=== PATIENT | female | born 1945 | race Caucasian/White ===

== ENCOUNTER 2024-05-24 01:43 | Inpatient (IN) | payer MEDICARE, OTHER, SELFPAY ==
[2024-05-23 19:57] VITALS: BP 202/120
[2024-05-23 20:36] LABS: % Basophils 0.3 % (0-2); % Eosinophils 0.3 % (0-6); % Immature Granulocytes 0.4 % (0-0.5); % Lymphocytes 15.3 % (20.5-51.1); % Monocytes 7.8 % (1.7-9.3); % Neutrophils 75.9 % (42.2-75.2); Absolute Immature Granulocytes 0.1 10^3/uL (0-0.05); Absolute Lymphocytes 1.8 10^3/uL (1.2-3.4); Absolute Monocytes 0.9 10^3/uL (0.1-0.6); Absolute Neutrophils 8.8 10^3/uL (1.4-6.5); Hematocrit 43.5 % (37.0-47.0); Hemoglobin 15.1 g/dL (12.0-16.0); Mean Corp Hgb Conc. 34.7 g/dL (33.0-37.0); Mean Corpuscular Hgb 28.4 pg (27.0-31.0); Mean Corpuscular Volume 81.8 fL (81.0-99.0); Mean Platelet Volume 11.2 fL (7.4-10.4); Nucleated Red Blood Cells % 0 %; Platelet Count 287 10^3/uL (130-400); Red Blood Cell Count 5.32 10^6/uL (4.20-5.40); Red Cell Dist. Width 13.5 % (11.5-14.5); White Blood Cell Count 11.5 10^3/uL (4.8-10.8)
[2024-05-23 20:56] LABS: ALT (SGPT) 18 U/L (0-35); AST (SGOT) 26 U/L (14-36); Alkaline Phosphatase 73 U/L (38-126); Blood Urea Nitrogen 9 mg/dl (7-17); Calcium 10.2 mg/dl (8.4-10.2); Carbon Dioxide 24 mmol/L (22-30); Chloride 102 mmol/L (98-107); Glucose 128 mg/dl (70-99); Potassium 4.1 mmol/L (3.5-5.1); Sodium 138 mmol/L (135-145); Total Protein 8.1 g/dl (6.3-8.2); eGFR > 60.00
[2024-05-23 21:09] VITALS: BP 180/86
[2024-05-23 22:00] VITALS: BP 174/74
--- NOTE | 2024-05-23 22:32 | ED.GENMED ---
History of Present Illness
General
Chief Complaint: Extremity Pain (non-traumatic)
Source: patient and previous hospital records (ED visit January 2022 with similar sore throat complaint, rapid strep was positive. Also noted to have left lower extremity extensive DVT. Started on Xarelto as well as amoxicillin)
Exam Limitations: none
Time Seen by Provider: 05/23/24 22:01
Nursing documentation reviewed up to this point in time: agreed with except (Patient denies pain)
History of Present Illness
History of Present Illness:
This is a 79-year-old woman, [id number] who resides at home, independently.
She presents with 24-hour history of right hand numbness and weakness that she first noticed yesterday evening around 10 PM when initially lying in bed. Right hand weakness has persisted throughout the day today, she admits that her hand is clumsy,
difficulty opening the refrigerator, difficulty with grasping items, right hand weakness has slightly improved throughout the day but has persisted. She notes very minimal paresthesia, but no pain.
No history of similar episodes in the past.
Since 3 AM she developed a mild sore throat and believes she may have strep throat. She has had strep throat in the past, most recently during ED visit January 2022, she presented at that time with sore throat and also had mention some swelling and
discomfort of her left lower extremity. Rapid strep was positive and ultrasound showed extensive DVT of the left lower extremity. Prior to that ED visit January 2022 she had had no prior episodes of DVT. She was placed on amoxicillin for strep
throat and was placed on Xarelto starter pack.
Since then she has been transition to Eliquis and currently on Eliquis 2.5 mg twice daily. This is her only daily medication.
She does admit to frequent strep throat as a child and sporadically throughout her adult life. No history of immunocompromise.
She denies history of hypertension but does admit that she suffers from 'whitecoat syndrome'
No history of hyperlipidemia, no history of diabetes. Lifelong non-smoker.
She also notes some mild nausea throughout the day today and had 1 episode of vomiting this afternoon. She denies hematemesis. She also admits to frequent nausea when she is feeling ill. She denies abdominal pain, no diarrhea or constipation.
Although admits to mild sore throat most noted with mild pain with swallowing, she denies neck pain, no headache, no dizziness nor lightheadedness, no chest pain or palpitations, no coughing or shortness of breath. She denies leg weakness nor
numbness nor back pain, no difficulty with ambulation.
She does admit to moderately decreased appetite today related to nausea. Has been drinking fluids only.
Past History
Past History
ED Past Medical History: Cancer (Stage I right breast cancer 2009, lumpectomy and local radiation. No history of recurrence) and Other (DVT left lower extremity January 2022.)
ED Past Surgical History: Gynecological (Right breast lumpectomy 2009. Stage I breast cancer. Local XRT.)
Social History
Tobacco: Non-smoker
Alcohol: None
Personal:
Employment: Retired
Family History
Family History: Other (Noncontributory)
Phy Exam
Physical Exam
Physical Exam:
GENERAL: Alert , in no apparent distress. 79-year-old woman appears somewhat younger than stated age, bright and alert, pleasant, appears in no acute distress.
EYE: pupils equal and reactive. anicteric. Extraocular muscles intact. Patient unable to independently blink her right eye but otherwise there is no lid lag, no facial droop. Bilateral blink appears equal.
NECK: Supple, nontender, no meningismus, no significant adenopathy. No JVD, no bruit. Nontender. Full range of motion without difficulty nor pain.
ENT: posterior pharynx is very minimally injected, there is no edema nor exudate nor ulcerations, oral mucosa is minimally dry. TM clear b/l, nares patent. Tongue is midline. Gag reflex is present and symmetric.
CARDIAC: Regular rate and rhythm. no murmur.
LUNGS: Clear breath sounds bilaterally, no acute respiratory distress, no wheezes/rales/rhonchi
ABDOMEN: Soft, nondistended, without focal tenderness, no r/g, no cvat. normoactive BS.
NEUROLOGICAL: Alert and oriented x3, cranial nerves II through XII grossly intact. Hand grasp weaker on the right with weakness and manual dexterity of the right hand. Negative drift, equal [id number]. Motor strength 5/5 bilateral lower
extremities. Good [id number]. DTR symmetric bilaterally.
SKIN: Warm and dry, normal color, skin intact. No rash.
MUSCULOSKELETAL: No C/C/E. peripheral pulses are full and equal b/l. No palpable tenderness.
PSYCH: Normal and appropriate interaction.
Scores
NIH Stroke Score
Level of Consciousness: 0 - Alert
LOC Questions: 0-Answers both correctly
LOC Commands: 0-Performs both correctly
Best Horizontal Gaze: 0-Normal
Visual Chadwick: 0=Normal, no visual loss
Facial Palsy: 0=Normal, symmetrical
Motor - Right Arm: 0=No drift 10 seconds
Motor - Left Arm: 0=No drift 10 seconds
Motor - Right Le-No drift 5 seconds
Motor - Left Le-No drift 5 seconds
Limb Ataxia: 1-Present in one limb
Sensation: 0-Normal
Best Language: 0-No aphasia
Dysarthria: 0-Normal
Extinction and Inattention: 0-No abnormality
Total Score:: 1
Thrombolytic Contraindication
Inclusion and Exclusion criteria reviewed: Yes
Reasons for NON-Tx with Thrombolytics ABSOLUTE Exclusions: Greater than 4.5 hrs from onset of sxs and Patient taking oral anticoagulant and last dose within 48 hours
IAT Contraindications: NIHSS < 6
Course
Orders/Labs/Results
Orders:
Orders
05/23/24 20:03
Electrocardiogram (*1) Urgent
Reason for Study: Hypertension, Benign
EKG- Treatment ONCE
05/23/24 20:15
CMP [Comprehensive Metabolic Panel] Urgent
Complete Blood Count/With Diff Urgent
05/23/24 22:26
CT Head W/o Iv Contrast Urgent
Comment:
Reason For Exam: right hand weakness/numbness x 24 hours
05/23/24 22:27
0.9% Sodium Chloride 1000 ml [Nss] 1,000 ml IV 200 mls/hr
Ondansetron Injectable [Zofran] 4 mg IV NOW STA
05/23/24 22:40
Troponin I Urgent
Rapid Strep Group A Urgent
MYKE Source: Throat/Pharynx
Specimen Description:
Date Specimen was Collected: 05/23/24
Time Specimen was Collected: 22:27
Abnormal Lab Results
05/23/24
20:15
WBC 11.5 H 10^3/uL
(4.8-10.8)
MPV 11.2 H fL
(7.4-10.4)
Abs Immat Gran (auto) 0.1 H 10^3/uL
(0-0.05)
Absolute Neuts (auto) 8.8 H 10^3/uL
(1.4-6.5)
Absolute Monos (auto) 0.9 H 10^3/uL
(0.1-0.6)
Neutrophils % 75.9 H %
(42.2-75.2)
Lymphocytes % 15.3 L %
(20.5-51.1)
Glucose 128 H mg/dl
(70-99)
05/23/24 20:15
05/23/24 20:15
Vital Signs
Initial and Last Documented VS:
Initial Vital Signs
Temp Pulse Resp BP Pulse Ox
98.1 F 124 24 202/120 96
05/23/24 19:57 05/23/24 19:57 05/23/24 19:57 05/23/24 19:57 05/23/24 19:57
Last Documented Vital Signs
Temp Pulse Resp BP Pulse Ox
98.1 F 103 16 174/74 97
05/23/24 19:57 05/23/24 21:09 05/23/24 21:09 05/23/24 22:00 05/23/24 22:00
MDM/Problems Addressed
Differential Diagnosis Includes:
Concern for acute focal CVA affecting the right hand. Other consideration is focal neuropathy however no history of right upper extremity injury/compression.
Less likely cervical radiculopathy, she has no neck pain, no headache.
She does complain of a mild sore throat, concern for strep pharyngitis versus viral pharyngitis. She remains afebrile.
Less likely ACS.
Patient is maintained on Eliquis however low-dose of 2.5 twice daily. She has no history of renal insufficiency, she is under 80 years of age thus technically does not meet criteria for lower dose Eliquis and should ideally be on full dose 5 mg
twice daily.
Thus far labs show mildly elevated white blood cell count of 11.5. Unremarkable chemistries.
Will check CT of the head, rapid strep.
Noted to be moderately hypertensive, improving with current systolic blood pressure 190, normal diastolic.
Clinically appears looks mildly dehydrated. Will initiate IV fluids and give Zofran for nausea.
Due to significant concern for acute CVA, concern for potential embolic phenomenon, patient is at risk for progression of symptoms and likely will require acute hospitalization.
*Radiology
Radiology exam reviewed: radiology read reviewed (CT of the head shows no evidence of acute intracranial abnormality)
*Pulse Oximetry
Patient hypoxic: no
*EKG
Interpreted by ED Provider?: Yes
Comparison EKG: no changes (Unchanged from previous January 2022 save for unifocal PVCs are new.)
Rate: tachycardiac
Rhythm: sinus and PVC's
Philpot: normal axis
Interval: normal interval
QRS Pattern: normal QRS
Ischemia: no ischemia
*Principal Examiner Interpretation
Rate: normal
Interpretation: normal
Rhythm: sinus
*Critical Care Note
Total Time (30-74mins, 75-104mins- exclusive of procedures): Not Applicable
ED Attending Note
-
Portions of this chart may have been created with voice recognition software.� Occasional wrong word or��sound alike� substitutions may have occurred due to the inherent limitations of voice recognition software.
Discharge Plan
Departure
Patient Disposition: Admit
Date of Disposition: 05/24/24
Time of Disposition: 00:09
Admit to: Telemetry
Admit to doctor: Dong
Presentation/result/management discussed w/ accepting MD/DO: Hospitalist
Condition: Fair
Discharge Problem:
acute right hand weakness r/o CVA, Acute pharyngitis, Mild nausea and vomiting
Prescriptions:
No Action
Eliquis 2.5 mg Tablet
2.5 mg PO BID
Unknown Eye Drops drops
1 drp BOTH EYES DAILYPRN PRN (Reason: contacts)
Referrals:
Nikkie Sanchez MD [Family Provider] -
Interventions
Interventions:
*Risk Screen - Suicide Last Done: 05/23/24 19:57
*General Assessment Last Done: 05/23/24 20:55
*Neglect/Abuse Screening Last Done: 05/23/24 19:57
*ED COVID-19 Vaccine History Last Done: 05/23/24 20:55
ED-Skin Assessment Last Done: 05/23/24 21:11
ED-Peripheral Vascular Assessment Last Done: 05/23/24 21:11
ED- Pulmonary Assessment Last Done: 05/23/24 21:11
ED- Neurological Assessment Last Done: 05/23/24 21:11
ED-Musculoskeletal Assessment Last Done: 05/23/24 21:11
ED- Cardiac Assessment Last Done: 05/23/24 21:11
Discharge Date and Time
Print Language: TELUGU
[2024-05-23] MEDS: ZOFRAN 4 MG IV (22:37)
[2024-05-23] MEDS: NSS 1000 IV (22:37)
[2024-05-23 23:11] LABS: Troponin I 0.013 ng/ml
[2024-05-24] VITALS (8 sets, daily range): BP systolic 102–191; BP diastolic 49–107; PULSE 64–128; BMI 19.1
--- NOTE | 2024-05-24 01:20 | HPS.HSE ---
Addendum entered and electronically signed by Jayesh Umana DO 05/24/24 02:10:
A/P:
Gastroenteritis
- N/V x1 today with persistent nausea since. Several soft BMs.
- Check stools studies if any diarrhea.
- Antiemetics / IVFs.
- Follow for new / worsening symptoms.
Original Note:
Family Physician
-
Family Physician: Nikkie Sanchez
Chief Complaint
-
R Hand Weakness / Numbness
History of Present Illness
Patient is a 79y F with PMH significant for chronic LLE DVT who presents to ED complaining of R hand pins and needles and weakness / clumsiness. Patient states that her symptoms started around 10 PM yesterday evening. She had been feeling very
well prior to this. She noted pins and needles sensation in the R hand as well as hand 'not doing what I wanted'. She did not seek medical attention at that time but went to sleep. She woke around 3 AM with nausea and had a single episode of
emesis. She had the same R hand symptoms on waking. She states that her symptoms seemed to improve somewhat throughout the day - but she continues to have significant weakness and ataxia. Patient had 3-4 episodes of soft stools throughout the
day. Non bloody. No fevers / chills. She continued to feel nauseated but had no further emesis.
With persistent R hand symptoms and nausea, patient presented to the ED this evening for evaluation.
Patient denies any headache, vision changes, RLE symptoms.
She reports a dry, scratchy throat. No pain with swallowing.
Patient denies any prior history of similar symptoms.
Medical History
Past Medical History
Past Medical History: Reports Other
Additional Past Medical History:
Chronic LLE DVT
Depression
Past Surgical History: Reports Other
Additional Past Surgical History:
Right Lumpectomy
Social History
Tobacco: Non-smoker
Alcohol: None
Drug: None
Personal:
Family History
Family History: Not pertinent
Allergies / Home Medications
Allergies reflects when Allergies were last updated in [facility].
Home Medications with original date entered in [facility]
Allergy/Medication List:
Allergies
Allergy/AdvReac Type Severity Reaction Status Date / Time
adhesive Allergy Rash Verified 05/23/24 20:00
erythromycin base Allergy Nausea Verified 05/23/24 20:00
Home Medications
Unknown Eye Drops 1 drp BOTH EYES DAILYPRN PRN contacts 05/23/24
apixaban 2.5 mg tablet (Eliquis) 2.5 mg PO BID 05/23/24
Review of Systems
-
History Source: Patient
A 12 point ROS was completed and negative except as noted: Yes
Constitutional: Denies Fever or Chills
EENT: Reports Sore Throat
Respiratory: Denies Cough or Trouble Breathing
Cardiac: Denies Chest Pain or Palpitations
Abdomen/GI: Reports Nausea, Vomiting and Diarrhea; Denies Abdominal Pain, Constipated, Bloody Stools or Black Stools
: Denies Dysuria, Frequency or Flank Pain
Musculoskeletal: Denies Joint Pain or Edema
Neurological: Reports Weakness and Numbness; Denies Dizzy or Headache
Psych: Denies Depression or Anxiety
Physical Exam
Vital Signs
Vital Signs
Temp Pulse Resp BP Pulse Ox
98.1 F 103 16 174/74 97
05/23/24 19:57 05/23/24 21:09 05/23/24 21:09 05/23/24 22:00 05/23/24 22:00
Physical Exam
General: Other (79y F in no acute distress. )
HEENT: Moist mucous membranes, PERRLA and Other (Chronic chalazions b/l upper lids.)
Respiratory: Clear; No Wheezes, Rales or Rhonchi
Cardiac: S1/S2, Regular Rhythm and Tachycardia; No Murmur
GI: Soft, Non Tender, Non Distended and Normal Bowel Sounds
Musculoskeletal: No Clubbing, No Cyanosis and No Edema
Neuro: AO x 3 and Other (R hand with weakness and ataxia. Poor [id number]. Weakness at the wrist and digits. No RLE weakness or proximal RUE weakness. No L sided weakness.)
Laboratory Results
-
05/23/24 20:15
05/23/24 20:15
Laboratory Results
Total Bilirubin 1.0 mg/dl (0.2-1.3) 05/23/24 20:15
AST 26 U/L (14-36) 05/23/24 20:15
ALT 18 U/L (0-35) 05/23/24 20:15
Alkaline Phosphatase 73 U/L (38-126) 05/23/24 20:15
Troponin I 0.013 ng/ml 05/23/24 22:40
Impression/Plan
-
A/P: Patient is a 79y F with PMH significant for chronic LLE DVT who presents to ED complaining of R hand numbness / tingling and weakness as well as N/V.
RUE Weakness / Ataxia
- Admit for further evaluation and treatment.
- Symptoms suspicious for CVA. CT head was unremarkable despite > 24 hours since symptom onset.
- Check MRI in the AM.
- Monitor for changes in Neuro status overnight.
- No A-Fib presently or by history - embolic phenomena seems unlikely.
- Will begin ASA and continue Eliquis for now (see below).
- Neuro evaluation in the AM.
- Echo, lipids, A1C, etc.
- Permissive hypertension for now and will likely require initiation of BP medications for goal of normotension prior to discharge.
Essential Hypertension
- BP 202/120 on arrival here. Patient states prior history of 'white coat hypertension' but never on any BP meds.
- Monitor BP here and will likely benefit from antihypertensive medications prior to discharge.
Chronic LLE DVT
- Initially diagnosed in 2021.
- Remains on low dose Eliquis.
- Serologic evaluation revealed Factor V Leiden trait only.
- Does not seem that CTA has been completed.
- Given extensive and now chronic LLE DVT, would recommend CTA or outpatient Vascular evaluation for possible May-Thurner Syndrome that could benefit from stenting.
DVT Prophylaxis: On Eliquis
Code Status: DNR
[2024-05-24] MEDS: LOW STRENGTH ASPIRIN 81 MG PO ×2 (03:03→09:35)
--- NOTE | 2024-05-24 04:35 | PTCARENOTE ---
05/24/2024 - PT admitted to room 414-2 from ED @02:40. PT trasferred from stretcher to bed independently. PT oreinted to room, call swift, plan of care discussed. PT AAOX3. PT able to participate in admission questions fully. Tele monitor #[id number] placed
and reading in 90's. Assessment as documented.
[2024-05-24 07:35] LABS: Hematocrit 42.4 % (37.0-47.0); Hemoglobin 14.5 g/dL (12.0-16.0); Mean Corp Hgb Conc. 34.2 g/dL (33.0-37.0); Mean Corpuscular Hgb 28.2 pg (27.0-31.0); Mean Corpuscular Volume 82.5 fL (81.0-99.0); Mean Platelet Volume 11.1 fL (7.4-10.4); Platelet Count 267 10^3/uL (130-400); Red Blood Cell Count 5.14 10^6/uL (4.20-5.40); Red Cell Dist. Width 13.5 % (11.5-14.5); White Blood Cell Count 10.6 10^3/uL (4.8-10.8)
--- NOTE | 2024-05-24 07:53 | CON.NEURO ---
Neuro Assessment/Plan
Assessment
IMPRESSIONS/RECOMMENDATIONS:
Abrupt change in right hand dexterity subsequently followed by sense of nausea and emesis
Plan
Patient was not a candidate for either thrombectomy or tenecteplase use due to timeframe out of window and symptoms less than NIH stroke scale of 6
Check MRI of brain as planned to evaluate for acute ischemic stroke which is likely
Check for vascular abnormality by means of CTA head and neck
Consideration for alternative evaluations based on above
Provide patient with usual apixaban dosing, consideration for increasing dosing to 5 mg twice daily may be given
No indication at this time for the use of antiplatelet agent
Initiate the use of atorvastatin 40 mg daily due to elevated cholesterol and LDL
Rehabilitation evaluations
Provide medical educational materials
Will continue to follow pending results. Thank you.
Consultation
Order
Date of Consultation: 05/24/24
Requesting Provider: Hospitalist
Reason for Consult: Right hand dexterity
Subjective/Objective
Subjective Data
Date of Service: May 24, 2024
Right-Handed
Patient presented to this hospital's emergency department with acute onset of right hand dysfunction. Began 24 hours prior to presentation 22:00 on 05/22/2024.
Patient now having improvement in hand function and strength (dropping objects) since onset. Upon awakening, the following morning, patient had stomach upset.
No pain although experienced stiffness in the hand. No involvement of the opposite side or other limbs.
No other known modifying factors. Episodes which were similar.
Objective Data
Vital Signs
Temp Pulse Resp BP Pulse Ox
36.9 C 100 18 163/96 94
05/24/24 02:50 05/24/24 04:27 05/24/24 02:50 05/24/24 04:27 05/24/24 04:27
Lab Results
05/24/24 07:09
Sodium 138 mmol/L (135-145) 05/23/24 20:15
Potassium 4.1 mmol/L (3.5-5.1) 05/23/24 20:15
BUN 9 mg/dl (7-17) 05/23/24 20:15
Glucose 128 mg/dl (70-99) H 05/23/24 20:15
Calcium 10.2 mg/dl (8.4-10.2) 05/23/24 20:15
Patient Allergies
adhesive Allergy (Verified 05/23/24 20:00)
Rash
erythromycin base Allergy (Verified 05/23/24 20:00)
Nausea
Review of Systems
-
History Source: Patient
All other systems: Reviewed and negative
EENT: Negative Blurry Vision, Decreased Vision or Swallowing Difficulty
Respiratory: Negative Trouble Breathing
Cardiac: Negative Chest Pain
Abdomen/GI: Nausea; Negative Incontinence of Stool
Genitourinary: Negative Incontinence
Musculoskeletal: Negative Back Pain or Neck Pain
Neuro: Negative Dizzy or Headache
Physical Exam
-
General: No Apparent Distress and Appears Stated Age
Eyes: OU Absent Papilledema, Round OU, Bel-Nor Conjunctivae and No Ptosis
HEENT: Anicteric and Moist Mucous Membranes
Neck: Full Range of Motion
Respiratory: No Dyspnea
Cardiac: No JVD
GI: Non-distended
Skin: Unremarkable
Extremities: No Clubbing, No Cyanosis and No Edema
Psych: Intact Judgement/Insight
Extended Neurological Exam
Mood & Affect: Mood Unremarkable and Affect Unremarkable
Attention Span & Concentration: Awake, Alert, Interactive and No Difficulty with 2 Step Request
Memory: Unremarkable
Tremor: Hand Tremor Absent and Head Tremor Absent
Speech: Quality Unremarkable and Quantity Unremarkable
Cranial Nerve II: Left Eye: Pupillary Reactivity Unremarkable, Pupillary Size Unremarkable and Visual Chadwick Intact
Cranial Nerve II: Right Eye: Pupillary Reactivity Unremarkable, Pupillary Size Unremarkable and Visual Chadwick Intact
Cranial Nerves III, IV, : Extraocular Movement: Extraocular Movement Full in all Directions
Cranial Nerve VII: Facial Symmetry: Normal Facial Symmetry
Cranial Nerve VIII: Hearing: Unremarkable Hearing to Normal Conversational Volume
Cranial Nerves IX, X: Palate Movement: Palate Elevation Symmetric
Cranial Nerve XI: Shoulder Shrug: Unremarkable
Cranial Nerve XII: Tongue Protusion: Midline
Muscle Strength, Overall: Full Throughout
Muscle Bulk & Tone: Bulk Unremarkable and Tone Unremarkable
Pronator Drift: Drift in Right Upper Extremity and No Drift in Lower Extremities; Negative Drift in Left Upper Extremity
Deep Tendon Reflexes: Unremarkable Throughout
Touch Sensation: Unremarkable and Double Simultaneous Stimulation Absent
Coordination: [id number] Testing Unremarkable and LEELA Satellites around Right
Babinski Sign: Absent Bilaterally
Gait & Station: Romberg Test Negative
Data Reviewed
-
CT Head: Report Reviewed
Labs: Report Reviewed
Lipid Profile: Pending
Old Records: Summarized
Medications
-
Active Medications
Generic Name Dose Route Start Last Admin
Trade Name Freq PRN Reason Stop Dose Admin
Acetaminophen 650 mg 05/24/24 03:46
Acetaminophen 325 Mg Tablet PO 06/21/24 03:45
Q4HPRN PRN
Mild Pain / Temp > 101
Apixaban 2.5 mg 05/24/24 08:00
Apixaban (Eliquis) 2.5 Mg Tablet PO 06/21/24 07:59
BID JEAN
Aspirin 81 mg 05/24/24 08:00
Aspirin 81 Mg Chewable Tablet PO 06/21/24 07:59
DAILY JEAN
Hydralazine HCl 5 mg 05/24/24 03:46
Hydralazine 20 Mg/Ml Vial IV 06/21/24 03:45
Q6HPRN PRN
SBP > 210 / DBP > 180
Ondansetron HCl 4 mg 05/24/24 03:46
Ondansetron 4 Mg/2 Ml Vial IV 06/21/24 03:45
Q6HPRN PRN
nausea and vomiting
Pantoprazole Sodium 40 mg 05/24/24 08:00
Pantoprazole Sodium 40 Mg/10 Ml Vial IV 06/21/24 07:59
DAILY JEAN
Sodium Chloride 0 flush 05/24/24 02:00
Sodium Chloride 0.9% (Flush) Syringe IV 06/21/24 01:59
PER PROTOCOL JEAN
Sodium Chloride 10 ml 05/24/24 08:00
Sodium Chloride 0.9% (Preservative Free) 10 Ml Vial IV 06/21/24 07:59
DAILY JEAN
Home Medications
�Medication �Instructions �Recorded
Unknown Eye Drops 1 drp BOTH EYES DAILYPRN PRN 05/23/24
contacts
apixaban 2.5 mg tablet (Eliquis) 2.5 mg PO BID 05/23/24
Past History
Past History
ED Past Medical History: Cancer (Stage I right breast cancer 2009, lumpectomy and local radiation) and Other (DVT left lower extremity January 2022, streptococcal throat infection)
ED Past Surgical History: Gynecological (Right breast lumpectomy 2009. Stage I breast cancer. Local XRT.)
Social History
Tobacco: Non-smoker
Alcohol: None
Personal:
Employment: Retired
Family History
Family History: Other (Reviewed and noncontributory)
[2024-05-24 08:05] LABS: Blood Urea Nitrogen 9 mg/dl (7-17); Calcium 9.9 mg/dl (8.4-10.2); Carbon Dioxide 26 mmol/L (22-30); Chloride 103 mmol/L (98-107); Estimated Creatinine Clearance 53 ml/min; Glucose 105 mg/dl (70-99); HDL Cholesterol 80 mg/dl; LDL Cholesterol, Calculated 167 mg/dl; Potassium 4.7 mmol/L (3.5-5.1); Sodium 138 mmol/L (135-145); Total Cholesterol 261 mg/dl (50-199); Triglyceride 70 mg/dl (10-149); Very Low Density Lipoprotein 14 mg/dl (0-30); eGFR > 60.00
--- NOTE | 2024-05-24 09:14 | W.PN.HOSP.TC ---
Today's Communication/Plan
-
see outlined plan
Assessment / Plan
Assessment / Plan
Assessment:
RUE Weakness/Ataxia
- admitted under TIA/CVA pathway
- continue tele
- continue NIH/Neuro checks
- initial CT head negative
- await MRI
- await CT-A
- Echo ordered
- already on Eliquis for DVTs (no hx of Afib). ASA added to regimen
- A1c 5.4%
- LDL is 167 - for now add Lipitor 40mg qpm
- Neurology following
Essential Hypertension
- BP 202/120 on arrival here. Patient states prior history of 'white coat hypertension' but never on any BP meds.
- BP now 155 this AM; start Metoprolol XL 25mg daily; assess response
Loose stools related to anxiety (anxiety surrounding hospitalization/symptoms)
- no ike diarrhea, no pain, nausea/vomiting
- continue regular diet and follow tolerance
- cancel stool studies at this time
Chronic LLE DVT
- Initially diagnosed in 2021.
- Remains on low dose Eliquis.
- Serologic evaluation revealed Factor V Leiden trait only.
- Does not seem that CTA has been completed.
- Given extensive and now chronic LLE DVT, would recommend CTA or outpatient Vascular evaluation for possible May-Thurner Syndrome that could benefit from stenting.
DVT Prophylaxis: On Eliquis
Code Status: DNR
Anticipated Discharge: 24 - 48 hours
Subjective/Interval History
-
Date of Service: May 24, 2024
admitted with R hand pins/needles, plus weakness. Symptoms intermittently persist
She denies ike diarrhea, more likely loose stools from being nervous in hospital.
Objective Data
-
Labs:
Laboratory Results
05/24/24
07:09
WBC 10.6
Hgb 14.5
Hct 42.4
Plt Count 267
Sodium 138
Potassium 4.7
Chloride 103
Carbon Dioxide 26
BUN 9
Creatinine 0.8
Glucose 105 H
Calcium 9.9
Vital Signs:
Vital Signs
Temp Pulse Resp BP Pulse Ox
98.2 F 84 16 155/90 96
05/24/24 07:18 05/24/24 07:18 05/24/24 07:18 05/24/24 07:18 05/24/24 07:18
I&O
05/23/24 05/24/24 05/25/24
06:59 06:59 06:59
Intake Total 120 / 120
Balance 120 / 120
Physical Exam
-
General: No Apparent Distress
HEENT: Normocephalic and Atraumatic
Respiratory: Negative Wheezes
Cardiac: Regular Rhythm and S1/S2
Genito-urinary: No Costovertebral Tender
Neuro: AO x 3 and Other (R hand with weakness and ataxia. Poor [id number]. Weakness at the wrist and digits. No RLE weakness or proximal RUE weakness. No L sided weakness.)
Psych: Calm
Data Reviewed
-
Total Time Spent with Patient (in minutes): 42
Diagnostic Radiology: Report Reviewed by me and Discussed with Patient
Labs: Labs Reviewed by me and Discussed with Patient
[2024-05-24 09:26] LABS: Glycohemoglobin (HgbA1c) 5.4 % (4.0-5.6)
[2024-05-24] MEDS: ELIQUIS 2.5 MG PO (09:35)
--- NOTE | 2024-05-24 12:32 | PTOTSP ---
Speech Therapy
Presentation: Patient was fully oriented and willing to participate. Patient recalled her address, home phone number, and zip code. Patient identified 10/10 items and their function during confrontational naming task without any overt difficulty.
Patient's speech and language appeared to be WNL durning informal conversations with the AD[employer] COMM[employer]ICATION[employer]ACULT[employer] MEMBER. Patient denied any communicative deficits.
Swallowing Function: Patient was observed with several straw sips of thin liquids and bites of regular consistency solids in which patient appeared to tolerate as she did not exhibit any overt clinical s/sx of aspiration or difficulty with
mastication/ manipulation. Patient denied any dysphagia complaints.
Per RN, patient tolerated medications whole with thin liquids.
Recommendations:
1) Regular consistency solids and thin liquids
2) Standard aspiration precautions
3) Medications whole with thin liquids
Plan: AD[employer] COMM[employer]ICATION[employer] FACULT[employer] MEMBER will continue to follow x1 to ensure tolerance; pending hospitalization.
--- NOTE | 2024-05-24 14:24 | W.PN.UPDATE ---
Update Note
Progress Note Update
acute CVA confirmed on MRI
d/w Neuro and recommended increase Eliquis to 5mg BID; order adjusted. No indication for anti-platelets.
[2024-05-24] MEDS: LIPITOR 40 MG PO (18:27)
[2024-05-24] MEDS: ELIQUIS 5 MG PO (19:37)
[2024-05-25 03:12] VITALS: BP 113/76
[2024-05-25 06:54] LABS: Hematocrit 42.8 % (37.0-47.0); Hemoglobin 14.5 g/dL (12.0-16.0); Mean Corp Hgb Conc. 33.9 g/dL (33.0-37.0); Mean Corpuscular Hgb 28.2 pg (27.0-31.0); Mean Corpuscular Volume 83.1 fL (81.0-99.0); Mean Platelet Volume 10.9 fL (7.4-10.4); Platelet Count 269 10^3/uL (130-400); Red Blood Cell Count 5.15 10^6/uL (4.20-5.40); Red Cell Dist. Width 13.5 % (11.5-14.5); White Blood Cell Count 7.9 10^3/uL (4.8-10.8)
[2024-05-25 07:00] VITALS: BP 104/65; BP 148/87; BP 173/100; PULSE 100; PULSE 114; PULSE 128
[2024-05-25 07:22] LABS: Blood Urea Nitrogen 14 mg/dl (7-17); Calcium 9.7 mg/dl (8.4-10.2); Carbon Dioxide 27 mmol/L (22-30); Chloride 101 mmol/L (98-107); Estimated Creatinine Clearance 42 ml/min; Glucose 99 mg/dl (70-99); Potassium 4.2 mmol/L (3.5-5.1); Sodium 136 mmol/L (135-145); eGFR 58.02
[2024-05-25] MEDS: ELIQUIS 5 MG PO (09:55)
[2024-05-25 10:55] VITALS: BP 157/98; PULSE 97; O2SAT 96
[2024-05-25 10:56] VITALS: BP 155/84; BP 157/98; PULSE 97; O2SAT 96
--- NOTE | 2024-05-25 11:14 | PTOTSP ---
PATIENT (+) FOR CVA AFFECTING RIGHT HAND ONLY. PATIENT INDEPENDENT WITH AMBULATION ON LEVEL SURFACES WELL ELEVATIONS REQUIRING NO FURTHER ACUTE CARE SKILLED P.T. WILL DISCHARGE FROM P.T. SERVICES
[2024-05-25 11:21] VITALS: BP 124/80
--- NOTE | 2024-05-25 13:48 | CM ---
Patient seen beside with granddaughter, initial assessment completed. Patient resides independently in a split level home, no steps to enter. Patient denies the use of any DME, VN, or SNF. Patient confirms PCP Dr. Powers, pharmacy [facility],
confirms prescription coverage. Patient denies food, housing/utility, or transportation insecurities at home. OT recommending outpatient therapy for patient, patient agreeable, TT sent to Hospitalist requesting script upon discharge. CM placed
Nidia coupon in back of patients chart. CM will continue to follow for all discharge planning needs.
Plan; home with script for outpatient therapy, patient needs script before d/c.
[2024-05-25 15:00] VITALS: BP 161/85
--- NOTE | 2024-05-25 16:59 | W.PN.HOSP.TC ---
Today's Communication/Plan
-
dc now
Assessment / Plan
Assessment / Plan
Assessment:
RUE Weakness/Ataxia
- admitted under TIA/CVA pathway
- continue tele
- continue NIH/Neuro checks
- initial CT head negative
- await MRI
- await CT-A
- Echo ordered
- already on Eliquis for DVTs (no hx of Afib). ASA added to regimen
- A1c 5.4%
- LDL is 167 - for now add Lipitor 40mg qpm
- Neurology following
Essential Hypertension
- BP 202/120 on arrival here. Patient states prior history of 'white coat hypertension' but never on any BP meds.
- BP now 155 this AM; will start Metoprolol XL 25mg daily; assess response, use BP cuff, checking BP 2x per day
CT-A demonstrates a 5.4 mm left upper lobe pulmonary nodule
and a 7.4 mm rt thyroid nodule
Loose stools related to anxiety (anxiety surrounding hospitalization/symptoms)
- no ike diarrhea, no pain, nausea/vomiting
- continue regular diet and follow tolerance
- cancel stool studies at this time
Chronic LLE DVT
- Initially diagnosed in 2021.
- Remains on low dose Eliquis.
- Serologic evaluation revealed Factor V Leiden trait only.
- Given extensive and now chronic LLE DVT, would recommend CTA or outpatient Vascular evaluation for possible May-Thurner Syndrome that could benefit from stenting.
DVT Prophylaxis: On Eliquis, will increase dose
Code Status: DNR
More than 30 minutes spent in discharge including
Final examination of the patient
Summarizing hospital stay
Instructions for continuing care to all relevant caregivers
Preparation of discharge records, prescriptions, and referral forms
Total time spent (in minutes): 45
Anticipated Discharge: Today
Subjective/Interval History
-
Date of Service: May 25, 2024
Feels well, anxious to go home
Objective Data
-
Labs:
Laboratory Results
05/25/24
05:48
WBC 7.9
Hgb 14.5
Hct 42.8
Plt Count 269
Sodium 136
Potassium 4.2
Chloride 101
Carbon Dioxide 27
BUN 14
Creatinine 1.0
Glucose 99
Calcium 9.7
Vital Signs:
Vital Signs
Temp Pulse Resp BP Pulse Ox
98.0 F 91 18 161/85 94
05/25/24 15:00 05/25/24 15:00 05/25/24 15:00 05/25/24 15:00 05/25/24 15:00
I&O
05/24/24 05/25/24 05/26/24
06:59 06:59 06:59
Intake Total 120 / 120 1020 / 1020
Balance 120 / 120 1020 / 1020
Review of Systems
-
History Source: Patient, Family and Coordinated Provider
Constitutional: Denies Fever
EENT: Reports No Symptoms Reported
Respiratory: Reports No Symptoms
Cardiac: Reports No Symptoms
Abdomen/GI: Reports No Symptoms
Musculoskeletal: Reports No Symptoms
Neuro: Reports Other (Rt hand paresthesia, otherwise denies symptoms)
Physical Exam
-
General: Well Developed, Well Nourished and No Apparent Distress
HEENT: Normocephalic, Atraumatic and Moist Mucous Membranes
Respiratory: Clear to Auscultation; Negative Wheezes, Rales or Rhonchi
Cardiac: Regular Rhythm and S1/S2
GI: Soft, Nontender and Nondistended
Musculoskeletal: No Clubbing, No Cyanosis and No Edema
Neuro: Awake, Alert and Oriented
--- NOTE | 2024-05-25 17:28 | W.DS.TRANS ---
DC Summary - [employer]
-
Discharge Instructions:
Discharge Diagnosis/Procedures CVA
Diet Low Sodium
Activity No restrictions
Driving Restrictions Not until seen by your Dr
Bathing Restrictions None
Blood Work cbc, bmp
Instructions:
Stand-Alone Forms:
Changes to Home Medications: Yes
Discharge Medications:
DC Medications w/original date entered in [employer]
Unknown Eye Drops 1 drp BOTH EYES DAILYPRN PRN contacts 05/23/24
apixaban 5 mg tablet (Eliquis) 5 mg PO BID #60 tabs 05/25/24
atorvastatin 40 mg tablet 40 mg PO QPM #30 tabs 05/25/24
metoprolol succinate 25 mg tablet,extended release 24 hr (Toprol XL) 25 mg PO DAILY #30 tabs 05/25/24
Home Medication Changes
Increase Eliquis to 5 mg bid
start Lipitor 40 mg daily
Start Toprol XL 25 mg daily
Pending Results: No
== END 2024-05-25 18:30 | disposition home or self-care (01) | DRG 65 ==
LOC: 4 WEST ACU 01:43
PROVIDERS: Emergency Medicine; Internal Medicine; ADMITTING PHYSICIAN Hospitalist; ATTENDING PHYSICIAN Internal Medicine; CONSULT PHYSICIAN Psychiatry & Neurology Neurology; EMERGENCY PHYSICIAN Emergency Medicine; FAMILY PHYSICIAN Internal Medicine
DX: I63.9 Cerebral infarction, unspecified (principal); G81.91 Hemiplegia, unspecified affecting right dominant side; I82.502 Chronic embolism and thrombosis of unspecified deep veins of left lower extremity; I10 Essential (primary) hypertension; D72.829 Elevated white blood cell count, unspecified; F32.A Depression, unspecified; R27.0 Ataxia, unspecified; R91.1 Solitary pulmonary nodule; E04.1 Nontoxic single thyroid nodule; F41.9 Anxiety disorder, unspecified; F43.0 Acute stress reaction; Z66 Do not resuscitate; Z85.3 Personal history of malignant neoplasm of breast; Z92.3 Personal history of irradiation; Z88.1 Allergy status to other antibiotic agents; Z91.048 Other nonmedicinal substance allergy status
CPT/HCPCS: 70450; 70496; 70498; 70551; 80048; 80053; 80061; 83036; 84484; 85025; 85027; 87070; 87880; 92610; 93005; 93306; 96374; 97161; 97165; 99285; Q9967

== ENCOUNTER → 2024-08-21 11:31 | Outpatient (REF) | payer MEDICARE, OTHER, SELFPAY ==
[2024-08-21 13:54] LABS: ALT (SGPT) 21 U/L (0-35); AST (SGOT) 24 U/L (14-36); Albumin 4.7 g/dl (3.5-5.0); Alkaline Phosphatase 74 U/L (38-126); Blood Urea Nitrogen 13 mg/dl (7-17); Calcium 9.6 mg/dl (8.4-10.2); Carbon Dioxide 25 mmol/L (22-30); Chloride 99 mmol/L (98-107); Glucose 113 mg/dl (70-99); HDL Cholesterol 79 mg/dl; LDL Cholesterol, Calculated 63 mg/dl; Potassium 4.4 mmol/L (3.5-5.1); Sodium 138 mmol/L (135-145); Total Bilirubin 0.9 mg/dl (0.2-1.3); Total Cholesterol 164 mg/dl (50-199); Total Protein 7.3 g/dl (6.3-8.2); Triglyceride 110 mg/dl (10-149); Very Low Density Lipoprotein 22 mg/dl (0-30); eGFR > 60.00
== END ==
LOC: WDC 11:31
PROVIDERS: ATTENDING PHYSICIAN Internal Medicine
DX: Z12.31 Encounter for screening mammogram for malignant neoplasm of breast (principal); E78.5 Hyperlipidemia, unspecified
CPT/HCPCS: 36415; 77063; 77067; 80053; 80061

== ENCOUNTER 2025-01-18 20:37 | Inpatient (IN) | payer MEDICARE, OTHER, SELFPAY ==
[2025-01-18] VITALS (23 sets, daily range): BP systolic 67–150; BP diastolic 37–97; BMI 19.6; BMI 21.5
[2025-01-18 13:22] LABS: % Basophils 0.1 % (0-2); % Immature Granulocytes 0.5 % (0-0.5); % Monocytes 6.9 % (1.7-9.3); % Neutrophils 86.5 % (42.2-75.2); Absolute Immature Granulocytes 0.1 10^3/uL (0-0.05); Absolute Lymphocytes 1.3 10^3/uL (1.2-3.4); Absolute Monocytes 1.5 10^3/uL (0.1-0.6); Absolute Neutrophils 19.1 10^3/uL (1.4-6.5); Hematocrit 42.7 % (37.0-47.0); Hemoglobin 13.9 g/dL (12.0-16.0); Mean Corp Hgb Conc. 32.6 g/dL (33.0-37.0); Mean Corpuscular Hgb 28.4 pg (27.0-31.0); Mean Corpuscular Volume 87.3 fL (81.0-99.0); Mean Platelet Volume 10.9 fL (7.4-10.4); Nucleated Red Blood Cells % 0 %; Platelet Count 287 10^3/uL (130-400); Red Blood Cell Count 4.89 10^6/uL (4.20-5.40); Red Cell Dist. Width 13.1 % (11.5-14.5); White Blood Cell Count 22.2 10^3/uL (4.8-10.8)
--- NOTE | 2025-01-18 13:29 | EDRN ---
the pt was brought to ED Bed #9 by drug and alcohol counsellor via w/c, the pt appeared lethargic however the pt is AAO, able to answer questions appropriately and able to move all extremities, the pt was able to stand and pivot x2 assist to get in stretcher
[2025-01-18] MEDS: NSS 1000 IV (13:31)
[2025-01-18 13:37] LABS: AST (SGOT) 28 U/L (14-36); Albumin 4.4 g/dl (3.5-5.0); Alkaline Phosphatase 75 U/L (38-126); Blood Urea Nitrogen 15 mg/dl (7-17); Calcium 9.7 mg/dl (8.4-10.2); Carbon Dioxide 14 mmol/L (22-30); Chloride 100 mmol/L (98-107); Estimated Creatinine Clearance 38 ml/min; Glucose 298 mg/dl (70-99); Potassium 4.3 mmol/L (3.5-5.1); Sodium 134 mmol/L (135-145); Total Bilirubin 1.1 mg/dl (0.2-1.3); Total Protein 6.8 g/dl (6.3-8.2); eGFR 51.75
--- NOTE | 2025-01-18 13:39 | EDRN ---
awaiting for a provider to see the pt
[2025-01-18 13:46] LABS: Troponin I < 0.012 ng/ml
--- NOTE | 2025-01-18 13:47 | EDRN ---
Dr. Shannon currently at the pts bedside
[2025-01-18 13:48] LABS: ALT (SGPT) 32 U/L (0-35); Lipase 135 U/L (23-300)
--- NOTE | 2025-01-18 13:57 | ED.GENMED ---
History of Present Illness
General
Chief Complaint: Change Level of Consciousness
Source: patient and witness
Exam Limitations: none
Time Seen by Provider: 01/18/25 13:40
Nursing documentation reviewed up to this point in time: agreed with
History of Present Illness
History of Present Illness:
79-year-old female DVT on Eliquis, metoprolol, presents with a few days of nausea vomiting lower abdominal pain, nearly passed out today, no headache no slurred speech no chest pain no history of diabetes though she states her blood sugar was up on
a prior visit has not been on steroids, no family history of diabetes no drugs or alcohol non-smoker she takes Eliquis due to DVT told she needs to be on it lifelong
Past History
Past History
ED Past Medical History: Cancer (Stage I right breast cancer 2009, lumpectomy and local radiation) and Other (DVT left lower extremity January 2022, streptococcal throat infection)
ED Past Surgical History: Gynecological (Right breast lumpectomy 2009. Stage I breast cancer. Local XRT.)
Social History
Tobacco: Non-smoker
Alcohol: None
Drug: None
Personal:
Living: with family
Employment: Retired
Family History
Family History: Negative Diabetes
Review of Systems
Review of Systems
All Other Systems: Not applicable
Constitutional: Reports fatigue; Denies fever
EENT: Reports no symptoms
Respiratory: Denies trouble breathing
Cardiac: Denies chest pain
ABD/GI: Reports abdominal pain, nausea and vomiting; Denies diarrhea, bloody stools or black stools
: Reports no symptoms; Denies urgency or discharge
Endocrine: Reports polyuria; Denies polydipsia
Hematologic/Lymphatic: Reports no symptoms
Phy Exam
Physical Exam
Physical Exam:
Physical Exam
General: no apparent distress, not acutely ill
Neck: dry lips
Heart: s1/s2 regular rate and rhythm, no murmur. equal radial pulses.
Lungs: no acute respiratory distress. clear bilaterally
Abdomen: Tender in the right lower abdomen
Neuro: alert and oriented. no focal neurological deficits
Skin: no rash
Psychiatric: well kept. interactive and cooperative
Extremities: no edema.
Course
Orders/Labs/Results
Orders:
Orders
01/18/25
Electrocardiogram (*1) Stat
Comment: DONE EMR
Electrocardiogram (*1) Stat
Reason for Study: Chest Pain
Comment: DONE
01/18/25 13:16
B-Hydroxybutyrate Urgent
C-Reactive Protein Urgent
Comment: ADD ON
Complete Blood Count/With Diff Urgent
Comprehensive Metabolic Panel Urgent
Glycohemoglobin (HgbA1c) Urgent
Lipase Urgent
Comment: ADD ON
Troponin I Urgent
01/18/25 13:22
Add On- LAB Urgent
Tests Added?: Lipase, CRP
01/18/25 13:31
0.9% Sodium Chloride 1000 ml [Nss] 1,000 ml IV BOLUS
01/18/25 13:50
CT Abd/pelvis W Iv Cont Urgent
Comment:
Reason For Exam: rlq pain vomiting
01/18/25 13:51
Add On- LAB Urgent
Tests Added?: Beta hydroxybutyrate, hemoglobin A1c
Ondansetron Injectable [Zofran] 4 mg IV NOW STA
01/18/25 15:00
EKG with chest pain [ECG as needed] As Directed
ECG as needed for:: Chest Pain
Rhythm Change
01/18/25 15:13
0.9% Sodium Chloride 500 ml [Nss] 500 ml IV BOLUS
Ondansetron Injectable [Zofran] 4 mg IV NOW STA
01/18/25 18:14
Bedside Glucose- Treatment ONCE
01/18/25 18:25
Basic Metabolic Panel Urgent
01/18/25 18:30
Reg Insulin 100 Units/100 ml [Novolin R Insulin Infusion] 100 units in 100 ml IV ORDERED RATE
Abnormal Lab Results
01/18/25 01/18/25 01/18/25
13:16 18:17 18:25
WBC 22.2 H 10^3/uL
(4.8-10.8)
MCHC 32.6 L g/dL
(33.0-37.0)
MPV 10.9 H fL
(7.4-10.4)
Abs Immat Gran (auto) 0.1 H 10^3/uL
(0-0.05)
Absolute Neuts (auto) 19.1 H 10^3/uL
(1.4-6.5)
Absolute Monos (auto) 1.5 H 10^3/uL
(0.1-0.6)
Neutrophils % 86.5 H %
(42.2-75.2)
Lymphocytes % 6.0 L %
(20.5-51.1)
Sodium 134 L mmol/L 130 L mmol/L
(135-145) (135-145)
Carbon Dioxide 14 L* mmol/L 18 L mmol/L
(22-30) (22-30)
Creatinine 1.1 H mg/dL
(0.6-1.0)
Glucose 298 H mg/dl 161 H mg/dl
(70-99) (70-99)
Calcium 8.2 L D mg/dl
(8.4-10.2)
B-Hydroxybutyrate 0.36 H mmol/L
(0.02-0.27)
POC Glucose 150 H mg/dl
(70-99)
01/18/25 13:16
01/18/25 18:25
Vital Signs
Initial and Last Documented VS:
Initial Vital Signs
Pulse Resp BP Pulse Ox
111 27 132/55 96
01/18/25 13:11 01/18/25 13:11 01/18/25 13:11 01/18/25 13:11
Last Documented Vital Signs
Temp Pulse Resp BP Pulse Ox
98.5 F 95 17 123/59 97
01/18/25 13:23 01/18/25 17:03 01/18/25 17:03 01/18/25 17:03 01/18/25 17:03
MDM/Problems Addressed
Differential Diagnosis Includes:
Vasovagal appendicitis bowel obstruction biliary colic, pancreatitis DKA hyperglycemia
MDM/Problems Addressed:
Vomiting near syncope hyperglycemia
*Radiology
Radiology exam reviewed: radiology read reviewed
*Pulse Oximetry
Patient hypoxic: no
*EKG
Interpreted by ED Provider?: Yes
Interpretation: abnormal
Comparison EKG: no comparison EKG present
Heart Rate: 118
Rate: tachycardiac
Rhythm: sinus
Ischemia: non-specific ST changes
*Explosives Operator Interpretation
Rate: tachycardiac
Interpretation: abnormal
Heart Rate: 118
Rhythm: sinus
*Critical Care Note
Total Time (30-74mins, 75-104mins- exclusive of procedures): 34
Data Reviewed
Review of Other/Old Records Reveals: Labs
Source: patient
Update Note
Update Note:
Update labs noted
Will check A1c beta hydroxybutyrate check CT of the abdomen
Update patient with a vasovagal episode apparently getting on the CAT scan table CT was held off and back to the ER
6:[address] scan reviewed with radiology apparent ascites with pelvic mass patient denies any abdominal trauma, patient updated with my leading diagnosis, will need to be admitted for diabetes control consideration for specialty consultation
ED Attending Note
-
Portions of this chart may have been created with voice recognition software.� Occasional wrong word or��sound alike� substitutions may have occurred due to the inherent limitations of voice recognition software.
Discharge Plan
Departure
Patient Disposition: Admit
Date of Disposition: 01/18/25
Time of Disposition: 18:48
Admit to: ICU
Presentation/result/management discussed w/ accepting MD/DO: Hospitalist
Condition: Fair
Discharge Problem:
Acute hyperglycemia
Prescriptions:
No Action
Eliquis 5 mg Tablet
5 mg PO BID Qty: 60 3RF
metoprolol succinate [Toprol XL] 25 mg tablet extended release 24 hr
25 mg PO DAILY Qty: 30 5RF
atorvastatin 40 mg tablet
40 mg PO HS
Referrals:
Nikkie Sanchez MD [Family Provider] -
Interventions
Interventions:
*Risk Screen - Suicide Last Done: 01/18/25 13:23
*General Assessment Last Done: 01/18/25 13:23
*Neglect/Abuse Screening Last Done: 01/18/25 13:23
ED- Fall Risk Assessment Last Done: 01/18/25 13:23
*ED COVID-19 Vaccine History Last Done: 01/18/25 13:23
ED- Pulmonary Assessment Last Done: 01/18/25 13:23
ED-Psychological Assessment Last Done: 01/18/25 13:23
ED- Neurological Assessment Last Done: 01/18/25 13:23
ED- Cardiac Assessment Last Done: 01/18/25 13:23
Discharge Date and Time
Print Language: BELARUSIAN
[2025-01-18] MEDS: ZOFRAN 4 MG IV ×2 (14:14→15:39)
[2025-01-18 14:56] LABS: Glycohemoglobin (HgbA1c) 5.6 % (4.0-5.6)
[2025-01-18] MEDS: NSS 500 IV ×2 (15:39→19:19)
--- NOTE | 2025-01-18 18:02 | EDRN ---
the pt was taken to CT scan by this RN, this RN stayed with the pt in CT scan, no issues during CT scan, the pt was taken back to ED Bed #9 by this RN, MARTIN CRABTREE, will continue to monitor the pt closely
[2025-01-18 18:16] LABS: B-Hydroxybutyrate 0.36 mmol/L (0.02-0.27)
[2025-01-18 18:18] LABS: Glucose - Point of Care 150 mg/dl (70-99)
--- NOTE | 2025-01-18 18:22 | EDRN ---
Dr. Shannon currently at the pts bedside
[2025-01-18] MEDS: NOVOLIN R INSULIN INFUSION 100 IV (18:39)
[2025-01-18 18:42] LABS: Blood Urea Nitrogen 15 mg/dl (7-17); Calcium 8.2 mg/dl (8.4-10.2); Carbon Dioxide 18 mmol/L (22-30); Chloride 100 mmol/L (98-107); Estimated Creatinine Clearance 53 ml/min; Glucose 161 mg/dl (70-99); Potassium 4.5 mmol/L (3.5-5.1); Sodium 130 mmol/L (135-145); eGFR > 60.00
[2025-01-18] MEDS: D5/0.45%NACL 500 IV ×2 (19:10→22:31)
--- NOTE | 2025-01-18 19:37 | HPS.HSE ---
Family Physician
-
Family Physician: Nikkei Sanchez
Chief Complaint
-
Abdominal pain, nausea vomiting
History of Present Illness
This is a 79-year-old female with past medical history significant for breast cancer status post lumpectomy and radiation, history of DVT on anticoagulation presenting to the emergency department with nausea vomiting and lower quadrant abdominal
pain.
Patient reported a right sudden onset of abdominal discomfort starting last night. This was associated with bilious emesis. Denies any bloody emesis. She reported the abdominal pain is a squeezing sensation localized to the bilateral lower
quadrants without any radiation to the groin or back. She denied diarrhea. She denies constipation. She stated that she last had a bowel movement 1 day ago and it was regular and nonbloody. She denies any fevers or chills. She denies any new
medications.
Patient denies having chest pain or shortness of breath. She did have an episode where she passed out today in the setting of nausea vomiting.
On arrival in the emergency department she was afebrile, blood pressure was 100/60 with a pulse of 95 and satting 100% on room air. Troponin was 0.012, ECG showed normal sinus rhythm at a rate of 99. She had a white count of 22,000 with a
hemoglobin of 13.9 and a platelet of 287. Blood glucose was 170. Sodium 130 potassium 4.5 chloride 100 and bicarb 18 she had a normal BUN and creatinine of 15 and 0.8. LFTs were normal. Lipase was normal.
Beta-hydroxybutyrate was elevated at 0.36.
CT abdomen pelvis: Extremely large heterogeneous complex 'mass' appearing to extend from the soft tissues of the superior right true pelvis into the abdomen measuring up to approximately 15.8 cm with some small to moderate volume mildly complex
ascites. Most likely differential diagnostic possibility would be ovarian origin such as OVARIAN CYSTADENOMA or OVARIAN CYSTADENOCARCINOMA. Exophytic uterine mass would be less likely. Other etiology such as a mass of other origin or large hematoma
would also be less likely.
Medical History
Past Medical History
Past Medical History: Reports Cancer (Right breast cancer status post lumpectomy 2009, status post radiation.) and Other (DVT)
Past Surgical History: Reports Other (Right breast lumpectomy 2009.)
Social History
Tobacco: Non-smoker
Alcohol: None
Drug: None
Employment: Not Employed
Family History
Family History: Not pertinent
Allergies / Home Medications
Allergies reflects when Allergies were last updated in [employer].
Home Medications with original date entered in [employer]
Allergy/Medication List:
Allergies
Allergy/AdvReac Type Severity Reaction Status Date / Time
adhesive Allergy Rash Verified 05/23/24 20:00
erythromycin base Allergy Nausea Verified 05/23/24 20:00
Home Medications
apixaban 5 mg tablet (Eliquis) 5 mg PO BID #60 tabs 05/25/24
metoprolol succinate 25 mg tablet,extended release 24 hr (Toprol XL) 25 mg PO DAILY #30 tabs 05/25/24
atorvastatin 40 mg tablet 40 mg PO HS 01/18/25
Review of Systems
-
History Source: Patient
Constitutional: Reports No Symptoms
EENT: Reports No Symptoms
Respiratory: Reports No Symptoms
Cardiac: Reports No Symptoms
Abdomen/GI: Reports Abdominal Pain, Nausea and Vomiting
: Reports No Symptoms
Musculoskeletal: Reports No Symptoms
Skin: Reports No Symptoms
Neurological: Reports No Symptoms
Endocrine: Reports No Symptoms
Hematologic/Lymphatic: Reports No Symptoms
Psych: Reports No Symptoms
Physical Exam
Vital Signs
Vital Signs
Temp Pulse Resp BP Pulse Ox
98.5 F 95 17 83/52 100
01/18/25 13:23 01/18/25 19:00 01/18/25 19:00 01/18/25 19:00 01/18/25 19:00
Physical Exam
General: Well Developed and Pain
HEENT: NormoCephalic, Anicteric and Moist mucous membranes
Respiratory: Clear
Cardiac: S1/S2 and Regular Rhythm
Breast: Deferred by me
GI: Soft, Non Distended, Normal Bowel Sounds and Tender
Rectal: Deferred by Provider
Genito-urinary: Deferred by me
Musculoskeletal: No Cyanosis and No Edema
Skin: Warm
Neuro: AO x 3 and Nonfocal/grossly intact
Hematologic/Lymphatic: No Lymphadenopathy
Psych: Calm
Laboratory Results
-
01/18/25 13:16
01/18/25 18:25
Laboratory Results
Total Bilirubin 1.1 mg/dl (0.2-1.3) 01/18/25 13:16
AST 28 U/L (14-36) 01/18/25 13:16
ALT 32 U/L (0-35) 01/18/25 13:16
Alkaline Phosphatase 75 U/L (38-126) 01/18/25 13:16
Troponin I < 0.012 ng/ml 01/18/25 13:16
Lipase 135 U/L (23-300) 01/18/25 13:16
Data Reviewed
-
CT Scan: Report Reviewed by me
Medical Tests (Nuc Med, Echo, EKG etc): Image Personally Visualized and interpreted
Lab Data: Labs Reviewed by me
Old Records: Reviewed
Impression/Plan
-
IMPRESSION:
79 y.o with h/o breast cancer and DVT presenting to ED with acute episode of abdominal pain with associated N/V and found to have a large pelvic mass. Mild 'DKA' on labs with glucose 160 and bHB 0.65. Bicarb 14.
PLAN:
1. DKA - Mild DKA. No known h/o diabetes.
- admit to IMU
- continue insulin DKA protocol for now
- a1c in am
- NPO except sips and meds for now
2. Abdominal mass - Most likely differential diagnostic possibility would be ovarian origin such as ovarian cystadenoma or cystadenocarcinoma. Exophytic uterine mass would be less likely.
- pain control and antiemetics
- check CA 19-9
- mri pelvis w/w/o contrast, CT chest. per Dr. Krause
- pelvis us per Dr. Krause
- Oncology consult.
3. DVT
- continue eliquis
Code status - DNR
[2025-01-18 19:39] LABS: Glucose - Point of Care 139 mg/dl (70-99)
[2025-01-18 20:39] LABS: Glucose - Point of Care 195 mg/dl (70-99)
[2025-01-18 21:09] LABS: Glucose - Point of Care 187 mg/dl (70-99)
--- NOTE | 2025-01-18 21:33 | CON.MD ---
Consultation - Medical
-
79 yo female presented to ER with c/o nausea/vomiting that started at midnight this am. Reports abdominal bloating and discomfort. [place] a bit dizzy with nausea episode and felt 'something was not right' so she came to ER. Accompanied by her
neighbor who is a nurse.
CT evaluation revealed a large heterogeneous complex mass felt to be likely ovarian in origin and less likely exophytic uterine mass. There is moderate ascites, mildly complex. Uterus is deviated slightly to left of midline by the mass. Associate Professor Of Geology and customs entry clerk
oncology consults requested by Dr. Shannon.
ROS: +abdominal bloating, +nausea/vomiting, no diarrhea, no postmenopausal bleeding or vaginal discharge. Has not been able to hold anything down today.
PMH: breast cancer dx 2013 invasive ductal treated with lumpectomy and radiation therapy. Uncertain if she had genetic testing. Elevated cholesterol, Factor V Leiden (heterogeneous) mutation carrier, hx DVT, hx of right wrist numbness (? stroke)
which resolved on its own. States was not considered a TIA.
PSH: right breast lumpectomy
OBHx: 4 children
Associate Professor Of Geology hx: has not seen Associate Professor Of Geology doctor in over 8 yrs. Denies hx of abnormal pap, ovarian cysts, fibroids. Denies postmenopausal bleeding.
ALL: adhesive-rash
Meds: Eliquis 5mg BID, metoprolol 25mg daily, atorvastatin 40mg HS
Sochx: ; denies tobacco, denies alcohol or rec drug use. Children: 3 live out of [facility], one lives in [place].
Famhx: daughter had breast cancer-states BRCA negative. ; famhx of diabetes
PE: Vss BP 139/58
Appearance: pleasant female, NAD.
Cor: regular
Pulm: normal respiratory rate
abd: soft, slightly distended, nontender
Pelvic exam deferred
ext: no calf pain
Pelvic mass 15.8 x 14.2 x 14.8 cm with nodular components. Moderate complex ascites.
A/P:
1. Large pelvic mass suspicious for ovarian mass less likely exophytic uterine mass. Possible cystadenoma vs cystadenocarcinoma.
-Further imaging is recommended : pelvic TVUS, pelvic MRI with and without contrast, tumor marker labs.
-Discussed all of this with patient.
-Will need surgical intervention for dx. Associate Professor Of Geology oncology will need to be involved. Dr Krause out of town this weekend. He asked that [facility] be consulted to see her this weekend. Pt is known to Dr. Sanders who saw her for DVT.
She plans to see pt in am (info from [facility] text)
2. Hx right breast cancer stage 1 s/p [facility] breast lumpectomy, radiation therapy 2013
3. Hx heterozygous Factor V mutation carrier-on eliquis
Time 40 min
[2025-01-18 21:49] LABS: Blood Urea Nitrogen 15 mg/dl (7-17); Carbon Dioxide 14 mmol/L (22-30); Chloride 105 mmol/L (98-107); Estimated Creatinine Clearance 47 ml/min; Glucose 209 mg/dl (70-99); Sodium 131 mmol/L (135-145); eGFR > 60.00
[2025-01-18 23:42] LABS: CEA 165 ng/ml
[2025-01-18 23:49] LABS: Glucose - Point of Care 138 mg/dl (70-99)
[2025-01-19] VITALS (15 sets, daily range): BP systolic 82–151; BP diastolic 29–125
[2025-01-19 00:57] LABS: Blood Urea Nitrogen 16 mg/dl (7-17); Calcium 8.3 mg/dl (8.4-10.2); Carbon Dioxide 15 mmol/L (22-30); Chloride 106 mmol/L (98-107); Estimated Creatinine Clearance 51 ml/min; Glucose 160 mg/dl (70-99); Potassium 4.3 mmol/L (3.5-5.1); Sodium 135 mmol/L (135-145); eGFR > 60.00
[2025-01-19] MEDS: D5/0.45%NSS with KCL 20 MEQ 1000 IV ×3 (01:19→12:03)
--- NOTE | 2025-01-19 01:27 | PTCARENOTE ---
received patient by stretcher from ED. Patient on insulin gtt with Q2 accuchecks and Q4 bmp. Patient is not ccomplaining of any pain and is resting comfortably in bed . call swift in reach.
[2025-01-19 01:37] LABS: Glucose - Point of Care 171 mg/dl (70-99)
[2025-01-19] MEDS: ZOFRAN 4 MG IV ×3 (03:14→19:41)
[2025-01-19 03:42] LABS: Glucose - Point of Care 163 mg/dl (70-99)
--- NOTE | 2025-01-19 04:35 | PTCARENOTE ---
Patient vomited 200 ml of brown emesis. Gave prn IV zofran. Continuing to monitor.
[2025-01-19 05:40] LABS: Blood Urea Nitrogen 18 mg/dl (7-17); Calcium 8.1 mg/dl (8.4-10.2); Carbon Dioxide 17 mmol/L (22-30); Chloride 105 mmol/L (98-107); Estimated Creatinine Clearance 46 ml/min; Glucose 154 mg/dl (70-99); Potassium 4.5 mmol/L (3.5-5.1); Sodium 133 mmol/L (135-145); eGFR 58.02
[2025-01-19 05:54] LABS: Glucose - Point of Care 182 mg/dl (70-99)
[2025-01-19 06:15] LABS: Hematocrit 28.8 % (37.0-47.0); Hemoglobin 9.6 g/dL (12.0-16.0); Mean Corp Hgb Conc. 33.3 g/dL (33.0-37.0); Mean Platelet Volume 11.7 fL (7.4-10.4); Platelet Count 165 10^3/uL (130-400); Red Blood Cell Count 3.43 10^6/uL (4.20-5.40); Red Cell Dist. Width 13.4 % (11.5-14.5); White Blood Cell Count 19.9 10^3/uL (4.8-10.8)
[2025-01-19 07:32] LABS: Glucose - Point of Care 148 mg/dl (70-99)
[2025-01-19 09:18] LABS: Glucose - Point of Care 133 mg/dl (70-99)
[2025-01-19 11:02] LABS: Blood Urea Nitrogen 19 mg/dl (7-17); Calcium 7.7 mg/dl (8.4-10.2); Carbon Dioxide 17 mmol/L (22-30); Chloride 107 mmol/L (98-107); Estimated Creatinine Clearance 38 ml/min; Glucose 196 mg/dl (70-99); Potassium 5.4 mmol/L (3.5-5.1); Sodium 130 mmol/L (135-145); eGFR 46.62
[2025-01-19 11:20] LABS: Glucose - Point of Care 142 mg/dl (70-99)
--- NOTE | 2025-01-19 12:46 | PTCARENOTE ---
pt requesting to have any imaging completed at later date due to nausea. zofran given as ordered for nausea. MD notified.
[2025-01-19 13:20] LABS: Glucose - Point of Care 149 mg/dl (70-99)
[2025-01-19 15:10] LABS: Glucose - Point of Care 131 mg/dl (70-99)
[2025-01-19 15:37] LABS: Blood Urea Nitrogen 20 mg/dl (7-17); Calcium 7.9 mg/dl (8.4-10.2); Carbon Dioxide 14 mmol/L (22-30); Chloride 108 mmol/L (98-107); Estimated Creatinine Clearance 38 ml/min; Glucose 127 mg/dl (70-99); Potassium 5.4 mmol/L (3.5-5.1); Sodium 130 mmol/L (135-145); eGFR 46.62
--- NOTE | 2025-01-19 16:24 | W.PN.HOSP.TC ---
Today's Communication/Plan
-
Assessment / Plan
Assessment / Plan
Gen-AAOx3, NAD
HEENT-NC, AT, anicteric, dry oral mm
Neck-supple
CV-reg, no M, +S1/S2
Lungs-clear B/L
Abd-soft, palpable mass suprapubic region
Musculoskeletal-no edema, no deformity
Skin-warm and dry
Neuro-grossly non-focal
Psych-calm, cooperative
Ms. Golden is a 79-year-old female with a medical history of breast cancer (diagnosed 2013, status postlumpectomy and radiation), factor V Leiden mutation carrier, and history of DVT (on Eliquis) who presented with nausea and vomiting with
associated abdominal bloating. CT imaging revealed a large heterogeneous complex mass appeared to be originating from the right ovary. Labs revealed a gapped acidosis. She was mildly hyperglycemic and had an elevated beta hydroxybutyrate. She
was started on an insulin drip with DKA protocol and admitted for further evaluation and management.
Metabolic acidosis:
-No history of diabetes
-Doubt her presentation is actually diabetic ketoacidosis although it is metabolic in origin and she did have a elevated beta hydroxybutyrate on initial labs
-Her anion gap has been normal times at least 2, insulin drip discontinued, continue Accu-Cheks every 6 hours with sliding scale insulin as needed
-Will continue aggressive IV fluid resuscitation, bicarb drip
-Check electrolytes and replete as needed
-Check BMP again at 8:00 PM, can repeat again in the morning if improving
-Check blood and urine cultures
-Suspect this is due to apparent ovarian malignancy, appreciate POSITION CLASSIFICATION SPECIALIST and oncology input
-Will start empiric antibiotics after cultures obtained considering acidosis and leukocytosis, although leukocytosis is possibly reactive in the setting of malignancy
Ovarian mass:
-Appears malignant
-Appreciate POSITION CLASSIFICATION SPECIALIST and oncology input
-Will pursue further imaging for characterization of ovarian mass for guidance of POSITION CLASSIFICATION SPECIALIST and oncology
-Supportive care with pain control and antiemetics as needed
History of DVT:
-Continue home Eliquis
CODE STATUS: DNR
Anticipated Discharge: > 48 hours
Subjective/Interval History
-
Date of Service: January 19, 2025
Patient was seen and examined at bedside this morning. Still feeling nauseous. On insulin drip.
Objective Data
-
Labs:
Laboratory Results
01/19/25 01/19/25 01/19/25
04:24 10:08 15:04
WBC 19.9 H
Hgb 9.6 L D
Hct 28.8 L
Plt Count 165 D
Sodium 133 L 130 L 130 L
Potassium 4.5 5.4 H 5.4 H
Chloride 105 107 108 H
Carbon Dioxide 17 L 17 L 14 L*
BUN 18 H 19 H 20 H
Creatinine 1.0 1.2 H 1.2 H
Glucose 154 H 196 H 127 H
Calcium 8.1 L 7.7 L 7.9 L
01/19/25 01/19/25 01/19/25
16:00 18:00 20:00
WBC
Hgb
Hct
Plt Count
Sodium Cancelled Pending Cancelled
Potassium Cancelled Pending Cancelled
Chloride Cancelled Pending Cancelled
Carbon Dioxide Cancelled Pending Cancelled
BUN Cancelled Pending Cancelled
Creatinine Cancelled Pending Cancelled
Glucose Cancelled Pending Cancelled
Calcium Cancelled Pending Cancelled
Vital Signs:
Vital Signs
Temp Pulse Resp BP Pulse Ox
97.3 F 108 17 82/59 98
01/19/25 11:05 01/19/25 06:15 01/19/25 06:15 01/19/25 06:02 01/19/25 06:15
I&O
02/28/25 03/01/25 03/02/25
06:59 06:59 06:59
Output Total 200 / 200
Balance -200 / -200
Review of Systems
-
History Source: Patient
All other systems: Reviewed and negative
Abdomen/GI: Reports Abdominal Pain and Nausea
Physical Exam
-
General: No Apparent Distress
[2025-01-19 16:42] LABS: Magnesium 1.8 mg/dl (1.6-2.3); Phosphorus 1.9 mg/dl (2.5-4.5)
[2025-01-19] MEDS: SODIUM BICARBONATE 1075 MEQ IV (17:31)
[2025-01-19] MEDS: D5/0.45%NSS with KCL 20 MEQ IV ×3 (17:31→23:57)
[2025-01-19 18:19] LABS: Glucose - Point of Care 110 mg/dl (70-99)
[2025-01-19] MEDS: SODIUM PHOSPHATE 255 MEQ IV (18:35)
[2025-01-19 20:18] LABS: Blood Urea Nitrogen 24 mg/dl (7-17); Calcium 7.7 mg/dl (8.4-10.2); Carbon Dioxide 16 mmol/L (22-30); Chloride 107 mmol/L (98-107); Estimated Creatinine Clearance 35 ml/min; Glucose 113 mg/dl (70-99); Potassium 5.9 mmol/L (3.5-5.1); Sodium 128 mmol/L (135-145); eGFR 42.35
--- NOTE | 2025-01-19 20:43 | CON.ONC ---
Impression
Impression
Large pelvic mass
Hx DCIS s/p lumpectomy
DKA
Microcytic anemia
Leukocytosis
Plan
Plan
Size of mass and CEA elevation are concerning for malignancy. Cystadenoma also a possibility.
Continue anti-emetics, may benefit from low-dose steroid to control nausea.
Hypotension likely contributing to queasiness
Personally reviewed CT A/P,
Discussed that if chest CT shows masses, would biopsy to establish both the primary and the metastatic status.
If no met dz then would anticipate surgical resection.
Dr. Krause should be available to see pt early this coming week.
Thank you for consult, will follow along with you.
Patient History
History of Present Illness
79-year-old woman known to me from the outpatient setting for history of DVT with factor V Leiden gene mutation heterozygosity, continuing on long-term prophylaxis-dose anticoagulation. She has a history of ductal carcinoma in situ status
postlumpectomy and radiation in 2009. Patient came to the emergency room 01/18 with abdominal pain, nausea and vomiting complicated by syncopal episode. Found to be mildly hypotensive in the ED, in DKA. Workup for abdominal pain included CT
abdomen pelvis showing a large heterogeneous complex mass involving pelvis and abdomen. Patient denies symptoms prior to acute presentation. Tumor markers were sent including CEA which is elevated at 165. Other tumor markers are pending. Pt
feeling too queasy today to undergo additional imaging studies.
Past-Medical/Surgical History
Past Medical History
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
DVT left lower extremity January 2022
Factor V Leiden heterozygote
Streptococcal throat infection
Past Surgical History
Right breast lumpectomy 2009
Social History
Tobacco: Non-smoker
Alcohol: None
Drug: None
Personal:
Living: with family
Employment: Retired
Family History
Daughter diagnosed with breast cancer at 45, very recent germline mutation testing negative
Patient Medication
�Medication �Instructions �Recorded �Confirmed �Last Taken �Type
apixaban 5 mg tablet (Eliquis) 5 mg PO BID #60 tabs 05/25/24 01/18/25 01/17/25 Rx
metoprolol succinate 25 mg 25 mg PO DAILY #30 tabs 05/25/24 01/18/25 01/17/25 Rx
tablet,extended release 24 hr
(Toprol XL)
atorvastatin 40 mg tablet 40 mg PO HS 01/18/25 01/18/25 01/17/25 History
Active Medications
Generic Name Dose Route Start Last Admin
Trade Name Freq PRN Reason Stop Dose Admin
Acetaminophen 650 mg 01/18/25 23:31
Acetaminophen 325 Mg Tablet PO 02/15/25 23:30
Q6HPRN PRN
mild pain/ fever>100.5F
Apixaban 5 mg 01/18/25 23:31 01/19/25 20:07
Apixaban (Eliquis) 5 Mg Tablet PO 02/15/25 23:30 Not Given
BID JEAN
Atorvastatin Calcium 40 mg 01/18/25 23:31 01/19/25 00:08
Atorvastatin (Lipitor) 40 Mg Tablet PO 02/15/25 23:30 Not Given
HS JEAN
Hydromorphone HCl 0.5 mg 01/18/25 23:31
Hydromorphone 0.5 Mg/0.5 Ml Syringe IV 02/01/25 23:30
Q4HPRN PRN
severe pain
Potassium Chloride/Dextrose/Sod Cl 20 meq in 1,000 mls @ 200 mls/hr 01/18/25 23:31 01/19/25 20:13
D5/0.45%Nss With Kcl 20 Meq IV Not Given
.Q5H JEAN
Sodium Bicarbonate 75 meq/ 1,075 mls @ 100 mls/hr 01/19/25 15:45 01/19/25 17:31
Sodium Chloride IV 01/20/25 15:40 1,075 mls
.[id number] JEAN Administration
Sodium Phosphate 20 meq/ 255 mls @ 63.75 mls/hr 01/19/25 17:08 01/19/25 18:35
Dextrose IV 01/19/25 21:07 255 mls
ONCE ONE Administration
Insulin Aspart 0 units 01/19/25 16:30 01/19/25 18:30
Insulin Aspart Low Resistance 300 Units/3 Ml Pen.Injctr SC 02/16/25 16:29 Not Given
AC JEAN
Protocol
Metoprolol Succinate 25 mg 01/19/25 08:00 01/19/25 07:58
Metoprolol 25 Mg Extended Release Tablet PO 02/16/25 07:59 Not Given
DAILY JEAN
Ondansetron HCl 4 mg 01/18/25 23:31 01/19/25 19:41
Ondansetron 4 Mg/2 Ml Vial IV 02/15/25 23:30 4 mg
Q6HPRN PRN Administration
NAUSEA/VOMITING
Oxycodone HCl 5 mg 01/18/25 23:31
Oxycodone 5 Mg Regular Release Tablet PO 02/01/25 23:30
Q4HPRN PRN
moderate pain
Sodium Chloride 0 flush 01/18/25 22:00
Sodium Chloride 0.9% (Flush) Syringe IV 02/15/25 21:59
PER PROTOCOL JEAN
Review of Systems
-
History Source: Patient and Records
All Other Systems: Reviewed and Negative
Physical Exam
-
General: Appears Chronically Ill
HEENT: Moist Mucous Membranes; Negative Jaundice
Cardiology: Normal Sinus Rhythm, S1 and S2
Pulmonary: Clear; Negative Wheezes
GI: Soft and Distended
Musculoskeletal: No Clubbing, No Cyanosis and No Edema
Neurology: Non Focal
Hematologic / Lymphatic: No Lymphadenopathy
Psych: Calm, Depressed and Other
Labs
Lab Results
WBC 19.9 10^3/uL (4.8-10.8) H 01/19/25 04:24
RBC 3.43 10^6/uL (4.20-5.40) L 01/19/25 04:24
Hgb 9.6 g/dL (12.0-16.0) L D 01/19/25 04:24
Hct 28.8 % (37.0-47.0) L 01/19/25 04:24
MCV 84.0 fL (81.0-99.0) 01/19/25 04:24
MCH 28.0 pg (27.0-31.0) 01/19/25 04:24
MCHC 33.3 g/dL (33.0-37.0) 01/19/25 04:24
RDW 13.4 % (11.5-14.5) 01/19/25 04:24
Plt Count 165 10^3/uL (130-400) D 01/19/25 04:24
MPV 11.7 fL (7.4-10.4) H 01/19/25 04:24
Abs Immat Gran (auto) 0.1 10^3/uL (0-0.05) H 01/18/25 13:16
Absolute Neuts (auto) 19.1 10^3/uL (1.4-6.5) H 01/18/25 13:16
Absolute Lymphs (auto) 1.3 10^3/uL (1.2-3.4) 01/18/25 13:16
Absolute Monos (auto) 1.5 10^3/uL (0.1-0.6) H 01/18/25 13:16
Absolute Eos (auto) 0.0 10^3/uL (0-0.7) 01/18/25 13:16
Absolute Basos (auto) 0.0 10^3/uL (0-0.2) 01/18/25 13:16
Immature Gran % 0.5 % (0-0.5) 01/18/25 13:16
Neutrophils % 86.5 % (42.2-75.2) H 01/18/25 13:16
Lymphocytes % 6.0 % (20.5-51.1) L 01/18/25 13:16
Monocytes % 6.9 % (1.7-9.3) 01/18/25 13:16
Eosinophils % 0.0 % (0-6) 01/18/25 13:16
Basophils % 0.1 % (0-2) 01/18/25 13:16
Creatinine Cancelled 01/19/25 20:00
Vital Signs
Vital Signs
Temp Pulse Resp BP Pulse Ox
98.2 F 129 32 120/98 94
01/19/25 19:47 01/19/25 18:00 01/19/25 18:00 01/19/25 18:00 01/19/25 16:00
[2025-01-19 21:06] LABS: Troponin I 0.097 ng/ml
--- NOTE | 2025-01-19 22:00 | W.PN.UPDATE ---
Update Note
Progress Note Update
BMP noted.
K 5.9 BS 113, Patient refusing PO Lokelma, will give Insulin+ Dextrose.
HR 140's BP 114/24, 22 96% RA, takes metoprolol 25mg XL at home. Patient refused this AM
metoprolol 2.5 mg IV X 1
advised RN to draw morning labs early.
lab results noted.
K 5.3 Mag 1.5 will replete
Ca 7.3 corrected Ca 8.3
BUN Creat elevated, may consider director shopper marketing.
hgb 5.9 dilutional? will repeat
patient stable with complaint of nausea, no active bleeding noted.
HR 125, BP stable at 117/42, SaO2 96% on RA
type&screen, heme test
hold Apixaban till lab results
Went up to patient's room to get a blood consent, Patient is Ox3, denies dizziness or lightheadedness, but reports she feels weak. patient refused blood transfusion and does not want family to be involved, nurses witnessed the conversation.
nurses reports she had a vasovagal episode. will check blood sugar, repeat labs, EKG.
Trop trending high, repeat troponin, will consider Shells Inspector.
[2025-01-19] MEDS: NOVOLIN R 0.1 UNITS IV (22:02)
[2025-01-19] MEDS: DEXTROSE 50% SYRINGE 12.5 GRAMS IV (22:03)
[2025-01-19 22:13] LABS: Glucose - Point of Care 108 mg/dl (70-99)
[2025-01-19 23:31] LABS: Glucose - Point of Care 121 mg/dl (70-99)
[2025-01-19] MEDS: LOPRESSOR 2.5 MG IV (23:50)
[2025-01-20] VITALS (62 sets, daily range): BP systolic 53–139; BP diastolic 26–99; BMI 22.9
--- NOTE | 2025-01-20 02:35 | PTCARENOTE ---
Pt continues with c/o persistent nausea, denies vomiting at this time. PRN zofran given per MAR. Pt refuses all oral medications including eloquis, JESENIA Brooks notified. BARREL BRANDER ordered to hold IVF with KCL d/t elevated K of 5.9. IV insulin and
dextrose given one time per JAN to treat K per BARREL BRANDER orders. HR elevated to 140s, BARREL BRANDER notified, one time IV metoprolol given per MAR per BARREL BRANDER orders. Call swift within reach. Care ongoing.
[2025-01-20 03:50] LABS: ALT (SGPT) 15 U/L (0-35); AST (SGOT) 38 U/L (14-36); Albumin 2.3 g/dl (3.5-5.0); Alkaline Phosphatase 58 U/L (38-126); Blood Urea Nitrogen 27 mg/dl (7-17); Calcium 7.3 mg/dl (8.4-10.2); Carbon Dioxide 16 mmol/L (22-30); Chloride 105 mmol/L (98-107); Direct Bilirubin 0.1 mg/dl (0.0-0.4); Estimated Creatinine Clearance 35 ml/min; Glucose 105 mg/dl (70-99); Magnesium 1.5 mg/dl (1.6-2.3); Phosphorus 2.8 mg/dl (2.5-4.5); Potassium 5.3 mmol/L (3.5-5.1); Sodium 130 mmol/L (135-145); Total Protein 4.4 g/dl (6.3-8.2); eGFR 42.09
[2025-01-20] MEDS: SODIUM BICARBONATE 1075 MEQ IV ×2 (04:40→17:01)
[2025-01-20] MEDS: D5/0.45%NSS with KCL 20 MEQ IV (04:40)
[2025-01-20] MEDS: ZOFRAN 4 MG IV (05:07)
[2025-01-20 05:23] LABS: % Basophils 0.1 % (0-2); % Lymphocytes 7.5 % (20.5-51.1); % Neutrophils 80.4 % (42.2-75.2); Absolute Immature Granulocytes 0.2 10^3/uL (0-0.05); Absolute Lymphocytes 1.5 10^3/uL (1.2-3.4); Absolute Monocytes 2.2 10^3/uL (0.1-0.6); Absolute Neutrophils 16.1 10^3/uL (1.4-6.5); Hematocrit 16.4 % (37.0-47.0); Hemoglobin 5.9 g/dL (12.0-16.0); Mean Corpuscular Hgb 29.4 pg (27.0-31.0); Mean Corpuscular Volume 81.6 fL (81.0-99.0); Mean Platelet Volume 10.9 fL (7.4-10.4); Platelet Count 181 10^3/uL (130-400); Red Blood Cell Count 2.01 10^6/uL (4.20-5.40); Red Cell Dist. Width 13.7 % (11.5-14.5)
[2025-01-20 05:24] LABS: Nucleated Red Blood Cells % 0 %
[2025-01-20] MEDS: MAGNESIUM SULFATE 102 GRAMS IV (05:38)
[2025-01-20 05:40] LABS: Glucose - Point of Care 98 mg/dl (70-99)
--- NOTE | 2025-01-20 05:55 | PTCARENOTE ---
Hgb resulted 5.6, specimen redrawn for question of integrity. Redrawn specimen Hgb 5.9. JESENIA Brooks notified via TT. VSS. No signs of active bleed. No new orders at this time.
[2025-01-20 06:43] LABS: Glucose - Point of Care 115 mg/dl (70-99)
--- NOTE | 2025-01-20 07:19 | PTCARENOTE ---
Pt unable to void on bedpan, maintained 433mls in bladder on bladder scan. Pt expressed desire to attempt BSC to void. This RN checked VS, educated pt to alert this RN of any dizziness/lightheadedness during transition. Pt did not alert this RN of
any symptoms during stand/pivot to BSC. Once sitting on BSC, HR became increased to 140s and pt became pale and unresponsive. Staff assist button activated by this RN. This RN and additional RNs lifted pt back into bed, checked VS, and performed
incontinence care. Pt slowly aroused, but remained drowsy. Pt able to answer orientation questions appropriately. Pt spoke with CENTRAL SUPPLY ASSISTANT at bedside about POC. Bed alarm in place for pt safety. Report given to oncoming RN Gerardo.
--- NOTE | 2025-01-20 08:31 | PTCARENOTE ---
Patient received from dental practice manager. Patient resting comfortably in bed. AAO, VSS aside from being tachycardic. Patient did have a vagal episode just prior to change of shift while getting to commode. Hgb 5.9, 1 unit PRBC ordered and blood type
workup. IVF with Bi-carb through IV, 100meq of BiCarb ordered. Patient to go for CT and US, MRI currently on hold. No other tests ordered beyond that. Call swift in reach.
--- NOTE | 2025-01-20 08:45 | CON.CAR ---
Consultation
Consultation Request
Date/Time Consultation Requested: January 20, 2025
Date/Time Consultation Performed: January 20, 2025
Requesting Provider: Hospitalist
Performing Provider: Bakari
Reason for Consultation: Positive troponin
Medical History
-
Chief Complaint: Positive troponin
History of Present Illness:
80-year-old female with prior history of breast cancer, DVT, hypertension and normal ejection fraction at prior echocardiogram in 2023 who presents with nausea, vomiting, abdominal pain and a 15.8 cm exophytic mass of the ovary with some ascites as
well as nausea and vomiting. We are consulted for a slightly elevated troponin without chest pain in the setting of a hemoglobin of 5.6, sinus tachycardia at 120, renal insufficiency and a relatively unrevealing ECG without evidence for ischemic
changes. She has communicated DNR and is currently refusing beta-connor and transfusion.
Past Medical History
Past Medical History: Cancer and Hypercholesterolemia
Social History
Tobacco: Non-Smoker
Alcohol: None
Drug: None
Personal: Other
Living: With Family
Employment: Other
Family History
Family History: Reviewed & Not Pertinent
Allergies / Home Medications
Allergy/AdvReac Type Severity Reaction Status Date / Time
adhesive Allergy Rash Verified 05/23/24 20:00
erythromycin base Allergy Nausea Verified 05/23/24 20:00
�Medication �Instructions �Recorded �Confirmed �Type
apixaban 5 mg tablet (Eliquis) 5 mg PO BID #60 tabs 05/25/24 01/18/25 Rx
metoprolol succinate 25 mg 25 mg PO DAILY #30 tabs 05/25/24 01/18/25 Rx
tablet,extended release 24 hr
(Toprol XL)
atorvastatin 40 mg tablet 40 mg PO HS 01/18/25 01/18/25 History
Review of Systems
-
All other systems: Negative unless noted
Cardiac: No Symptoms
Abdomen/GI: Abdominal Pain, Nausea and Vomiting
Physical Exam
Vital Signs
Temp Pulse Resp BP Pulse Ox
98.2 F 148 35 104/39 90
01/20/25 07:13 01/20/25 06:31 01/20/25 06:31 01/20/25 06:31 01/19/25 23:24
Lab Results
01/20/25 03:16
Troponin I Cancelled 01/20/25 22:00
Physical Exam
General: No Apparent Distress and Comfortable
HEENT: Anicteric
Respiratory: Clear
Cardiac: Regular Rhythm and Murmur (No murmur)
Breast: Deferred by me
GI: Soft and Distended
Rectal: Deferred by Provider
Musculoskeletal: No Clubbing and No Cyanosis
Skin: Warm and Dry
Neuro: Awake, Alert and Oriented
Hematologic/Lymphatic: No Lymphadenopathy
Psych: Calm
Impression / Plan
-
Impression:
Presumed ovarian cancer
Ascites
Sinus tachycardia
Significant drop in hemoglobin
DNR
Refusing transfusion and beta-connor
Consulted for a mildly elevated troponin without chest pain
Recommendations:
Given her stated goals of care with DO NOT RESUSCITATE as well as deferring on blood transfusion and beta-connor would treat observantly and transition our goals of care to her goals of care. Currently she is pain-free but can consider morphine
and/or nitroglycerin for any chest related symptoms to make her comfortable. Certainly oxygen would be reasonable. If she were accepting of a transfusion would consider keeping hemoglobin greater than 7 and her sinus tachycardia is likely related
to her multiple medical issues.
-Do not see the need to check further troponins or pursue any further advanced cardiac workup
We will sign off
Data Reviewed
-
EKG: Tracing Personally Visualized and interpreted
Radiology: Image Personally Visualized and interpreted
Labs: Labs Reviewed by me
Old Records: Reviewed
[2025-01-20] MEDS: SODIUM BICARBONATE 100 MEQ IV (09:09)
[2025-01-20] MEDS: COMPAZINE 10 MG IV (09:09)
[2025-01-20] MEDS: STERILE WATER FOR INJECTION 10 ML IV ×2 (09:10→21:56)
[2025-01-20] MEDS: MAXIPIME 1000 MG IV ×2 (09:10→21:56)
--- NOTE | 2025-01-20 11:37 | PHA.VAN.IN ---
Assessment
- Assessment
Renal Function: Appears elevated from baseline
Maximum Temperature: 98.5
Minimum Temperature: 97.5
Concomitant Antimicrobials: Cefepime
Plan
- Plan
Initial / Loading Dose: Vanc 1500mg--22.6mg/kg--administration pending
Maintenance Regimen: PRN by level for now. If SCr improves or stays same, Vanc 750mg q24H
Monitoring: Random 3/3 AM
Pharmacokinetics Vancomycin I
- -
Patient Age: 80
Patient Sex: Female
Vancomycin Day #: 1
Indication: Gi / Intra-Abdominal
Requesting Provider: Venkata
Pertinent Antimicrobial Allergies:
Sulfa = nausea
Height / Weight:
Height 5 ft 7 in
Actual Weight 66.361 kg
IBW in k.6
Adjusted BW in k.5
- Vital Signs / Lab Results
Temp Pulse Resp BP Pulse Ox
98.2 F 148 35 104/39 95
01/20/25 07:13 01/20/25 06:31 01/20/25 06:31 01/20/25 06:31 01/20/25 10:54
Lab Results - Hematology
01/18/25 01/19/25 01/20/25
13:16 04:24 03:16
WBC 22.2 H 19.9 H Cancelled
01/20/25 01/20/25
04:34 05:05
WBC Cancelled 20.0 H
Lab Results - Chemistry
01/18/25 01/18/25 01/18/25
13:16 18:25 21:22
BUN 15 15 15
Creatinine 1.1 H 0.8 0.9
Estimated Creat Clear 38 53 47
Albumin 4.4
01/19/25 01/19/25 01/19/25
00:24 04:24 10:08
BUN 16 18 H 19 H
Creatinine 0.9 1.0 1.2 H
Estimated Creat Clear 51 46 38
Albumin
01/19/25 01/19/25 01/19/25
15:04 16:00 18:00
BUN 20 H Cancelled Cancelled
Creatinine 1.2 H Cancelled Cancelled
Estimated Creat Clear 38 Cancelled Cancelled
Albumin
01/19/25 01/19/25 01/20/25
19:52 20:00 03:16
BUN 24 H Cancelled 27 H
Creatinine 1.3 H Cancelled 1.3 H
Estimated Creat Clear 35 Cancelled 35
Albumin 2.3 L D
Lab Results - Urine
01/18/25
18:20
Urine Nitrite (Reflex) Cancelled
Leukocyte Esterase Rfl Cancelled
[2025-01-20] MEDS: VANCOCIN 530 MG IV (12:01)
[2025-01-20] MEDS: LOPRESSOR 2.5 MG IV (12:02)
[2025-01-20 12:16] LABS: Glucose - Point of Care 105 mg/dl (70-99)
--- NOTE | 2025-01-20 15:07 | W.PN.ONC2 ---
Today's Communication / Plan
-
STAT chest tube and transfusion.
Impression
Impression
Acute R hemothorax until proven otherwise
Acute on chronic anemia c/w blood loss
New pleural effusion, hemothorax suspected
Large pelvic mass
Hx DCIS s/p lumpectomy
DKA
Microcytic anemia
Leukocytosis
Plan
Plan
STAT IR consult for chest tube placement. Pt amenable. D/w Dr. Rodriguez, he will d/w CT Surgery as well.
Her last dose of DOAC was maybe AM. None given here and pt was not feeling well prior to admission. Should not need KCentra.
STAT coags with fibrinogen.
Mechanical fall prior to admission, question rib fracture.
DNR noted.
Family tell me that pt has been severely depressed since she was in the last couple years and she is DNR. However, she agrees to treatment of acute reversible issues.
Pulm consult, central line, ICU transfer now.
Now accepting transfusion. STAT CBC now, may need a few units.
Subjective/Objective
Chief Complaint
Pelvic mass
Subjective
Pt with 3.7g drop in Hgb overnight. Tachycardic and hypotensive yesterday without clear etiology. CT abd no bleed but CT chest today shows very large effusion new from 01/18. Pt mildly confused, appears tremulous and ill. RR 36.
Vital Signs:
Vital Signs
Temp Pulse Resp BP Pulse Ox
98.2 F 132 32 104/44 95
01/20/25 14:31 01/20/25 14:46 01/20/25 14:46 01/20/25 14:46 01/20/25 14:46
Lab Results:
Laboratory Data
WBC 20.0 10^3/uL (4.8-10.8) H 01/20/25 05:05
Hgb 5.9 g/dL (12.0-16.0) L* D 01/20/25 05:05
Plt Count 181 10^3/uL (130-400) 01/20/25 05:05
eGFR 42.09 01/20/25 03:16
Physical Exam
Pale, diaphoretic
Responsive but lethargic
Orders
Orders
Orders From Last 24 Hours
01/20/25 15:04
Protime/PTT Urgent
01/20/25 15:05
Fibrinogen Urgent
--- NOTE | 2025-01-20 15:42 | CON.INTV ---
Consultation
Consultation Request
Date/Time Consultation Requested: 01/20/2025 - 150
Date/Time Consultation Performed: 01/20/2025 - 152
Requesting Provider: Dr. Rodriguez
Performing Provider: Dr. Bullock
Reason for Consultation: SOB/Hypoxia/R-sided pleural effusion
Medical History
-
Chief Complaint: Abdominal pain/vomiting/unresponsiveness
History of Present Illness:
80-year-old female non-smoker with a past medical history of right-sided breast cancer s/p lumpectomy (2009) + XRT, history of DVT on Eliquis and hyperlipidemia who presented with vomiting and abdominal pain and was found to be unresponsive upon
arrival here to the ER. Given patient's acute clinical status, history obtained from documentation. Patient reported right sudden onset of abdominal discomfort starting 1 night prior to arrival. Emesis was bilious and nonbloody. Her pain was a
squeezing sensation in the lower quadrants without radiation. She denied diarrhea or constipation. Last BM was 1 day ago and was regular/nonbloody. No fevers or chills. Initially she did not have shortness of breath or chest pain. She did have
an episode of passing out earlier prior to arrival in the setting of nausea/vomiting. Initially in the ER she was afebrile to 98.5 �F, pulse rate 111, breathing at 27 breaths/min, BP 132/55 and saturating 96% on room air. Initial labs showed
leukocytosis of 22.2, Hb 13.9, sodium 134, serum bicarbonate level 14, creatinine 1.1, glucose 298, troponin negative at <0.012, CRP 7.8, lipase 135, and beta-hydroxybutyrate 0.36. CT abdomen/pelvis obtained on 01/10/2025 showing a large
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 She was initially given 1.5 L NS 0.9%, Zofran and then started on insulin drip, and admitted to the IMU for
further management. Oncology consulted and CT chest obtained on 01/20/2025 showing a large right-sided pleural effusion with a small left-sided pleural effusion. Her right middle lobe + right lower lobe were completely collapsed. Of note, her
initial CT abdomen/pelvis on 01/18/2025 did not show any evidence of pleural effusions. Patient then became short of breath requiring supplemental oxygen and hypotensive. Patient now transferred to the ICU for further care and bottom turning lathe turner services
consulted for additional management/recommendations.
Patient went down to IR and 18-gauge needle was advanced into the right pleural space with return of hemorrhagic fluid. A chest tube was inserted and then patient was transferred here to the ICU. When I saw the patient there was about 650 cc of
blood in the Pleur-evac. She was lethargic but responsive by nodding her head yes or no and giving short answers. Heart rate 126, BP 70/55, and saturating 91%. She is currently on 5 L/min nasal cannula. Chest tube currently at -20 cmH2O and
there is no airleak. She is on a bicarb drip at 100 cc/hour. She had received 1 unit PRBC earlier this afternoon and another unit is going to be given now.
PMHx: Right-sided breast cancer s/p lumpectomy + XRT, history of DVT on Eliquis, hyperlipidemia
PSHx: Right breast lumpectomy (2009)
Past Medical History
Past Medical History: Other (Above as per HPI)
Past Surgical History: Other (Above as per HPI)
Social History
Tobacco: Non-smoker
Alcohol: None
Drug: None
Employment: Not Employed
Family History
Family History: Reviewed & Not Pertinent
Allergies / Home Medications
Allergies
Allergy/AdvReac Type Severity Reaction Status Date / Time
adhesive Allergy Rash Verified 05/23/24 20:00
erythromycin base Allergy Nausea Verified 05/23/24 20:00
Home Medications
�Medication �Instructions �Recorded �Confirmed �Last Taken �Type
apixaban 5 mg tablet (Eliquis) 5 mg PO BID #60 tabs 05/25/24 01/18/25 01/17/25 Rx
metoprolol succinate 25 mg 25 mg PO DAILY #30 tabs 05/25/24 01/18/25 01/17/25 Rx
tablet,extended release 24 hr
(Toprol XL)
atorvastatin 40 mg tablet 40 mg PO HS 01/18/25 01/18/25 01/17/25 History
Review of Systems
-
Unable to Obtain full review of systems at this time due to: Acuity
Vitals / Labs / Diagnostic Testing
Vital Signs
Temp Pulse Resp BP Pulse Ox
97 F 126 40 112/48 87
01/20/25 17:07 01/20/25 17:00 01/20/25 17:00 01/20/25 17:00 01/20/25 17:15
Lab Data
01/20/25 15:43
01/20/25 03:16
Laboratory Results
01/20/25 01/20/25
15:43 16:11
PT Cancelled 21.1 H
INR Cancelled 1.80
APTT Cancelled 24.2
Diagnostic Testing:
Physical Exam
-
HEENT: Normocephalic and Anicteric
Cardiovascular: S1/S2 and Other (Tachycardic)
Respiratory: Wheeze (negative), Rales (Right hemithorax), Rhonchi (negative), Accessory Resp Muscle Use (Mild) and Other (Right-sided chest tube with bloody fluid seen in Pleur-evac with no airleak)
GI: Soft, Distended, Non Tender and Normal Bowel Sounds
Neurology: Tremors (negative), Other (Lethargic but answering questions by nodding head yes or no) and Other
Skin: Warm and Dry
General: Respiratory Distress (positive), Chills (rigors) and Sweats (negative)
Assessment
-
Assessment: 80-year-old female non-smoker with a past medical history of right-sided breast cancer s/p lumpectomy (2009) + XRT, history of DVT on Eliquis and hyperlipidemia who presented with vomiting and abdominal pain and was found to be
unresponsive upon arrival here to the ER. Given patient's acute clinical status, history obtained from documentation. Patient reported right sudden onset of abdominal discomfort starting 1 night prior to arrival. Emesis was bilious and nonbloody.
Her pain was a squeezing sensation in the lower quadrants without radiation. She denied diarrhea or constipation. Last BM was 1 day ago and was regular/nonbloody. No fevers or chills. Initially she did not have shortness of breath or chest
pain. She did have an episode of passing out earlier prior to arrival in the setting of nausea/vomiting. Initially in the ER she was afebrile to 98.5 �F, pulse rate 111, breathing at 27 breaths/min, BP 132/55 and saturating 96% on room air.
Initial labs showed leukocytosis of 22.2, Hb 13.9, sodium 134, serum bicarbonate level 14, creatinine 1.1, glucose 298, troponin negative at <0.012, CRP 7.8, lipase 135, and beta-hydroxybutyrate 0.36. CT abdomen/pelvis obtained on 01/10/2025 showing
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 She was initially given 1.5 L NS 0.9%, Zofran and then started on insulin drip, and admitted to the
IMU for further management. Oncology consulted and CT chest obtained on 01/20/2025 showing a large right-sided pleural effusion with a small left-sided pleural effusion. Her right middle lobe + right lower lobe were completely collapsed. Of note,
her initial CT abdomen/pelvis on 01/18/2025 did not show any evidence of pleural effusions. Patient then became short of breath requiring supplemental oxygen and hypotensive. Patient now transferred to the ICU for further care and bottom turning lathe turner
services consulted for additional management/recommendations.
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
Impression:
#Large unilateral right-sided pleural effusion with suspected hemothorax s/p 8 Albanian chest tube insertion by IR on 01/20/2025
#Acute respiratory failure with hypoxia � multifactorial from acute symptomatic anemia as well as large right-sided pleural effusion with suspected hemothorax; also possibly aspiration
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
#Abdominal pain with nausea/vomiting present on admission
#Symptomatic anemia from acute blood loss in setting of suspected right hemothorax
#Leukocytosis
#Hyponatremia
#Metabolic acidosis with preserved anion gap
#JULY
#Elevated troponin likely due to demand ischemia with type II VT
#Hypoalbuminemia
#History of DVT on Eliquis (reportedly last dose of Eliquis was last week on morning, 01/17/2025)
Plan:
- Patient went down to IR today for thoracentesis and chest tube was inserted. Fluid was hemorrhagic. Fluid hematocrit is pending. If fluid hematocrit is >50% of serial hematocrit, then this is consistent with a hemothorax
- If hemothorax is diagnosed then would consider cardiothoracic surgery consult
- She would likely need the chest tube upsized as smaller bore chest tubes tend to be clogged as drainage continues
- Continue to trend H/H and transfuse if needed to keep Hb>7g/dL; keep plt>50k, and keep INR<1.85
- This hemothorax could very well be malignant as CT abdomen/pelvis from 01/20/2025 showed a large pelvic mass measuring 15.7 x 13.3 x 14.1 cm in the pelvis which is concerning for malignancy
- Given that the initial CT abdomen/pelvis from 01/18/2025 did not show any evidence of pleural effusions, and given the acute nature of this suspected hemothorax, a bleeding vessel is also high on differential.
- Will see if we can add on cytopathology on fluid that was drained
- She is pending an MRI of the pelvis to further evaluate this pelvic mass, unfortunately she is too critical right now to get an MRI at this time
- Follow-up CA 125 + CA 19�9; oncology on board and recommendations appreciated
- Pain control
- Antiemetics as needed
- Make NPO for now given she is altered
- If she awakens then okay to give some ice chips
- Given patient's leukocytosis with possible component of aspiration, continue with broad-spectrum antibiotics. Currently on cefepime + IV vancomycin
- Follow-up blood culture (collected 01/20/2025) + pleural fluid culture from IR
- Maintain SpO2 >90-94% with supplemental oxygen and wean down as tolerated
- Continue aspiration precautions keeping HOB >30-45�
- prn nebulized bronchodilators - not currently bronchospastic
- Maintain MAP>65; may need to add vasopressors
- Giving bolus of IVF of NS 0.9%
- If patient is becoming hypotensive with increasing vasopressor requirements with high output of bloody pleural fluid, then would stop drainage and clamp chest tube to allow fluid to tamponade a possible bleed. The fact that there was no effusion
seen just 2 days ago does raise concern for a vascular etiology of this bleed. Would consider CTA chest once patient is stable to further evaluate for this
- Replete electrolytes with K>4, Mg>2
- Maintain euglycemia with goal BG 140-180
- DVT ppx: SCDs
IV access: Midline catheter + PIV
Code status: DNR/DNI
Guarded prognosis. Patient is critically ill; continue ICU level care
Critical care statement: A total of 42 minutes of critical care time was provided for this patient today. This includes management of unstable vital signs, evaluation of the patient at bedside, reviewing the patient's pertinent medical records
including radiographs, microbiology, laboratory evaluations, and discussion with primary team, consultants, pharmacy, nutrition, physical therapy, case management, charge nurse, critical care nursing, and respiratory therapy.
Data:
CT A/P with IV contrast 01/18/2025:
Extremely large heterogeneous complex 'mass' appearing to extend from the soft tissues of the superior right true pelvis into the abdomen measuring up to approximately 15.8 cm with some small to moderate volume mildly complex ascites. Most likely
differential diagnostic possibility would be ovarian origin such as OVARIAN CYSTADENOMA or OVARIAN CYSTADENOCARCINOMA. Exophytic uterine mass would be less likely. Other etiology such as a mass of other origin or large hematoma would also be less
likely.
Suspected hiatal hernia.
Small nonspecific retroperitoneal and pelvic lymph nodes.
CT chest without IV contrast 01/20/2025:
MARKEDLY LIMITED STUDY due to several factors, especially lack of intravenous contrast and prominent respiration/motion artifact.
Large right and tiny left pleural effusions.
Thickened linear density in the left upper lobe most likely representing scarring and some areas of likely subsegmental atelectasis in the aerated portions of both lungs. Entire right lower lobe, portions of right middle lobe and portions of left
lower lobe limited by presumed atelectasis.
Roro cannot be evaluated without intravenous contrast. No gross mediastinal lymphadenopathy no findings to suggest bilateral axillary lymphadenopathy.
Please note, the basis of this limited study, malignancy, including metastatic disease in the chest cannot be excluded.
[2025-01-20] MEDS: NSS 1000 IV (15:54)
[2025-01-20 15:59] LABS: % Basophils 0.1 % (0-2); % Eosinophils 0.2 % (0-6); % Immature Granulocytes 1.1 % (0-0.5); % Lymphocytes 5.5 % (20.5-51.1); % Monocytes 13.4 % (1.7-9.3); % Neutrophils 79.7 % (42.2-75.2); Absolute Immature Granulocytes 0.2 10^3/uL (0-0.05); Absolute Lymphocytes 1.1 10^3/uL (1.2-3.4); Absolute Monocytes 2.6 10^3/uL (0.1-0.6); Absolute Neutrophils 15.5 10^3/uL (1.4-6.5); Hematocrit 15.6 % (37.0-47.0); Hemoglobin 5.3 g/dL (12.0-16.0); Mean Corpuscular Hgb 29.1 pg (27.0-31.0); Mean Corpuscular Volume 85.7 fL (81.0-99.0); Mean Platelet Volume 11.1 fL (7.4-10.4); Nucleated Red Blood Cells % 0 %; Platelet Count 167 10^3/uL (130-400); Red Blood Cell Count 1.82 10^6/uL (4.20-5.40); Red Cell Dist. Width 14.5 % (11.5-14.5); White Blood Cell Count 19.4 10^3/uL (4.8-10.8)
--- NOTE | 2025-01-20 16:00 | PTCARENOTE ---
Patient with low BP's. Hospitalist made aware and ordered 1x NSS bolus 1000mL and to start Neosynephrine for MAP >65.
[2025-01-20 16:31] LABS: APTT 24.2 Sec (23.4-35.0); Fibrinogen 369 MG/DL (199-459); PT 21.1 Sec (11.4-14.6)
--- NOTE | 2025-01-20 16:35 | W.PN.HOSP.TC ---
Today's Communication/Plan
-
Assessment / Plan
Assessment / Plan
Gen-AAOx3, NAD
HEENT-NC, AT, anicteric, dry oral mm
Neck-supple
CV-reg, no M, +S1/S2
Lungs-decreased breath sounds right lung field, increased work of breathing on reevaluation afternoon
Abd-soft, palpable mass suprapubic region
Musculoskeletal-no edema, no deformity
Skin-warm and dry, pale
Neuro-grossly non-focal
Psych-calm, cooperative
Ms. Golden is a 79-year-old female with a medical history of breast cancer (diagnosed 2013, status postlumpectomy and radiation), factor V Leiden mutation carrier, and history of DVT (on Eliquis) who presented with nausea and vomiting with
associated abdominal bloating. CT imaging revealed a large heterogeneous complex mass appeared to be originating from the right ovary. Labs revealed a gapped acidosis. She was mildly hyperglycemic and had an elevated beta hydroxybutyrate. She
was started on an insulin drip with DKA protocol and admitted for further evaluation and management.
Metabolic acidosis:
-No history of diabetes
-Doubt her presentation is actually diabetic ketoacidosis although it is metabolic in origin and she did have a elevated beta hydroxybutyrate on initial labs
-Her anion gap has been normal times at least 2, insulin drip discontinued, continue Accu-Cheks every 6 hours with sliding scale insulin as needed
-Will continue aggressive IV fluid resuscitation, bicarb drip
-Check electrolytes and replete as needed
-Check BMP again at 8:00 PM, can repeat again in the morning if improving
-Check blood and urine cultures
-Suspect this is due to apparent ovarian malignancy, appreciate ANTHROPOLOGY PROFESSOR and oncology input
-Will start empiric antibiotics after cultures obtained considering acidosis and leukocytosis, although leukocytosis is possibly reactive in the setting of malignancy
Anemia requiring transfusion:
-Hemoglobin dropped to 5.9 this morning, transfusing 1 unit PRBCs
-No overt evidence of bleeding although obtain CT imaging showing large right pleural effusion unclear if this is hemothorax, discussed with IR who felt pleural fluid was not blood but there was possibly small amount of hemorrhage in the abdomen
likely from ovarian mass
-Transfusing a second unit PRBCs this afternoon
Hypovolemic shock:
-Suspect bleeding in abdomen due to ovarian malignancy, possibly hemothorax
-Continue IV fluids and vasopressors
-Consult to social media marketing analyst, upgrade to ICU
Respiratory distress:
-Increased work of breathing this afternoon, not hypoxic
-Suspect multifactorial in the setting of acute anemia and large right pleural effusion
-IR consulted for right thoracentesis
-Monitor respiratory status, supplemental oxygen as needed including NIPPV, DNR
Ovarian mass:
-Appears malignant
-Appreciate ANTHROPOLOGY PROFESSOR and oncology input
-Will pursue further imaging for characterization of ovarian mass for guidance of ANTHROPOLOGY PROFESSOR and oncology
-Supportive care with pain control and antiemetics as needed
History of DVT:
-Continue home Eliquis
CODE STATUS: DNR
Anticipated Discharge: > 48 hours
Subjective/Interval History
-
Date of Service: January 20, 2025
Patient was seen and examined at bedside this morning. Was tearful and sad when discussing the of her . Is also scared about the likelihood of her ovarian malignancy. Hemoglobin dropped this morning and so are transfusing a unit
PRBCs. Later this afternoon she began clinically deteriorating. Blood pressure dropped. CT scan showed large right pleural effusion and possible hemorrhage in her abdomen. Started vasopressors and upgraded to ICU. IR planning right
thoracentesis and possible chest tube. We have also started on broad-spectrum antibiotics.
Objective Data
-
Labs:
Laboratory Results
01/20/25 01/20/25 01/20/25
04:34 05:05 06:00
WBC Cancelled 20.0 H Cancelled
Hgb Cancelled 5.9 L* D Cancelled
Hct Cancelled 16.4 L* Cancelled
Plt Count Cancelled 181 Cancelled
PT
INR
APTT
01/20/25 01/20/25
15:43 16:11
WBC 19.4 H
Hgb 5.3 L*
Hct 15.6 L*
Plt Count 167
PT Cancelled 21.1 H
INR Cancelled 1.80
APTT Cancelled 24.2
Vital Signs:
Vital Signs
Temp Pulse Resp BP Pulse Ox
98.2 F 129 38 69/37 95
01/20/25 14:31 01/20/25 16:16 01/20/25 16:16 01/20/25 16:16 01/20/25 14:46
I&O
01/19/25 01/20/25 01/21/25
06:59 06:59 06:59
Intake Total 2240 / 2240 0 / 0
Output Total 200 / 200 100 / 100
Balance -200 / -200 2140 / 2140 0 / 0
Review of Systems
-
History Source: Patient
All other systems: Reviewed and negative
Abdomen/GI: Reports Abdominal Pain, Nausea and Bloated
Physical Exam
-
General: No Apparent Distress
--- NOTE | 2025-01-20 16:36 | CM ---
recycling manager met with patient and daughter at bedside, patient reports that she was here before with her spouse who has since . Patient lives alone in a split level home 4 steps to kitchen and 6 steps to bed and bathroom. no steps into
home, patient is independent with adl's and ambulation, no dme.
PCP: Dr. Simon
Pharmacy: [facility] in [place]
Plan; To follow with patient progress and assist wiht discharge planning.
[2025-01-20 17:14] LABS: Glucose - Point of Care 72 mg/dl (70-99)
--- NOTE | 2025-01-20 17:18 | PTCARENOTE ---
Recieved patient from IR. Moved to icu immediately for IR procedures at bedside. Update hotel attendant team plan of cares. First PRBC completed in IMU. NaHCo3 drip started iv via midline. Will follow up medications and labs as per orders and update new
ICU plan of cares.
[2025-01-20] MEDS: OFIRMEV 100 IV (18:05)
[2025-01-20] MEDS: NSS 500 IV (18:07)
[2025-01-20 18:10] LABS: Body Fluid Protein 3.7 g/dl
[2025-01-20 18:11] LABS: Body Fluid Triglycerides < 30 mg/dl
--- NOTE | 2025-01-20 18:12 | PTCARENOTE ---
Rn Pediatric team at bedside. Update assessment and vital signs. Review sat difficulty, temperature difficulty. Patient awake interactive answers yes no to simple questions. Follows commands. C/C of sob and stratton. Presently on 4lpm n/c. Noted shakes
and chills. VS trends ongoing. Post chest tube placement. Bloodyy dark drainage. 800ml following hourly totals. IVF bolus up at this time. Preping for second unit prbc. medicated for pain. Repositioned at this time. Rn Pediatric at bedside. Update
family via phone at this time.
[2025-01-20 18:22] LABS: Body Fluid WBC 13200 /CUMM
[2025-01-20 18:25] LABS: Body Fluid Mononuclear 30.3 %; Body Fluid Polymorphonuclear 69.7 %; Body Fluid Second Tech EYM
[2025-01-20 18:44] LABS: Body Fluid LDH 5740 U/L
--- NOTE | 2025-01-20 20:00 | PTCARENOTE ---
Received pt via handoff. Pt AAOx3 but drowsy, able to BULLARD w/ generalized weakness, afebrile. Sinus tach w/ palpable UE and weak LE pulses. Pt placed on [place] 50L @60%. Hypoactive bowel sounds in all 4Q. Pt has not voided yet but says she can use
a bedpan. Skin is pale and mottled. Chest tube placed on the right side which has drained 1100 mL's since being placed or bloody fluid. Family and call swift at bedside.
--- NOTE | 2025-01-20 21:39 | CONSULT.CT ---
Consultation
-
Date/Time Consultation Requested: 01/20/25 @ 1946
Date/Time Consultation Performed: 2009
Requesting Provider: Joseph Hastings DO
Performing Provider: Glenn Barlow PA-C/Mateo Alanis MD
Reason for Consultation: Large right hemothorax
Patient History
Physicians
Family Physician: Nikkie Sanchez MD
History of Present Illness
80 y/o pleasant woman, whose birthday is today. Pt tells me her 3 years ago, she lives alone and was well until 01/17/25. She says she has been having frequent bilious vomiting (denies hematemesis) since and had
associated near syncopal episode on Tuesday01/18/25, prompting a call to her neighbor who happens to be a nurse for assistance. She was brought to -ED on Thursday 01/18 by her neighbor and was admitted under the hospitalist service for further
evaluation. Chest CT imaging obtained on Tuesday01/20/25 showed a large right and tiny left pleural effusion. Pt underwent right thoracostomy with an 8F pigtail by IR on 01/20 with a total evacuation thus far of 1100 mL of initially sanguineous and now
serosanguineous drainage. CT Surgery was consulted in search of surgical intervention. Pt is currently receiving blood transfusion for h/h of 5.3/15.6 and noted have INR of 1.80. She tells me she has a hx of RLE DVT for which she has been on Eliquis
for 3 years now. She appears comfortable and not using accessory muscle to assist with breathing, on 50L/60% Fio2 highflow oxygenation, O2 sats 98%, HR 113 sinus tachycardia, BP 93/46 (no vasopressors).
Past Medical History
Past Medical History: Other
Assessment:
-Large right pleural effusion S/p right 8F pigtail chest tube by IR, 01/20/25
-Nausea/vomiting/abdominal bloating
-Near syncopal episode
-Sinus tachycardia
-Anemia
-Incidental finding of large abdominopelvic mass, per Abd/pelvis CT 01/20/25
-Right Breast Ca S/p Lumpectomy and XRT, 2013
-RLE DVT/factor V Leiden mutation S/p Eliquis
-RUE paresthesia/weakness, 05/23/24
-Hyperlipidemia
-HTN
-Hyponatremia
-Hyperkalemia
-Hypocalcemia
-JULY
-DNR Code status
Past Surgical History
Past Surgical History: Other
-S/p right pigtail chest tube by IR, 01/20/25
-Right Breast Ca S/p Lumpectomy and XRT, 2013
Family History
Mother: at Age
Father: at Age
Social History
Alcohol: None
Drug: None
Tobacco: Non-Smoker
Personal: and Other (has four children)
Living: Alone
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
Allergies
Allergy/AdvReac Type Severity Reaction Status Date / Time
adhesive Allergy Rash Verified 05/23/24 20:00
erythromycin base Allergy Nausea Verified 05/23/24 20:00
Home Medications
�Medication �Instructions �Recorded �Confirmed �Type
apixaban 5 mg tablet (Eliquis) 5 mg PO BID #60 tabs 05/25/24 01/18/25 Rx
metoprolol succinate 25 mg 25 mg PO DAILY #30 tabs 05/25/24 01/18/25 Rx
tablet,extended release 24 hr
(Toprol XL)
atorvastatin 40 mg tablet 40 mg PO HS 01/18/25 01/18/25 History
Review of Systems
-
History Source: Patient
General: Reports No Symptoms
HEENT: Reports No Symptoms
Respiratory: Reports SOB
Cardiac: Reports No Symptoms
Abdomen/GI: Reports Nausea and Vomiting
: Reports No Symptoms
Musculoskeletal: Reports No Symptoms
Skin: Reports No Symptoms
Neurological: Reports No Symptoms
Vascular: Reports No Symptoms
Physical Exam
Vital Signs
Temp 98.5 F 01/20/25 20:48
Temp route: Oral 01/20/25 20:48
Pulse 115 01/20/25 20:45
Rhythm: Sinus tachycardia 01/20/25 20:38
With- Normal sinus rhythm 01/20/25 08:56
Resp Rate 21 01/20/25 20:45
Blood pressure 72/52 01/20/25 20:45
Blood pressure extremity used: Right upper arm 01/20/25 19:55
Position: Lying 01/20/25 19:55
MAP (cuff-Rich Monitor) 58 01/20/25 20:45
MAP 78 01/18/25 17:03
SaO2 97 01/20/25 20:47
Nasal Cannula flow liters per minute 4 01/20/25 17:15
Oxygen Mode of Delivery High Flow Nasal Cannula 01/20/25 20:47
Flow liters per minute # 50 01/20/25 20:38
% Oxygen delivered 60 01/20/25 20:38
Acceptable pain level during hospitalization? 5 01/18/25 13:23
Can the patient verbally communicate their pain? Yes 01/20/25 20:38
Pain scale ratin 01/20/25 19:05
Actual Weight 66.361 kg 01/20/25 04:26
Body Mass Index (BMI) 22.9 01/20/25 04:26
Labs
01/20/25 03:16
PT 21.1 Sec (11.4-14.6) H 01/20/25 16:11
APTT 24.2 Sec (23.4-35.0) 01/20/25 16:11
Hemoglobin A1c 5.6 % (4.0-5.6) 01/18/25 13:16
Troponin I Cancelled 01/20/25 22:00
Urinalysis
Urine Color Cancelled 01/18/25 18:20
Urine Clarity Cancelled 01/18/25 18:20
Urine pH Cancelled 01/18/25 18:20
Ur Specific Crawford Cancelled 01/18/25 18:20
Urine Ketones Cancelled 01/18/25 18:20
Ur Occult Blood Reflex Cancelled 01/18/25 18:20
Urine Bilirubin Cancelled 01/18/25 18:20
Leukocyte Esterase Rfl Cancelled 01/18/25 18:20
Urine Glucose Cancelled 01/18/25 18:20
Urine Albumin (Reflex) Cancelled 01/18/25 18:20
Exam
General: Comfortable
HEENT: Normocephalic
Neck: Trachea Midline
Respiratory: Other (Decreased BS at bases > on Right)
Cardiac: S1/S2 and Other (sinus tachycardia)
GI: Soft, Non Tender, Non Distended and Normal Bowel Sounds
Rectal: Deferred by Provider
Skin: Other (pale )
Neuro: Awake, Alert, Oriented and AO x 3
Lymph: No Lymphadenopathy
Psych: Calm
Assessment / Plan
-
Assessment:
-Large right pleural effusion S/p right pigtail chest tube by IR, 01/20/02
-Nausea/vomiting
-Near syncopal episode
-Sinus tachycardia
-Anemia
-Incidental finding of large abdominopelvic mass, per Abd/pelvis CT 01/20
-Right Breast Ca S/p Lumpectomy and XRT, 2013
-RLE DVT/factor V Leiden mutation S/p Eliquis
-Hyperlipidemia
-HTN
-Hyponatremia
-Hyperkalemia
-Hypocalcemia
-DNR code status
Plan:
-Case was discussed with Dr. Alanis who reviewed all imaging
-Per Dr. Alanis, no CT Surgery intervention option. Cont. chest tube management, if continues to bleed can reverse Eliquis with Kcentra, or IR consult to consider embolization
[2025-01-21] VITALS (55 sets, daily range): BP systolic 82–155; BP diastolic 21–81; PULSE 117; O2SAT 97; BMI 24.2
[2025-01-21 00:04] LABS: Hemoglobin 7.1 g/dL (12.0-16.0); Mean Corp Hgb Conc. 34.5 g/dL (33.0-37.0); Mean Corpuscular Hgb 29.5 pg (27.0-31.0); Mean Corpuscular Volume 85.5 fL (81.0-99.0); Mean Platelet Volume 10.7 fL (7.4-10.4); Platelet Count 145 10^3/uL (130-400); Red Blood Cell Count 2.41 10^6/uL (4.20-5.40); White Blood Cell Count 16.1 10^3/uL (4.8-10.8)
[2025-01-21 00:05] LABS: Hematocrit 21.1 % (37.0-47.0)
--- NOTE | 2025-01-21 01:50 | PTCARENOTE ---
All systems reassessed. HGB lab drawn, pt asleep, call swift at bedside.
[2025-01-21 04:09] LABS: Venous Blood Gas B.E. 1.9 mmol/L (-4 to +4); Venous Blood Gas HCO3 26.6 mmol/L (22-27); Venous Blood Gas O2 Sat % 98.8 %; Venous Blood Gas pCO2 41 mmHg (35-48); Venous Blood Gas pH 7.42 (7.32-7.43); Venous Blood Gas pO2 83 mmHg (30-50)
[2025-01-21 04:23] LABS: APTT 30.8 Sec (23.4-35.0); INR 2.01; PT 22.9 Sec (11.4-14.6)
[2025-01-21 04:27] LABS: % Basophils 0.1 % (0-2); % Immature Granulocytes 0.8 % (0-0.5); % Lymphocytes 6.2 % (20.5-51.1); % Monocytes 8.6 % (1.7-9.3); % Neutrophils 84.3 % (42.2-75.2); Absolute Immature Granulocytes 0.1 10^3/uL (0-0.05); Absolute Lymphocytes 0.9 10^3/uL (1.2-3.4); Absolute Monocytes 1.2 10^3/uL (0.1-0.6); Absolute Neutrophils 11.9 10^3/uL (1.4-6.5); Hematocrit 19.5 % (37.0-47.0); Hemoglobin 6.8 g/dL (12.0-16.0); Mean Corp Hgb Conc. 34.9 g/dL (33.0-37.0); Mean Corpuscular Hgb 29.7 pg (27.0-31.0); Mean Corpuscular Volume 85.2 fL (81.0-99.0); Mean Platelet Volume 11.1 fL (7.4-10.4); Nucleated Red Blood Cells % 0.1 %; Platelet Count 137 10^3/uL (130-400); Red Blood Cell Count 2.29 10^6/uL (4.20-5.40); Red Cell Dist. Width 14.9 % (11.5-14.5); White Blood Cell Count 14.2 10^3/uL (4.8-10.8)
[2025-01-21 04:38] LABS: Blood Urea Nitrogen 33 mg/dl (7-17); Calcium 7.3 mg/dl (8.4-10.2); Carbon Dioxide 26 mmol/L (22-30); Chloride 104 mmol/L (98-107); Estimated Creatinine Clearance 35 ml/min; Glucose 97 mg/dl (70-99); Magnesium 1.9 mg/dl (1.6-2.3); Phosphorus 2.8 mg/dl (2.5-4.5); Potassium 4.6 mmol/L (3.5-5.1); Sodium 133 mmol/L (135-145); eGFR 42.09
[2025-01-21 04:39] LABS: CA 19-9 60375 U/mL (<=35)
[2025-01-21 04:41] LABS: Vancomycin Random 10.5 ug/ml
--- NOTE | 2025-01-21 04:54 | PTCARENOTE ---
All systems reassessed, labs drawn, hygiene performed. Call swift at bedside.
[2025-01-21 05:29] LABS: Glucose - Point of Care 80 mg/dl (70-99)
[2025-01-21] MEDS: NSS 1000 IV (05:50)
--- NOTE | 2025-01-21 08:30 | PTCARENOTE ---
Addendum entered by Yadira Ledbetter RN 01/21/25 11:17:
@0730- pt sinus tach to nsr on monitor
Original Note:
pt received from previous rn- aox4, on 50L 50% HFNC, sats 100%, no complaints of sob at this time. pt denies pain. right posterior chest tube to -20cm wall suction, bloody drainage noted. site c/d/i, no crepitus or air leak noted. packed cells
infused. ns @80cc/hr infusing per order. pt turns and repositions self, educated about importance- verbalized understanding. all safety precautions in place, call swift within reach.
--- NOTE | 2025-01-21 08:50 | W.PN.HOSP.TC ---
Addendum entered and electronically signed by Girish Hooker MD 01/21/25 09:50:
Acute transaminitis
- suspected shock liver with hypotension from yesterday
- ALT 858 AST 1273, was 15 and 38 yesterday respectively
- repeat recheck ordered for afternoon, expect to lag behind with next LFT to be elevated
- no abd pain/n/v
- will involve GI based on clinical progression
Daughter Elizabeth flying in from [place] and will be here at 3 pm - called personally and confirmed
Discussed with Dr Krause and Oncology and guarded prognosis. with ongoing hypoxia not a candidate for any emergent procedure
Original Note:
Today's Communication/Plan
-
repeat 1 u prbc
f/u ct tube output
stop abx
started [place] diet
cytopath added to pleural fluid testing
wean off o2 as possible
OOB in chair if o2 allows
Assessment / Plan
Assessment / Plan
Ms. Golden is a 79-year-old female with a medical history of breast cancer (diagnosed 2013, status postlumpectomy and radiation), factor V Leiden mutation carrier, and history of DVT (on Eliquis) who presented with nausea and vomiting with
associated abdominal bloating. CT imaging revealed a large heterogeneous complex mass appeared to be originating from the right ovary. Labs revealed a gapped acidosis. She was mildly hyperglycemic and had an elevated beta hydroxybutyrate. She
was started on an insulin drip with DKA protocol and admitted for further evaluation and management.
1. Acute hypoxic respiratory failure
Right-sided hemothorax
-Patient requiring high flow oxygen, 30L/min
-Patient is s/p chest tube placement on 01/20
-Overnight CT tube out of 900 mL blood containing pleural fluid, fluid WBC 13.2 K with PMN 69.7%. Fluid LDH 5.7K. cytopathology ordered
-Chest x-ray in the morning showing relatively clear x-ray. Small left-sided effusion.
-Pulmonology following and help appreciated
-CT surgeon evaluated and no surgical indication
2. Acute blood loss anemia
-From ongoing blood containing CT tube output
-No GI blood loss reported
-CT abdomen pelvis time to rule out any retroperitoneal bleed
-Patient got third unit of PRBC today for hemoglobin 6.8. Repeat H&H ordered for afternoon
3. Right pelvic mass - presumed malignancy
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
-CA 19-9 level of 60.3K. CEA 165 (WNL), CA 27-29 and CA125 level pending.
-MRI abdomen/pelvis with and without contrast has been pending
-APPLICATION SECURITY CONSULTANT and oncology input noted
-Will discuss case with oncology surgeon Dr. Tinoco to evaluate patient as well for possible need of resection
4. Troponin elevation
-Denies any chest pain.
-Suspected type II UT from hypovolemia and tachycardia
-With ongoing bleeding issue cannot be started on any antiplatelets/heparin product
-Cardiology following
5. Hyponatremia
-Euvolemic in nature presumed ADH excess with blood loss
-Na improved to 133 today, monitor.
6. KELIN
Metabolic acidosis
-KELIN likely related to hypovolemia/hypotension and need of contrast for CT scan
-Patient had mild anion gap metabolic acidosis likely with KELIN and malignancy related
-Renal function stabilized around 1.3 today,
-Avoid nephrotoxic medication and monitor
6. Hyperkalemia
-driven from acidosis and mild kelin
-resolved
7. Hypovolemic shock - resolved
-Required IVF/support of vasopressor
8. History of DVT:
-Continue home Eliquis
9. Leukocytosis without fever
-No clear infection source at this point
-discontinue abx and monitor
CODE STATUS: DNR
Care plan discussed with RN/line helper
Critical care time : 43 mins
Anticipated Discharge: > 48 hours
Subjective/Interval History
-
Date of Service: January 21, 2025
Patient resting comfortably in bed
Denies of having any significant right-sided CT tube site plain
Some lower abdominal discomfort, no nausea vomiting
Tachycardic
Afebrile overnight
Remains on oxygen through highflow
Objective Data
-
Labs:
Laboratory Results
01/20/25 01/21/25 01/21/25
23:50 03:59 15:00
WBC 16.1 H 14.2 H
Hgb 7.1 L D 6.8 L* Pending
Hct 21.1 L 19.5 L* Pending
Plt Count 145 137
PT 22.9 H
INR 2.01
APTT 30.8
Sodium 133 L
Potassium 4.6
Chloride 104
Carbon Dioxide 26
BUN 33 H
Creatinine 1.3 H
Glucose 97
Calcium 7.3 L
Total Bilirubin Pending
AST Pending
ALT Pending
Alkaline Phosphatase Pending
Vital Signs:
Vital Signs
Temp Pulse Resp BP Pulse Ox
99 F 103 26 137/66 100
01/21/25 08:26 01/21/25 08:15 01/21/25 08:15 01/21/25 08:15 01/21/25 08:24
I&O
01/20/25 01/21/25 01/22/25
06:59 06:59 06:59
Intake Total 2240 / 2240 2280 / 2280 250 / 250
Output Total 100 / 100 900 / 900
Balance 2140 / 2140 1380 / 1380 250 / 250
Review of Systems
-
Respiratory: Reports No Symptoms
Cardiac: Reports No Symptoms
Abdomen/GI: Reports No Symptoms
Physical Exam
-
General: No Apparent Distress and Comfortable
HEENT: Oxygen (High flow 30L/min)
Respiratory: Clear to Auscultation
Cardiac: Regular Rhythm and S1/S2; Negative Murmur or Rub
GI: Soft, Nondistended and Distended; Negative Tender
Musculoskeletal: No Edema
Neuro: Awake, Alert, Oriented, No Motor Deficits and Nonfocal/Grossly Intact
Psych: Calm
[2025-01-21 09:02] LABS: Albumin 2.1 g/dl (3.5-5.0); Alkaline Phosphatase 69 U/L (38-126); Direct Bilirubin 0.3 mg/dl (0.0-0.4); Total Bilirubin 1.7 mg/dl (0.2-1.3); Total Protein 3.9 g/dl (6.3-8.2)
[2025-01-21 09:20] LABS: ALT (SGPT) 858 U/L (0-35); AST (SGOT) 1273 U/L (14-36)
[2025-01-21] MEDS: STERILE WATER FOR INJECTION IV (09:25)
--- NOTE | 2025-01-21 09:35 | W.PN.CARDCBS ---
Today's Communication / Plan
-
Troponin elevation likely type II in setting of respiratory failure, hemothorax, anemia and mass
Cont to trend until peak for prognostic information, pt had been declining certain therapies
Add low dose beta connor, Toprol XL 25 mg daily as bp will allow. She was on this as outpt
She has not required pressors.
Check EKG
Check echo to eval EF
Cont med tx
With bleeding, hemothorax, pt can not currently receive antiplatelet/Heparin products
Monitor H/H closely with transfusion
Cont supportive care and tx of her met cancer as per primary service and oncology and field cashier.
CT care as per CT surgery.
She had been on Eliquis as outpt for hx of DVT
Pt being evaluated by oncologic surgery, Dr Tinoco.
Discussed with oncology and nursing and primary service.
Impression / Plan
-
.
Impression:
Presumed ovarian cancer, right pelvic mass
Acute hypoxic respiratory failure with right hemothorax s/p CT placement
Ascites
Sinus tachycardia
Anemia with significant drop in hemoglobin
Hyponatremia
JULY with hyperkalemia
Hx DVT
Leukocytosis without fever
DNR
Plan:
Troponin elevation likely type II in setting of respiratory failure, hemothorax, anemia and mass
Cont to trend until peak for prognostic information, pt had been declining certain therapies
Add low dose beta connor, Toprol XL 25 mg daily as bp will allow. She has not required pressors. .
Check echo to eval EF
Cont med tx
With bleeding, hemothorax, pt can not currently receive antiplatelet/Heparin products
Monitor H/H closely with transfusion
Cont supportive care and tx of her met cancer as per primary service and oncology and field cashier.
CT care as per CT surgery.
She had been on Eliquis as outpt for hx of DVT
Pt being evaluated by oncologic surgery, Dr Tinoco.
Discussed with oncology and nursing and primary service.
CCT: 31 min
Progress Note - Semiconductor Manufacturing Technician
Subjective
Date of Service: January 21, 2025
Pt seen and examined. No chest pain. She admits to anxiety
Objective
Labs:
01/21/25 03:59
Labs
Hgb 6.8 g/dL (12.0-16.0) L* 01/21/25 03:59
Hct 19.5 % (37.0-47.0) L* 01/21/25 03:59
Plt Count 137 10^3/uL (130-400) 01/21/25 03:59
PT 22.9 Sec (11.4-14.6) H 01/21/25 03:59
INR 2.01 01/21/25 03:59
APTT 30.8 Sec (23.4-35.0) 01/21/25 03:59
Sodium 133 mmol/L (135-145) L 01/21/25 03:59
Potassium 4.6 mmol/L (3.5-5.1) 01/21/25 03:59
BUN 33 mg/dl (7-17) H 01/21/25 03:59
Creatinine 1.3 mg/dL (0.6-1.0) H 01/21/25 03:59
Glucose 97 mg/dl (70-99) 01/21/25 03:59
Troponins
01/18/25 01/18/25 01/19/25
13:16 21:23 20:26
Troponin I < 0.012 0.050 H* 0.097 H*
01/20/25 01/20/25 01/20/25
03:16 10:00 16:00
Troponin I 0.160 H* D Cancelled Cancelled
01/20/25 01/21/25
22:00 03:59
Troponin I Cancelled 3.790 H*
Vital Signs and I&O:
Vital Signs
Temp Pulse Resp BP Pulse Ox
99 F 103 26 137/66 100
01/21/25 08:26 01/21/25 08:15 01/21/25 08:15 01/21/25 08:15 01/21/25 08:24
Vital Signs
Temp Pulse Resp BP Pulse Ox
99 F 103 26 137/66 100
01/21/25 08:26 01/21/25 08:15 01/21/25 08:15 01/21/25 08:15 01/21/25 08:24
Intake & Output
01/19/25 01/20/25 01/21/25 01/22/25
06:59 06:59 06:59 06:59
Intake Total 2240 / 2240 2280 / 2280 250 / 250
Output Total 200 / 200 100 / 100 900 / 900
Balance -200 / -200 2140 / 2140 1380 / 1380 250 / 250
Physical Exam
Physical Exam
General: No acute distress, AAOX3
Neck: Negative JVD
Heart: Regular, Negative S3 positive S1/S2, Negative S4, No murmur
Lungs: CTA b/l, negative wheezes/rales/rhonchi
Abd: Positive BS, NT/ND, neg rebound/rigidity/guarding
Ext: Negative cyanosis/clubbing/edema
Neuro: nonfocal
[2025-01-21 09:38] LABS: LDH 3020 U/L (120-246)
--- NOTE | 2025-01-21 09:55 | W.PN.ONC2 ---
Today's Communication / Plan
-
Correct coagulopathy
Await [facility] On[facility] eval
Currently indicating desire for aggressive care although still DNR.
Impression
Impression
Hepatic transaminitis, suspect shock liver
Acute R pleural effusion, hemorrhagic
Acute on chronic anemia c/w blood loss
Large pelvic mass, no definite evidence of metastatic disease
Hx DCIS s/p lumpectomy
DKA
Microcytic anemia
Leukocytosis
Plan
Plan
Respiratory status improving, hopefully will be able to get pt off high-flow O2 today.
Lower extremity Dopplers, exclude clot given hx Factor V Leiden with venous thromboembolism.
PT/INR elevated, PTT normal.
Her last dose of DOAC was maybe AM. None given here and pt was not taking it prior to admission because she was not feeling well. Should not need KCentra.
Vit K now.
FFP 4 units now.
Monitor Hbg, coags Q8h initially
LFT's consistent with shock liver so clotting factor production may be reduced and may continue to need FFP support
Case d/w Dr. Krause who will see pt later this afternoon.
Pt currently stating amenable to surgery once clinically stable.
Subjective/Objective
Chief Complaint
Med Onc follow up of pelvic mass, consumptive coagulopathy, hemorrhagic pleural effusion
Subjective
'I'm scared.' 'I am not ready to give up.' 'I will feel better when my daughter gets here.'
Vital Signs:
Vital Signs
Temp Pulse Resp BP Pulse Ox
99 F 103 26 137/66 100
01/21/25 08:26 01/21/25 08:15 01/21/25 08:15 01/21/25 08:15 01/21/25 08:24
Lab Results:
Laboratory Data
WBC 14.2 10^3/uL (4.8-10.8) H 01/21/25 03:59
Hgb 6.8 g/dL (12.0-16.0) L* 01/21/25 03:59
Plt Count 137 10^3/uL (130-400) 01/21/25 03:59
PT 22.9 Sec (11.4-14.6) H 01/21/25 03:59
INR 2.01 01/21/25 03:59
APTT 30.8 Sec (23.4-35.0) 01/21/25 03:59
eGFR 42.09 01/21/25 03:59
Physical Exam
Awake, alert, oriented. Appears mildly ill.
99%/high-flow O2.
Orders
Orders
Orders From Last 24 Hours
01/20/25 15:43
CBC/With Diff [Complete Blood Count/With Diff] Stat
01/21/25 09:53
Phytonadione [Aquamephyton] 10 mg SC NOW STA
01/21/25 09:54
* Blood Bank Products Urgent
[2025-01-21 10:48] LABS: INR 1.91; PT 22.1 Sec (11.4-14.6)
[2025-01-21 10:49] LABS: APTT 27.5 Sec (23.4-35.0)
[2025-01-21] MEDS: AQUAMEPHYTON 51 MG IV (11:06)
[2025-01-21] MEDS: TOPROL XL 25 MG PO (11:11)
--- NOTE | 2025-01-21 11:16 | PTCARENOTE ---
plan of care discussed with mds- ekg completed, labs sent as per order. ffp infusing as per order, pt tolerating. iv fluids capped per Dr. Hooker. pt aware of plan of care- verbalized understanding. Dr. Rosenthal at bedside to see chest tube. assessment
unchanged.
[2025-01-21 11:24] LABS: Glucose - Point of Care 102 mg/dl (70-99)
--- NOTE | 2025-01-21 12:23 | W.PN.INTV ---
Today's Communication / Plan
Recommendations
- Three-way stopcock placed in the chest tube circuit, flush with 10 mL of saline every shift
-Monitor serial H&H
-Chest x-ray in the morning
-Continue to withhold anticoagulation
Assessment
-
Assessment: 80-year-old female non-smoker with a past medical history of right-sided breast cancer s/p lumpectomy (2009) + XRT, history of DVT on Eliquis and hyperlipidemia who presented with vomiting and abdominal pain and was found to be
unresponsive upon arrival here to the ER. Given patient's acute clinical status, history obtained from documentation. Patient reported right sudden onset of abdominal discomfort starting 1 night prior to arrival. Emesis was bilious and nonbloody.
Her pain was a squeezing sensation in the lower quadrants without radiation. She denied diarrhea or constipation. Last BM was 1 day ago and was regular/nonbloody. No fevers or chills. Initially she did not have shortness of breath or chest
pain. She did have an episode of passing out earlier prior to arrival in the setting of nausea/vomiting. Initially in the ER she was afebrile to 98.5 �F, pulse rate 111, breathing at 27 breaths/min, BP 132/55 and saturating 96% on room air.
Initial labs showed leukocytosis of 22.2, Hb 13.9, sodium 134, serum bicarbonate level 14, creatinine 1.1, glucose 298, troponin negative at <0.012, CRP 7.8, lipase 135, and beta-hydroxybutyrate 0.36. CT abdomen/pelvis obtained on 01/10/2025 showing
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 She was initially given 1.5 L NS 0.9%, Zofran and then started on insulin drip, and admitted to the
[facility] for further management. Oncology consulted and CT chest obtained on 01/20/2025 showing a large right-sided pleural effusion with a small left-sided pleural effusion. Her right middle lobe + right lower lobe were completely collapsed. Of note,
her initial CT abdomen/pelvis on 01/18/2025 did not show any evidence of pleural effusions. Patient then became short of breath requiring supplemental oxygen and hypotensive. Patient now transferred to the ICU for further care and beach attendant
services consulted for additional management/recommendations.
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
Assessment and plan.
#1. Spontaneous right sided hemothorax.
-S/p 8 Spanish chest tube insertion, no significant output noted overnight after initial drainage
-Three-way stopcock placed and chest tube flushed without any additional drainage noted
-Pleural fluid collected and sent for cytology
-Thoracic surgery service on case, no operative intervention planned
-Concern for possible malignant etiology of her spontaneous pneumothorax
-Hold off anticoagulation. Patient received vitamin K and fresh frozen plasma x 4
-INR was 1.91 this morning, follow-up pending at 6 PM
-Monitor labs closely
-If additional bleeding noted, will order a stat CTA for possible IR intervention
-Patient off antibiotics currently, blood cultures negative so far
#2. Acute hypoxic respiratory failure. Secondary to hemothorax
-Patient comfortably sitting in no acute distress, saturating well
#3. Acute blood loss anemia. Related to hemothorax
-Status post blood transfusion
-Serial H&H. Last hemoglobin 6.8 this morning, follow-up labs pending.
#4. History of DVT.
-At risk of life-threatening bleeding, not a candidate for anticoagulation in the short-term
#5. Minimum troponin elevation. Suspect demand ischemia in view of acute critical illness.
-Not a candidate for antiplatelet/anticoagulant therapy
-Cardiology service on case.
#6. Right pelvic mass, suspicious for ovarian malignancy.
-Oncology service on case, await further recommendations
-LOCKSTITCH WAISTBAND SETTER consult
- DVT ppx: SCDs
IV access: Midline catheter + PIV
Code status: DNR/DNI
Guarded prognosis. Patient is critically ill; continue ICU level care
Critical care statement: A total of 42 minutes of critical care time was provided for this patient today. This includes management of unstable vital signs, evaluation of the patient at bedside, reviewing the patient's pertinent medical records
including radiographs, microbiology, laboratory evaluations, and discussion with primary team, consultants, pharmacy, nutrition, physical therapy, case management, charge nurse, critical care nursing, and respiratory therapy.
Data:
CT A/P with IV contrast 01/18/2025:
Extremely large heterogeneous complex 'mass' appearing to extend from the soft tissues of the superior right true pelvis into the abdomen measuring up to approximately 15.8 cm with some small to moderate volume mildly complex ascites. Most likely
differential diagnostic possibility would be ovarian origin such as OVARIAN CYSTADENOMA or OVARIAN CYSTADENOCARCINOMA. Exophytic uterine mass would be less likely. Other etiology such as a mass of other origin or large hematoma would also be less
likely.
Suspected hiatal hernia.
Small nonspecific retroperitoneal and pelvic lymph nodes.
CT chest without IV contrast 01/20/2025:
MARKEDLY LIMITED STUDY due to several factors, especially lack of intravenous contrast and prominent respiration/motion artifact.
Large right and tiny left pleural effusions.
Thickened linear density in the left upper lobe most likely representing scarring and some areas of likely subsegmental atelectasis in the aerated portions of both lungs. Entire right lower lobe, portions of right middle lobe and portions of left
lower lobe limited by presumed atelectasis.
Roro cannot be evaluated without intravenous contrast. No gross mediastinal lymphadenopathy no findings to suggest bilateral axillary lymphadenopathy.
Please note, the basis of this limited study, malignancy, including metastatic disease in the chest cannot be excluded.
Subjective Dataa
Subjective Data
Date of Service:
Date of Service: January 21, 2025
Subjective:
Patient not in any acute distress.
Objective Data
Data Reviewed
Vital Signs / I&O / Oxygen:
Vital Signs
Temp Pulse Resp BP Pulse Ox
98.2 F 111 25 134/61 98
01/21/25 11:28 01/21/25 11:24 01/21/25 11:24 01/21/25 11:24 01/21/25 11:28
Intake and Output
01/20/25 01/21/25 01/22/25
06:59 06:59 06:59
Intake Total 2240 / 2240 2280 / 2280 1385 / 1385
Output Total 100 / 100 900 / 900 150 / 150
Balance 2140 / 2140 1380 / 1380 1235 / 1235
SaO2 98
Nasal Cannula flow liters per 3
minute
Labs/Micro/Reports
Lab Data
01/21/25 03:59
Laboratory Results
01/20/25 01/20/25 01/21/25
15:43 16:11 03:59
PT Cancelled 21.1 H 22.9 H
INR Cancelled 1.80 2.01
APTT Cancelled 24.2 30.8
01/21/25
10:23
PT 22.1 H
INR 1.91
APTT 27.5
Microbiology
01/20/25 17:41 Pleural Fluid Gram Stain - Preliminary
01/20/25 05:06 Blood/Venous Blood Culture - Preliminary
No Growth in 24 hours- Final report to follow
--- NOTE | 2025-01-21 13:00 | PTCARENOTE ---
Dr. Freed at bedside- chest tube flushed by . chest tube remains with bloody drainage.
--- NOTE | 2025-01-21 13:42 | WOUNDNOTE ---
TATE RN NOTE: Confirmed with Dr. Hooker can cancel consult.
[2025-01-21 14:49] LABS: Hematocrit 22.3 % (37.0-47.0); Hemoglobin 7.6 g/dL (12.0-16.0); Mean Corp Hgb Conc. 34.1 g/dL (33.0-37.0); Mean Corpuscular Hgb 29.1 pg (27.0-31.0); Mean Corpuscular Volume 85.4 fL (81.0-99.0); Mean Platelet Volume 10.4 fL (7.4-10.4); Platelet Count 136 10^3/uL (130-400); Red Blood Cell Count 2.61 10^6/uL (4.20-5.40); Red Cell Dist. Width 14.9 % (11.5-14.5); White Blood Cell Count 13.4 10^3/uL (4.8-10.8)
[2025-01-21 15:33] LABS: ALT (SGPT) 653 U/L (0-35); Albumin 2.8 g/dl (3.5-5.0); Alkaline Phosphatase 81 U/L (38-126); Direct Bilirubin 0.6 mg/dl (0.0-0.4); Total Bilirubin 2.3 mg/dl (0.2-1.3)
[2025-01-21 15:48] LABS: AST (SGOT) 916 U/L (14-36)
--- NOTE | 2025-01-21 16:08 | PTCARENOTE ---
pt oob to chair with pt, daughter at bedside and updated. assessment unchanged. remains on 4LNC
--- NOTE | 2025-01-21 17:43 | W.CON.GYNONC ---
Chief Complaint
-
Pelvic mass, ascites
History of Present Illness
79 yo female presented to ER with c/o nausea/vomiting that started lat . Reports abdominal bloating and discomfort. [place] a bit dizzy with nausea episode and felt 'something was not right', had a syncopal episode at home, called her
neighbor who is an RN so she came to ER. Patient has lost her almost 3 years ago, she has had a significant grief reaction and feels very lonely and has had crying spells every day.
Her PCP is Dr Nikkie Sanchez, saw her last almost [address] evaluation revealed a large heterogeneous complex mass 15 cm, some mild- mod ascites, There is moderate ascites, mildly complex. Uterus is deviated slightly to left of midline by the mass. In the next 24 hours the patient had continued nausea,
felt very fatigued and tired and developed some dyspnea. By Tuesday a.m. her hemoglobin had dropped to 5.5, repeat CT shows more ascitic fluid, right chest with large volume pleural effusion, left chest with small pleural effusion. The patient was
transferred to ICU, right chest tube was placed, fluid was bloody. Patient was seen by cardiology as well as CT surgery as well as pulmonary medicine and intensive care physicians and hematology and hospitalist. She did receive blood transfusion
and appeared to have stabilized over the last 24 hours. There seems to be elevation of troponin. There is elevated liver enzymes consistent with shock liver
ROS: +abdominal bloating, +nausea/vomiting, no diarrhea, no postmenopausal bleeding or vaginal discharge. Has not been able to hold anything down today.
PMH:
R breast cancer dx 2013 invasive ductal treated with lumpectomy and radiation therapy. Uncertain if she had genetic testing.
Elevated cholesterol,
Factor V Leiden (heterogeneous) mutation carrier,
hx DVT,
CVA:hx of right wrist numbness (? stroke) which resolved on its own. States was not considered a TIA. posterolateral left frontal lobe old infarct
lung nodule 5 mm JORGE LUIS
Hyperlipidemia
HTN
Thyroid nodule 7.4 mm right side
PSH: right breast lumpectomy
OBHx: 4 children, x 4
Lay Out Maker hx: has not seen Lay Out Maker doctor in over 8 yrs. Denies hx of abnormal pap, ovarian cysts, fibroids. Denies postmenopausal bleeding.
ALL: adhesive-rash
Meds:
Eliquis 5mg BID,
metoprolol 25mg daily,
atorvastatin 40mg HS
Sochx: ; denies tobacco, denies alcohol or rec drug use. Children: 3 live out of state, one lives in [place].
Famhx: daughter had breast cancer-states BRCA negative. ; famhx of diabetes
Medical History
Allergies
Allergies reflect when allergies were last updated in [facility].
adhesive Allergy (Verified 05/23/24 20:00)
Rash
erythromycin base Allergy (Verified 05/23/24 20:00)
Nausea
Physical Exam
Vital Signs / I&O
Vitals
Temp Pulse Resp BP Pulse Ox
98.1 F 120 27 155/74 96
01/21/25 16:08 01/21/25 16:00 01/21/25 16:00 01/21/25 16:00 01/21/25 16:00
I&O
01/19/25 01/20/25 01/21/25 01/22/25
06:59 06:59 06:59 06:59
Intake Total 2240 / 2240 2280 / 2280 1385 / 1385
Output Total 200 / 200 100 / 100 900 / 900 300 / 300
Balance -200 / -200 2140 / 2140 1380 / 1380 1085 / 1085
Physical Exam
General: Well Developed and No Apparent Distress
HEENT: Normocephalic
Respiratory: Clear and Non Labored Respirations
Cardiac: Tachycardia
GI: Soft and Distended
Genito-urinary: No Costovertebral Tend
Musculoskeletal: No Clubbing, No Cyanosis and Edema (LLE >RLE)
Skin: Warm
Neuro: Awake, Alert, Oriented, AO x 3 and No Motor Deficits
Hematologic/Lymphatic: No Lymphadenopathy
Psych: Calm and Intact Judgement
Results
-
01/21/25 14:18
01/21/25 03:59
Carcinoembryonic Ag
165��
CA 19-9 Antigen
(<=35�U/mL) 76417�H��
CA 27-29
Pending
CA 125 Antigen
Pending
Exams: US Periph Venous LOWER Ext Beto
EXAMINATION: Bilateral lower extremity duplex venous ultrasound
CPT: 68101
INDICATION: History of DVT/PE.
Comparison: Left lower extremity ultrasound 03/11/2023
FINDINGS: Duplex venous ultrasound of both lower extremities is performed.
Right: There is no evidence for deep venous thrombosis. There is normal compressibility, color flow, and spectral Doppler flow of the deep venous system from the common femoral vein through the posterior tibial vein. The proximal greater saphenous
is also patent.
Left: There is chronic nonocclusive thrombus at the left saphenofemoral venous junction and greater saphenous vein. There is nonocclusive thrombus within the common femoral and popliteal veins as well as occlusive thrombus within the left femoral
vein. The left peroneal and posterior tibial veins are patent without evidence of thrombosis.
IMPRESSION:
No evidence of right-sided deep venous thrombosis.
There is chronic occlusive thrombus within the left femoral vein. There is chronic nonocclusive thrombus within the left common femoral vein as well as the left popliteal vein. Findings are not significantly changed in appearance from prior.
Electronically signed by Joseph Cohen MD, 01/21/2025 4:08 PM
Dictated By: Joseph Cohen MD
Dictated Date & Time: 01/21/25 1600

Diagnostic Imaging Report
SignedOrder #:[id number]
Exams: CT Abd/pelvis W Iv Cont
CPT: 15440
PROCEDURES: CT Abd/pelvis W Iv Cont
CLINICAL INDICATION: Right lower quadrant pain
TECHNIQUE: A CT examination of the abdomen and pelvis was performed following the administration of intravenous contrast. Oral contrast was not administered, per request. Coronal and sagittal reformatted images were obtained. Automatic exposure
control radiation dose reduction technology was utilized.
COMPARISON: None.
FINDINGS:
CHEST:There is a likely small hiatal hernia. There is some bibasilar subsegmental atelectasis and/or scarring.
ABDOMEN:Small to moderate volume free fluid/ascites is seen most prominent in the right upper quadrant and left upper quadrant, mildly complex. Gallstones are seen within the gallbladder. There are no findings to suggest biliary tract dilatation.
There is no focal intrinsic abnormality of the liver, spleen, pancreas, adrenal glands or kidneys with symmetric renal excretion. The abdominal aorta is normal in caliber with calcific atherosclerotic changes. 1 there are a few subcentimeter
retroperitoneal lymph nodes, nonspecific.. Elevation of the intestinal tract is markedly limited without oral or intravenous contrast, without intestinal obstruction or free air. No gross focal right lower quadrant inflammatory changes are seen
although limited by free fluid/ascites. There is no free air.
There is a large heterogeneous 'masslike' density of both soft tissue and cystic areas occupying a majority of the mid to lower abdomen and upper true pelvis measuring approximately 15.8 x 14.2 x 14.8 cm with some adjacent mildly complex free fluid
caudally. Smaller nodular components of the masslike density are seen posteriorly, image 71 series 201 measuring 2.4 cm. This masslike area appears to extend from the superior soft tissues of the right true pelvis
PELVIS:The uterus is relative slightly deviated to the left of midline by the above-described masslike area, uterus overall limited in evaluation with this imaging modality. There are a few scattered small pelvic/groin lymph nodes.
SKELETON:There is no focal suspicious osseous lesion.
IMPRESSION:
Extremely large heterogeneous complex 'mass' appearing to extend from the soft tissues of the superior right true pelvis into the abdomen measuring up to approximately 15.8 cm with some small to moderate volume mildly complex ascites. Most likely
differential diagnostic possibility would be ovarian origin such as OVARIAN CYSTADENOMA or OVARIAN CYSTADENOCARCINOMA. Exophytic uterine mass would be less likely. Other etiology such as a mass of other origin or large hematoma would also be less
likely.
Suspected hiatal hernia.
Small nonspecific retroperitoneal and pelvic lymph nodes.
Electronically signed by Dov Gerard MD, 01/18/2025 6:12 PM
[facility] Dose Report: Up-to-date CT equipment and radiation dose reduction techniques were employed. CTDIvol: 7.9 mGy. DLP: 907 mGy-cm.
Dictated By: Rajani LEE,Dov Cisneros.
Dictated Date & Time: 01/18/25 1800
Impression / Plan
-
Patient was seen earlier today by herself and later this afternoon with her daughter from [place] present. Other daughter who is local was present on the phone during the consultation and visit today. I reviewed events leading up to admission as
well as summarized the events over the weekend, the following problems are noted
1. Acute hypoxic respiratory failure
Right-sided hemothorax, managed with chest tube, now on NC O2
-Overnight CT tube out of 900 mL blood containing pleural fluid, fluid WBC 13.2 K with PMN 69.7%. Fluid LDH 5.7K. cytopathology ordered
2. Acute blood loss anemia
My suspicion is that the patient had intra-abdominal bleeding with some flowing across the right diaphragm.
-Patient got third unit of PRBC today for hemoglobin 6.8. hgb 7.6 now
3. Right pelvic mass -patient has not been under care of gynecology and we have to assume this is a new neoplasm. The tumor can be primary ovarian neoplasm of either epithelial or sex cord stromal, less likely germ cell tumor. Alternatively this
could be a metastasis from another site i.e. GI tract.
So far markers including CEA and CA 19-9 are significantly elevated which may suggest etiology to be primary mucinous adenocarcinoma or GI tumor with metastasis to ovary.
Ultimately treatment is surgery. Under current circumstance because of elevated liver enzymes and elevated troponin and the stress that she underwent over the weekend I would recommend delaying surgery for at least 2 to 3 weeks.
I explained to her that some additional workup may be needed including paracentesis as well as CT-guided biopsy of the tumor before we proceed with surgery. Because of the fact that she was already on Eliquis surgery on arrival would not have been
possible and we needed at least 72 hours of anticoagulation before proceeding with any surgical intervention. It appears that she and her family want surgical intervention eventually and accepting of additional treatment.
Of note patient has never had a colonoscopy. She denies having any Cologuard testing of stool.
If surgical treatment is planned we would probably need to perform EGD and colonoscopy prior to surgery.
4. Troponin elevation
-Suspected type II LA or demand ischemia from hypovolemia and tachycardia
-Cardiology following
5. Hyponatremia
-Na improved to 133 today, monitor.
6. JULY
Metabolic acidosis
-JULY likely related to hypovolemia/hypotension and need of contrast for CT scan x2,
-Avoid nephrotoxic medication and monitor,
conside acetylcyteine for kidney protection if additional contrast is needed for imaging
6. Hyperkalemia
-resolved
7. Hypovolemic shock - resolved
8. History of DVT:
Ultrasound of lower extremities shows chronic thrombus, hold off on any anticoagulation at this time
9. Leukocytosis without fever
10. CODE STATUS. Patient had mention to me that she has a living well, she did not want aggressive measures including intubation. She does wish to continue treatment including possible upcoming surgery. We will discussed this with her to ensure
any actions that we take is consistent with her goals of care.
[2025-01-21 18:11] LABS: Glucose - Point of Care 96 mg/dl (70-99)
[2025-01-21 18:24] LABS: APTT 26.6 Sec (23.4-35.0); INR 1.56; PT 18.9 Sec (11.4-14.6)
[2025-01-21 19:32] LABS: CA 27-29 908.7 U/mL (<=39.0)
--- NOTE | 2025-01-21 20:11 | PTCARENOTE ---
Rec'd pt resting in bed, family at bedside, denies pain, ST, bp stable, weak distal pulses, O2 4 liters nc, lsat 96, lungs decr in bases, R lat chest tube to -20 suction, draining bloody liquid, no crepitus, hypo bowel sounds, no bm, abd soft, no
n/v, HNV yet this shift
[2025-01-21 20:30] LABS: CA 125 18600 U/mL (0-35)
[2025-01-21 20:44] LABS: Urine Albumin 2+ (Neg - Trace); Urine Bilirubin Negative (Negative); Urine Character Clear (Clear); Urine Color Yellow; Urine Glucose Negative (Negative); Urine Ketone 1+ (Negative); Urine Leukocyte 3+ (Negative); Urine Nitrite Negative (Negative); Urine Occult Blood 4+ (Negative); Urine Specific Gravity 1.015 (<1.030); Urine Urobilinogen Negative (Neg - 1+)
[2025-01-21 20:53] LABS: Urine Bacteria Moderate (Negative); Urine White Cell 80-90 /HPF (0-5)
[2025-01-21 21:12] LABS: Glucose - Point of Care 79 mg/dl (70-99)
[2025-01-22] VITALS (27 sets, daily range): BP systolic 126–155; BP diastolic 48–85; PULSE 101; O2SAT 100; BMI 24.2
--- NOTE | 2025-01-22 00:12 | PTCARENOTE ---
sys reviewed, lungs decr in bases, fine bibas crackles, inc of loose brown stool, heme test +, CHG bath done, linens changed
[2025-01-22 03:50] LABS: % Basophils 0.1 % (0-2); % Immature Granulocytes 0.8 % (0-0.5); % Monocytes 10.8 % (1.7-9.3); % Neutrophils 83.3 % (42.2-75.2); Absolute Immature Granulocytes 0.1 10^3/uL (0-0.05); Absolute Lymphocytes 0.7 10^3/uL (1.2-3.4); Absolute Monocytes 1.4 10^3/uL (0.1-0.6); Hematocrit 24.6 % (37.0-47.0); Hemoglobin 8.3 g/dL (12.0-16.0); Mean Corp Hgb Conc. 33.7 g/dL (33.0-37.0); Nucleated Red Blood Cells % 0.3 %; Platelet Count 163 10^3/uL (130-400); Red Blood Cell Count 2.86 10^6/uL (4.20-5.40); Red Cell Dist. Width 14.9 % (11.5-14.5); White Blood Cell Count 13.2 10^3/uL (4.8-10.8)
[2025-01-22 04:04] LABS: Blood Urea Nitrogen 28 mg/dl (7-17); Calcium 7.9 mg/dl (8.4-10.2); Carbon Dioxide 26 mmol/L (22-30); Chloride 105 mmol/L (98-107); Estimated Creatinine Clearance 50 ml/min; Glucose 93 mg/dl (70-99); Magnesium 2.2 mg/dl (1.6-2.3); Phosphorus 2.7 mg/dl (2.5-4.5); Potassium 4.2 mmol/L (3.5-5.1); Sodium 136 mmol/L (135-145); eGFR > 60.00
--- NOTE | 2025-01-22 04:07 | PTCARENOTE ---
sys reviewed, changes noted, o2 decr to 2 liters nc
[2025-01-22 04:36] LABS: INR 1.57
--- NOTE | 2025-01-22 07:08 | W.PN.CARDCBS ---
Today's Communication / Plan
-
Troponin elevation likely type II in setting of respiratory failure, hemothorax, anemia and mass
Cont med tx of nonMI troponin with peak 3.7.
Echo reviewed and EF is preserved.
Cont low dose beta connor, Toprol XL 25 mg daily as bp will allow. She has not required pressors.
Add ACEI Lisinopril 2.5 mg daily.
With bleeding, hemothorax, pt can not currently receive antiplatelet/Heparin products
Monitor H/H closely with transfusion
LFTs improving, cont to hold statin
Cont supportive care and tx of her met cancer as per primary service and oncology and diploma maker. Oncologic surgery considering surgery in next couple weeks.
CT care as per CT surgery.
She had been on Eliquis as outpt for hx of DVT
Discussed with nursing and daughter at bedside.
Impression / Plan
-
.
Impression:
Presumed ovarian cancer, right pelvic mass
Acute hypoxic respiratory failure with right hemothorax s/p CT placement
Elevated troponin with peak 3.7, likely nonMI troponin
Ascites
Elevated LFTs, improving
Sinus tachycardia
Anemia with significant drop in hemoglobin
Hyponatremia
JULY with hyperkalemia
Hx DVT
Leukocytosis without fever
DNR
Echo January 21 2025: Normal left ventricular size and systolic function. No regional wall motion abnormalities are seen. LV ejection fraction is 60-65% by visual assessment.
Mild concentric left ventricular hypertrophy. Mild mitral regurgitation. Mild tricuspid regurgitation. Pleural effusion present.
Compared to the previous echo from May 2024, there is now mild MR and pleural effusion persent.
Plan:
Troponin elevation likely type II in setting of respiratory failure, hemothorax, anemia and mass
Cont med tx of nonMI troponin with peak 3.7.
Echo reviewed and EF is preserved.
Cont low dose beta connor, Toprol XL 25 mg daily as bp will allow. She has not required pressors.
Add ACEI Lisinopril 2.5 mg daily.
With bleeding, hemothorax, pt can not currently receive antiplatelet/Heparin products
Monitor H/H closely with transfusion
LFTs improving, cont to hold statin
Cont supportive care and tx of her met cancer as per primary service and oncology and diploma maker. Oncologic surgery considering surgery in next couple weeks.
CT care as per CT surgery.
She had been on Eliquis as outpt for hx of DVT
Discussed with nursing and daughter at bedside.
CCT: 30 min
Progress Note - Movement Education Specialist
Subjective
Date of Service: January 22, 2025
Pt seen and examined. No cp
Objective
Labs:
01/22/25 03:22
01/22/25 03:22
Labs
Hgb 8.3 g/dL (12.0-16.0) L 01/22/25 03:22
Hct 24.6 % (37.0-47.0) L 01/22/25 03:22
Plt Count 163 10^3/uL (130-400) 01/22/25 03:22
PT 19.0 Sec (11.4-14.6) H 01/22/25 04:04
INR 1.57 01/22/25 04:04
APTT 26.6 Sec (23.4-35.0) 01/21/25 18:03
Sodium 136 mmol/L (135-145) 01/22/25 03:22
Potassium 4.2 mmol/L (3.5-5.1) 01/22/25 03:22
BUN 28 mg/dl (7-17) H 01/22/25 03:22
Creatinine 0.9 mg/dL (0.6-1.0) 01/22/25 03:22
Glucose 93 mg/dl (70-99) 01/22/25 03:22
Troponins
01/19/25 01/20/25 01/20/25
20:26 03:16 10:00
Troponin I 0.097 H* 0.160 H* D Cancelled
01/20/25 01/20/25 01/21/25
16:00 22:00 03:59
Troponin I Cancelled Cancelled 3.790 H*
01/21/25 01/21/25 01/21/25
10:23 18:03 23:45
Troponin I 3.580 H* 2.670 H* D Cancelled
Vital Signs and I&O:
Vital Signs
Temp Pulse Resp BP Pulse Ox
98.9 F 87 24 144/68 99
01/22/25 04:08 01/22/25 06:00 01/22/25 06:00 01/22/25 06:00 01/22/25 06:00
Vital Signs
Temp Pulse Resp BP Pulse Ox
98.9 F 87 24 144/68 99
01/22/25 04:08 01/22/25 06:00 01/22/25 06:00 01/22/25 06:00 01/22/25 06:00
Intake & Output
01/20/25 01/21/25 01/22/25 01/23/25
06:59 06:59 06:59 06:59
Intake Total 2240 / 2240 2280 / 2280 1585 / 1585
Output Total 100 / 100 900 / 900 1045 / 1045
Balance 2140 / 2140 1380 / 1380 540 / 540
Physical Exam
Physical Exam
General: No acute distress, AAOX3
Neck: Negative JVD
Heart: Regular, Negative S3 positive S1/S2, Negative S4, No murmur
Lungs: CTA b/l, negative wheezes/rales/rhonchi
Abd: Positive BS, NT/ND, neg rebound/rigidity/guarding
Ext: Negative cyanosis/clubbing/edema
Neuro: nonfocal
--- NOTE | 2025-01-22 07:57 | W.PN.INTV ---
Today's Communication / Plan
Recommendations
-Three-way stopcock placed in the chest tube circuit, flush with 10 mL of saline every shift
-Monitor serial H&H. CT angio without evidence of active extravasation in the pleural space.
-Chest x-ray in the morning
-Continue to withhold anticoagulation
-Depending on overnight chest tube output, might clamp and subsequently removed chest tube on 01/23
Assessment
-
Assessment: 80-year-old female non-smoker with a past medical history of right-sided breast cancer s/p lumpectomy (2009) + XRT, history of DVT on Eliquis and hyperlipidemia who presented with vomiting and abdominal pain and was found to be
unresponsive upon arrival here to the ER. Given patient's acute clinical status, history obtained from documentation. Patient reported right sudden onset of abdominal discomfort starting 1 night prior to arrival. Emesis was bilious and nonbloody.
Her pain was a squeezing sensation in the lower quadrants without radiation. She denied diarrhea or constipation. Last BM was 1 day ago and was regular/nonbloody. No fevers or chills. Initially she did not have shortness of breath or chest
pain. She did have an episode of passing out earlier prior to arrival in the setting of nausea/vomiting. Initially in the ER she was afebrile to 98.5 �F, pulse rate 111, breathing at 27 breaths/min, BP 132/55 and saturating 96% on room air.
Initial labs showed leukocytosis of 22.2, Hb 13.9, sodium 134, serum bicarbonate level 14, creatinine 1.1, glucose 298, troponin negative at <0.012, CRP 7.8, lipase 135, and beta-hydroxybutyrate 0.36. CT abdomen/pelvis obtained on 01/10/2025 showing
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 She was initially given 1.5 L NS 0.9%, Zofran and then started on insulin drip, and admitted to the
[facility] for further management. Oncology consulted and CT chest obtained on 01/20/2025 showing a large right-sided pleural effusion with a small left-sided pleural effusion. Her right middle lobe + right lower lobe were completely collapsed. Of note,
her initial CT abdomen/pelvis on 01/18/2025 did not show any evidence of pleural effusions. Patient then became short of breath requiring supplemental oxygen and hypotensive. Patient now transferred to the ICU for further care and vegetable washer
services consulted for additional management/recommendations.
Patient noted to have large spontaneous right-sided hemothorax which caused respiratory distress as well as acute appearance of pleural effusion. She had a chest tube placed with drainage of blood. She has not had further bleeding since. She
initially required blood transfusion but over the last 24 hours hemoglobin has been stable. In view of elevated INR, patient received vitamin K as well as 4 units of FFP's.
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
Assessment and plan.
#1. Spontaneous right sided hemothorax.
-S/p 8 Kiswahili chest tube insertion, hemoglobin has stayed stable however chest tube output went up slightly to 375 mL overnight serosanguineous
-Follow-up chest x-ray has been unremarkable
-Proceed with CTA chest for further evaluation
-Three-way stopcock placed and chest tube flushed without any additional drainage noted. Ordered 10 mL flush with normal saline every shift
-Pleural fluid collected and sent for cytology
-Thoracic surgery service on case, no operative intervention planned
-Concern for possible malignant etiology of her spontaneous pneumothorax, ?metastatic disease
-Hold off anticoagulation. Patient received vitamin K and fresh frozen plasma x 4
-INR normal now
-Monitor labs closely
-Patient off antibiotics currently, blood cultures negative so far
CTA Chest 01/22: 1. No enhancing mass or pathologic lymphadenopathy within the chest. Pleural effusions may still be malignant given the large pelvic mass, please correlate with cytology.
2. Right chest tube is in satisfactory position. No residual right pleural effusion. Tiny amount of air within the right pleural space, likely related to the chest tube.
3. Small left pleural effusion, simple fluid attenuation. Suspected subsegmental atelectasis within the left lower lobe.
4. Intraperitoneal free fluid, partially imaged. Fluid measures 17 Hounsfield units, and may represent hemorrhagic fluid or other complex fluid.
#2. Acute hypoxic respiratory failure. Secondary to hemothorax
-Patient comfortably sitting in no acute distress, saturating well
#3. Acute blood loss anemia. Related to hemothorax
-Status post blood transfusion
-Serial H&H. Last hemoglobin 6.8 this morning, follow-up labs pending.
#4. History of DVT.
-At risk of life-threatening bleeding, not a candidate for anticoagulation in the short-term
#5. Minimum troponin elevation. Suspect demand ischemia in view of acute critical illness.
-Not a candidate for antiplatelet/anticoagulant therapy
-Cardiology service on case.
#6. Right pelvic mass, suspicious for ovarian malignancy.
-Oncology service on case, await further recommendations
-MYSQL DBA consult
- DVT ppx: SCDs
IV access: Midline catheter + PIV
Code status: DNR/DNI
Guarded prognosis. Patient is critically ill; continue ICU level care
Critical care statement: A total of 35 minutes of critical care time was provided for this patient today. This includes management of unstable vital signs, evaluation of the patient at bedside, reviewing the patient's pertinent medical records
including radiographs, microbiology, laboratory evaluations, and discussion with primary team, consultants, pharmacy, nutrition, physical therapy, case management, charge nurse, critical care nursing, and respiratory therapy.
Data:
CT A/P with IV contrast 01/18/2025:
Extremely large heterogeneous complex 'mass' appearing to extend from the soft tissues of the superior right true pelvis into the abdomen measuring up to approximately 15.8 cm with some small to moderate volume mildly complex ascites. Most likely
differential diagnostic possibility would be ovarian origin such as OVARIAN CYSTADENOMA or OVARIAN CYSTADENOCARCINOMA. Exophytic uterine mass would be less likely. Other etiology such as a mass of other origin or large hematoma would also be less
likely.
Suspected hiatal hernia.
Small nonspecific retroperitoneal and pelvic lymph nodes.
CT chest without IV contrast 01/20/2025:
MARKEDLY LIMITED STUDY due to several factors, especially lack of intravenous contrast and prominent respiration/motion artifact.
Large right and tiny left pleural effusions.
Thickened linear density in the left upper lobe most likely representing scarring and some areas of likely subsegmental atelectasis in the aerated portions of both lungs. Entire right lower lobe, portions of right middle lobe and portions of left
lower lobe limited by presumed atelectasis.
Roro cannot be evaluated without intravenous contrast. No gross mediastinal lymphadenopathy no findings to suggest bilateral axillary lymphadenopathy.
Please note, the basis of this limited study, malignancy, including metastatic disease in the chest cannot be excluded.
Subjective Dataa
Subjective Data
Date of Service:
Date of Service: January 22, 2025
Subjective:
Patient comfortably sitting in bed in no acute distress. Had about 375 ml serosanguineous drainage from chest tube.
Review of Systems
Genitourinary: Other (Reviewed and negative except as stated below.)
Objective Data
Data Reviewed
Vital Signs / I&O / Oxygen:
Vital Signs
Temp Pulse Resp BP Pulse Ox
98.9 F 87 24 144/68 99
01/22/25 04:08 01/22/25 06:00 01/22/25 06:00 01/22/25 06:00 01/22/25 06:00
Intake and Output
01/21/25 01/22/25 01/23/25
06:59 06:59 06:59
Intake Total 2280 / 2280 1585 / 1585
Output Total 900 / 900 1045 / 1045
Balance 1380 / 1380 540 / 540
SaO2 99
Nasal Cannula flow liters per 2
minute
Physical Exam
General: Respiratory Distress (none) and Comfortable
Cardiovascular: Regular Rhythm
Respiratory: Clear, Non-Labored Respirations and Chest Tube (375 mL sanguinous drainage from chest tube overnight)
GI: Soft and Non Distended
Neurology: Awake and Alert
Skin: Warm
Labs/Micro/Reports
Lab Data
01/22/25 03:22
01/22/25 03:22
Laboratory Results
01/21/25 01/21/25 01/22/25
10:23 18:03 03:22
PT 22.1 H 18.9 H Cancelled
INR 1.91 1.56 Cancelled
APTT 27.5 26.6
01/22/25
04:04
PT 19.0 H
INR 1.57
APTT
Microbiology
01/20/25 05:06 Blood/Venous Blood Culture - Preliminary
No Growth in 48 hours- Final report to follow
01/20/25 17:41 Pleural Fluid Gram Stain - Preliminary
--- NOTE | 2025-01-22 08:00 | PTCARENOTE ---
pt received from previous rn- aox4, nsr to sinus tach on monitor, on 2LNC, pt with abdominal pain- improved after large bm. right posterior chest tube c/d/i, draining blood. no leakage or crepitus noted. daughter at bedside, both educated about plan
of care for shift- verbalized understanding. all safety precautions in place, call swift within reach.
[2025-01-22 08:31] LABS: Glucose - Point of Care 130 mg/dl (70-99)
--- NOTE | 2025-01-22 10:03 | W.PN.ONC2 ---
Today's Communication / Plan
-
.
Impression
Impression
Hepatic transaminitis, suspect shock liver
right sided hemothorax
Acute on chronic anemia c/w blood loss - 3PRBC
coagulapathy secondary to DOAC +/-shock liver so clotting factor production may be reduced-s/p 4FFP, vitamin K
Large pelvic mass, no definite evidence of metastatic disease
Hx DCIS s/p lumpectomy
DKA
Leukocytosis -improving
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
type II TN in setting of respiratory failure, hemothorax, anemia and mass -cardiology following
Plan
Plan
appreciate Dr. Krause input for eventual surgery. EGD/colonoscopy recommended as well, f/u GI consult
anticoagulation on hold d/t ABLA -Hgb stable >8g/dL today
monitor for bleeding, serial coags, serial H/H
cautious use of vitamin K and FFP with high risk VTE/FVL, OAC on hold for bleeding
R chest tube management per thoracic surgery
Subjective/Objective
Subjective
no new complaints
Vital Signs:
Vital Signs
Temp Pulse Resp BP Pulse Ox
99.4 F 94 26 126/51 97
01/22/25 08:00 01/22/25 08:00 01/22/25 08:00 01/22/25 08:00 01/22/25 08:00
Lab Results:
Laboratory Data
WBC 13.2 10^3/uL (4.8-10.8) H 01/22/25 03:22
Hgb 8.3 g/dL (12.0-16.0) L 01/22/25 03:22
Plt Count 163 10^3/uL (130-400) 01/22/25 03:22
PT 19.0 Sec (11.4-14.6) H 01/22/25 04:04
INR 1.57 01/22/25 04:04
APTT 26.6 Sec (23.4-35.0) 01/21/25 18:03
eGFR > 60.00 01/22/25 03:22
[2025-01-22] MEDS: TOPROL XL 25 MG PO (11:20)
[2025-01-22] MEDS: ZESTRIL 2.5 MG PO (11:20)
[2025-01-22 11:37] LABS: Glucose - Point of Care 114 mg/dl (70-99)
--- NOTE | 2025-01-22 11:47 | PTCARENOTE ---
pt oob to chair, scds on and chest tube flushed with sterile saline per Dr. Rosenthal order. pt pending ct- aware of only clear liquids at this time
--- NOTE | 2025-01-22 11:52 | CM ---
CM following re: discharge planning.
Reviewed pt's chart, met with pt. Pt's daughter and brother in law at bedside. Pt is down to 2L NC of O2, continue supportive care.
PT and OT evaluations noted - SNF level of care recommended. both pt and her family are aware, expressed their agreement. A list of SNFs provided to the pt and her family. Pt's brother in law stated he lives at [facility] and he encouraged the pt
to go to [facility]. Pt expressed her agreement with going to [facility]. A referral to [facility] made.
D/C plan: [facility] for a short term rehab.
CM will follow to assist pt with discharge to [facility]
--- NOTE | 2025-01-22 11:54 | CON.CRS ---
Medical History
-
History of Present Illness:
80-year-old female non-smoker with a PMH of right-sided breast cancer s/p lumpectomy (2009) + XRT, Factor 5 leiden and history of DVT (chronic L femoral) on Eliquis and hyperlipidemia who presented with vomiting and abdominal pain and was found to
be unresponsive upon arrival to the ER. Patient reported right sudden onset of abdominal discomfort starting 1 night prior to arrival associated with N/V. Initially in the ER she was tachycardic and tachypneic. Her WBC 22.[address]
abdomen/pelvis obtained on 01/18/2025 showed a large heterogeneous complex mass in the pelvis extending into the abdomen concerning for ovarian cystadenoma versus ovarian cystadenocarcinoma. She was given fluid and started on insulin drip. Oncology
consulted and repeat imaging was done on 01/20. Pelvic U/S showed the pelvic mass, unable to visualize the ovaries. CT chest showed a large right-sided pleural effusion which was new from her CT on 01/18. The CTA AP showed no active extravasation,
stable moderate ascites. She underwent IR guided chest tube and returned about 600 mL of blood. She received a total of pRBC x7 (x2 on 01/20, x5 on 01/21). She was also hypotensive, with systolics reaching as low as 50-60. This responded with the
transfusions and did not require vasopressors. However, she subsequently developed a troponinemia and elevated liver enzymes, concerning for ischemic injury to the heart and liver. This morning, her LFTs and troponin are trending down. She denies
any chest pain or shortness of breath. She denies any abdominal pain or N/V. Her appetite is also slowly improving. She is passing flatus and having BMs. She has never had a colonoscopy.
Past Medical History
Past Medical History: Other (As above)
Past Surgical History: Other (Left breast lumpectomy)
Social History
Tobacco: Non-Smoker
Alcohol: None
Drug: None
Personal:
Family History
Family History: Other (No family history of CRC)
Allergies / Home Medications
Allergy/AdvReac Type Severity Reaction Status Date / Time
adhesive Allergy Rash Verified 05/23/24 20:00
erythromycin base Allergy Nausea Verified 05/23/24 20:00
�Medication �Instructions �Recorded �Confirmed �Type
apixaban 5 mg tablet (Eliquis) 5 mg PO BID #60 tabs 05/25/24 01/18/25 Rx
metoprolol succinate 25 mg 25 mg PO DAILY #30 tabs 05/25/24 01/18/25 Rx
tablet,extended release 24 hr
(Toprol XL)
atorvastatin 40 mg tablet 40 mg PO HS High Cholesterol 01/18/25 01/18/25 History
Review of Systems
-
A 10 point review of systems was completed, and was negative except as per HPI.
Physical Exam
Vital Signs
Temp 99.4 F 01/22/25 08:00
Pulse 104 01/22/25 10:00
Resp Rate 19 01/22/25 10:00
Blood pressure 137/85 01/22/25 10:00
SaO2 98 01/22/25 10:00
01/21/25 01/22/25 01/23/25
06:59 06:59 06:59
Actual Weight 70.052 kg 70.125 kg
Body Mass Index (BMI) 24.2
Lab Results / Allergies
01/22/25 03:22
WBC 13.2 10^3/uL (4.8-10.8) H 01/22/25 03:22
Hgb 8.3 g/dL (12.0-16.0) L 01/22/25 03:22
Hct 24.6 % (37.0-47.0) L 01/22/25 03:22
Plt Count 163 10^3/uL (130-400) 01/22/25 03:22
Abs Immat Gran (auto) 0.1 10^3/uL (0-0.05) H 01/22/25 03:22
Neutrophils % 83.3 % (42.2-75.2) H 01/22/25 03:22
Allergy/AdvReac Type Severity Reaction Status Date / Time
adhesive Allergy Rash Verified 05/23/24 20:00
erythromycin base Allergy Nausea Verified 05/23/24 20:00
Physical Exam
General: Well Developed, Well Nourished and No Apparent Distress
HEENT: Normocephalic and Atraumatic
Respiratory: Non Labored Respirations and Other (CT-645 dark serosanguineous output)
GI: Soft, Tender (Minimally tender, no rebound or guarding) and Distended (Minimally to mildly distended, not tympanitic)
Skin: Warm and Dry
Neuro: AO x 3
Assessment / Plan
-
80-year-old female with PMH of breast cancer s/p RT and lumpectomy, factor V Leiden (history of left femoral DVT, on Eliquis) who presented with acute abdominal pain and syncopal episode; found to have large pelvic mass associated with moderate
amount of ascites; rapidly develops anemia and right sided effusion, s/p IR guided chest tube with sanguinous output; s/p hypotension requiring total of pRBC x 7; complicated by shock liver and troponinemia; currently stabilized with improvement in
symptoms; never had a colonoscopy
�Pelvic mass, with likely hemorrhagic ascites
�Etiology includes Customer Care Representative origin versus colorectal origin; on personal review of the CT scan, the mass is abutting the colon, but appears extramural, decreasing my suspicion for colonic origin
�Would consider MRI pelvis if patient is stable
�D/w Dr. Krause; CEA 165, CA 19-9 60,000, CA125 18,600; consider paracentesis for cytology
�Agree with Dr. Krause regarding delaying surgical intervention until recovery from hospitalization
�Would recommend outpatient colonoscopy after recovery to rule out colonic origin prior to surgical resection
�I can be available for intraoperative assistance with any bowel involvement depending on scheduling
�Appreciate oncology
-Staging:
-CT CAP - no concerning LAD or mets, however, CT chest done with IV contrast
-Recommended repeating CT chest with IV contrast to better evaluate for metastatic disease
�Hemorrhagic pleural effusion
�Continue IR chest tube; trend CBC and transfuse PRN; if continued bleeding, would consider CTA chest and thoracic consult
�Recommend repeating CT chest with IV contrast to ensure no pleural lesions that may have led to the thoracic hemorrhage
�Appreciate cardiology
� Appreciate hospitalist
�Will follow peripherally; will need follow-up with me in 1 to 2 weeks from discharge; please call for any questions or concerns
--- NOTE | 2025-01-22 13:09 | CON.GI ---
Addendum entered and electronically signed by Abraham Tavares MD 01/22/25 16:54:
I saw and examined the patient.
The RN CIRCULATING or PA's note was reviewed and I agree with the note.
Comment: 80yo female cound to have large R pelvic mass, ascites, large R pleural effusion s/p chest tube placement for hemothorax, CA 125 28825, CEA 165, CA 19-9 60,375, cA 27-29 908.7. GI asked to see for possible EGD to r/o gastric primary. Pt
had paracentesis today and is planned to have CT guided bx pelvic mass
REC:
Would await pathology from planned bx of pelvic mass. If GI site of origin suggested, we could do EGD then.
Original Note:
Consultation
-
Date/Time Consultation Requested: 01/22/25 1050
Date/Time Consultation Performed: 01/22/25 1310
Requesting Provider: Karlie Hooker MD
Performing Provider: JESENIA Mariee, Abraham Tavares MD
Reason for Consultation: anemia
Medical History
Chief Complaint / HPI
Chief Complaint: abdominal pain
History of Present Illness:
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
with nausea and vomiting of bilious emesis and near syncope on 01/18. In ER noted with tachycardia and tachypnea. On admission WBC was 22.2 and hbg was 13.9 with progressive drop to hbg 5.2. Imaging on admission with concern for large complex
mass right pelvis into abdomen 15.8 cm with small to moderate ascites ovarian cystadenoma vs ovarian cystadenocarcinoma vs large hematoma. Further follow up US pelvis with large pelvic mass, 3/2 CT chest with limited study with large right and tiny
left pleural effusion and repeat CT a/p with angio 3/2 with large mass, moderate ascites, large right pleural effusion with follow up placement of Chest with drainage of large volume bloody drainage. She has required multiple transfusion since
admission of blood and platelets Pt has been seen by multiple consultants including, PERFORMANCE IMPROVEMENT SPECIALIST, surgical oncology, colorectal surgery, CT surgery, and cardiology with elevated trop. Tumor markers with marked elevation with CEA 165, CA 19-9 39664, CA
125 66550, CA 27-29 908.7. Pt also noted with normal LFT's on admission with rise to 3/3 bili 1.7, AST 1273, ALT 858, and alk phos 69. Pt for paracentesis and asked to see for EGD and colonoscopy with colorectal vs GI prior to surgery. Denies hx
EGD or colonoscopy in past.
At this time she denies hx prior or current GI bleeding. She still has some LLQ abdominal pain but denies dysphagia, GERD, diarrhea, constipation or rectal bleeding.
Past Medical History
Past Medical History: Cancer (breast CA with right sided lumpectomy and XRT 2009), CVA, Hypercholesterolemia and Other (factor V Leiden and DVT chronic left femoral on Eliquis prior to admission)
Past Surgical History: Other (breast lumpectomy)
Social History
Tobacco: Non-Smoker
Alcohol: None
Drug: None
Living: Alone
Employment: Retired
Family History
Family History: Other (father with pancreatic CA )
Allergies / Home Medications
Allergy/AdvReac Type Severity Reaction Status Date / Time
adhesive Allergy Rash Verified 05/23/24 20:00
erythromycin base Allergy Nausea Verified 05/23/24 20:00
�Medication �Instructions �Recorded
apixaban 5 mg tablet (Eliquis) 5 mg PO BID #60 tabs 05/25/24
metoprolol succinate 25 mg 25 mg PO DAILY #30 tabs 05/25/24
tablet,extended release 24 hr
(Toprol XL)
atorvastatin 40 mg tablet 40 mg PO HS High Cholesterol 01/18/25
Review of Systems
-
History Source: Patient and Family
Constitutional: Reports Weight Gain (few lbs )
EENT: Reports No Symptoms
Respiratory: Reports No Symptoms
Cardiac: Reports No Symptoms
Abdomen/GI: Reports Nausea and Vomiting (on admission)
: Reports No Symptoms
Musculoskeletal: Reports No Symptoms
Skin: Reports No Symptoms
Neurological: Reports No Symptoms
Endocrine: Reports No Symptoms
Hematologic/Lymphatic: Reports Bleeding (bloody Chest tube drainage)
Vital Signs
Temp Pulse Resp BP Pulse Ox
98.5 F 92 21 146/62 99
01/22/25 12:00 01/22/25 12:00 01/22/25 12:00 01/22/25 12:00 01/22/25 12:00
Physical Exam
Exam
General: Well Developed, Well Nourished and No Apparent Distress
HEENT: Normocephalic, Anicteric and Moist Mucous Membranes
Respiratory: Clear and Other (decreased right base with bloody drainage in Chest tube )
Cardiac: Regular Rhythm
GI: Soft, Tender (right lower quadrant ) and Distended (mild )
Rectal: Other (per staff brown stool recorded in chart )
Musculoskeletal: No Clubbing and No Cyanosis
Skin: Warm and Dry
Neuro: Awake, Alert and AO x 3
Psych: Calm
Results
WBC 13.2 10^3/uL (4.8-10.8) H 01/22/25 03:22
Hgb 8.3 g/dL (12.0-16.0) L 01/22/25 03:22
Hct 24.6 % (37.0-47.0) L 01/22/25 03:22
MCV 86.0 fL (81.0-99.0) 01/22/25 03:22
Plt Count 163 10^3/uL (130-400) 01/22/25 03:22
Absolute Neuts (auto) 11.0 10^3/uL (1.4-6.5) H 01/22/25 03:22
PT 19.0 Sec (11.4-14.6) H 01/22/25 04:04
INR 1.57 01/22/25 04:04
APTT 26.6 Sec (23.4-35.0) 01/21/25 18:03
Sodium 136 mmol/L (135-145) 01/22/25 03:22
Potassium 4.2 mmol/L (3.5-5.1) 01/22/25 03:22
Chloride 105 mmol/L (98-107) 01/22/25 03:22
Carbon Dioxide 26 mmol/L (22-30) 01/22/25 03:22
BUN 28 mg/dl (7-17) H 01/22/25 03:22
Creatinine 0.9 mg/dL (0.6-1.0) 01/22/25 03:22
Calcium 7.9 mg/dl (8.4-10.2) L 01/22/25 03:22
Total Bilirubin 2.3 mg/dl (0.2-1.3) H 01/21/25 14:18
AST 916 U/L (14-36) H* 01/21/25 14:18
ALT 653 U/L (0-35) H* 01/21/25 14:18
Alkaline Phosphatase 81 U/L (38-126) 01/21/25 14:18
Lipase 135 U/L (23-300) 01/18/25 13:16
Diagnostic Image Results:
01/18/25- CT Abd/pelvis W Iv Cont
Extremely large heterogeneous complex 'mass' appearing to extend from the soft tissues of the superior right true pelvis into the abdomen measuring up to approximately 15.8 cm with some small to moderate volume mildly complex ascites. Most likely
differential diagnostic possibility would be ovarian origin such as OVARIAN CYSTADENOMA or OVARIAN CYSTADENOCARCINOMA. Exophytic uterine mass would be less likely. Other etiology such as a mass of other origin or large hematoma would also be less
likely.
Suspected hiatal hernia.
Small nonspecific retroperitoneal and pelvic lymph nodes.
01/20/25 US abdomen
IMPRESSION: Large pelvic mass as described above. This is concerning for malignancy until proven otherwise.
Nonvisualization of the ovaries.
MRI evaluation will probably be of benefit for further characterization of the mass as well as visualization of the ovaries.
Thickened endometrial stripe for a postmenopausal female. This would better be evaluated by transvaginal scanning. The patient refused. The differential diagnosis includes endometrial hyperplasia, carcinoma and polyp.
01/20/25 CT Chest W/o Iv Contrast
MARKEDLY LIMITED STUDY due to several factors, especially lack of intravenous contrast and prominent respiration/motion artifact.
Large right and tiny left pleural effusions.
Thickened linear density in the left upper lobe most likely representing scarring and some areas of likely subsegmental atelectasis in the aerated portions of both lungs. Entire right lower lobe, portions of right middle lobe and portions of left
lower lobe limited by presumed atelectasis.
Roro cannot be evaluated without intravenous contrast. No gross mediastinal lymphadenopathy no findings to suggest bilateral axillary lymphadenopathy.
Please note, the basis of this limited study, malignancy, including metastatic disease in the chest cannot be excluded.
Please see separate CT and CTA Abdomen and Pelvis reports of January 18, 2025 January 20, 2025 for evaluation of the upper abdomen
01/20/25 CT Abd/pelvis Angio W/wo Iv
IMPRESSION: Large abdominopelvic mass as described above. No associated active bleeding identified. Stable
Moderate abdominopelvic ascites. Stable
Large right pleural effusion. Small left pleural effusion. Both new.
Moderate right lower lobe consolidation. This may be due to pneumonia. Mild left lower lobe consolidation probably is atelectasis. Both new.
Gallstones. Stable
01/20/25
Ultrasound guided right chest tube placement as described.
01/20/25 CXR Post right chest tube placement. Decreased right pleural fluid as compared with CT of earlier the same date.
Prior GI Procedures:
EGD: none
Colonoscopy: none
Assessment / Plan
-
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
with nausea and vomiting of bilious emesis and near syncope on 01/18. In ER noted with tachycardia and tachypnea. On admission WBC was 22.2 and hbg was 13.9 with progressive drop to hbg 5.2. Imaging on admission with concern for large complex
mass right pelvis into abdomen 15.8 cm with small to moderate ascites ovarian cystadenoma vs ovarian cystadenocarcinoma vs large hematoma. Further follow up US pelvis with large pelvic mass, / CT chest with limited study with large right and tiny
left pleural effusion and repeat CT a/p with angio 01/20 with large mass, moderate ascites, large right pleural effusion with follow up placement of Chest with drainage of large volume bloody drainage. She has required multiple transfusion since
admission. Pt has been seen by multiple consultants including, PERFORMANCE IMPROVEMENT SPECIALIST, surgical oncology, colorectal surgery, CT surgery, and cardiology with elevated trop. Tumor markers with marked elevation with CEA 165, CA 19-9 56156, CA 125 04489, CA 27-29
908.7. Pt also noted with normal LFT's on admission with rise to 3/ bili 1.7, AST 1273, ALT 858, and alk phos 69. Pt for paracentesis and asked to see for EGD and colonoscopy with colorectal vs GI prior to surgery. Denies hx EGD or colonoscopy in
past.
-sudden onset RLQ pain with syncope
-large pelvic mass
-anemia with drop in hbg since admission
-increased LFT's
-large right pleural effusion s/p CT placement with drainage of large amount of blood tinged fluid
-marked elevated tumor marker
other med problem:
-breast CA with prior lumpectomy and XRT 2009
-CVA
-chronic DVT on Eliquis prior to admission
-factor V Leiden mutation
-lung and thyroid nodule per imaging 2023
PLAN:
Appreciate informatics consultant input with concern for malignant pelvic mass
pt with continued drop in hbg with concern for bleeding source unclear but noted with larger volume of blood from chest tube
no signs of active GI bleeding -- reports bilious emesis and brown stools
for repeat CT angio of chest
await para and analysis
trend hbg transfuse as needed
cont Eliquis hold
LFT elevation likely shock liver with normal LFT's on admission and SBP as low as 50 on 3/2 with rise after hypotensive period
will review with Dr. Tavares for EGD and timing-- colonoscopy per colorectal and may try to time prior to surgery
-
-
Thank you for consultation and allowing me to participate in the patient's care. Please call the tour consultant GI physician during the after hours with any questions or concerns.
--- NOTE | 2025-01-22 13:25 | W.PN.HOSP.TC ---
Today's Communication/Plan
-
see note
Assessment / Plan
Assessment / Plan
Ms. Golden is a 79-year-old female with a medical history of breast cancer (diagnosed 2013, status postlumpectomy and radiation), factor V Leiden mutation carrier, and history of DVT (on Eliquis) who presented with nausea and vomiting with
associated abdominal bloating. CT imaging revealed a large heterogeneous complex mass appeared to be originating from the right ovary. Labs revealed a gapped acidosis. She was mildly hyperglycemic and had an elevated beta hydroxybutyrate. She
was started on an insulin drip with DKA protocol and admitted for further evaluation and management.
1. Acute hypoxic respiratory failure - Improving
Right-sided hemothorax
-Patient requiring high flow oxygen, 30L/min
-Patient is s/p chest tube placement on 01/20
-Overnight CT tube out of 600ml. fluid WBC 13.2 K with PMN 69.7%. Fluid LDH 5.7K. cytopathology ordered
-Chest x-ray in the morning showing relatively clear x-ray. Small left-sided effusion.
-Pulmonology following and help appreciated
-CT surgeon evaluated and no surgical indication
-CTA chest ordered to better evaluate for any source of active hemothorax. Discussed with management scientist
2. Acute blood loss anemia
-From ongoing blood containing CT tube output
-No GI blood loss reported
-CT abdomen pelvis time to rule out any retroperitoneal bleed
-Continue following hemoglobin with transfusion for less than 7
3. Right pelvic mass - presumed malignancy
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
-CA 19-9 level of 60.3K. CEA 165 (WNL), CA 27-29 and CA125 level pending.
-MRI abdomen/pelvis with and without contrast has been pending
-THERMIT WELDING MACHINE OPERATOR and oncology input noted
-Input from Dr. Krause reviewed. Patient will eventually require biopsy of the mass and outpatient resection post improvement of other current comorbidities
-Colorectal surgeon consulted onc-retail pharmacy technician for possible need of colonoscopy, no clear indication per CRS.
-GI consulted for possible need of EGD. Of note patient stool positive for occult blood.
4. Troponin elevation
-Denies any chest pain.
-Suspected type II IL from hypovolemia and tachycardia. Trop max at ~ 3.5 , trending down.
-With ongoing bleeding issue cannot be started on any antiplatelets/heparin product
-TTE showed preserved EF
-Cardiology following and no further intervention warranted at this point.
5. Hyponatremia -resolved
-Euvolemic in nature presumed ADH excess with blood loss
6. JULY -resolved
Metabolic acidosis -resolved
-JULY likely related to hypovolemia/hypotension and need of contrast for CT scan
-Patient had mild anion gap metabolic acidosis likely with JULY and malignancy related
-Renal function stabilized around 1.3 today,
-Avoid nephrotoxic medication and monitor
6. Hyperkalemia -resolved
-driven from acidosis and mild july
7. Hypovolemic shock - resolved
-Required IVF/support of vasopressor
8.Chronic left femoral vein thrombus
-Peripheral vascular ultrasound report reviewed
9. Leukocytosis without fever
-No clear infection source at this point
-discontinue abx and monitor
11. Shock liver
-LFTs trending down still remains elevated
-Lipitor/Tylenol
12. Abnormal UA
-no dysuria/have elevated wbc
-Follow-up clinically/urine culture. Currently off of antibiotic
CODE STATUS: DNR
Care plan discussed with RN/management scientist/GI
Patient family updated at bedside
Total time spent : 55 mins
I personally saw and examined the patient.
I have reviewed all diagnostic interpretations and treatment plans as written.
Time includes patient management by me, time spent at the patients bedside, time to review lab and imaging results, discussing patient care, documentation in the medical record, and time spent with the family or caregiver and discussing care plan
with RN/Consultants.
Anticipated Discharge: > 48 hours
Subjective/Interval History
-
Date of Service: January 22, 2025
Resting comfortably in bed
Oxygen requirement down on 2 L nasal cannula
No chest discomfort/shortness of breath
Continues to have blood containing fluid from right-sided chest tube
Objective Data
-
Labs:
Laboratory Results
01/22/25 01/22/25 01/22/25
03:22 04:04 15:00
WBC 13.2 H Pending
Hgb 8.3 L Pending
Hct 24.6 L Pending
Plt Count 163 Pending
PT Cancelled 19.0 H
INR Cancelled 1.57
Sodium 136
Potassium 4.2
Chloride 105
Carbon Dioxide 26
BUN 28 H
Creatinine 0.9
Glucose 93
Calcium 7.9 L
Vital Signs:
Vital Signs
Temp Pulse Resp BP Pulse Ox
98.5 F 92 21 146/62 99
01/22/25 12:00 01/22/25 12:00 01/22/25 12:00 01/22/25 12:00 01/22/25 12:00
I&O
01/21/25 01/22/25 01/23/25
06:59 06:59 06:59
Intake Total 2280 / 2280 1585 / 1585
Output Total 900 / 900 1045 / 1045
Balance 1380 / 1380 540 / 540
Review of Systems
-
Respiratory: Reports No Symptoms
Cardiac: Reports No Symptoms
Abdomen/GI: Reports No Symptoms
Physical Exam
-
General: No Apparent Distress and Comfortable
HEENT: Oxygen (High flow 30L/min)
Respiratory: Clear to Auscultation and Chest Tubes (Right ethanol quality leader - hemorrhagic fluid)
Cardiac: Regular Rhythm and S1/S2; Negative Murmur or Rub
GI: Soft, Nondistended and Distended; Negative Tender
Musculoskeletal: No Edema
Neuro: Awake, Alert, Oriented, No Motor Deficits and Nonfocal/Grossly Intact
Psych: Calm
--- NOTE | 2025-01-22 13:27 | W.PN.GYNONC ---
Today's Communication
-
na
Impression / Plan
-
Patient was seen earlier today by herself and later this afternoon with her daughter from [place] present. Other daughter who is local was present on the phone during the consultation and visit today. I reviewed events leading up to admission as
well as summarized the events over the weekend, the following problems are noted
1. Acute hypoxic respiratory failure
Right-sided hemothorax, managed with chest tube,
Remains on nasal cannula oxygen, chest tube output was 645, repeat chest CT is being done this afternoon
2. Acute blood loss anemia
Hemoglobin is 8.3, repeat at 1500 pending
3. Right pelvic mass -patient has not been under care of gynecology and we have to assume this is a new neoplasm. The tumor can be primary ovarian neoplasm of either epithelial or sex cord stromal, less likely germ cell tumor. Alternatively this
could be a metastasis from another site i.e. GI tract.
So far markers including CEA and CA 19-9 are significantly elevated which may suggest etiology to be primary mucinous adenocarcinoma or GI tumor with metastasis to ovary.
Her CA125 is elevated to 18,000.
I have asked interventional radiology to proceed with paracentesis, diagnostic and therapeutic as well as CT-guided biopsy of the pelvic mass.
Surgery for based mass will be deferred approximately 2 to 3 weeks, I requested colorectal surgery colleagues to see the patient, perhaps we can coordinate a colonoscopy prior to day of surgery
I will also place an order for MRI of the pelvis to be done in the next couple of days
4. Troponin elevation
-Appreciate input by cardiology, normal echocardiogram noted. Troponin is trending down
5. JULY is resolving creatinine is 0.9 today
6. Hyperkalemia
-resolved
7. Hypovolemic shock - resolved
8. History of DVT:
Ultrasound of lower extremities shows chronic thrombus, hold off on any anticoagulation at this time
9. Leukocytosis without fever
10. CODE STATUS. Patient had mention to me that she has a living well, she did not want aggressive measures including intubation. She does wish to continue treatment including possible upcoming surgery. We will discussed this with her to ensure
any actions that we take is consistent with her goals of care.
Subjective / Interval History
-
Patient reports she slept well overnight, does not have any pain. She does not have any shortness of breath. She did have a bowel movement, tolerated tea and liquids okay
Objective Data
-
Lab Results:
01/22/25 03:22
Laboratory Tests
01/22/25
03:22
Hgb 8.3 L
Physical Exam
Vital Signs / I&O
Vitals
Temp Pulse Resp BP Pulse Ox
98.5 F 92 21 146/62 99
01/22/25 12:00 01/22/25 12:00 01/22/25 12:00 01/22/25 12:00 01/22/25 12:00
I&O
01/20/25 01/21/25 01/22/25 01/23/25
06:59 06:59 06:59 06:59
Intake Total 2240 / 2240 2280 / 2280 1585 / 1585
Output Total 100 / 100 900 / 900 1045 / 1045
Balance 2140 / 2140 1380 / 1380 540 / 540
Physical Exam
General: No Apparent Distress
HEENT: Normocephalic
Respiratory: Non Labored Respirations
Cardiac: S1/S2 and Regular Rhythm
GI: Soft and Distended
[2025-01-22 15:44] LABS: Hematocrit 25.8 % (37.0-47.0); Hemoglobin 8.8 g/dL (12.0-16.0); Mean Corp Hgb Conc. 34.1 g/dL (33.0-37.0); Mean Corpuscular Hgb 29.4 pg (27.0-31.0); Mean Corpuscular Volume 86.3 fL (81.0-99.0); Mean Platelet Volume 10.7 fL (7.4-10.4); Platelet Count 208 10^3/uL (130-400); Red Blood Cell Count 2.99 10^6/uL (4.20-5.40); White Blood Cell Count 16.5 10^3/uL (4.8-10.8)
[2025-01-22 16:26] LABS: Body Fluid Protein 3.9 g/dl; Body Fluid Triglycerides < 30 mg/dl
[2025-01-22 16:51] LABS: Body Fluid LDH 4258 U/L
[2025-01-22 17:09] LABS: Body Fluid Mononuclear 20.2 %; Body Fluid Polymorphonuclear 79.8 %; Body Fluid WBC 14400 /CUMM
[2025-01-22 17:13] LABS: Glucose - Point of Care 106 mg/dl (70-99)
[2025-01-22 17:23] LABS: Body Fluid Second Tech CMC
--- NOTE | 2025-01-22 20:00 | PTCARENOTE ---
Rec'd pt resting in bed, oriented, cooperative, tearful, emotional support given, SR, bp stable, weak distal pulses, skin warm/dry, O2 2 liters nc, lungs decr in bases, sat 99, R chest tube to -20 cm suction draining bloody liquid, irrigate w/ 10
ml sterile NSS per order, no crepitus, no airleak, + bowel sounds, no bm, abd round, tender to palpation, no n/v, poor appetite, voids on bedpan abran urine
[2025-01-22 21:46] LABS: Glucose - Point of Care 113 mg/dl (70-99)
[2025-01-23] VITALS (27 sets, daily range): BP systolic 87–165; BP diastolic 56–97; BMI 24.0
--- NOTE | 2025-01-23 | PTCARENOTE ---
sys reviewed, changes noted, CHG bath done, liens changed
--- NOTE | 2025-01-23 01:54 | PTCARENOTE ---
inc sm amt loose brown stool, javier care done
--- NOTE | 2025-01-23 03:14 | PTCARENOTE ---
Pt sleeping on & off, changes noted
[2025-01-23 03:28] LABS: Hematocrit 24.6 % (37.0-47.0); Hemoglobin 8.5 g/dL (12.0-16.0); Mean Corp Hgb Conc. 34.6 g/dL (33.0-37.0); Mean Corpuscular Hgb 29.7 pg (27.0-31.0); Mean Platelet Volume 10.5 fL (7.4-10.4); Platelet Count 228 10^3/uL (130-400); Red Blood Cell Count 2.86 10^6/uL (4.20-5.40); Red Cell Dist. Width 15.1 % (11.5-14.5); White Blood Cell Count 16.1 10^3/uL (4.8-10.8)
[2025-01-23 03:39] LABS: INR 1.36
[2025-01-23 03:49] LABS: Blood Urea Nitrogen 25 mg/dl (7-17); Calcium 7.8 mg/dl (8.4-10.2); Carbon Dioxide 26 mmol/L (22-30); Chloride 105 mmol/L (98-107); Estimated Creatinine Clearance 56 ml/min; Glucose 97 mg/dl (70-99); Sodium 136 mmol/L (135-145); eGFR > 60.00
--- NOTE | 2025-01-23 05:19 | PTCARENOTE ---
c/o R side abd pain- pt doesn't want to take oxy or dilaudid ; requested tylenol - texted INFOR[employer] DEVELOPER but she doen't want to order it due to LFT's, informed pt, pt doesn't want to take anything at this time
--- NOTE | 2025-01-23 07:47 | W.PN.ONC2 ---
Today's Communication / Plan
-
Await cytology from paracentesis and results of core biopsy. No obvious evidence of other sites of metastatic disease but multiple tumor markers are elevated suggesting that this is more likely related to a GI source than primary ovarian.
For now we will standby and await core biopsy to help define best treatment options for her.
Long discussion with her regarding the working diagnosis with explanation that the pathologic information will help much more than we know now.
Impression
Impression
Right pelvic mass suspect neoplasm
Hepatic transaminitis, suspect shock liver
right sided hemothorax
Acute on chronic anemia c/w blood loss - 3PRBC
coagulapathy secondary to DOAC +/-shock liver so clotting factor production may be reduced-s/p 4FFP, vitamin K
Hx DCIS s/p lumpectomy
DKA
Leukocytosis -improving
FVL/Hx DVT - US 3/3 chronic occlusive thrombus within the left femoral vein
type II OR in setting of respiratory failure, hemothorax, anemia and mass -cardiology following
Plan
Plan
appreciate Dr. Krause input for eventual surgery. EGD/colonoscopy recommended as well, appreciate GI consult -they are also waiting for results of abdominal pathologic analysis.
anticoagulation on hold d/t ABLA -Hgb stable >8g/dL today
cautious use of vitamin K and FFP with high risk VTE/FVL, OAC on hold for bleeding
R chest tube management per thoracic surgery
Subjective/Objective
Chief Complaint
ACS heme/onc progress note
Subjective
No new complaints. She still has abdominal pain intermittent that began late night with associated nausea and bilious vomiting. Underwent paracentesis yesterday. 10 cc of bloody fluid was obtained and sent for analysis. Patient is
scheduled for core biopsy of pelvic mass later today.
Vital Signs:
Vital Signs
Temp Pulse Resp BP Pulse Ox
98.3 F 81 18 138/58 98
01/22/25 23:26 01/23/25 06:00 01/23/25 06:00 01/23/25 06:00 01/23/25 06:00
Lab Results:
Laboratory Data
WBC 16.1 10^3/uL (4.8-10.8) H 01/23/25 03:09
Hgb 8.5 g/dL (12.0-16.0) L 01/23/25 03:09
Plt Count 228 10^3/uL (130-400) 01/23/25 03:09
PT 17.0 Sec (11.4-14.6) H 01/23/25 03:09
INR 1.36 01/23/25 03:09
APTT 26.6 Sec (23.4-35.0) 01/21/25 18:03
eGFR > 60.00 01/23/25 03:09
Laboratory Tests
01/18/25 01/19/25
21:22 04:24
Carcinoembryonic Ag 165
CA 19-9 Antigen 59500 H
CA 27-29 908.7 H
CA 125 Antigen 42678 H
Physical Exam
HEENT: No Jaundice
Cardiology: S1 and S2
Pulmonary: Clear
GI: Soft
Extremities: No C/C/E
[2025-01-23 07:53] LABS: Glucose - Point of Care 100 mg/dl (70-99)
--- NOTE | 2025-01-23 07:56 | W.PN.INTV ---
Today's Communication / Plan
Recommendations
- Continue to monitor chest tube output and CBC closely
-Once chest tube output is less than 200 over 24 hours, will clamp and monitor
-If increasing chest output noted, will recommend a repeat CT angiogram to identify site of active bleeding
Assessment
-
Assessment: 80-year-old female non-smoker with a past medical history of right-sided breast cancer s/p lumpectomy (2009) + XRT, history of DVT on Eliquis and hyperlipidemia who presented with vomiting and abdominal pain and was found to be
unresponsive upon arrival here to the ER. Given patient's acute clinical status, history obtained from documentation. Patient reported right sudden onset of abdominal discomfort starting 1 night prior to arrival. Emesis was bilious and nonbloody.
Her pain was a squeezing sensation in the lower quadrants without radiation. She denied diarrhea or constipation. Last BM was 1 day ago and was regular/nonbloody. No fevers or chills. Initially she did not have shortness of breath or chest
pain. She did have an episode of passing out earlier prior to arrival in the setting of nausea/vomiting. Initially in the ER she was afebrile to 98.5 �F, pulse rate 111, breathing at 27 breaths/min, BP 132/55 and saturating 96% on room air.
Initial labs showed leukocytosis of 22.2, Hb 13.9, sodium 134, serum bicarbonate level 14, creatinine 1.1, glucose 298, troponin negative at <0.012, CRP 7.8, lipase 135, and beta-hydroxybutyrate 0.36. CT abdomen/pelvis obtained on 01/10/2025 showing
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 She was initially given 1.5 L NS 0.9%, Zofran and then started on insulin drip, and admitted to the
[facility] for further management. Oncology consulted and CT chest obtained on 01/20/2025 showing a large right-sided pleural effusion with a small left-sided pleural effusion. Her right middle lobe + right lower lobe were completely collapsed. Of note,
her initial CT abdomen/pelvis on 01/18/2025 did not show any evidence of pleural effusions. Patient then became short of breath requiring supplemental oxygen and hypotensive. Patient now transferred to the ICU for further care and brine purifier
services consulted for additional management/recommendations.
Patient noted to have large spontaneous right-sided hemothorax which caused respiratory distress as well as acute appearance of pleural effusion. She had a chest tube placed with drainage of blood. She has not had further bleeding since. She
initially required blood transfusion but over the last 24 hours hemoglobin has been stable. In view of elevated INR, patient received vitamin K as well as 4 units of FFP's.
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
Assessment and plan.
#1. Spontaneous right sided hemothorax.
-S/p 8 Lao chest tube insertion, hemoglobin has stayed stable however chest tube output went up briefly again this morning but no significant output between 8 AM to 3 PM.
-CTA on 01/22 has been unremarkable
-Follow-up chest x-ray has been unremarkable
-Three-way stopcock placed and chest tube flushed without any additional drainage noted. Ordered 10 mL flush with normal saline every shift
-Pleural fluid collected and sent for cytology
-Thoracic surgery service on case, no operative intervention planned
-Concern for possible malignant etiology of her spontaneous pneumothorax, ?metastatic disease
-Hold off anticoagulation. Patient received vitamin K and fresh frozen plasma x 4
-INR normal now
-Monitor labs closely
-Patient off antibiotics currently, blood cultures negative so far
CTA Chest 01/22: 1. No enhancing mass or pathologic lymphadenopathy within the chest. Pleural effusions may still be malignant given the large pelvic mass, please correlate with cytology.
2. Right chest tube is in satisfactory position. No residual right pleural effusion. Tiny amount of air within the right pleural space, likely related to the chest tube.
3. Small left pleural effusion, simple fluid attenuation. Suspected subsegmental atelectasis within the left lower lobe.
4. Intraperitoneal free fluid, partially imaged. Fluid measures 17 Hounsfield units, and may represent hemorrhagic fluid or other complex fluid.
#2. Acute hypoxic respiratory failure. Secondary to hemothorax
-Patient comfortably sitting in no acute distress, saturating well
#3. Acute blood loss anemia. Related to hemothorax
-Status post blood transfusion
-Serial H&H.
#4. History of DVT.
-At risk of life-threatening bleeding, not a candidate for anticoagulation in the short-term
#5. Minimum troponin elevation. Suspect demand ischemia in view of acute critical illness.
-Not a candidate for antiplatelet/anticoagulant therapy
-Cardiology service on case.
#6. Right pelvic mass, suspicious for ovarian malignancy.
-Oncology service on case, await further recommendations
-DROP SHIPMENT CLERK consult
- DVT ppx: SCDs
IV access: Midline catheter + PIV
Code status: DNR/DNI
Guarded prognosis. Patient is critically ill; continue ICU level care
Critical care statement: A total of 30 minutes of critical care time was provided for this patient today. This includes management of unstable vital signs, evaluation of the patient at bedside, reviewing the patient's pertinent medical records
including radiographs, microbiology, laboratory evaluations, and discussion with primary team, consultants, pharmacy, nutrition, physical therapy, case management, charge nurse, critical care nursing, and respiratory therapy.
Data:
CT A/P with IV contrast 01/18/2025:
Extremely large heterogeneous complex 'mass' appearing to extend from the soft tissues of the superior right true pelvis into the abdomen measuring up to approximately 15.8 cm with some small to moderate volume mildly complex ascites. Most likely
differential diagnostic possibility would be ovarian origin such as OVARIAN CYSTADENOMA or OVARIAN CYSTADENOCARCINOMA. Exophytic uterine mass would be less likely. Other etiology such as a mass of other origin or large hematoma would also be less
likely.
Suspected hiatal hernia.
Small nonspecific retroperitoneal and pelvic lymph nodes.
CT chest without IV contrast 01/20/2025:
MARKEDLY LIMITED STUDY due to several factors, especially lack of intravenous contrast and prominent respiration/motion artifact.
Large right and tiny left pleural effusions.
Thickened linear density in the left upper lobe most likely representing scarring and some areas of likely subsegmental atelectasis in the aerated portions of both lungs. Entire right lower lobe, portions of right middle lobe and portions of left
lower lobe limited by presumed atelectasis.
Roro cannot be evaluated without intravenous contrast. No gross mediastinal lymphadenopathy no findings to suggest bilateral axillary lymphadenopathy.
Please note, the basis of this limited study, malignancy, including metastatic disease in the chest cannot be excluded.
Subjective Dataa
Subjective Data
Date of Service:
Date of Service: January 23, 2025
Subjective:
Patient comfortably lying in bed in no acute distress, no shortness of breath, somewhat increased output from chest tube.
Review of Systems
Genitourinary: Other (All 14 systems reviewed and negative except as stated above)
Objective Data
Data Reviewed
Vital Signs / I&O / Oxygen:
Vital Signs
Temp Pulse Resp BP Pulse Ox
98.7 F 81 18 138/58 98
01/23/25 07:47 01/23/25 06:00 01/23/25 06:00 01/23/25 06:00 01/23/25 06:00
Intake and Output
01/22/25 01/23/25 01/24/25
06:59 06:59 06:59
Intake Total 1585 / 1585 270 / 270
Output Total 1045 / 1045 1200 / 1200
Balance 540 / 540 -930 / -930
SaO2 98
Nasal Cannula flow liters per 2
minute
Physical Exam
General: Respiratory Distress (none) and Comfortable
Cardiovascular: Regular Rhythm
Respiratory: Clear, Non-Labored Respirations and Chest Tube (375 mL sanguinous drainage from chest tube overnight)
GI: Soft and Non Distended
Neurology: Awake and Alert
Skin: Warm
Labs/Micro/Reports
Lab Data
01/23/25 03:09
01/23/25 03:09
Laboratory Results
01/23/25
03:09
PT 17.0 H
INR 1.36
Microbiology
01/20/25 05:06 Blood/Venous Blood Culture - Preliminary
No Growth in 72 hours- Final report to follow
01/20/25 17:41 Pleural Fluid Body Fluid Culture - Preliminary
No Growth After 18-24 Hours
01/20/25 17:41 Pleural Fluid Gram Stain - Preliminary
[2025-01-23] MEDS: TOPROL XL 25 MG PO (08:05)
[2025-01-23] MEDS: ZESTRIL 2.5 MG PO (08:05)
--- NOTE | 2025-01-23 09:15 | PTCARENOTE ---
Rec'd pt at 0730 awake alert and oriented resting in bed. Affect is sl flat but can also be anxious and tearful at times. States she cannot believe that last week she was feeling fine and now all this has happened. Support given. BULLRAD. Speech is
clear. Denies dizziness or headache. Skin is pale pink wm and dry. Bandaid intact R upper abd. Respirs are sl shallow but non-labored on 2l O2 with sats of 99%. BS are sl decreased at the bases otherwise clear. R lat/post chest tube to -20 cm
suction. Draining sanginous drainage. No air leak, tidaling or crepitus noted. Dressing over is D+I. Irrigated per orders with 10 mls of Sterile Saline. Monitor SR. + pulses. No edema. KH SCD's in place. Denies chest pain. VS as documented. ABd is
round, sl distended with + BS. Pt denies nausea. Only pain she admits to is a 'gas' type discomfort is her abd. Incont of a small amt of liquid brown stool. Voided yellow urine at change of shift in bedpan- not measurable due to pad in place. L arm
Midline, LAC and L wrist protectives all intact-sites wnl. Repositioned. Plan of care reviewed with pt- pt aware she is to have a Bx of her abd mass today. AM meds given but then pt aware she is NPO. Call swift in reach.
--- NOTE | 2025-01-23 09:47 | W.PN.CARDCBS ---
Today's Communication / Plan
-
Continue beta-connor and MICHEAL inhibitor
Reassess LFTs and consider reinstitution of atorvastatin if appropriate
Continue workup of malignancy
Await pathology
Supportive care with chest tube
Impression / Plan
-
.
Impression:
Right pelvic mass ovarian cancer versus GI source
Acute hypoxic respiratory failure with right hemothorax s/p CT placement
Elevated troponin with peak 3.7, likely nonMI troponin
Ascites
Elevated LFTs, improving
Sinus tachycardia
Anemia with significant drop in hemoglobin
Hyponatremia
JULY with hyperkalemia
Hx DVT
Leukocytosis without fever
DNR
Echo January 21 2025: Normal left ventricular size and systolic function. No regional wall motion abnormalities are seen. LV ejection fraction is 60-65% by visual assessment.
Mild concentric left ventricular hypertrophy. Mild mitral regurgitation. Mild tricuspid regurgitation. Pleural effusion present.
Compared to the previous echo from May 2024, there is now mild MR and pleural effusion present.
Plan:
Cardiac status remains stable. Telemetry with sinus rhythm.
Troponin elevation likely type II in setting of respiratory failure, hemothorax, anemia and mass
Cont med tx of nonMI troponin with peak 3.7 as tolerates. Currently on low-dose beta-connor, MICHEAL inhibitor.
Atorvastatin on hold pending improvement of LFTs. Reassess LFTs tomorrow.
Echo reviewed and EF is preserved.
With bleeding, hemothorax, pt can not currently receive antiplatelet/Heparin products
Aspirin on hold. Continue to reassess starting 81 mg aspirin.
Monitor H/H. Also being followed by hematology/oncology
Appreciate oncology notes and evaluation underway, awaiting pathology.
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 Oncologic surgery considering surgery in next couple weeks.
CT care as per CT surgery.
She had been on Eliquis as outpt for hx of DVT, on hold
Progress Note - Public Works Director
Subjective
Date of Service: January 23, 2025
Denies chest pain. Some abdominal pain noted.
Objective
Labs:
01/23/25 03:09
01/23/25 03:09
Labs
Hgb 8.5 g/dL (12.0-16.0) L 01/23/25 03:09
Hct 24.6 % (37.0-47.0) L 01/23/25 03:09
Plt Count 228 10^3/uL (130-400) 01/23/25 03:09
PT 17.0 Sec (11.4-14.6) H 01/23/25 03:09
INR 1.36 01/23/25 03:09
APTT 26.6 Sec (23.4-35.0) 01/21/25 18:03
Sodium 136 mmol/L (135-145) 01/23/25 03:09
Potassium 4.0 mmol/L (3.5-5.1) 01/23/25 03:09
BUN 25 mg/dl (7-17) H 01/23/25 03:09
Creatinine 0.8 mg/dL (0.6-1.0) 01/23/25 03:09
Glucose 97 mg/dl (70-99) 01/23/25 03:09
Troponins
01/21/25 01/21/25 01/21/25
03:59 10:23 18:03
Troponin I 3.790 H* 3.580 H* 2.670 H* D
01/21/25
23:45
Troponin I Cancelled
Vital Signs and I&O:
Vital Signs
Temp Pulse Resp BP Pulse Ox
98.7 F 93 18 139/60 98
01/23/25 07:47 01/23/25 08:05 01/23/25 06:00 01/23/25 08:05 01/23/25 06:00
Vital Signs
Temp Pulse Resp BP Pulse Ox
98.7 F 93 18 139/60 98
01/23/25 07:47 01/23/25 08:05 01/23/25 06:00 01/23/25 08:05 01/23/25 06:00
Intake & Output
01/21/25 01/22/25 01/23/25 01/24/25
06:59 06:59 06:59 06:59
Intake Total 2280 / 2280 1585 / 1585 270 / 270
Output Total 900 / 900 1045 / 1045 1200 / 1200
Balance 1380 / 1380 540 / 540 -930 / -930
Physical Exam
Physical Exam
General: Ill-appearing woman
Heart: Distant heart sounds
Lungs: Coarse anterior breath sounds
--- NOTE | 2025-01-23 10:20 | PTCARENOTE ---
Pt on incont of liquid brown stool then on bedpan for mod amt of formed brown stool mixed with some liquid stool and urine. Seema care given. Pt then taken to IR for biopsy. Report given to IR staff. VS as documented. No other changes. Daughter in
room and updated.
--- NOTE | 2025-01-23 10:24 | W.PN.GI.CBS2 ---
Today's Communication / Plan
-
Await CT guided biopsy of pelvic mass
If suggestive of GI etiology then can set up EGD +/- colonoscopy
Assessment / Plan
-
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
with nausea and vomiting of bilious emesis and near syncope on 01/18. In ER noted with tachycardia and tachypnea. On admission WBC was 22.2 and hbg was 13.9 with progressive drop to hbg 5.2. Imaging on admission with concern for large complex
mass right pelvis into abdomen 15.8 cm with small to moderate ascites ovarian cystadenoma vs ovarian cystadenocarcinoma vs large hematoma. Further follow up US pelvis with large pelvic mass, 3/2 CT chest with limited study with large right and tiny
left pleural effusion and repeat CT a/p with angio 3/2 with large mass, moderate ascites, large right pleural effusion with follow up placement of Chest with drainage of large volume bloody drainage. She has required multiple transfusion since
admission. Pt has been seen by multiple consultants including, INTERVENTION ANALYST, surgical oncology, colorectal surgery, CT surgery, and cardiology with elevated trop. Tumor markers with marked elevation with CEA 165, CA 19-9 26980, CA 125 71621, CA 27-29
908.7. Pt also noted with normal LFT's on admission with rise to 3/3 bili 1.7, AST 1273, ALT 858, and alk phos 69. Pt for paracentesis and asked to see for EGD and colonoscopy with colorectal vs GI prior to surgery. Denies hx EGD or colonoscopy in
past.
-sudden onset RLQ pain with syncope
-large pelvic mass
-anemia with drop in hbg since admission
-increased LFT's
-large right pleural effusion s/p CT placement with drainage of large amount of blood tinged fluid
-marked elevated tumor marker
other med problem:
-breast CA with prior lumpectomy and XRT 2009
-CVA
-chronic DVT on Eliquis prior to admission
-factor V Leiden mutation
-lung and thyroid nodule per imaging 2023
Subjective
Subjective
Date of Service: January 23, 2025
No acute complaints. Had brown BM
Objective
Data Reviewed
Laboratory Data:
Laboratory Results
01/23/25 03:09
01/23/25 03:09
Laboratory Results
PT 17.0 Sec (11.4-14.6) H 01/23/25 03:09
INR 1.36 01/23/25 03:09
APTT 26.6 Sec (23.4-35.0) 01/21/25 18:03
Phosphorus 2.7 mg/dl (2.5-4.5) 01/22/25 03:22
Magnesium 2.2 mg/dl (1.6-2.3) 01/22/25 03:22
Total Bilirubin 2.3 mg/dl (0.2-1.3) H 01/21/25 14:18
AST 916 U/L (14-36) H* 01/21/25 14:18
ALT 653 U/L (0-35) H* 01/21/25 14:18
Alkaline Phosphatase 81 U/L (38-126) 01/21/25 14:18
Lipase 135 U/L (23-300) 01/18/25 13:16
Vital Signs and I&O:
Vital Signs
Temp Pulse Resp BP Pulse Ox
98.7 F 93 18 122/61 99
01/23/25 07:47 01/23/25 10:00 01/23/25 10:00 01/23/25 10:00 01/23/25 10:00
I&O
01/22/25 01/23/25 01/24/25
06:59 06:59 06:59
Intake Total 1585 / 1585 270 / 270
Output Total 1045 / 1045 1200 / 1200
Balance 540 / 540 -930 / -930
Physical Exam
Physical Exam
GI: Soft, Non Distended and Non Tender
--- NOTE | 2025-01-23 10:30 | PTCARENOTE ---
Pt has had out 700 mls of Bloody drainage via chest tube so far today. Dr. Rosenthla aware.
[2025-01-23 10:32] LABS: AST (SGOT) 521 U/L (14-36); Albumin 2.4 g/dl (3.5-5.0); Alkaline Phosphatase 107 U/L (38-126); Direct Bilirubin 0.4 mg/dl (0.0-0.4); Total Bilirubin 2.3 mg/dl (0.2-1.3); Total Protein 4.6 g/dl (6.3-8.2)
[2025-01-23 10:43] LABS: ALT (SGPT) 957 U/L (0-35)
--- NOTE | 2025-01-23 12:45 | PTCARENOTE ---
Returned from IR s/p pelvic mass biopsy- R lower abd biospy site with bandaid over that is D+I. Repositioned. No complaints currently. R chest tube draining bloody drainage. No crepitus or air leak. Call swift in reach
[2025-01-23 12:47] LABS: Glucose - Point of Care 79 mg/dl (70-99)
--- NOTE | 2025-01-23 14:20 | CM ---
CM following re: discharge planning.
Reviewed pt's chart, met with pt. Pt's daughter at bedside.
PT and OT continue recommending SNF level of care. Pt agrees and preferred [facility]. A referral to [facility] made yesterday, pt is accepted for admission to [facility] when medically stable and based on bed availability on the day of discharge.
D/C plan: [facility] for a short term rehab when medically stable.
CM will follow to assist pt with discharge to [facility]
--- NOTE | 2025-01-23 15:00 | PTCARENOTE ---
Ate some toast and tea for lunch. No c/o nausea. Overall states she is just tired but relieved that the biopsy is over. Dozed for about an hour after lunch. R chest tube with bloody drainage- sometimes darker and other times power saw mechanic red. Tube site
redressed with drain sponges and 4x4's as previous dressing was starting to peel. VS as documented. Incont of a mod amt of liquid brown stool. Voided on the bedpan 100 mls of abran urine. Encouraged pt to drink some fluids as she takes in little
fluid. Partial CHG bath given. Linen changed. Repositioned.
--- NOTE | 2025-01-23 15:57 | W.PN.HOSP.TC ---
Today's Communication/Plan
-
see note
Assessment / Plan
Assessment / Plan
Ms. Golden is a 79-year-old female with a medical history of breast cancer (diagnosed 2013, status postlumpectomy and radiation), factor V Leiden mutation carrier, and history of DVT (on Eliquis) who presented with nausea and vomiting with
associated abdominal bloating. CT imaging revealed a large heterogeneous complex mass appeared to be originating from the right ovary. Labs revealed a gapped acidosis. She was mildly hyperglycemic and had an elevated beta hydroxybutyrate. She
was started on an insulin drip with DKA protocol and admitted for further evaluation and management.
1. Acute hypoxic respiratory failure - Improving
Right-sided hemothorax
-Patient requiring high flow oxygen, 30L/min
-Patient is s/p chest tube placement on 01/20
-Overnight CT tube out of 600ml. fluid WBC 13.2 K with PMN 69.7%. Fluid LDH 5.7K. cytopathology ordered
-Chest x-ray in the morning showing relatively clear x-ray. Small left-sided effusion.
-Pulmonology following and help appreciated
-CT surgeon evaluated and no surgical indication
-CTA chest did not show any new finding explaining patient hemothorax.
-Continue to have high chest tube output, pulmonology managing.
2. Acute blood loss anemia
-From ongoing blood containing CT tube output
-No GI blood loss reported
-CT abdomen pelvis time to rule out any retroperitoneal bleed
-Continue following hemoglobin with transfusion for less than 7
3. Right pelvic mass - presumed malignancy
Hemorrhagic ascites
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
-CA 19-9 level of 60.3K. CEA 165 (WNL), CA 27-29 and CA125 level pending.
-MRI abdomen/pelvis with and without contrast has been pending
-[facility] [employer] WIGS and oncology input noted
-Input from Dr. Krause reviewed. Patient will eventually require biopsy of the mass and outpatient resection post improvement of other current comorbidities
-Colorectal surgeon consulted onc-tinner helper for possible need of colonoscopy, no clear indication per CRS.
-GI consulted for possible need of EGD. Of note patient stool positive for occult blood.
-Patient undergoing CT-guided biopsy today. Pathology report will guide further treatment plan.
-Paracentesis of 10 mL fluid showing hemorrhagic peritoneal fluid
-MRI pelvis ordered and report pending
4. Troponin elevation
-Denies any chest pain.
-Suspected type II [place] from hypovolemia and tachycardia. Trop max at ~ 3.5 , trending down.
-With ongoing bleeding issue cannot be started on any antiplatelets/heparin product
-TTE showed preserved EF
-Cardiology following and no further intervention warranted at this point.
5. Hyponatremia -resolved
-Euvolemic in nature presumed ADH excess with blood loss
6. JULY -resolved
Metabolic acidosis -resolved
-JULY likely related to hypovolemia/hypotension and need of contrast for CT scan
-Patient had mild anion gap metabolic acidosis likely with JULY and malignancy related
-Renal function stabilized around 1.3 today,
-Avoid nephrotoxic medication and monitor
6. Hyperkalemia -resolved
-driven from acidosis and mild july
7. Hypovolemic shock - resolved
-Required IVF/support of vasopressor
8.Chronic left femoral vein thrombus
History of factor V Leiden mutation
-Peripheral vascular ultrasound report reviewed
9. Leukocytosis without fever
-No clear infection source at this point
-discontinue abx and monitor
11. Shock liver
-LFT improving except ALT elevated again today.
-Lipitor/Tylenol
12. Abnormal UA
-no dysuria/have elevated wbc
-Follow-up clinically/urine culture. Currently off of antibiotic
CODE STATUS: DNR
Care plan discussed with RN/stack supervisor/GI
Patient family updated at bedside
Total time spent : 53 mins
I personally saw and examined the patient.
I have reviewed all diagnostic interpretations and treatment plans as written.
Time includes patient management by me, time spent at the patients bedside, time to review lab and imaging results, discussing patient care, documentation in the medical record, and time spent with the family or caregiver and discussing care plan
with RN/Consultants.
Anticipated Discharge: > 48 hours
Subjective/Interval History
-
Date of Service: January 23, 2025
Continues to have output from right-sided chest tube
Afebrile overnight
Blood pressure remained stable
Objective Data
-
Labs:
Laboratory Results
01/23/25 01/23/25
03:09 16:00
WBC Pending
Hgb Pending
Hct Pending
Plt Count Pending
Sodium 136
Potassium 4.0
Chloride 105
Carbon Dioxide 26
BUN 25 H
Creatinine 0.8
Glucose 97
Calcium 7.8 L
Total Bilirubin 2.3 H
AST 521 H*
ALT 957 H*
Alkaline Phosphatase 107
Vital Signs:
Vital Signs
Temp Pulse Resp BP Pulse Ox
98.5 F 100 22 159/82 99
01/23/25 12:50 01/23/25 15:16 01/23/25 15:16 01/23/25 15:16 01/23/25 15:16
I&O
01/22/25 01/23/25 01/24/25
06:59 06:59 06:59
Intake Total 1585 / 1585 270 / 270
Output Total 1045 / 1045 1200 / 1200
Balance 540 / 540 -930 / -930
Review of Systems
-
Respiratory: Reports No Symptoms
Cardiac: Reports No Symptoms
Abdomen/GI: Reports No Symptoms
Physical Exam
-
General: No Apparent Distress and Comfortable
HEENT: Oxygen (High flow 30L/min)
Respiratory: Clear to Auscultation and Chest Tubes (Right ride assembly supervisor - hemorrhagic fluid)
Cardiac: Regular Rhythm and S1/S2; Negative Murmur or Rub
GI: Soft, Nondistended and Distended; Negative Tender
Musculoskeletal: No Edema
Neuro: Awake, Alert, Oriented, No Motor Deficits and Nonfocal/Grossly Intact
Psych: Calm
[2025-01-23 16:09] LABS: Hematocrit 27.8 % (37.0-47.0); Hemoglobin 9.2 g/dL (12.0-16.0); Mean Corp Hgb Conc. 33.1 g/dL (33.0-37.0); Mean Corpuscular Hgb 29.1 pg (27.0-31.0); Mean Platelet Volume 10.1 fL (7.4-10.4); Platelet Count 272 10^3/uL (130-400); Red Blood Cell Count 3.16 10^6/uL (4.20-5.40); Red Cell Dist. Width 15.4 % (11.5-14.5)
--- NOTE | 2025-01-23 16:20 | PTCARENOTE ---
CBC sent as ordered. Capped ints removed from L AC and L wrist due to leaking. No other changes. Pt states she is comfortable currently
--- NOTE | 2025-01-23 17:30 | PTCARENOTE ---
Dr. Rosenthal updated earlier on Hgb of 9.2. Sats all day have been 99-100% on 2l will try on RA- currently sats are 99%.
--- NOTE | 2025-01-23 18:22 | PTCARENOTE ---
Report called to IMU- will transfer pt via bed. Ate some toast and tea for dinner. No complaints. Sats with O2 off are 93-96%. No other changes
--- NOTE | 2025-01-23 18:27 | PTCARENOTE ---
Clarified with Pt- OK to use R arm for BP's but no bloodwork/IV's
--- NOTE | 2025-01-23 19:00 | PTCARENOTE ---
Pt transferred via bed to [id number]- Updates given to IMU staff. No other changes
[2025-01-24] VITALS (14 sets, daily range): BP systolic 134–160; BP diastolic 59–75; PULSE 100; O2SAT 96; BMI 23.1
--- NOTE | 2025-01-24 01:40 | PTCARENOTE ---
Received pt from ICU at change of shift. Pt aaox3, able to make needs known. NSR/ST on monitor. SCDs on. Lungs diminished in the bases, SaO2 94% on RA. R side chest tube in place. Dressing CDI. Serosanguineous drainage in tubing. Irrigated with 10ml
sterile saline. Pt c/o 01/28 pain, declines any pain medication offered, stating she 'doesn't like to take medication'. Call swift and belongings within reach. Care ongoing.
[2025-01-24 05:36] LABS: Hematocrit 28.7 % (37.0-47.0); Hemoglobin 9.4 g/dL (12.0-16.0); Mean Corp Hgb Conc. 32.8 g/dL (33.0-37.0); Mean Corpuscular Hgb 28.7 pg (27.0-31.0); Mean Corpuscular Volume 87.5 fL (81.0-99.0); Mean Platelet Volume 9.5 fL (7.4-10.4); Platelet Count 310 10^3/uL (130-400); Red Blood Cell Count 3.28 10^6/uL (4.20-5.40); Red Cell Dist. Width 15.2 % (11.5-14.5)
[2025-01-24 06:48] LABS: Blood Urea Nitrogen 24 mg/dl (7-17); Carbon Dioxide 26 mmol/L (22-30); Chloride 104 mmol/L (98-107); Estimated Creatinine Clearance 56 ml/min; Glucose 100 mg/dl (70-99); Potassium 4.3 mmol/L (3.5-5.1); Sodium 136 mmol/L (135-145); eGFR > 60.00
--- NOTE | 2025-01-24 08:56 | W.PN.CARDCBS ---
Today's Communication / Plan
-
No changes, cardiac status satisfactory
Impression / Plan
-
.
Impression:
Right pelvic mass-suspected ovarian cancer versus GI source
Acute hypoxic respiratory failure with right hemothorax s/p CT placement
Elevated troponin with peak 3.7, likely nonMI troponin
Ascites
Elevated LFTs, improving
Sinus tachycardia
Acute blood loss anemia status post 7 units PRBC /hemothorax
Hyponatremia
JULY with hyperkalemia, resolved
Hx DVT
Leukocytosis without fever
Factor V Leiden
DNR
Echo January 21 2025: Normal left ventricular size and systolic function. No regional wall motion abnormalities are seen. LV ejection fraction is 60-65% by visual assessment.
Mild concentric left ventricular hypertrophy. Mild mitral regurgitation. Mild tricuspid regurgitation. Pleural effusion present.
Compared to the previous echo from May 2024, there is now mild MR and pleural effusion present.
Plan:
From a cardiac standpoint, she appears stable.
She had a nonischemic myocardial injury (peak troponin 3.7) related to anemia and hypovolemic shock. She seems stable in this regard and LV is normal. Continue low dose metoprolol and lisinopril
To hold anticoagulants and antiplatelet agents
LFTs are improving, atorvastatin is on hold. At this point, utility of atorvastatin is likely limited.
No significant rhythm disturbances.
Cardiac status remains stable. Telemetry with sinus rhythm.
Hemoglobin is stable, renal function is normal.
Follow-up EKG shows nonspecific ST-T changes with possible prior inferior and anterior myocardial infarction
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
Subjective
Date of Service: January 24, 2025:
Meds: Atorvastatin on hold, metoprolol ER 25 mg a day, lisinopril 2.5 mg daily, pain meds, as needed hydralazine
146/59, pulse 96, respiratory 22, afebrile, sats 94%, daughter and friend at bedside, chest tube in place, right lung is notable for some crackles, left lung clear, regular rate and rhythm, no obvious murmurs JVD okay, no edema
CT angiogram of chest January 22: Chest tube in place, no residual right effusion small left effusion, no evidence of pulmonary embolus
CT of abdomen and pelvis soft tissue mass in right pelvis up to 15.8 cm and some ascites
Right pleural effusion: Negative for malignancy
White count 19, hemoglobin 9.4, BUN and creatinine are 24 and 0.8, AST 521, ALT 957,, peak troponin 3.79, CA 19�9 60,375, CA 27�29 908.7
CA125 18,600 proBNP is normal
Echo: EF 60-65%, mild LVH, mild MR, mild TR, pulmonary artery systolic pressure probably 50-60mmHG
Objective
Labs:
01/24/25 05:28
01/24/25 05:28
Labs
Hgb 9.4 g/dL (12.0-16.0) L 01/24/25 05:28
Hct 28.7 % (37.0-47.0) L 01/24/25 05:28
Plt Count 310 10^3/uL (130-400) 01/24/25 05:28
PT 17.0 Sec (11.4-14.6) H 01/23/25 03:09
INR 1.36 01/23/25 03:09
APTT 26.6 Sec (23.4-35.0) 01/21/25 18:03
Sodium 136 mmol/L (135-145) 01/24/25 05:28
Potassium 4.3 mmol/L (3.5-5.1) 01/24/25 05:28
BUN 24 mg/dl (7-17) H 01/24/25 05:28
Creatinine 0.8 mg/dL (0.6-1.0) 01/24/25 05:28
Glucose 100 mg/dl (70-99) H 01/24/25 05:28
Troponins
0301/21/25 01/21/25
10:23 18:03 23:45
Troponin I 3.580 H* 2.670 H* D Cancelled
Vital Signs and I&O:
Vital Signs
Temp Pulse Resp BP Pulse Ox
37.5 C 96 22 146/59 94
01/24/25 07:53 01/24/25 06:00 01/24/25 06:00 01/24/25 06:00 01/24/25 06:00
Vital Signs
Temp Pulse Resp BP Pulse Ox
37.5 C 96 22 146/59 94
01/24/25 07:53 01/24/25 06:00 01/24/25 06:00 01/24/25 06:00 01/24/25 06:00
Intake & Output
01/22/25 01/23/25 01/24/25 01/25/25
07:59 07:59 07:59 07:59
Intake Total 1585 / 1585 270 / 280 660 / 660
Output Total 1045 / 1045 1200 / 1200 860 / 860
Balance 540 / 540 -930 / -920 -200 / -200
Physical Exam
Physical Exam
See above
--- NOTE | 2025-01-24 09:02 | W.PN.PUL3 ---
Today's Communication / Plan
-
Chest tube with ongoing output, would continue drainage with observation another 24 hours
Pleural fluid negative for malignancy, she is now s/p pelvic mass biopsy
Onc following
Supportive care
Assessment
-
80-year-old female non-smoker with a past medical history of right-sided breast cancer s/p lumpectomy (2009) + XRT, history of DVT on Eliquis and hyperlipidemia who presented with vomiting, syncopal episode and abdominal pain and was found to be
unresponsive upon arrival here to the ER. Patient reported right sudden onset of abdominal discomfort, with bilious and nonblood emesis. Last BM was 1 day ago and was regular/nonbloody. Initial labs showed leukocytosis of 22.2, Hb 13.9, sodium 134,
serum bicarbonate level 14, creatinine 1.1, glucose 298, troponin negative at <0.012, CRP 7.8, lipase 135, and beta-hydroxybutyrate 0.36. CT abdomen/pelvis obtained on 01/10/2025 showing a large heterogeneous complex mass in the pelvis extending
into the abdomen concerning for ovarian cystadenoma versus ovarian cystadenocarcinoma. Admitted to the IMU for further management. CT chest 01/20/2025 showed large right-sided pleural effusion/small left-sided pleural effusion/RML/RLL collapse.
Patient became short of breath requiring supplemental oxygen and hypotensive. Patient now transferred to the ICU for further care and antique automobiles repairer services consulted for additional management/recommendations.
Spontaneous right sided hemothorax s/p chest tube 01/20/25
Acute hypoxic respiratory failure. Secondary to hemothorax
Acute blood loss anemia. Related to hemothorax
Minimum troponin elevation. Suspect demand ischemia in view of acute critical illness.
Right pelvic mass, suspicious for ovarian malignancy.
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
Right-sided breast cancer s/p lumpectomy + XRT
history of DVT on Eliquis
hyperlipidemia
Plan.
Patient comfortably sitting in no acute distress, saturating well
Stable on RA
Hemorrhagic fluid initially required blood transfusion but over the last 24 hours hemoglobin has been stable
Received vitamin K as well as 4 units of FFP's
S/p 8 Lithuanian chest tube insertion, still having ongoing drainage, bloody but serosanguinous
Last 3 outputs: 1100mL, 800mL, 60mL (recorded, but I drained 200mL out of tubing at bedside)
CTA on 01/22 has been unremarkable
Follow-up chest x-ray has been unremarkable
Pleural fluid collected and sent for cytology
Thoracic surgery service on case, no operative intervention planned
Concern for possible malignant etiology of her spontaneous pneumothorax, ?metastatic disease
Pleural path negative for malignancy on 01/21/25
Hold off anticoagulation. Patient received vitamin K and fresh frozen plasma x 4
INR normal now
Monitor labs closely
Patient off antibiotics currently, blood cultures negative so far
Observation for now
Pelvic mass noted, s/p IR biopsy 01/23/25, awaiting path
Oncology service on case, await further recommendations
RESEARCH TEST ENGINE OPERATOR consult
Data:
CT A/P with IV contrast 01/18/2025: Extremely large heterogeneous complex 'mass' appearing to extend from the soft tissues of the superior right true pelvis into the abdomen measuring up to approximately 15.8 cm with some small to moderate volume
mildly complex ascites. Most likely differential diagnostic possibility would be ovarian origin such as OVARIAN CYSTADENOMA or OVARIAN CYSTADENOCARCINOMA. Exophytic uterine mass would be less likely. Other etiology such as a mass of other origin or
large hematoma would also be less likely. Suspected hiatal hernia. Small nonspecific retroperitoneal and pelvic lymph nodes.
CT chest without IV contrast 01/20/2025: MARKEDLY LIMITED STUDY due to several factors, especially lack of intravenous contrast and prominent respiration/motion artifact. Large right and tiny left pleural effusions. Thickened linear density in the
left upper lobe most likely representing scarring and some areas of likely subsegmental atelectasis in the aerated portions of both lungs. Entire right lower lobe, portions of right middle lobe and portions of left lower lobe limited by presumed
atelectasis. Roro cannot be evaluated without intravenous contrast. No gross mediastinal lymphadenopathy no findings to suggest bilateral axillary lymphadenopathy. Please note, the basis of this limited study, malignancy, including metastatic
disease in the chest cannot be excluded.
CTA Chest 01/22: 1. No enhancing mass or pathologic lymphadenopathy within the chest. Pleural effusions may still be malignant given the large pelvic mass, please correlate with cytology.
2. Right chest tube is in satisfactory position. No residual right pleural effusion. Tiny amount of air within the right pleural space, likely related to the chest tube.
3. Small left pleural effusion, simple fluid attenuation. Suspected subsegmental atelectasis within the left lower lobe.
4. Intraperitoneal free fluid, partially imaged. Fluid measures 17 Hounsfield units, and may represent hemorrhagic fluid or other complex fluid.
Total of 50 minutes of time was provided for this patient today. This includes management of vital signs, evaluation of the patient at bedside, reviewing the patient's pertinent medical records including radiographs, microbiology, laboratory
evaluations, and discussion with primary team, consultants, nursing and respiratory therapy.
Subjective Data
-
Date of Service:
Date of Service: January 24, 2025
Chief Complaint: Pulmonary Follow Up
Subjective:
Remains stable, no events, stable on RA
Chest tube remains with ongoing output
No new complaints, no chest pain/sob
Objective Data
Data Reviewed
Vital Signs / I&O / Oxygen:
Vital Signs
Temp Pulse Resp BP Pulse Ox
99.5 F 96 22 146/59 94
01/24/25 07:53 01/24/25 06:00 01/24/25 06:00 01/24/25 06:00 01/24/25 06:00
Intake and Output
01/23/25 01/24/25 01/25/25
06:59 06:59 06:59
Intake Total 270 / 270 420 / 420 240 / 240
Output Total 1200 / 1200 800 / 800 60 / 60
Balance -930 / -930 -380 / -380 180 / 180
SaO2 94
Nasal Cannula flow liters per 2
minute
Physical Exam
General: Comfortable and Other (NAD)
HEENT: Normocephalic, Anicteric and Moist Mucous Membranes
Cardiovascular: S1-S2 and Regular Rhythm
Respiratory: Clear, Non-Labored Respirations, Chest Tube and Other (decreased at bases)
GI: Soft, Non Distended and Non Tender
Neurology: Awake, Alert, Oriented and No Motor Deficits
Skin: Warm, Dry and Good Color
Labs/Micro/Reports
Lab Data
01/24/25 05:28
01/24/25 05:28
Microbiology
01/20/25 05:06 Blood/Venous Blood Culture - Preliminary
No Growth in 4 days- Final report to follow
01/20/25 17:41 Pleural Fluid Body Fluid Culture - Preliminary
No Growth After 48 Hours
01/20/25 17:41 Pleural Fluid Gram Stain - Preliminary
01/21/25 20:35 Urine Urine Culture - Final
No Significant Growth
[2025-01-24] MEDS: ZESTRIL 2.5 MG PO (09:37)
[2025-01-24] MEDS: TOPROL XL 25 MG PO (09:37)
[2025-01-24] MEDS: TYLENOL 1000 MG PO (09:37)
--- NOTE | 2025-01-24 11:09 | W.PN.ONC2 ---
Today's Communication / Plan
-
.
Impression
Impression
Right pelvic mass suspect neoplasm. Ca 125 66634, Ca 27.29 908, Ca 19.9 42632, CEA 165. s/p CT guided biospy 01/23
Hepatic transaminitis, suspect shock liver
right sided hemothorax with chest tube
Acute on chronic anemia c/w blood loss - 3PRBC, last 01/21
coagulopathy secondary to DOAC +/-shock liver so clotting factor production may be reduced-s/p 4FFP, vitamin K, last 01/21
Hx DCIS s/p lumpectomy
DKA
Leukocytosis
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
type II OR in setting of respiratory failure, hemothorax, anemia and mass -cardiology following
Plan
Plan
follow for pathology of bx and paracentesis cytology
If pathology suggestive of GI etiology then consider EGD +/- colonoscopy
anticoagulation on hold d/t ABLA -Hgb stable >8g/dL today
cautious use of vitamin K and FFP with high risk VTE/FVL, OAC on hold for bleeding
R chest tube management per thoracic surgery
consider at least dvt ppx once risk of bleeding improved since high risk VTE d/w hospitalist
nutrition consult
Subjective/Objective
Subjective
no new complaints
afebrile, no hypoxia or hypotension
Hgb 9.4g/dL
poor appetite
compliant with SCD boots
Vital Signs:
Vital Signs
Temp Pulse Resp BP Pulse Ox
99.5 F 105 23 148/62 95
01/24/25 07:53 01/24/25 09:00 01/24/25 09:00 01/24/25 08:00 01/24/25 09:30
Lab Results:
Laboratory Data
WBC 19.0 10^3/uL (4.8-10.8) H 01/24/25 05:28
Hgb 9.4 g/dL (12.0-16.0) L 01/24/25 05:28
Plt Count 310 10^3/uL (130-400) 01/24/25 05:28
PT 17.0 Sec (11.4-14.6) H 01/23/25 03:09
INR 1.36 01/23/25 03:09
APTT 26.6 Sec (23.4-35.0) 01/21/25 18:03
eGFR > 60.00 01/24/25 05:28
Physical Exam
HEENT: No Jaundice
Cardiology: Normal Sinus Rhythm
Pulmonary: Clear
GI: Soft
Extremities: Pulses Present; No Edema
Neuro: Non Focal
--- NOTE | 2025-01-24 11:20 | W.PN.GI.CBS2 ---
Today's Communication / Plan
-
Await path
If suggestive of GI primary, we can set up EGD and/or colonoscopy
Assessment / Plan
-
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
with nausea and vomiting of bilious emesis and near syncope on 01/18. In ER noted with tachycardia and tachypnea. On admission WBC was 22.2 and hbg was 13.9 with progressive drop to hbg 5.2. Imaging on admission with concern for large complex
mass right pelvis into abdomen 15.8 cm with small to moderate ascites ovarian cystadenoma vs ovarian cystadenocarcinoma vs large hematoma. Further follow up US pelvis with large pelvic mass, / CT chest with limited study with large right and tiny
left pleural effusion and repeat CT a/p with angio / with large mass, moderate ascites, large right pleural effusion with follow up placement of Chest with drainage of large volume bloody drainage. She has required multiple transfusion since
admission. Pt has been seen by multiple consultants including, BOREMATIC MACHINE OPERATOR, surgical oncology, colorectal surgery, CT surgery, and cardiology with elevated trop. Tumor markers with marked elevation with CEA 165, CA 19-9 95562, CA 125 44853, CA 27-29
908.7. Pt also noted with normal LFT's on admission with rise to 3/3 bili 1.7, AST 1273, ALT 858, and alk phos 69. Pt for paracentesis and asked to see for EGD and colonoscopy with colorectal vs GI prior to surgery. Denies hx EGD or colonoscopy in
past.
Impression:
-large pelvic mass s/p IR bx 01/23
-CA-125 18,600; CEA 165, CA 19-9 60,375; CA 27-29 908.7
-sudden onset RLQ pain with syncope
-anemia with drop in hbg since admission
-increased LFT's
-large right pleural effusion s/p CT placement with drainage of large amount of blood tinged fluid
-marked elevated tumor marker
other med problem:
-breast CA with prior lumpectomy and XRT 2009
-CVA
-chronic DVT on Eliquis prior to admission
-factor V Leiden mutation
-lung and thyroid nodule per imaging 2023
Subjective
Subjective
Date of Service: January 24, 2025
No complaints
Objective
Data Reviewed
Laboratory Data:
Laboratory Results
01/24/25 05:28
01/24/25 05:28
Laboratory Results
PT 17.0 Sec (11.4-14.6) H 01/23/25 03:09
INR 1.36 01/23/25 03:09
APTT 26.6 Sec (23.4-35.0) 01/21/25 18:03
Phosphorus 2.7 mg/dl (2.5-4.5) 01/22/25 03:22
Magnesium 2.2 mg/dl (1.6-2.3) 01/22/25 03:22
Total Bilirubin 2.3 mg/dl (0.2-1.3) H 01/23/25 03:09
AST 521 U/L (14-36) H* 01/23/25 03:09
ALT 957 U/L (0-35) H* 01/23/25 03:09
Alkaline Phosphatase 107 U/L (38-126) 01/23/25 03:09
Lipase 135 U/L (23-300) 01/18/25 13:16
Vital Signs and I&O:
Vital Signs
Temp Pulse Resp BP Pulse Ox
99.5 F 105 23 148/62 95
01/24/25 07:53 01/24/25 09:00 01/24/25 09:00 01/24/25 08:00 01/24/25 09:30
I&O
01/23/25 01/24/25 01/25/25
06:59 06:59 06:59
Intake Total 270 / 270 420 / 420 240 / 240
Output Total 1200 / 1200 800 / 800 60 / 60
Balance -930 / -930 -380 / -380 180 / 180
Physical Exam
Physical Exam
GI: Soft, Non Distended and Non Tender
[2025-01-24 11:23] LABS: NT-proBNP 887 pg/ml
--- NOTE | 2025-01-24 11:28 | CM ---
Patient with Hx factor V Leiden mutation with Dx Acute hypoxic respiratory failure, Right-sided hemothorax, anemia, Right pelvic mass - presumed malignancy. Room air. Chest tube. Per nursing; A/O. PT/OT; requires assist of 2, recommend skilled
rehab.
As per prior CM notes, referral made to [facility] and patient was accepted.
Met with patient and introduced CM. Patient reported that she was provided update by MD that she is imrpoving. Patient states she was OOB twice today. Patient had no requests at this time.
CM continuing to follow for d/c needs.
Plan check with [facility] for bed availability when closer to d/c.
Plan [facility] when medically ready.
[2025-01-24 12:34] LABS: ALT (SGPT) 662 U/L (0-35); AST (SGOT) 186 U/L (14-36); Albumin 2.3 g/dl (3.5-5.0); Alkaline Phosphatase 136 U/L (38-126); Direct Bilirubin 0.3 mg/dl (0.0-0.4); Total Bilirubin 1.6 mg/dl (0.2-1.3); Total Protein 4.7 g/dl (6.3-8.2)
--- NOTE | 2025-01-24 14:22 | W.PN.HOSP.TC ---
Today's Communication/Plan
-
Encourage oral intake
Monitor CT tube output
Management of CT tube per pulmo
Assessment / Plan
Assessment / Plan
Ms. Golden is a 79-year-old female with a medical history of breast cancer (diagnosed 2013, status postlumpectomy and radiation), factor V Leiden mutation carrier, and history of DVT (on Eliquis) who presented with nausea and vomiting with
associated abdominal bloating. CT imaging revealed a large heterogeneous complex mass appeared to be originating from the right ovary. Labs revealed a gapped acidosis. She was mildly hyperglycemic and had an elevated beta hydroxybutyrate. She
was started on an insulin drip with DKA protocol and admitted for further evaluation and management.
1. Acute hypoxic respiratory failure - Improving
Right-sided hemothorax
-Patient requiring high flow oxygen, 30L/min
-Patient is s/p chest tube placement on 01/20
-Overnight CT tube out of 600ml. fluid WBC 13.2 K with PMN 69.7%. Fluid LDH 5.7K. cytopathology ordered
-Chest x-ray in the morning showing relatively clear x-ray. Small left-sided effusion.
-CT surgeon evaluated and no surgical indication
-CTA chest did not show any new finding explaining patient hemothorax.
-Overnight chest tube output has decreased. Continue monitoring. Pulmo following and help appreciated.
2. Acute blood loss anemia
-From ongoing blood containing CT tube output
-No GI blood loss reported
-CT abdomen pelvis time to rule out any retroperitoneal bleed
-Continue following hemoglobin with transfusion for less than 7
3. Right pelvic mass - presumed malignancy
Hemorrhagic ascites
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
-CA 19-9 level of 60.3K. CEA 165 (WNL), CA 27-29 and CA125 level pending.
-MRI abdomen/pelvis with and without contrast has been pending
-RADIATION PROTECTION ENGINEER and oncology input noted
-Input from Dr. Krause reviewed. Patient will eventually require biopsy of the mass and outpatient resection post improvement of other current comorbidities
-Colorectal surgeon consulted onc-ferry captain for possible need of colonoscopy, no clear indication per CRS.
-GI consulted for possible need of EGD. Of note patient stool positive for occult blood.
-s/p US guided biopsy of mass on 01/23. Pathology report will guide further treatment plan.
-Paracentesis of 10 mL fluid showing hemorrhagic peritoneal fluid
-MRI pelvis ordered and report pending
4. Troponin elevation
-Denies any chest pain.
-Suspected type II NC from hypovolemia and tachycardia. Trop max at ~ 3.5 , trending down.
-With ongoing bleeding issue cannot be started on any antiplatelets/heparin product
-TTE showed preserved EF
-Cardiology following and no further intervention warranted at this point.
5. Hyponatremia -resolved
-Euvolemic in nature presumed ADH excess with blood loss
6. JULY -resolved
Metabolic acidosis -resolved
-JULY likely related to hypovolemia/hypotension and need of contrast for CT scan
-Patient had mild anion gap metabolic acidosis likely with JULY and malignancy related
-Renal function stabilized around 1.3 today,
-Avoid nephrotoxic medication and monitor
6. Hyperkalemia -resolved
-driven from acidosis and mild july
7. Hypovolemic shock - resolved
-Required IVF/support of vasopressor
8.Chronic left femoral vein thrombus
History of factor V Leiden mutation
-Peripheral vascular ultrasound report reviewed
9. Leukocytosis without fever
-No clear infection source at this point
-discontinue abx and monitor
11. Shock liver - improving
-LFT continue to trend down
-Lipitor/Tylenol on hold
12. Abnormal UA
-no dysuria/have elevated wbc
-Follow-up clinically/urine culture. Currently off of antibiotic
CODE STATUS: DNR
Anticipated Discharge: > 48 hours
Subjective/Interval History
-
Date of Service: January 24, 2025
Subjective feeling better
No shortness of breath/chest pain
No nausea or vomiting
Objective Data
-
Labs:
Laboratory Results
01/24/25
05:28
WBC 19.0 H
Hgb 9.4 L
Hct 28.7 L
Plt Count 310
Sodium 136
Potassium 4.3
Chloride 104
Carbon Dioxide 26
BUN 24 H
Creatinine 0.8
Glucose 100 H
Calcium 8.0 L
Total Bilirubin 1.6 H
AST 186 H
ALT 662 H*
Alkaline Phosphatase 136 H
Vital Signs:
Vital Signs
Temp Pulse Resp BP Pulse Ox
98.1 F 107 24 149/73 96
01/24/25 11:38 01/24/25 13:00 01/24/25 13:00 01/24/25 11:54 01/24/25 11:54
I&O
01/23/25 01/24/25 01/25/25
06:59 06:59 06:59
Intake Total 270 / 270 420 / 420 580 / 580
Output Total 1200 / 1200 800 / 800 60 / 60
Balance -930 / -930 -380 / -380 520 / 520
Review of Systems
-
Respiratory: Reports No Symptoms
Cardiac: Reports No Symptoms
Abdomen/GI: Reports No Symptoms
Physical Exam
-
General: No Apparent Distress and Comfortable
HEENT: Oxygen (High flow 30L/min)
Respiratory: Clear to Auscultation and Chest Tubes (Right export administrator - hemorrhagic fluid)
Cardiac: Regular Rhythm and S1/S2; Negative Murmur or Rub
GI: Soft, Nondistended and Distended; Negative Tender
Musculoskeletal: No Edema
Neuro: Awake, Alert, Oriented, No Motor Deficits and Nonfocal/Grossly Intact
Psych: Calm
[2025-01-25] VITALS (13 sets, daily range): BP systolic 141–170; BP diastolic 46–81
--- NOTE | 2025-01-25 03:34 | PTCARENOTE ---
Pt aaox3, able to make needs known. Declined pain medication. Chest tube irrigated with 10ml sterile saline. VSS. Call swift and belongings within reach. Care ongoing.
[2025-01-25] MEDS: TYLENOL 500 MG PO ×4 (05:23→21:18)
[2025-01-25 05:56] LABS: Hematocrit 29.3 % (37.0-47.0); Hemoglobin 9.8 g/dL (12.0-16.0); Mean Corp Hgb Conc. 33.4 g/dL (33.0-37.0); Mean Corpuscular Hgb 29.1 pg (27.0-31.0); Mean Corpuscular Volume 86.9 fL (81.0-99.0); Mean Platelet Volume 9.8 fL (7.4-10.4); Platelet Count 371 10^3/uL (130-400); Red Blood Cell Count 3.37 10^6/uL (4.20-5.40); Red Cell Dist. Width 15.2 % (11.5-14.5); White Blood Cell Count 23.2 10^3/uL (4.8-10.8)
[2025-01-25 06:23] LABS: Blood Urea Nitrogen 20 mg/dl (7-17); Calcium 8.2 mg/dl (8.4-10.2); Carbon Dioxide 25 mmol/L (22-30); Chloride 104 mmol/L (98-107); Estimated Creatinine Clearance 64 ml/min; Glucose 104 mg/dl (70-99); Potassium 3.7 mmol/L (3.5-5.1); Sodium 136 mmol/L (135-145); eGFR > 60.00
[2025-01-25] MEDS: TOPROL XL 25 MG PO ×2 (08:22→11:31)
[2025-01-25] MEDS: ZESTRIL 2.5 MG PO (08:22)
--- NOTE | 2025-01-25 08:26 | PTCARENOTE ---
Pt on walking rounds AAOx3 , now sleeping. Pt is on Ra cont B/B . R chest tube in place. Daughter at bedside;.
--- NOTE | 2025-01-25 08:27 | W.PN.CARDCBS ---
Today's Communication / Plan
-
Increase metoprolol ER to 50 mg daily
No aspirin or anticoagulants
Chronic occlusive thrombus left femoral vein -defer to hospitalist/oncology regarding filter, etc.
No further cardiac testing at present
We will sign off, please call if questions
Impression / Plan
-
.
Impression:
Right pelvic mass with severely elevated tumor markers-suspected ovarian cancer versus GI source
Acute hypoxic respiratory failure with right hemothorax s/p CT placement
Elevated troponin with peak 3.7, likely non ID troponin
Ascites
Elevated LFTs, improving
Acute blood loss anemia status post 7 units PRBC /hemothorax
Hyponatremia
JULY with hyperkalemia, resolved
Hx DVT, chronic femoral vein thrombus by ultrasound 01/21
Factor V Leiden
DNR
Echo January 21 2025: Normal left ventricular size and systolic function. No regional wall motion abnormalities are seen. LV ejection fraction is 60-65% by visual assessment.
Mild concentric left ventricular hypertrophy. Mild mitral regurgitation. Mild tricuspid regurgitation. Pleural effusion present.
Compared to the previous echo from May 2024, there is now mild MR and pleural effusion present.
Plan:
From a cardiac standpoint, she is unchanged - Nonischemic myocardial injury related to hypovolemic shock and anemia
LV function is normal. Modest elevation of proBNP likely not a clinical concern. No acute ECG changes.
No anticoagulants or antiplatelet agents
Management of chest tube/chronic DVT per hospitalist, CT surgery, and hematology
Pathology results pending
JULY has resolved. Shock liver resolving.
Given blood pressure and heart rate increase metoprolol ER to 50 mg daily
We will sign off, please call if needed
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
Subjective
Date of Service: January 25, 2025:
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
Medications: Atorvastatin on hold, metoprolol ER 25 mg a day, lisinopril 2.5 mg daily, no aspirin, no anticoagulant
141/58, pulse 87, respiratory 20, afebrile, somewhat withdrawn, appropriately depressed, lungs are relatively clear, regular rate and rhythm, no obvious murmurs, no edema neck veins okay
White count 23, had been 19 hemoglobin 9.8, platelets 371, BUN/creatinine 20 and 0.7, potassium 3.7, proBNP is 887
ECG yesterday sinus rhythm, cannot exclude prior anterior ID, inferior ID, nonspecific T wave changes
Objective
Labs:
01/25/25 05:32
01/25/25 05:32
Labs
Hgb 9.8 g/dL (12.0-16.0) L 01/25/25 05:32
Hct 29.3 % (37.0-47.0) L 01/25/25 05:32
Plt Count 371 10^3/uL (130-400) 01/25/25 05:32
PT 17.0 Sec (11.4-14.6) H 01/23/25 03:09
INR 1.36 01/23/25 03:09
APTT 26.6 Sec (23.4-35.0) 01/21/25 18:03
Sodium 136 mmol/L (135-145) 01/25/25 05:32
Potassium 3.7 mmol/L (3.5-5.1) 01/25/25 05:32
BUN 20 mg/dl (7-17) H 01/25/25 05:32
Creatinine 0.7 mg/dL (0.6-1.0) 01/25/25 05:32
Glucose 104 mg/dl (70-99) H 01/25/25 05:32
Vital Signs and I&O:
Vital Signs
Temp Pulse Resp BP Pulse Ox
36.8 C 87 20 141/58 98
01/25/25 07:40 01/25/25 08:22 01/25/25 06:00 01/25/25 08:22 01/25/25 06:00
Vital Signs
Temp Pulse Resp BP Pulse Ox
36.8 C 87 20 141/58 98
01/25/25 07:40 01/25/25 08:22 01/25/25 06:00 01/25/25 08:22 01/25/25 06:00
Intake & Output
01/23/25 01/24/25 01/25/25 01/26/25
07:59 07:59 07:59 07:59
Intake Total 270 / 280 660 / 660 350 / 350
Output Total 1200 / 1200 860 / 860 60 / 60
Balance -930 / -920 -200 / -200 290 / 290
Physical Exam
Physical Exam
See above
--- NOTE | 2025-01-25 08:32 | W.PN.ONC2 ---
Today's Communication / Plan
-
.
Impression
Impression
Right pelvic mass suspect neoplasm. Ca 125 82107, Ca 27.29 908, Ca 19.9 85756, CEA 165. ascites fluid negative for malignancy. s/p CT guided biospy 01/23
Hepatic transaminitis, suspect shock liver
right sided hemothorax with chest tube -pleural fluid negative for malignancy
Acute on chronic anemia c/w blood loss - 3PRBC, last 01/21
coagulopathy secondary to DOAC +/-shock liver so clotting factor production may be reduced-s/p 4FFP, vitamin K, last 01/21
Hx DCIS s/p lumpectomy
DKA
Leukocytosis
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
type II MT in setting of respiratory failure, hemothorax, anemia and mass -cardiology following
Plan
Plan
follow for pathology of bx
If pathology suggestive of GI etiology then consider EGD +/- colonoscopy
anticoagulation on hold d/t ABLA -Hgb stable >8g/dL today
cautious use of vitamin K and FFP with high risk VTE/FVL, OAC on hold for bleeding
R chest tube management per thoracic surgery
consider at least dvt ppx once risk of bleeding improved since high risk VTE
Subjective/Objective
Subjective
no new complaints
Vital Signs:
Vital Signs
Temp Pulse Resp BP Pulse Ox
98.2 F 87 20 141/58 98
01/25/25 07:40 01/25/25 08:22 01/25/25 06:00 01/25/25 08:22 01/25/25 06:00
Lab Results:
Laboratory Data
WBC 23.2 10^3/uL (4.8-10.8) H 01/25/25 05:32
Hgb 9.8 g/dL (12.0-16.0) L 01/25/25 05:32
Plt Count 371 10^3/uL (130-400) 01/25/25 05:32
PT 17.0 Sec (11.4-14.6) H 01/23/25 03:09
INR 1.36 01/23/25 03:09
APTT 26.6 Sec (23.4-35.0) 01/21/25 18:03
eGFR > 60.00 01/25/25 05:32
--- NOTE | 2025-01-25 08:48 | W.PN.HOSP.TC ---
Today's Communication/Plan
-
see note
Assessment / Plan
Assessment / Plan
Ms. Golden is a 79-year-old female with a medical history of breast cancer (diagnosed 2013, status postlumpectomy and radiation), factor V Leiden mutation carrier, and history of DVT (on Eliquis) who presented with nausea and vomiting with
associated abdominal bloating. CT imaging revealed a large heterogeneous complex mass appeared to be originating from the right ovary. Labs revealed a gapped acidosis. She was mildly hyperglycemic and had an elevated beta hydroxybutyrate. She
was started on an insulin drip with DKA protocol and admitted for further evaluation and management.
1. Acute hypoxic respiratory failure - Improving
Right-sided hemothorax
-Patient requiring high flow oxygen, 30L/min
-Patient is s/p chest tube placement on 01/20
-Overnight CT tube out of 600ml. fluid WBC 13.2 K with PMN 69.7%. Fluid LDH 5.7K. cytopathology ordered
-Chest x-ray in the morning showing relatively clear x-ray. Small left-sided effusion.
-CT surgeon evaluated and no surgical indication
-CTA chest did not show any new finding explaining patient hemothorax.
-Chest tube drainage slowing down although still elevated. Follow-up chest x-ray showing proper drainage with no loculation
-May need pleurex tube if not improved
2. Acute blood loss anemia
-From ongoing blood containing CT tube output
-No GI blood loss reported
-CT abdomen pelvis time to rule out any retroperitoneal bleed
-Continue following hemoglobin with transfusion for less than 7
3. Right pelvic mass - presumed malignancy
Hemorrhagic ascites
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
-CA 19-9 level of 60.3K. CEA 165 (WNL), CA 27-29 and CA125 level pending.
-MRI abdomen/pelvis with and without contrast has been pending
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
-Input from Dr. Krause reviewed. Patient will eventually require biopsy of the mass and outpatient resection post improvement of other current comorbidities
-Colorectal surgeon consulted onc-splunk consultant for possible need of colonoscopy, no clear indication per CRS.
-GI consulted for possible need of EGD. Of note patient stool positive for occult blood.
-s/p US guided biopsy of mass on 01/23. Pathology report will guide further treatment plan.
-Paracentesis of 10 mL fluid showing hemorrhagic peritoneal fluid
-MRI pelvis ordered and report pending
4. Troponin elevation
-Denies any chest pain.
-Suspected type II DC from hypovolemia and tachycardia. Trop max at ~ 3.5 , trending down.
-With ongoing bleeding issue cannot be started on any antiplatelets/heparin product
-TTE showed preserved EF
-Cardiology following and no further intervention warranted at this point.
5. Hyponatremia -resolved
-Euvolemic in nature presumed ADH excess with blood loss
6. JULY -resolved
Metabolic acidosis -resolved
-JULY likely related to hypovolemia/hypotension and need of contrast for CT scan
-Patient had mild anion gap metabolic acidosis likely with JULY and malignancy related
-Avoid nephrotoxic medication and monitor
6. Hyperkalemia -resolved
-driven from acidosis and mild july
7. Hypovolemic shock - resolved
-Required IVF/support of vasopressor
8.Chronic left femoral vein thrombus
History of factor V Leiden mutation
-Peripheral vascular ultrasound report reviewed
9. Leukocytosis without fever
-Patient continued to have elevated white blood cell. Afebrile monitor off antibiotics.
-Chest x-ray done today and no new pneumonia/loculated effusion, low concern of infection
-will consider repeat abd imaging if TWBC conitnue trend up
11. Shock liver - improving
-LFT continue to trend down
-Lipitor/Tylenol on hold
12. Abnormal UA
-no dysuria/have elevated wbc
-Follow-up clinically/urine culture. Currently off of antibiotic
CODE STATUS: DNR
Care plan discussed with table filler
Anticipated Discharge: > 48 hours
Subjective/Interval History
-
Date of Service: January 25, 2025
no complains overnight
denies of problems
Objective Data
-
Labs:
Laboratory Results
01/25/25
05:32
WBC 23.2 H
Hgb 9.8 L
Hct 29.3 L
Plt Count 371
Sodium 136
Potassium 3.7
Chloride 104
Carbon Dioxide 25
BUN 20 H
Creatinine 0.7
Glucose 104 H
Calcium 8.2 L
Vital Signs:
Vital Signs
Temp Pulse Resp BP Pulse Ox
98.2 F 87 20 141/58 98
01/25/25 07:40 01/25/25 08:22 01/25/25 06:00 01/25/25 08:22 01/25/25 06:00
I&O
01/24/25 01/25/25 01/26/25
06:59 06:59 06:59
Intake Total 420 / 420 590 / 590
Output Total 800 / 800 120 / 120
Balance -380 / -380 470 / 470
Review of Systems
-
Respiratory: Reports No Symptoms
Cardiac: Reports No Symptoms
Abdomen/GI: Reports No Symptoms
Physical Exam
-
General: No Apparent Distress and Comfortable
HEENT: Oxygen (High flow 30L/min)
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
Cardiac: Regular Rhythm and S1/S2; Negative Murmur or Rub
GI: Soft, Nondistended and Distended; Negative Tender
Musculoskeletal: No Edema
Neuro: Awake, Alert, Oriented, No Motor Deficits and Nonfocal/Grossly Intact
Psych: Calm
--- NOTE | 2025-01-25 09:26 | W.PN.PUL3 ---
Today's Communication / Plan
-
Chest tube with ongoing output, may consider ASEPT placement next week if output shows no sign of diminishing
Ovarian cancer suspected, awaiting pelvic bx results
Abd pain noted, low threshold for CT AP if Hb drops
CXR this AM shows slightly more effusion than prior
Maintain observation with chest tube in place
Assessment
-
80-year-old female non-smoker with a past medical history of right-sided breast cancer s/p lumpectomy (2009) + XRT, history of DVT on Eliquis and hyperlipidemia who presented with vomiting, syncopal episode and abdominal pain and was found to be
unresponsive upon arrival here to the ER. Patient reported right sudden onset of abdominal discomfort, with bilious and nonblood emesis. Last BM was 1 day ago and was regular/nonbloody. Initial labs showed leukocytosis of 22.2, Hb 13.9, sodium 134,
serum bicarbonate level 14, creatinine 1.1, glucose 298, troponin negative at <0.012, CRP 7.8, lipase 135, and beta-hydroxybutyrate 0.36. CT abdomen/pelvis obtained on 01/10/2025 showing a large heterogeneous complex mass in the pelvis extending
into the abdomen concerning for ovarian cystadenoma versus ovarian cystadenocarcinoma. Admitted to the IMU for further management. CT chest 01/20/2025 showed large right-sided pleural effusion/small left-sided pleural effusion/RML/RLL collapse.
Patient became short of breath requiring supplemental oxygen and hypotensive. Patient now transferred to the ICU for further care and technical specialist cytogenetics services consulted for additional management/recommendations.
Spontaneous right sided hemothorax s/p chest tube 01/20/25
Acute hypoxic respiratory failure. Secondary to hemothorax
Acute blood loss anemia. Related to hemothorax
Minimum troponin elevation. Suspect demand ischemia in view of acute critical illness.
Right pelvic mass, suspicious for ovarian malignancy s/p pelvic biopsy 01/23/25
Chronic conditions MANAGER COPY:
Right-sided breast cancer s/p lumpectomy + XRT
history of DVT on Eliquis
hyperlipidemia
Plan.
Patient comfortably sitting in no acute distress, saturating well
Stable on RA
Hemorrhagic fluid initially required blood transfusion but over the last 24 hours hemoglobin has been stable
Received vitamin K as well as 4 units of FFP's
S/p 8 [place] chest tube insertion, still having ongoing drainage, bloody but serosanguinous
Last 3 outputs: 1100mL, 800mL, 120mL
CTA on 01/22 has been unremarkable, repeat CXR 01/25/25 slightly more fluid noted compared to prior
There is a high chance (if confirmed to be ovarian cancer), that effusions will likely not respond unless she be treated for her underlying malignancy
Can consider ASEPT placement by next week if drainage does not show signs of stopping
Pleural fluid collected and sent for cytology
Thoracic surgery service on case, no operative intervention planned
Concern for possible malignant etiology of her spontaneous pneumothorax, ?metastatic disease
Pleural path negative for malignancy on 01/21/25
Hold off anticoagulation. Patient received vitamin K and fresh frozen plasma x 4
INR normal now
Monitor labs closely
Patient off antibiotics currently, blood cultures negative so far
Observation for now
Pain control
Pelvic mass noted, s/p IR biopsy 01/23/25, awaiting path--likely ovarian given significantly elevated CA-125
Oncology service on case, await further recommendations
AUTOMATIC CLIPPER consult reviewed, possible resection case
New abd pain noted, today--consider CT AP if Hb drop noted
We will follow
Data:
CT A/P with IV contrast 01/18/2025: Extremely large heterogeneous complex 'mass' appearing to extend from the soft tissues of the superior right true pelvis into the abdomen measuring up to approximately 15.8 cm with some small to moderate volume
mildly complex ascites. Most likely differential diagnostic possibility would be ovarian origin such as OVARIAN CYSTADENOMA or OVARIAN CYSTADENOCARCINOMA. Exophytic uterine mass would be less likely. Other etiology such as a mass of other origin or
large hematoma would also be less likely. Suspected hiatal hernia. Small nonspecific retroperitoneal and pelvic lymph nodes.
CT chest without IV contrast 01/20/2025: MARKEDLY LIMITED STUDY due to several factors, especially lack of intravenous contrast and prominent respiration/motion artifact. Large right and tiny left pleural effusions. Thickened linear density in the
left upper lobe most likely representing scarring and some areas of likely subsegmental atelectasis in the aerated portions of both lungs. Entire right lower lobe, portions of right middle lobe and portions of left lower lobe limited by presumed
atelectasis. Roro cannot be evaluated without intravenous contrast. No gross mediastinal lymphadenopathy no findings to suggest bilateral axillary lymphadenopathy. Please note, the basis of this limited study, malignancy, including metastatic
disease in the chest cannot be excluded.
CTA Chest 01/22: 1. No enhancing mass or pathologic lymphadenopathy within the chest. Pleural effusions may still be malignant given the large pelvic mass, please correlate with cytology.
2. Right chest tube is in satisfactory position. No residual right pleural effusion. Tiny amount of air within the right pleural space, likely related to the chest tube.
3. Small left pleural effusion, simple fluid attenuation. Suspected subsegmental atelectasis within the left lower lobe.
4. Intraperitoneal free fluid, partially imaged. Fluid measures 17 Hounsfield units, and may represent hemorrhagic fluid or other complex fluid.
Total of 50 minutes of time was provided for this patient today. This includes management of vital signs, evaluation of the patient at bedside, reviewing the patient's pertinent medical records including radiographs, microbiology, laboratory
evaluations, and discussion with primary team, consultants, nursing and respiratory therapy.
Subjective Data
-
Date of Service:
Date of Service: January 25, 2025
Chief Complaint: Pulmonary Follow Up
Subjective:
New abdominal pain today, no worsening SOB
Chest tube still with drainage, bloody
Objective Data
Data Reviewed
Vital Signs / I&O / Oxygen:
Vital Signs
Temp Pulse Resp BP Pulse Ox
98.2 F 87 20 141/58 98
01/25/25 07:40 01/25/25 08:22 01/25/25 06:00 01/25/25 08:22 01/25/25 06:00
Intake and Output
01/24/25 01/25/25 01/26/25
06:59 06:59 06:59
Intake Total 420 / 420 590 / 590
Output Total 800 / 800 120 / 120
Balance -380 / -380 470 / 470
SaO2 98
Nasal Cannula flow liters per 2
minute
Physical Exam
General: Comfortable and Other (NAD)
HEENT: Normocephalic, Anicteric and Moist Mucous Membranes
Cardiovascular: S1-S2 and Regular Rhythm
Respiratory: Clear, Non-Labored Respirations, Chest Tube and Other (decreased at bases)
GI: Soft, Non Distended and Non Tender
Neurology: Awake, Alert, Oriented and No Motor Deficits
Skin: Warm, Dry and Good Color
Labs/Micro/Reports
Lab Data
01/25/25 05:32
01/25/25 05:32
Microbiology
01/20/25 05:06 Blood/Venous Blood Culture - Final
No Growth - Final Report
01/20/25 17:41 Pleural Fluid Body Fluid Culture - Final
No Growth After 72 Hours
01/20/25 17:41 Pleural Fluid Gram Stain - Final
01/21/25 20:35 Urine Urine Culture - Final
No Significant Growth
[2025-01-25] MEDS: BENTYL 10 MG PO ×2 (13:33→18:20)
--- NOTE | 2025-01-25 13:53 | W.PN.GI.CBS2 ---
Today's Communication / Plan
-
check stool with diarrhea
await biopsy
Assessment / Plan
-
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
with nausea and vomiting of bilious emesis and near syncope on 01/18. In ER noted with tachycardia and tachypnea. On admission WBC was 22.2 and hbg was 13.9 with progressive drop to hbg 5.2. Imaging on admission with concern for large complex
mass right pelvis into abdomen 15.8 cm with small to moderate ascites ovarian cystadenoma vs ovarian cystadenocarcinoma vs large hematoma. Further follow up US pelvis with large pelvic mass, / CT chest with limited study with large right and tiny
left pleural effusion and repeat CT a/p with angio 01/20 with large mass, moderate ascites, large right pleural effusion with follow up placement of Chest with drainage of large volume bloody drainage. She has required multiple transfusion since
admission. Pt has been seen by multiple consultants including, ROVING CARRIER, surgical oncology, colorectal surgery, CT surgery, and cardiology with elevated trop. Tumor markers with marked elevation with CEA 165, CA 19-9 85658, CA 125 34691, CA 27-29
908.7. Pt also noted with normal LFT's on admission with rise to 3/3 bili 1.7, AST 1273, ALT 858, and alk phos 69. Pt for paracentesis and asked to see for EGD and colonoscopy with colorectal vs GI prior to surgery. Denies hx EGD or colonoscopy in
past.
Impression:
-large pelvic mass s/p IR bx 01/23; await biopsy results
- diarrhea and lower abd cramps. check c. diff if negative can give imodium
Subjective
Subjective
Date of Service: January 25, 2025
Pt awaiting biopsy of mass. having llq cramps and diarrhea
Objective
Data Reviewed
Laboratory Data:
Laboratory Results
01/25/25 05:32
01/25/25 05:32
Laboratory Results
PT 17.0 Sec (11.4-14.6) H 01/23/25 03:09
INR 1.36 01/23/25 03:09
APTT 26.6 Sec (23.4-35.0) 01/21/25 18:03
Phosphorus 2.7 mg/dl (2.5-4.5) 01/22/25 03:22
Magnesium 2.2 mg/dl (1.6-2.3) 01/22/25 03:22
Total Bilirubin 1.6 mg/dl (0.2-1.3) H 01/24/25 05:28
AST 186 U/L (14-36) H 01/24/25 05:28
ALT 662 U/L (0-35) H* 01/24/25 05:28
Alkaline Phosphatase 136 U/L (38-126) H 01/24/25 05:28
Lipase 135 U/L (23-300) 01/18/25 13:16
Vital Signs and I&O:
Vital Signs
Temp Pulse Resp BP Pulse Ox
98.1 F 89 19 154/67 95
01/25/25 11:28 01/25/25 11:31 01/25/25 08:00 01/25/25 11:31 01/25/25 08:00
I&O
01/24/25 01/25/25 01/26/25
06:59 06:59 06:59
Intake Total 420 / 420 590 / 590
Output Total 800 / 800 120 / 120
Balance -380 / -380 470 / 470
Physical Exam
Physical Exam
GI: Soft and Tender (mild tenderness)
Neuro: Non Focal
--- NOTE | 2025-01-25 17:20 | CM ---
Patient with Dx Acute hypoxic respiratory failure, Right-sided hemothorax, anemia, Right pelvic mass - presumed malignancy s/p biopsy. Room air. Chest tube. PT/OT; requires assist of 2, recommend skilled rehab.
CM continuing to follow for d/c needs.
Plan check with [facility] for bed availability when closer to d/c.
Plan [facility] when medically ready.
[2025-01-25] MEDS: ZOFRAN 4 MG IV (23:41)
[2025-01-25] MEDS: FLUSH (NSS) 2 FLUSH IV (23:41)
[2025-01-25] MEDS: ROXICODONE 5 MG PO (23:41)
[2025-01-26] VITALS (13 sets, daily range): BP systolic 143–160; BP diastolic 55–71
[2025-01-26 04:24] LABS: Hematocrit 28.8 % (37.0-47.0); Hemoglobin 9.7 g/dL (12.0-16.0); Mean Corp Hgb Conc. 33.7 g/dL (33.0-37.0); Mean Corpuscular Hgb 28.9 pg (27.0-31.0); Mean Corpuscular Volume 85.7 fL (81.0-99.0); Mean Platelet Volume 9.9 fL (7.4-10.4); Platelet Count 403 10^3/uL (130-400); Red Blood Cell Count 3.36 10^6/uL (4.20-5.40); Red Cell Dist. Width 15.4 % (11.5-14.5); White Blood Cell Count 25.8 10^3/uL (4.8-10.8)
--- NOTE | 2025-01-26 05:34 | PTCARENOTE ---
Pt resting comfortably overnight. AAOx3. Admits to 02/28 abd pain. Received Roxicodone with Zofran with good relief and was able to sleep overnight. VSS. Afebrile. SR on CM. POX RA 97%. Right chest tube intact to -20cm wall suction. No air leaks,
crepitus or tidaling noted. Chest tube flushed as ordered and only 20ml s/s drainage for shift. Lungs diminished at bases, shallow. Pt incontinent small amount soft brown stool and urine. Unable to send for stool sample to lab. Vaginal area
red/swollen and painful. Skin protectant applied. No change from previous assessment. Encouraged with turns. Pt using call swift for assist. Shampoo given this am. Call swift remains within reach. Will continue to monitor.
[2025-01-26] MEDS: FLUSH (NSS) 2 FLUSH IV (05:41)
[2025-01-26] MEDS: ZOFRAN 4 MG IV (05:41)
[2025-01-26] MEDS: ROXICODONE 5 MG PO (05:41)
[2025-01-26 06:18] LABS: Blood Urea Nitrogen 23 mg/dl (7-17); Calcium 8.7 mg/dl (8.4-10.2); Carbon Dioxide 22 mmol/L (22-30); Chloride 105 mmol/L (98-107); Estimated Creatinine Clearance 56 ml/min; Glucose 91 mg/dl (70-99); Sodium 136 mmol/L (135-145); eGFR > 60.00
[2025-01-26] MEDS: TOPROL XL 50 MG PO (09:18)
[2025-01-26] MEDS: ZESTRIL 5 MG PO (09:19)
--- NOTE | 2025-01-26 12:32 | W.PN.GYNONC ---
Today's Communication
-
na
Impression / Plan
-
Patient was seen today in ICU
1. Acute hypoxic respiratory failure
Chest tube output has been significant and continuous, it is clamped now. Yesterday she had a normal chest x-ray with great expansion of both lungs
2. Acute blood loss anemia
Hemoglobin is 9-10 range and stable
3. Right pelvic mass -
Tumor markers including CA125, CEA and CA 19�9 are all elevated.
Overall appearance and presentation is worrisome for malignancy.
Ascites as well as pleural effusions are negative for malignancy
Preliminary report of pelvic mass biopsy shows hemorrhagic fibroconnective tissue with no obvious evidence of malignancy. Pathology is putting deeper slides through to see whether there is any occult neoplasm.
4. Troponin elevation
Workup by cardiology did not reveal any significant cardiovascular disease, echocardiogram was very reassuring and they have signed off.
5. History of DVT:
Ultrasound of lower extremities shows chronic thrombus, hold off on any anticoagulation at this time
6. Leukocytosis without fever. She has had a rising white blood cell count over the last few days but now stabilized at 25,000, my suspicion is that this is due to hemoperitoneum and hemothorax
7. CODE STATUS. Patient had mention to me that she has a living well, she did not want aggressive measures including intubation. She does wish to continue treatment including possible upcoming surgery. We will discussed this with her to ensure
any actions that we take is consistent with her goals of care.
Subjective / Interval History
-
Patient reports feeling generally well but scared of moving. Abdominal pain is 3 out of 10. She denies any shortness of breath
She is voiding without difficulty, she had diarrhea yesterday and has not had a bowel movement today
Objective Data
-
Lab Results:
01/26/25 04:07
01/26/25 05:16
Physical Exam
Vital Signs / I&O
Vitals
Temp Pulse Resp BP Pulse Ox
98.2 F 110 20 154/56 98
01/26/25 11:50 01/26/25 12:00 01/26/25 12:00 01/26/25 12:00 01/26/25 12:00
I&O
01/24/25 01/25/25 01/26/25 01/27/25
06:59 06:59 06:59 07:59
Intake Total 420 / 420 590 / 590 500 / 500
Output Total 800 / 800 120 / 120 80 / 80
Balance -380 / -380 470 / 470 420 / 420
Physical Exam
General: Well Nourished and No Apparent Distress
HEENT: Normocephalic
Respiratory: Clear and Non Labored Respirations
Cardiac: S1/S2 and Regular Rhythm
GI: Soft and Distended
Musculoskeletal: No Clubbing and No Cyanosis
Skin: Warm
Neuro: Awake, Alert, Oriented and AO x 3
Hematologic/Lymphatic: No Lymphadenopathy
Psych: Calm
--- NOTE | 2025-01-26 12:37 | W.PN.PUL3 ---
Today's Communication / Plan
-
- Clamp chest tube, follow-up chest x-ray in the morning
-If x-ray stable and patient tolerates clamp tube well, will discontinue chest tube
-If patient develops dyspnea, recommend unclamping the chest tube and informing pulmonary critical care service
Assessment
-
80-year-old female non-smoker with a past medical history of right-sided breast cancer s/p lumpectomy (2009) + XRT, history of DVT on Eliquis and hyperlipidemia who presented with vomiting, syncopal episode and abdominal pain and was found to be
unresponsive upon arrival here to the ER. Patient reported right sudden onset of abdominal discomfort, with bilious and nonblood emesis. Last BM was 1 day ago and was regular/nonbloody. Initial labs showed leukocytosis of 22.2, Hb 13.9, sodium 134,
serum bicarbonate level 14, creatinine 1.1, glucose 298, troponin negative at <0.012, CRP 7.8, lipase 135, and beta-hydroxybutyrate 0.36. CT abdomen/pelvis obtained on 01/10/2025 showing a large heterogeneous complex mass in the pelvis extending
into the abdomen concerning for ovarian cystadenoma versus ovarian cystadenocarcinoma. Admitted to the IMU for further management. CT chest 01/20/2025 showed large right-sided pleural effusion/small left-sided pleural effusion/RML/RLL collapse.
Patient became short of breath requiring supplemental oxygen and hypotensive. Patient now transferred to the ICU for further care and medical records auditor services consulted for additional management/recommendations.
Spontaneous right sided hemothorax s/p chest tube 01/20/25
Acute hypoxic respiratory failure. Secondary to hemothorax
Acute blood loss anemia. Related to hemothorax
Minimum troponin elevation. Suspect demand ischemia in view of acute critical illness.
Right pelvic mass, suspicious for ovarian malignancy s/p pelvic biopsy 01/23/25
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
Right-sided breast cancer s/p lumpectomy + XRT
history of DVT on Eliquis
hyperlipidemia
Plan.
Patient comfortably sitting in no acute distress, saturating well
Stable on RA
#1. Spontaneous hemothorax, right side. S/p chest tube placement and drainage.
-? Etiology, however suspect malignancy with concomitant large volume ascites and pelvic mass
-Pleural fluid cytology and cultures have been negative, peritoneal fluid cytology also negative, no indication of antibiotics from pulmonary standpoint
-Over last 48 hours, hemoglobin has been stable
-Chest tube output over last 24 hours, 80 cc
-Clamp chest tube today, follow-up chest x-ray tomorrow. If x-ray stable and no significant collection, will take chest tube out tomorrow.
-If patient continues to have ongoing drainage, will need to consider indwelling catheter since her pleurodesis might not be successful in the setting of ongoing significant chest tube output.
-If large-volume hemorrhagic output noted, will repeat CT angiogram stat in case a target for embolization can be identified
-Continue to stay off Eliquis, patient not a candidate for anticoagulation in view of her recurrent bleeding in the right hemithorax
-Patient is s/p 4 units of FFP's and vitamin K earlier during hospitalization
#2. Pelvic mass noted, s/p IR biopsy 01/23/25, awaiting path--likely ovarian given significantly elevated CA-125
Oncology service on case, await further recommendations
MATERIALS HANDLING EQUIPMENT OPERATOR consult reviewed, possible resection case
We will follow
Data:
CT A/P with IV contrast 01/18/2025: Extremely large heterogeneous complex 'mass' appearing to extend from the soft tissues of the superior right true pelvis into the abdomen measuring up to approximately 15.8 cm with some small to moderate volume
mildly complex ascites. Most likely differential diagnostic possibility would be ovarian origin such as OVARIAN CYSTADENOMA or OVARIAN CYSTADENOCARCINOMA. Exophytic uterine mass would be less likely. Other etiology such as a mass of other origin or
large hematoma would also be less likely. Suspected hiatal hernia. Small nonspecific retroperitoneal and pelvic lymph nodes.
CT chest without IV contrast 01/20/2025: MARKEDLY LIMITED STUDY due to several factors, especially lack of intravenous contrast and prominent respiration/motion artifact. Large right and tiny left pleural effusions. Thickened linear density in the
left upper lobe most likely representing scarring and some areas of likely subsegmental atelectasis in the aerated portions of both lungs. Entire right lower lobe, portions of right middle lobe and portions of left lower lobe limited by presumed
atelectasis. Roro cannot be evaluated without intravenous contrast. No gross mediastinal lymphadenopathy no findings to suggest bilateral axillary lymphadenopathy. Please note, the basis of this limited study, malignancy, including metastatic
disease in the chest cannot be excluded.
CTA Chest 01/22: 1. No enhancing mass or pathologic lymphadenopathy within the chest. Pleural effusions may still be malignant given the large pelvic mass, please correlate with cytology.
2. Right chest tube is in satisfactory position. No residual right pleural effusion. Tiny amount of air within the right pleural space, likely related to the chest tube.
3. Small left pleural effusion, simple fluid attenuation. Suspected subsegmental atelectasis within the left lower lobe.
4. Intraperitoneal free fluid, partially imaged. Fluid measures 17 Hounsfield units, and may represent hemorrhagic fluid or other complex fluid.
Total of 50 minutes of time was provided for this patient today. This includes management of vital signs, evaluation of the patient at bedside, reviewing the patient's pertinent medical records including radiographs, microbiology, laboratory
evaluations, and discussion with primary team, consultants, nursing and respiratory therapy.
Subjective Data
-
Date of Service:
Date of Service: January 26, 2025
Chief Complaint: Pulmonary Follow Up
Subjective:
Patient comfortably sitting in bed in no acute distress. No cough, shortness of breath.
Objective Data
Data Reviewed
Vital Signs / I&O / Oxygen:
Vital Signs
Temp Pulse Resp BP Pulse Ox
98.2 F 110 20 154/56 98
01/26/25 11:50 01/26/25 12:00 01/26/25 12:00 01/26/25 12:00 01/26/25 12:00
Intake and Output
01/25/25 01/26/25 01/27/25
06:59 06:59 07:59
Intake Total 590 / 590 500 / 500
Output Total 120 / 120 80 / 80
Balance 470 / 470 420 / 420
SaO2 98
Nasal Cannula flow liters per 2
minute
Physical Exam
General: Comfortable and Other (NAD)
HEENT: Normocephalic, Anicteric and Moist Mucous Membranes
Cardiovascular: S1-S2 and Regular Rhythm
Respiratory: Clear, Non-Labored Respirations, Chest Tube and Other (decreased at bases)
GI: Soft, Non Distended and Non Tender
Neurology: Awake, Alert, Oriented and No Motor Deficits
Skin: Warm, Dry and Good Color
Labs/Micro/Reports
Lab Data
01/26/25 04:07
01/26/25 05:16
Microbiology
01/20/25 05:06 Blood/Venous Blood Culture - Final
No Growth - Final Report
01/20/25 17:41 Pleural Fluid Body Fluid Culture - Final
No Growth After 72 Hours
01/20/25 17:41 Pleural Fluid Gram Stain - Final
01/21/25 20:35 Urine Urine Culture - Final
No Significant Growth
[2025-01-26] MEDS: BENTYL 10 MG PO (12:45)
[2025-01-26] MEDS: UNASYN IV ×3 (12:45→23:19)
[2025-01-26] MEDS: TYLENOL 500 MG PO (12:45)
--- NOTE | 2025-01-26 12:50 | W.PN.HOSP.TC ---
Today's Communication/Plan
-
see note
Assessment / Plan
Assessment / Plan
Ms. Golden is a 79-year-old female with a medical history of breast cancer (diagnosed 2013, status postlumpectomy and radiation), factor V Leiden mutation carrier, and history of DVT (on Eliquis) who presented with nausea and vomiting with
associated abdominal bloating. CT imaging revealed a large heterogeneous complex mass appeared to be originating from the right ovary. Labs revealed a gapped acidosis. She was mildly hyperglycemic and had an elevated beta hydroxybutyrate. She
was started on an insulin drip with DKA protocol and admitted for further evaluation and management.
1. Acute hypoxic respiratory failure - Improving
Right-sided hemothorax
-Patient requiring high flow oxygen, 30L/min
-Patient is s/p chest tube placement on 01/20
-Overnight CT tube out of 600ml. fluid WBC 13.2 K with PMN 69.7%. Fluid LDH 5.7K. cytopathology ordered
-Chest x-ray in the morning showing relatively clear x-ray. Small left-sided effusion.
-CT surgeon evaluated and no surgical indication
-CTA chest did not show any new finding explaining patient hemothorax.
-Chest tube drainage has slowed down. Discussed with pulmonology and tube to be clamped today.
-May need pleurex tube if not improved
2. Acute blood loss anemia
-From ongoing blood containing CT tube output
-No GI blood loss reported
-CT abdomen pelvis time to rule out any retroperitoneal bleed
-Continue following hemoglobin with transfusion for less than 7
3. Right pelvic mass - presumed malignancy
Hemorrhagic ascites
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
-CA 19-9 level of 60.3K. CEA 165 (WNL), CA 27-29 and CA125 level pending.
-MRI abdomen/pelvis with and without contrast has been pending
-FILM PROCESSING SUPERVISOR and oncology input noted
-Input from Dr. Krause reviewed. Patient will eventually require biopsy of the mass and outpatient resection post improvement of other current comorbidities
-Colorectal surgeon consulted onc-radiation engineer for possible need of colonoscopy, no clear indication per CRS.
-GI consulted for possible need of EGD. Of note patient stool positive for occult blood.
-s/p US guided biopsy of mass on 01/23. Pathology report will guide further treatment plan.
-Paracentesis of 10 mL fluid showing hemorrhagic peritoneal fluid
-MRI pelvis ordered and report pending
4. Troponin elevation
-Denies any chest pain.
-Suspected type II GA from hypovolemia and tachycardia. Trop max at ~ 3.5 , trending down.
-With ongoing bleeding issue cannot be started on any antiplatelets/heparin product
-TTE showed preserved EF
-Cardiology following and no further intervention warranted at this point.
5. Hyponatremia -resolved
-Euvolemic in nature presumed ADH excess with blood loss
6. JULY -resolved
Metabolic acidosis -resolved
-JULY likely related to hypovolemia/hypotension and need of contrast for CT scan
-Patient had mild anion gap metabolic acidosis likely with JULY and malignancy related
-Avoid nephrotoxic medication and monitor
6. Hyperkalemia -resolved
-driven from acidosis and mild july
7. Hypovolemic shock - resolved
-Required IVF/support of vasopressor
8.Chronic left femoral vein thrombus
History of factor V Leiden mutation
-Peripheral vascular ultrasound report reviewed
9. Leukocytosis without fever
-Patient continued to have elevated white blood cell.
-Chest x-ray done today and no new pneumonia/loculated effusion, low concern of infection
-Possible source of pulmonary versus malignancy - added empiric unasyn -to cover non MDR gram-negative and anerobic organisms
11. Shock liver - improving
-LFT continue to trend down
-Lipitor/Tylenol on hold
12. Urinary retention
-bladder scan of 1.1L - straight cath ordered
-if continues to have retention, will require mathis placement
CODE STATUS: DNR
Care plan discussed with vibration analyst
Care discussed with patient family at bedside.
Total time spent: 52 mins
Anticipated Discharge: > 48 hours
Subjective/Interval History
-
Date of Service: January 26, 2025
Nausea with pain medication
CT tube drainage is decreased
Objective Data
-
Labs:
Laboratory Results
01/26/25 01/26/25
04:07 05:16
WBC 25.8 H
Hgb 9.7 L
Hct 28.8 L
Plt Count 403 H
Sodium Cancelled 136
Potassium Cancelled 4.0
Chloride Cancelled 105
Carbon Dioxide Cancelled 22
BUN Cancelled 23 H
Creatinine Cancelled 0.8
Glucose Cancelled 91
Calcium Cancelled 8.7
Vital Signs:
Vital Signs
Temp Pulse Resp BP Pulse Ox
98.2 F 110 20 154/56 98
01/26/25 11:50 01/26/25 12:00 01/26/25 12:00 01/26/25 12:00 01/26/25 12:00
I&O
01/25/25 01/26/25 01/27/25
06:59 06:59 07:59
Intake Total 590 / 590 500 / 500
Output Total 120 / 120 80 / 80
Balance 470 / 470 420 / 420
Review of Systems
-
Respiratory: Reports No Symptoms
Cardiac: Reports No Symptoms
Abdomen/GI: Reports Abdominal Pain and Nausea
Physical Exam
-
General: No Apparent Distress and Comfortable
HEENT: Oxygen (High flow 30L/min)
Respiratory: Clear to Auscultation and Chest Tubes (Right fire engineer - hemorrhagic fluid)
Cardiac: Regular Rhythm and S1/S2; Negative Murmur or Rub
GI: Soft, Nondistended and Distended; Negative Tender
Musculoskeletal: No Edema
Neuro: Awake, Alert, Oriented, No Motor Deficits and Nonfocal/Grossly Intact
Psych: Calm
--- NOTE | 2025-01-26 13:48 | PTCARENOTE ---
Addendum entered by Dalila Donovan RN 01/26/25 15:09:
Dr Hooker aware
Original Note:
OOB to [facility]- leaking urine - voided 600ml abran urine. Bathed, chest tube dressing changed. Up for about 45 min- just wanted to return to bed- still leaking urine, bladder distended- bladder scanned 1150- straight cath performed with out
difficulty. Chest tube clamped per orders.
--- NOTE | 2025-01-26 14:17 | CM ---
patient chart reviewed
per note chest tube to be clamped
PLAN: [facility], pending bed availability when medically stable
--- NOTE | 2025-01-26 14:27 | W.PN.GI.CBS2 ---
Today's Communication / Plan
-
awaiting biopsies
Assessment / Plan
-
Impression:
-large pelvic mass s/p IR bx 01/23; await biopsy results
- diarrhea resolved
- anemia
- leukocytosis
plan:
1 await biopsy results; prelim not conclusive
2. check c. diff if diarrhea recurs
will sign off, call back if needed in the future
Subjective
Subjective
Date of Service: January 26, 2025
Pt with some loose stool yesterday that stopped.
Objective
Data Reviewed
Laboratory Data:
Laboratory Results
01/26/25 04:07
01/26/25 05:16
Laboratory Results
PT 17.0 Sec (11.4-14.6) H 01/23/25 03:09
INR 1.36 01/23/25 03:09
APTT 26.6 Sec (23.4-35.0) 01/21/25 18:03
Phosphorus 2.7 mg/dl (2.5-4.5) 01/22/25 03:22
Magnesium 2.2 mg/dl (1.6-2.3) 01/22/25 03:22
Total Bilirubin 1.6 mg/dl (0.2-1.3) H 01/24/25 05:28
AST 186 U/L (14-36) H 01/24/25 05:28
ALT 662 U/L (0-35) H* 01/24/25 05:28
Alkaline Phosphatase 136 U/L (38-126) H 01/24/25 05:28
Lipase 135 U/L (23-300) 01/18/25 13:16
Vital Signs and I&O:
Vital Signs
Temp Pulse Resp BP Pulse Ox
98.2 F 117 25 149/55 98
01/26/25 11:50 01/26/25 13:27 01/26/25 13:27 01/26/25 13:27 01/26/25 12:00
I&O
01/25/25 01/26/25 01/27/25
06:59 06:59 07:59
Intake Total 590 / 590 500 / 500 450 / 450
Output Total 120 / 120 80 / 80 1600 / 1600
Balance 470 / 470 420 / 420 -1150 / -1150
Physical Exam
Physical Exam
HEENT: Anicteric
Neuro: Other (comfortable)
--- NOTE | 2025-01-26 18:59 | PTCARENOTE ---
Pt received at beginning of shift resting in bed. Family at bedside. CT clamped since day shift, pt tolerating. Denies need for any pain med at this time. Lung sounds clear. POX RA 100%. VSS. Afebrile. Less anxious tonight. Audible bowel sounds.
Rest of assessment as documented. Using air cushion under buttocks. Skin as documented. Call swift remains within reach. Will continue to monitor.
--- NOTE | 2025-01-26 20:57 | PTCARENOTE ---
Pt on RA with pox 87-90 while asleep. Hands are cold. When awake pt without dsypnea, labored breathing. Very comfortable. Denies pain or discomfort. Speaks calmly in full sentences. Right chest tube dressing remains intact. No crepitus noted. Enrico
TT'd and O2 order entered to keep sat greater than 92. Will watch for any dyspnea. Currently pox 98% on 2L NC RR 20.
--- NOTE | 2025-01-26 21:49 | PTCARENOTE ---
O2 currently down to 1L POX 95%. Pt sleeping. Will continue to monitor.
[2025-01-27] VITALS (13 sets, daily range): BP systolic 121–160; BP diastolic 47–71
[2025-01-27] MEDS: ROXICODONE 2.5 MG PO ×2 (01:05→08:09)
[2025-01-27] MEDS: LIDOCAINE URO-JET 2% 1 SYRINGE TOPICAL (01:05)
--- NOTE | 2025-01-27 01:15 | PTCARENOTE ---
Pt agreeable to mathis catheter placement after discussion with Enrico BA. Uro-jet used for pt comfort and 16F mathis placed with immediate output of 950mls. Pt c/o perineum discomfort after bladder emptied. Roxicodone 2.5mg given. Currently pt
resting comfortably. Call swift remains within reach. Will continue to monitor.
[2025-01-27] MEDS: UNASYN IV ×4 (05:00→23:39)
[2025-01-27 05:22] LABS: Hemoglobin 9.8 g/dL (12.0-16.0); Mean Corp Hgb Conc. 33.8 g/dL (33.0-37.0); Mean Corpuscular Hgb 28.6 pg (27.0-31.0); Mean Corpuscular Volume 84.5 fL (81.0-99.0); Mean Platelet Volume 9.6 fL (7.4-10.4); Platelet Count 340 10^3/uL (130-400); Red Blood Cell Count 3.43 10^6/uL (4.20-5.40); Red Cell Dist. Width 15.2 % (11.5-14.5); White Blood Cell Count 23.5 10^3/uL (4.8-10.8)
[2025-01-27 05:42] LABS: ALT (SGPT) 185 U/L (0-35); AST (SGOT) 40 U/L (14-36); Albumin 2.2 g/dl (3.5-5.0); Alkaline Phosphatase 124 U/L (38-126); Blood Urea Nitrogen 21 mg/dl (7-17); Carbon Dioxide 28 mmol/L (22-30); Chloride 105 mmol/L (98-107); Estimated Creatinine Clearance 56 ml/min; Glucose 115 mg/dl (70-99); Potassium 3.8 mmol/L (3.5-5.1); Sodium 136 mmol/L (135-145); Total Protein 4.4 g/dl (6.3-8.2); eGFR > 60.00
[2025-01-27] MEDS: ZESTRIL 5 MG PO (08:09)
[2025-01-27] MEDS: TOPROL XL 50 MG PO (08:10)
--- NOTE | 2025-01-27 11:25 | PTCARENOTE ---
Right side chest tube is clamped as per doctors orders. Crackles auscultated on right side. Pulse ox on room air going from 89%-94% fluctuating. Notified Dr. Hooker. CHest xray completed. Patient is sitting in chair position at this time. Deep
breathing a coughing encouraged.
--- NOTE | 2025-01-27 12:41 | W.PN.PUL3 ---
Today's Communication / Plan
-
-Chest tube to stay clamped
-f/u CXR and HB on 01/28
-If CXR and Hct stable. IR to remove Chest tube 01/28
-If patient develops shortness of breath, un-clamp chest tube and get stat CXR, inform Pulmonary.
Assessment
-
80-year-old female non-smoker with a past medical history of right-sided breast cancer s/p lumpectomy (2009) + XRT, history of DVT on Eliquis and hyperlipidemia who presented with vomiting, syncopal episode and abdominal pain and was found to be
unresponsive upon arrival here to the ER. Patient reported right sudden onset of abdominal discomfort, with bilious and nonblood emesis. Last BM was 1 day ago and was regular/nonbloody. Initial labs showed leukocytosis of 22.2, Hb 13.9, sodium 134,
serum bicarbonate level 14, creatinine 1.1, glucose 298, troponin negative at <0.012, CRP 7.8, lipase 135, and beta-hydroxybutyrate 0.36. CT abdomen/pelvis obtained on 01/10/2025 showing a large heterogeneous complex mass in the pelvis extending
into the abdomen concerning for ovarian cystadenoma versus ovarian cystadenocarcinoma. Admitted to the IMU for further management. CT chest 01/20/2025 showed large right-sided pleural effusion/small left-sided pleural effusion/RML/RLL collapse.
Patient became short of breath requiring supplemental oxygen and hypotensive. Patient now transferred to the ICU for further care and hose tester services consulted for additional management/recommendations.
Spontaneous right sided hemothorax s/p chest tube 01/20/25
Acute hypoxic respiratory failure. Secondary to hemothorax
Acute blood loss anemia. Related to hemothorax
Minimum troponin elevation. Suspect demand ischemia in view of acute critical illness.
Right pelvic mass, suspicious for ovarian malignancy s/p pelvic biopsy 01/23/25
Chronic conditions FACULTY I ON CALL MEDICAL ASSISTANT:
Right-sided breast cancer s/p lumpectomy + XRT
history of DVT on Eliquis
hyperlipidemia
Plan.
Patient comfortably sitting in no acute distress, saturating well
Stable on RA
#1. Spontaneous hemothorax, right side. S/p chest tube placement and drainage.
-? Etiology, however suspect malignancy with concomitant large volume ascites and pelvic mass
-Pleural fluid cytology and cultures have been negative, peritoneal fluid cytology also negative, no indication of antibiotics from pulmonary standpoint
-Over last 72 hours, hemoglobin has been stable
-Chest tube clamped since 24 hrs (starting 01/26), f/u CXR today unchanged, Hb stable. I unclamped it for few minutes and noted no output. Re-clamped, if stable by AM, IR to remove chest tube
-If patient continues to have ongoing drainage, will need to consider indwelling catheter since her pleurodesis might not be successful in the setting of ongoing significant chest tube output.
-If large-volume hemorrhagic output noted, will repeat CT angiogram stat in case a target for embolization can be identified
-Continue to stay off Eliquis, patient not a candidate for anticoagulation in view of her recurrent bleeding in the right hemithorax
-Patient is s/p 4 units of FFP's and vitamin K earlier during hospitalization
#2. Pelvic mass noted, s/p IR biopsy 01/23/25, awaiting path--likely ovarian given significantly elevated CA-125
Oncology service on case, await further recommendations
FUR DRUMMER consult reviewed, possible resection case
We will follow
Data:
CT A/P with IV contrast 01/18/2025: Extremely large heterogeneous complex 'mass' appearing to extend from the soft tissues of the superior right true pelvis into the abdomen measuring up to approximately 15.8 cm with some small to moderate volume
mildly complex ascites. Most likely differential diagnostic possibility would be ovarian origin such as OVARIAN CYSTADENOMA or OVARIAN CYSTADENOCARCINOMA. Exophytic uterine mass would be less likely. Other etiology such as a mass of other origin or
large hematoma would also be less likely. Suspected hiatal hernia. Small nonspecific retroperitoneal and pelvic lymph nodes.
CT chest without IV contrast 01/20/2025: MARKEDLY LIMITED STUDY due to several factors, especially lack of intravenous contrast and prominent respiration/motion artifact. Large right and tiny left pleural effusions. Thickened linear density in the
left upper lobe most likely representing scarring and some areas of likely subsegmental atelectasis in the aerated portions of both lungs. Entire right lower lobe, portions of right middle lobe and portions of left lower lobe limited by presumed
atelectasis. Roro cannot be evaluated without intravenous contrast. No gross mediastinal lymphadenopathy no findings to suggest bilateral axillary lymphadenopathy. Please note, the basis of this limited study, malignancy, including metastatic
disease in the chest cannot be excluded.
CTA Chest 01/22: 1. No enhancing mass or pathologic lymphadenopathy within the chest. Pleural effusions may still be malignant given the large pelvic mass, please correlate with cytology.
2. Right chest tube is in satisfactory position. No residual right pleural effusion. Tiny amount of air within the right pleural space, likely related to the chest tube.
3. Small left pleural effusion, simple fluid attenuation. Suspected subsegmental atelectasis within the left lower lobe.
4. Intraperitoneal free fluid, partially imaged. Fluid measures 17 Hounsfield units, and may represent hemorrhagic fluid or other complex fluid.
Total of 25 minutes of time was provided for this patient today. This includes management of vital signs, evaluation of the patient at bedside, reviewing the patient's pertinent medical records including radiographs, microbiology, laboratory
evaluations, and discussion with primary team, consultants, nursing and respiratory therapy.
Subjective Data
-
Date of Service:
Date of Service: January 27, 2025
Chief Complaint: Pulmonary Follow Up
Subjective:
Patient comfortably sitting in bed in no acute distress. No cough, shortness of breath or wheezing.
Review of Systems
Genitourinary: Other (All 14 systems reviewed and negative except as stated above in the history of present illness.)
Objective Data
Data Reviewed
Vital Signs / I&O / Oxygen:
Vital Signs
Temp Pulse Resp BP Pulse Ox
98.0 F 97 19 139/60 92
01/27/25 03:00 01/27/25 10:00 01/27/25 10:00 01/27/25 10:00 01/27/25 10:58
Intake and Output
01/26/25 01/27/25 01/28/25
05:59 06:59 06:59
Intake Total
Output Total
Balance
SaO2 92
Nasal Cannula flow liters per 2
minute
Physical Exam
General: Comfortable
HEENT: Normocephalic
Cardiovascular: S1-S2
Respiratory: Clear and Non-Labored Respirations
GI: Soft
Neurology: Awake and Alert
Skin: Warm
Labs/Micro/Reports
Lab Data
01/27/25 05:11
01/27/25 05:11
Microbiology
01/20/25 05:06 Blood/Venous Blood Culture - Final
No Growth - Final Report
01/20/25 17:41 Pleural Fluid Body Fluid Culture - Final
No Growth After 72 Hours
01/20/25 17:41 Pleural Fluid Gram Stain - Final
[2025-01-27] MEDS: LOTRIMIN 1% CREAM 1 APPLIC TOPICAL ×2 (12:56→20:24)
--- NOTE | 2025-01-27 14:44 | W.PN.HOSP.TC ---
Today's Communication/Plan
-
f/u repeat cxr in AM
f/u US biopsy of abd mass
f/u hbg level
empiric lasix 20mg x1
Assessment / Plan
Assessment / Plan
Ms. Golden is a 79-year-old female with a medical history of breast cancer (diagnosed 2013, status postlumpectomy and radiation), factor V Leiden mutation carrier, and history of DVT (on Eliquis) who presented with nausea and vomiting with
associated abdominal bloating. CT imaging revealed a large heterogeneous complex mass appeared to be originating from the right ovary. Labs revealed a gapped acidosis. She was mildly hyperglycemic and had an elevated beta hydroxybutyrate. She
was started on an insulin drip with DKA protocol and admitted for further evaluation and management.
1. Acute hypoxic respiratory failure - Improving
Right-sided hemothorax
-Patient requiring high flow oxygen, 30L/min
-Patient is s/p chest tube placement on 01/20
-Overnight CT tube out of 600ml. fluid WBC 13.2 K with PMN 69.7%. Fluid LDH 5.7K. cytopathology neg for malignant cells.
-Chest x-ray in the morning showing relatively clear x-ray. Small left-sided effusion.
-CT surgeon evaluated and no surgical indication
-CTA chest did not show any new finding explaining patient hemothorax.
-Chest tube has been clamped. Repeat chest x-ray did not show any significant recommendations. Continue monitoring. Discussed with pulmonology
-May need pleurex tube if not improved
-Has some dyspnea. No significant crackles on exam. Requiring 1-2 L oxygen through nasal cannula.
2. Acute blood loss anemia
-From ongoing blood containing CT tube output
-No GI blood loss reported
-CT abdomen pelvis time to rule out any retroperitoneal bleed
-Continue following hemoglobin with transfusion for less than 7
3. Right pelvic mass - presumed malignancy
Hemorrhagic ascites
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
-CA 19-9 level of 60.3K. CEA 165 (WNL), CA 27-29 and CA125 level pending.
-MRI abdomen/pelvis with and without contrast has been pending
-POWER AND RECOVERY SUPERINTENDENT and oncology input noted
-Input from Dr. Krause reviewed. Patient will eventually require biopsy of the mass and outpatient resection post improvement of other current comorbidities
-Colorectal surgeon consulted onc-tag maker for possible need of colonoscopy, no clear indication per CRS.
-GI consulted for possible need of EGD. Of note patient stool positive for occult blood.
-s/p US guided biopsy of mass on 01/23. Pathology report will guide further treatment plan.
-Paracentesis of 10 mL fluid showing hemorrhagic peritoneal fluid. Cytopathology surprisingly not showing any cancer cells.
-MRI pelvis ordered and will be done pending CT tube removal
4. Troponin elevation
-Denies any chest pain.
-Suspected type II ND from hypovolemia and tachycardia. Trop max at ~ 3.5 , trending down.
-With ongoing bleeding issue cannot be started on any antiplatelets/heparin product
-TTE showed preserved EF
-Cardiology following and no further intervention warranted at this point.
5. Hyponatremia -resolved
-Euvolemic in nature presumed ADH excess with blood loss
6. JULY -resolved
Metabolic acidosis -resolved
-JULY likely related to hypovolemia/hypotension and need of contrast for CT scan
-Patient had mild anion gap metabolic acidosis likely with JULY and malignancy related
-Avoid nephrotoxic medication and monitor
6. Hyperkalemia -resolved
-driven from acidosis and mild july
7. Hypovolemic shock - resolved
-Required IVF/support of vasopressor
8.Chronic left femoral vein thrombus
History of factor V Leiden mutation
-Peripheral vascular ultrasound report reviewed
9. Leukocytosis without fever - Improvingh
-Patient continued to have elevated white blood cell.
-Chest x-ray done today and no new pneumonia/loculated effusion, low concern of infection
-Possible source of pulmonary versus malignancy - added empiric unasyn -to cover non MDR gram-negative and anerobic organisms
11. Shock liver - Resolved
-LFT continue to trend down
-Lipitor/Tylenol on hold
12. Urinary retention
-bladder scan of 1.1L - straight cath ordered
-mathis catheter placed on 01/26, removal in 48-72hrs
13. Sinus tachycardia
-monitor on tele
-Toprol-XL has been increased to Toprol-XL 50/d yesterday by cards.
CODE STATUS: DNR
01/26 01/27 Care plan discussed with shrimp cleaner
Care discussed with patient family at bedside.
Total time spent: 51 mins
Anticipated Discharge: > 48 hours
Subjective/Interval History
-
Date of Service: January 27, 2025
Resting comfortably in bed
Patient had some dyspnea
Feeling anxious
Some pain in abdomen
No nausea or vomiting
Objective Data
-
Labs:
Laboratory Results
01/27/25
05:11
WBC 23.5 H
Hgb 9.8 L
Hct 29.0 L
Plt Count 340
Sodium 136
Potassium 3.8
Chloride 105
Carbon Dioxide 28
BUN 21 H
Creatinine 0.8
Glucose 115 H
Calcium 8.0 L
Total Bilirubin 1.0
AST 40 H
ALT 185 H
Alkaline Phosphatase 124
Vital Signs:
Vital Signs
Temp Pulse Resp BP Pulse Ox
98.0 F 110 22 149/70 92
01/27/25 03:00 01/27/25 13:00 01/27/25 13:00 01/27/25 12:00 01/27/25 12:38
I&O
01/26/25 01/27/25 01/28/25
05:59 06:59 06:59
Intake Total
Output Total
Balance
Review of Systems
-
Respiratory: Reports No Symptoms
Cardiac: Reports No Symptoms
Abdomen/GI: Reports Abdominal Pain; Denies Nausea or Vomiting
Physical Exam
-
General: No Apparent Distress and Comfortable
HEENT: Oxygen (High flow 30L/min)
Respiratory: Clear to Auscultation and Chest Tubes (Right superintendent radio communications - hemorrhagic fluid)
Cardiac: Regular Rhythm and S1/S2; Negative Murmur or Rub
GI: Soft, Nondistended and Distended; Negative Tender
Musculoskeletal: No Edema
Neuro: Awake, Alert, Oriented, No Motor Deficits and Nonfocal/Grossly Intact
Psych: Calm
--- NOTE | 2025-01-27 15:19 | PTCARENOTE ---
Patient spulse ox drops to 87% while sleeping, discussed with Dr. Rosenthal. Will apply oxygen as needed.
[2025-01-27] MEDS: LASIX 20 MG IV (16:28)
[2025-01-27] MEDS: TYLENOL 500 MG PO ×2 (16:33→23:45)
[2025-01-28] VITALS (9 sets, daily range): BP systolic 133–163; BP diastolic 50–72
[2025-01-28 05:24] LABS: Hematocrit 28.4 % (37.0-47.0); Hemoglobin 9.3 g/dL (12.0-16.0); Mean Corp Hgb Conc. 32.7 g/dL (33.0-37.0); Mean Corpuscular Hgb 28.3 pg (27.0-31.0); Mean Corpuscular Volume 86.3 fL (81.0-99.0); Mean Platelet Volume 9.8 fL (7.4-10.4); Platelet Count 331 10^3/uL (130-400); Red Blood Cell Count 3.29 10^6/uL (4.20-5.40); Red Cell Dist. Width 15.2 % (11.5-14.5); White Blood Cell Count 21.1 10^3/uL (4.8-10.8)
[2025-01-28 05:45] LABS: ALT (SGPT) 126 U/L (0-35); AST (SGOT) 38 U/L (14-36); Albumin 2.1 g/dl (3.5-5.0); Alkaline Phosphatase 132 U/L (38-126); Blood Urea Nitrogen 15 mg/dl (7-17); Calcium 7.9 mg/dl (8.4-10.2); Carbon Dioxide 29 mmol/L (22-30); Chloride 100 mmol/L (98-107); Estimated Creatinine Clearance 56 ml/min; Glucose 101 mg/dl (70-99); Potassium 3.2 mmol/L (3.5-5.1); Sodium 134 mmol/L (135-145); Total Bilirubin 1.1 mg/dl (0.2-1.3); Total Protein 4.4 g/dl (6.3-8.2); eGFR > 60.00
[2025-01-28] MEDS: UNASYN IV ×4 (05:46→23:47)
--- NOTE | 2025-01-28 06:04 | PTCARENOTE ---
Pt SaO2 87% on RA overnight. 1LNC applied. Pt SaO2 96% on 1LNC.
[2025-01-28] MEDS: TOPROL XL 50 MG PO (08:15)
[2025-01-28] MEDS: ZESTRIL 5 MG PO (08:16)
[2025-01-28] MEDS: LOTRIMIN 1% CREAM 1 APPLIC TOPICAL ×2 (08:16→23:47)
[2025-01-28] MEDS: TYLENOL 500 MG PO ×3 (08:34→17:23)
--- NOTE | 2025-01-28 09:43 | W.PN.PUL.V3 ---
Today's Communication / Plan
-
Monitor chest tube output
Chest x-ray with 5% pneumothorax-Dr. Perez reviewed with interventional radiology-options outlined-holding off on chest tube removal until further clarification from radiology/IR
Updated daughter
Assessment
-
80-year-old female non-smoker with a past medical history of right-sided breast cancer s/p lumpectomy (2009) + XRT, history of DVT on Eliquis and hyperlipidemia who presented with vomiting, syncopal episode and abdominal pain and was found to be
unresponsive upon arrival here to the ER. Patient reported right sudden onset of abdominal discomfort, with bilious and nonblood emesis. Last BM was 1 day ago and was regular/nonbloody. Initial labs showed leukocytosis of 22.2, Hb 13.9, sodium 134,
serum bicarbonate level 14, creatinine 1.1, glucose 298, troponin negative at <0.012, CRP 7.8, lipase 135, and beta-hydroxybutyrate 0.36. CT abdomen/pelvis obtained on 01/10/2025 showing a large heterogeneous complex mass in the pelvis extending
into the abdomen concerning for ovarian cystadenoma versus ovarian cystadenocarcinoma. Admitted to the IMU for further management. CT chest 01/20/2025 showed large right-sided pleural effusion/small left-sided pleural effusion/RML/RLL collapse.
Patient became short of breath requiring supplemental oxygen and hypotensive. Patient now transferred to the ICU for further care and tool grinder operator services consulted for additional management/recommendations.
Spontaneous right sided hemothorax s/p chest tube 01/20/25
Acute hypoxic respiratory failure. Secondary to hemothorax
Acute blood loss anemia. Related to hemothorax
Minimum troponin elevation. Suspect demand ischemia in view of acute critical illness.
Right pelvic mass, suspicious for ovarian malignancy s/p pelvic biopsy 01/23/25
Chronic conditions HUMAN RESOURCES COORDINATOR:
Right-sided breast cancer s/p lumpectomy + XRT
history of DVT on Eliquis
hyperlipidemia
Plan.
Respiratory status is stable-on room air
Supplemental oxygen as needed
Incentive spirometry
Aspiration precautions
Chest tube with minimal drainage
Chest x-ray 01/28/2025 with less than 5% pneumothorax-Dr. Perez called interventional radiology personally to review case and make recommendations-options include #1 placed on wall suction for 24 hours #2 keep clamped and recheck chest x-ray in 12
hours and consider removal #3 remove chest tube with a chance that chest tube may need to be reinserted
Pleural fluid cytology and cultures have been negative
Peritoneal fluid cytology also negative
Observe off antibiotics
Monitor leukocytosis
If patient returns with significant hemorrhagic pleural fluid would need stat CT angiogram in case there is a target for embolization
Monitor off Eliquis-currently not a candidate for anticoagulation given recurrent bleeding in the right hemithorax-status post 4 units of FFP and vitamin K earlier
Pleurx catheter was contemplated if continued with pleural fluid drainage, however, over the last 48 hours there has been minimal pleural fluid drainage
Monitor hemoglobin
Transfuse if needed
Oncology following-discussed the case with them
Pelvic mass status post ovarian biopsy-likely ovarian given significant elevation in [id number]
CEA 165, CA 19-9-60,375, CA 27-20 9-908.7 [id number]
Eventual MRI pelvis
DVT prophylaxis-mechanical
Nutrition
Early mobilization
Dr. Perez reviewed with daughter at the bedside and updated on plan from a chest tube perspective 01/28/2025
Data:
CT A/P with IV contrast 01/18/2025: Extremely large heterogeneous complex 'mass' appearing to extend from the soft tissues of the superior right true pelvis into the abdomen measuring up to approximately 15.8 cm with some small to moderate volume
mildly complex ascites. Most likely differential diagnostic possibility would be ovarian origin such as OVARIAN CYSTADENOMA or OVARIAN CYSTADENOCARCINOMA. Exophytic uterine mass would be less likely. Other etiology such as a mass of other origin or
large hematoma would also be less likely. Suspected hiatal hernia. Small nonspecific retroperitoneal and pelvic lymph nodes.
CT chest without IV contrast 01/20/2025: MARKEDLY LIMITED STUDY due to several factors, especially lack of intravenous contrast and prominent respiration/motion artifact. Large right and tiny left pleural effusions. Thickened linear density in the
left upper lobe most likely representing scarring and some areas of likely subsegmental atelectasis in the aerated portions of both lungs. Entire right lower lobe, portions of right middle lobe and portions of left lower lobe limited by presumed
atelectasis. Roro cannot be evaluated without intravenous contrast. No gross mediastinal lymphadenopathy no findings to suggest bilateral axillary lymphadenopathy. Please note, the basis of this limited study, malignancy, including metastatic
disease in the chest cannot be excluded.
CTA Chest 01/22: 1. No enhancing mass or pathologic lymphadenopathy within the chest. Pleural effusions may still be malignant given the large pelvic mass, please correlate with cytology.
2. Right chest tube is in satisfactory position. No residual right pleural effusion. Tiny amount of air within the right pleural space, likely related to the chest tube.
3. Small left pleural effusion, simple fluid attenuation. Suspected subsegmental atelectasis within the left lower lobe.
4. Intraperitoneal free fluid, partially imaged. Fluid measures 17 Hounsfield units, and may represent hemorrhagic fluid or other complex fluid.
Total of 25 minutes of time was provided for this patient today. This includes management of vital signs, evaluation of the patient at bedside, reviewing the patient's pertinent medical records including radiographs, microbiology, laboratory
evaluations, and discussion with primary team, consultants, nursing and respiratory therapy.
Subjective Data
-
Date of Service:
Date of Service: January 28, 2025
Chief Complaint: Pulmonary Follow Up and Dyspnea Follow Up
Subjective:
No complaints of worsening shortness of breath, no chest pain, abdominal pain, chest tube with minimal drainage, would like the chest tube out,
Review of Systems
General: Fever (Per HPI)
Objective Data
Data Reviewed
Vital Signs / I&O:
Vital Signs
Temp Pulse Resp BP Pulse Ox
97.9 F 96 24 153/56 98
01/28/25 07:10 01/28/25 06:00 01/28/25 06:00 01/28/25 06:00 01/28/25 06:00
Intake and Output
01/27/25 01/28/25 01/29/25
06:59 06:59 06:59
Intake Total 760 / 760
Output Total 1750 / 1750
Balance -990 / -990
SaO2: 98
Nasal Cannula flow liters per minute: 2
Physical Exam
General: Respiratory Distress and Comfortable
HEENT: Normocephalic
Cardiovascular: Regular Rhythm
Respiratory: Clear, Non-Labored Respirations and Accessory Resp Muscle Use (n)
GI: Soft, Non Distended and Non Tender
Neurology: Awake, Alert and No Motor Deficits
Skin: Warm, Good Color and Cyanosis (nn)
Labs/Micro/Reports
Lab Data
01/28/25 04:27
01/28/25 04:27
Microbiology
01/20/25 05:06 Blood/Venous Blood Culture - Final
No Growth - Final Report
--- NOTE | 2025-01-28 10:21 | W.PN.ONC2 ---
Today's Communication / Plan
-
.
Impression
Impression
Right pelvic mass suspect neoplasm. Ca 125 18661, Ca 27.29 908, Ca 19.9 57022, CEA 165. ascites fluid negative for malignancy. s/p CT guided biospy 01/23
Hepatic transaminitis, suspect shock liver
right sided hemothorax with chest tube -pleural fluid negative for malignancy
Acute on chronic anemia c/w blood loss - 3PRBC, last 01/21
coagulopathy secondary to DOAC +/-shock liver so clotting factor production may be reduced-s/p 4FFP, vitamin K, last 01/21
Hx DCIS s/p lumpectomy
DKA
Leukocytosis
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
type II VT in setting of respiratory failure, hemothorax, anemia and mass -cardiology following
Plan
Plan
follow for pathology of bx
If pathology suggestive of GI etiology then consider EGD +/- colonoscopy
anticoagulation on hold d/t ABLA -Hgb stable >8g/dL today
cautious use of vitamin K and FFP with high risk VTE/FVL, OAC on hold for bleeding
R chest tube management per thoracic surgery
consider at least dvt ppx once risk of bleeding improved since high risk VTE
Subjective/Objective
Subjective
no new complaints
Vital Signs:
Vital Signs
Temp Pulse Resp BP Pulse Ox
97.9 F 96 24 153/56 98
01/28/25 07:10 01/28/25 06:00 01/28/25 06:00 01/28/25 06:00 01/28/25 09:43
Lab Results:
Laboratory Data
WBC 21.1 10^3/uL (4.8-10.8) H 01/28/25 04:27
Hgb 9.3 g/dL (12.0-16.0) L 01/28/25 04:27
Plt Count 331 10^3/uL (130-400) 01/28/25 04:27
PT 17.0 Sec (11.4-14.6) H 01/23/25 03:09
INR 1.36 01/23/25 03:09
APTT 26.6 Sec (23.4-35.0) 01/21/25 18:03
eGFR > 60.00 01/28/25 04:27
[2025-01-28 11:31] LABS: APTT 26.9 Sec (23.4-35.0); INR 1.25
--- NOTE | 2025-01-28 12:00 | PTCARENOTE ---
Escorted to Radiology via monitored stretcher- will karyna NOYOLA after xray completed.
--- NOTE | 2025-01-28 12:33 | W.PN.UPDATE ---
Update Note
Progress Note Update
Right chest tube removed withpout difficulty. After chest tube removal vaseline gauze, and DSD applied. Pt tolerated the procedure well
--- NOTE | 2025-01-28 13:30 | PTCARENOTE ---
Returned from [facility]/ Radiology with chest tube removed- dressing on back is CDI. Denies pain. Anxiety resolved.
--- NOTE | 2025-01-28 15:52 | CM ---
Patient with Dx Acute hypoxic respiratory failure, Right-sided hemothorax, anemia, Right pelvic mass. O2 2L. Chest tube removed. Receiving IV Abx. Ashley. PT/OT 01/24; requires assist of 2, recommend skilled rehab. Declined PT/OT today.
Spoke with [facility];
she is still interested in accepting the patient when medically ready.
They currently do have beds available and anticipate available beds for the next few days.
Attempted to speak with patient who was unavailable.
Spoke with patient's daughter Elizabeth, here visiting from [place];
Elizabeth is aware that the patient declined PT/OT today due to fatigue.
Provided update that [facility] is still interested in accepting her for rehab.
Daughter says her concern right now is that she would like her mother to have surgery for her mass before discharge, and she has spoken with doctors about that.
The daughter is planning on staying here until next week.
Elizabeth shares that daughter in law Leena, who lives in [facility], also has contact with the patient.
Elizabeth's son/patient's grandson and her ex- are also in the area.
Plan follow up after re-seen by PT/OT.
Plan probable [facility] when medically ready.
[2025-01-28] MEDS: KCL 40 MEQ PO (16:03)
--- NOTE | 2025-01-28 17:31 | W.PN.HOSP.TC ---
Today's Communication/Plan
-
Assessment / Plan
Assessment / Plan
Gen-AAOx3, NAD
HEENT-NC, AT, anicteric, clear oral mm
Neck-supple
CV-reg, no M, +S1/S2
Lungs-clear B/L
Abd-soft, NT, ND
Musculoskeletal-no edema, no deformity
Skin-warm and dry, right-sided chest tube clamped
Neuro-grossly non-focal
Psych-calm, cooperative
Ms. Golden is a 79-year-old female with a medical history of breast cancer (diagnosed 2013, status postlumpectomy and radiation), factor V Leiden mutation carrier, and history of DVT (on Eliquis) who presented with nausea and vomiting with
associated abdominal bloating. CT imaging revealed a large heterogeneous complex mass appeared to be originating from the right ovary. Labs revealed a gapped acidosis. She was mildly hyperglycemic and had an elevated beta hydroxybutyrate. She
was started on an insulin drip with DKA protocol and admitted for further evaluation and management.
1. Acute hypoxic respiratory failure - Improving
Right-sided hemothorax
-Patient requiring high flow oxygen, 30L/min
-Patient is s/p chest tube placement on 01/20, cytopathology neg for malignant cells.
-CT surgeon evaluated and no surgical indication
-CTA chest did not show any new finding explaining patient hemothorax.
-Chest tube has been clamped, removed in the afternoon 01/28
-Currently off supplemental oxygen
2. Acute blood loss anemia
-Currently stable, status post transfusion 2 units PRBCs
-From ongoing blood containing CT tube output and intra-abdominal bleeding related to right ovarian mass
-No GI blood loss reported
-Continue following hemoglobin with transfusion for less than 7
3. Right pelvic mass - presumed malignancy
Hemorrhagic ascites
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
-CA 19-9 level of 60.3K. CEA 165 (WNL), CA 27-29 elevated at 900, CA125 level 18,000
-Paracentesis of 10 mL fluid showing hemorrhagic peritoneal fluid. Cytopathology surprisingly not showing any cancer cells.
-s/p US guided biopsy of mass on 01/23. Pathology report will guide further treatment plan.
-MRI abdomen/pelvis with and without contrast has been pending chest tube removal which is now been removed today 01/28
-MORTGAGE LENDER and oncology input noted
-Input from Dr. Krause reviewed, recommend return for elective resection of ovarian mass not during this admission
4. Troponin elevation
-Denies any chest pain.
-Suspected type II UT from hypovolemia and tachycardia. Trop max at ~ 3.5 , trending down.
-With ongoing bleeding issue cannot be started on any antiplatelets/heparin product
-TTE showed preserved EF
-Cardiology following and no further intervention warranted at this point.
5. Hyponatremia -resolved
-Euvolemic in nature presumed ADH excess with blood loss
6. JULY -resolved
Metabolic acidosis -resolved
-JULY likely related to hypovolemia/hypotension and need of contrast for CT scan
-Patient had mild anion gap metabolic acidosis likely with JULY and malignancy related
-Avoid nephrotoxic medication and monitor
6. Hyperkalemia -resolved
-driven from acidosis and mild july
7. Hypovolemic shock - resolved
-Required IVF/support of vasopressor
8.Chronic left femoral vein thrombus
History of factor V Leiden mutation
-Peripheral vascular ultrasound report reviewed
-No anticoagulation considering hemothorax
9. Leukocytosis without fever - Improving
-Patient continued to have elevated white blood cell.
-Chest x-ray done and no new pneumonia/loculated effusion, low concern of infection
-Possible source of pulmonary versus malignancy - added empiric unasyn -to cover non MDR gram-negative and anerobic organisms
11. Shock liver - Resolved
-LFT continue to trend down
-Lipitor/Tylenol on hold
12. Urinary retention
-bladder scan of 1.1L - straight cath ordered
-mathis catheter placed on 01/26, removal in 48-72hrs
13. Sinus tachycardia
-monitor on tele
-Toprol-XL has been increased to Toprol-XL 50/d yesterday by cards.
CODE STATUS: DNR
Total time spent: 51 mins
Anticipated Discharge: 24 - 48 hours
Subjective/Interval History
-
Date of Service: January 28, 2025
Patient was seen and examined at bedside this morning. Patient's daughter also present. Significantly improved over the past week. Off vasopressors. Right-sided chest tube clamped, possibly to be removed today.
Objective Data
-
Labs:
Laboratory Results
01/28/25 01/28/25
04:27 10:57
PT 16.0 H
INR 1.25
APTT 26.9
Sodium 134 L
Potassium 3.2 L
Chloride 100
Carbon Dioxide 29
BUN 15
Creatinine 0.8
Glucose 101 H
Calcium 7.9 L
Total Bilirubin 1.1
AST 38 H
ALT 126 H
Alkaline Phosphatase 132 H
Vital Signs:
Vital Signs
Temp Pulse Resp BP Pulse Ox
97.9 F 87 21 156/65 94
01/28/25 07:10 01/28/25 15:00 01/28/25 15:00 01/28/25 14:00 01/28/25 15:00
I&O
01/27/25 01/28/25 01/29/25
06:59 06:59 06:59
Intake Total 760 / 760
Output Total 1750 / 1750
Balance -990 / -990
Review of Systems
-
History Source: Patient
All other systems: Reviewed and negative
Musculoskeletal: Reports Other (Right chest discomfort at site of chest tube)
Physical Exam
-
General: No Apparent Distress
--- NOTE | 2025-01-28 17:54 | W.PN.GYNONC ---
Today's Communication
-
hold off on surgery
Impression / Plan
-
Patient was seen today in ICU
1. Acute hypoxic respiratory failure
Chest tube output has been removed, on RA
2. Acute blood loss anemia
Hemoglobin is 9-10 range and stable
3. Right pelvic mass -
Tumor markers including CA125, CEA and CA 19�9 are all elevated.
Overall appearance and presentation is worrisome for malignancy.
Ascites as well as pleural effusions are negative for malignancy
Preliminary report of pelvic mass biopsy shows hemorrhagic fibroconnective tissue with no obvious evidence of malignancy. Pathology is putting deeper slides through to see whether there is any occult neoplasm.
I am inclined to allow her to transition to rehab for better physical strength and performance status before offering her surgery, she has had a very eventful week with significant comorbidities (liver and heart, cardiovascular shock)
she seems agreeable
I do think there is definite need for surgical intervention, exp lap, DICK BSO, possible staging, possible bowel resection
4. Troponin elevation
Workup by cardiology did not reveal any significant cardiovascular disease, echocardiogram was very reassuring and they have signed off.
5. History of DVT:
Ultrasound of lower extremities shows chronic thrombus, hold off on any anticoagulation at this time
6. Leukocytosis without fever. decreasing, 21k today
7. CODE STATUS. Patient had mention to me that she has a living well, she did not want aggressive measures including intubation. She does wish to continue treatment including possible upcoming surgery. We will discussed this with her to ensure
any actions that we take is consistent with her goals of care.
Subjective / Interval History
-
pt was seen and evaluated this sfternoon
I note her chest tube is removed
she had retained urine and mathis was placed draining 1200 cc Sat evening.
she complaints of rashin groin and inner thights
she is having flatus, BM and had food, although small volume
Objective Data
-
Lab Results:
01/28/25 04:27
01/28/25 04:27
Physical Exam
Vital Signs / I&O
Vitals
Temp Pulse Resp BP Pulse Ox
97.9 F 87 21 156/65 94
01/28/25 07:10 01/28/25 15:00 01/28/25 15:00 01/28/25 14:00 01/28/25 15:00
I&O
01/26/25 01/27/25 01/28/25 01/29/25
05:59 06:59 06:59 06:59
Intake Total 760 / 760
Output Total 1750 / 1750
Balance -990 / -990
Physical Exam
General: No Apparent Distress
Respiratory: Clear
Cardiac: S1/S2 and Regular Rhythm
GI: Soft, Non Tender and Non Distended
Psych: Calm and Intact Judgement
--- NOTE | 2025-01-28 19:14 | PTCARENOTE ---
OOB x4 hours today ambulated stretcher to chair. Using IS appropriately - encouraged several times. RAIR 92-94% all day. NSR/ BP noted. PRN Tylenol x3 today for 3/10 pain mostly in javier area (swollen/ red rash)- Lotrimen applied and ice pack
this am as requested. No stool x2 days- states she is passing flatus- tried yogurt today- appetite still poor. Ramirez maintained - care completed. Right upper back dressing CDI. IV Unasyn via midline INT.
--- NOTE | 2025-01-28 20:20 | PTCARENOTE ---
pt transferred to MRI via stretcher for pelvis MRI. Ok to be off tele monitor per physician order.
[2025-01-29] VITALS (17 sets, daily range): BP systolic 97–171; BP diastolic 60–138; PULSE 103–128; O2SAT 93–95
[2025-01-29] MEDS: UNASYN IV ×3 (05:02→17:16)
[2025-01-29] MEDS: TYLENOL 500 MG PO ×2 (05:24→16:49)
[2025-01-29 05:33] LABS: Hematocrit 30.3 % (37.0-47.0); Hemoglobin 10.1 g/dL (12.0-16.0); Mean Corp Hgb Conc. 33.3 g/dL (33.0-37.0); Mean Corpuscular Hgb 27.9 pg (27.0-31.0); Mean Corpuscular Volume 83.7 fL (81.0-99.0); Mean Platelet Volume 9.9 fL (7.4-10.4); Platelet Count 359 10^3/uL (130-400); Red Blood Cell Count 3.62 10^6/uL (4.20-5.40); White Blood Cell Count 19.9 10^3/uL (4.8-10.8)
[2025-01-29 05:59] LABS: ALT (SGPT) 103 U/L (0-35); AST (SGOT) 41 U/L (14-36); Albumin 2.2 g/dl (3.5-5.0); Alkaline Phosphatase 166 U/L (38-126); Blood Urea Nitrogen 13 mg/dl (7-17); Carbon Dioxide 27 mmol/L (22-30); Chloride 101 mmol/L (98-107); Estimated Creatinine Clearance 64 ml/min; Glucose 103 mg/dl (70-99); Potassium 4.1 mmol/L (3.5-5.1); Sodium 133 mmol/L (135-145); Total Bilirubin 1.3 mg/dl (0.2-1.3); Total Protein 4.9 g/dl (6.3-8.2); eGFR > 60.00
[2025-01-29] MEDS: TOPROL XL 50 MG PO (07:45)
[2025-01-29] MEDS: ZESTRIL 5 MG PO (07:45)
--- NOTE | 2025-01-29 08:00 | PTCARENOTE ---
Pt AAOx3 daughter at bedside.Some bhumika crackles. Pt on RA at 98%. Ramirez in place at this rime. No co at this time.
--- NOTE | 2025-01-29 10:02 | W.PN.PUL.V3 ---
Today's Communication / Plan
-
Increase activity
Chest x-ray if increased shortness of breath
Stable for transfer out of IMU from a pulmonary perspective
Reviewed with daughter
Pulmonary will sign off-please call with questions
Assessment
-
80-year-old female non-smoker with a past medical history of right-sided breast cancer s/p lumpectomy (2009) + XRT, history of DVT on Eliquis and hyperlipidemia who presented with vomiting, syncopal episode and abdominal pain and was found to be
unresponsive upon arrival here to the ER. Patient reported right sudden onset of abdominal discomfort, with bilious and nonblood emesis. Last BM was 1 day ago and was regular/nonbloody. Initial labs showed leukocytosis of 22.2, Hb 13.9, sodium 134,
serum bicarbonate level 14, creatinine 1.1, glucose 298, troponin negative at <0.012, CRP 7.8, lipase 135, and beta-hydroxybutyrate 0.36. CT abdomen/pelvis obtained on 01/10/2025 showing a large heterogeneous complex mass in the pelvis extending
into the abdomen concerning for ovarian cystadenoma versus ovarian cystadenocarcinoma. Admitted to the IMU for further management. CT chest 01/20/2025 showed large right-sided pleural effusion/small left-sided pleural effusion/RML/RLL collapse.
Patient became short of breath requiring supplemental oxygen and hypotensive. Patient now transferred to the ICU for further care and solutions sales consultant services consulted for additional management/recommendations.
Spontaneous right sided hemothorax s/p chest tube 01/20/25
Acute hypoxic respiratory failure. Secondary to hemothorax
Acute blood loss anemia. Related to hemothorax
Minimum troponin elevation. Suspect demand ischemia in view of acute critical illness.
Right pelvic mass, suspicious for ovarian malignancy s/p pelvic biopsy 01/23/25
Chronic conditions PULL OVER:
Right-sided breast cancer s/p lumpectomy + XRT
history of DVT on Eliquis
hyperlipidemia
Plan.
Respiratory status is stable-on room air
Supplemental oxygen as needed-assess discharge supplemental oxygen needs with ambulation
Incentive spirometry
Aspiration precautions
Chest tube had minimal drainage for 48 hours and was eventually pulled to 01/28/2025
Chest x-ray 01/28/2025 reviewed with radiology-no significant pneumothorax
Chest tube removed 01/28/2025
Chest x-ray 01/29/2025-questionable small right apical pneumothorax though could be overlying skinfold-patient asymptomatic-obtain chest x-ray if increased shortness of breath
Pleural fluid cytology and cultures have been negative
Peritoneal fluid cytology also negative
Observe off antibiotics
Told patient and daughter that there was a possibility of pleural fluid reaccumulation and we would follow this symptomatically-if she had increased shortness of breath or decreased breath sounds at the base then chest x-ray could be obtained-no
evidence for recurrent hemothorax at this point
Monitor leukocytosis
If patient returns with significant hemorrhagic pleural fluid would need stat CT angiogram in case there is a target for embolization
Monitor off Eliquis-currently not a candidate for anticoagulation given recurrent bleeding in the right hemithorax-status post 4 units of FFP and vitamin K earlier-reintroduce anticoagulation per primary service when safe
Pleurx catheter was contemplated if continued with pleural fluid drainage, however, over the last 48 hours there has been minimal pleural fluid drainage-hold off for now
Monitor hemoglobin-stable at 10.1
Transfuse if needed
Oncology following-discussed the case with them extensively on 01/28/2025
Pelvic mass status post ovarian biopsy-likely ovarian given significant elevation in [id number]
CEA 165, CA 19-9-60,375, CA 27-20 9-908.7 [id number]
Eventual MRI pelvis
Once stabilized as an outpatient consideration towards surgery
DVT prophylaxis-mechanical
Nutrition
Increase activity
Dr. Perez reviewed with daughter at the bedside and updated on plan from a chest tube perspective 01/28/2025 as well as on 01/29/2025
Respiratory status currently stable-pulmonary will sign off
Data:
CT A/P with IV contrast 01/18/2025: Extremely large heterogeneous complex 'mass' appearing to extend from the soft tissues of the superior right true pelvis into the abdomen measuring up to approximately 15.8 cm with some small to moderate volume
mildly complex ascites. Most likely differential diagnostic possibility would be ovarian origin such as OVARIAN CYSTADENOMA or OVARIAN CYSTADENOCARCINOMA. Exophytic uterine mass would be less likely. Other etiology such as a mass of other origin or
large hematoma would also be less likely. Suspected hiatal hernia. Small nonspecific retroperitoneal and pelvic lymph nodes.
CT chest without IV contrast 01/20/2025: MARKEDLY LIMITED STUDY due to several factors, especially lack of intravenous contrast and prominent respiration/motion artifact. Large right and tiny left pleural effusions. Thickened linear density in the
left upper lobe most likely representing scarring and some areas of likely subsegmental atelectasis in the aerated portions of both lungs. Entire right lower lobe, portions of right middle lobe and portions of left lower lobe limited by presumed
atelectasis. Roro cannot be evaluated without intravenous contrast. No gross mediastinal lymphadenopathy no findings to suggest bilateral axillary lymphadenopathy. Please note, the basis of this limited study, malignancy, including metastatic
disease in the chest cannot be excluded.
CTA Chest 01/22: 1. No enhancing mass or pathologic lymphadenopathy within the chest. Pleural effusions may still be malignant given the large pelvic mass, please correlate with cytology.
2. Right chest tube is in satisfactory position. No residual right pleural effusion. Tiny amount of air within the right pleural space, likely related to the chest tube.
3. Small left pleural effusion, simple fluid attenuation. Suspected subsegmental atelectasis within the left lower lobe.
4. Intraperitoneal free fluid, partially imaged. Fluid measures 17 Hounsfield units, and may represent hemorrhagic fluid or other complex fluid.
Total of 25 minutes of time was provided for this patient today. This includes management of vital signs, evaluation of the patient at bedside, reviewing the patient's pertinent medical records including radiographs, microbiology, laboratory
evaluations, and discussion with primary team, consultants, nursing and respiratory therapy.
Subjective Data
-
Date of Service:
Date of Service: January 29, 2025
Chief Complaint: Pulmonary Follow Up and Dyspnea Follow Up
Subjective:
Feels better with chest tube removed, no increased shortness of breath, on room air, no complaints of chest congestion, productive cough
Review of Systems
General: Other ( per HPI)
Objective Data
Data Reviewed
Vital Signs / I&O:
Vital Signs
Temp Pulse Resp BP Pulse Ox
98.3 F 99 25 152/65 92
01/29/25 07:32 01/29/25 08:00 01/29/25 08:00 01/29/25 08:00 01/29/25 08:00
Intake and Output
01/28/25 01/29/25 01/30/25
06:59 06:59 06:59
Intake Total 760 / 760 240 / 240
Output Total 1750 / 1750 500 / 500
Balance -990 / -990 -260 / -260
SaO2: 92
Nasal Cannula flow liters per minute: 2
Physical Exam
General: Respiratory Distress and Comfortable
HEENT: Normocephalic
Cardiovascular: Regular Rhythm
Respiratory: Clear, Non-Labored Respirations and Accessory Resp Muscle Use (n)
GI: Soft, Non Distended and Non Tender
Neurology: Awake, Alert and No Motor Deficits
Skin: Warm, Good Color and Cyanosis (nn)
Labs/Micro/Reports
Lab Data
01/29/25 05:13
01/29/25 05:13
Laboratory Results
01/28/25
10:57
PT 16.0 H
INR 1.25
APTT 26.9
--- NOTE | 2025-01-29 14:59 | W.PN.HOSP.TC ---
Today's Communication/Plan
-
Assessment / Plan
Assessment / Plan
Gen-AAOx3, NAD
HEENT-NC, AT, anicteric, clear oral mm
Neck-supple
CV-reg, no M, +S1/S2
Lungs-clear B/L
Abd-soft, NT, palpable lower abdominal mass
Musculoskeletal-no edema, no deformity
Skin-warm and dry, right chest tube removed with dressing clean dry intact
Neuro-grossly non-focal
Psych-calm, cooperative
Ms. Golden is a 79-year-old female with a medical history of breast cancer (diagnosed 2013, status postlumpectomy and radiation), factor V Leiden mutation carrier, and history of DVT (on Eliquis) who presented with nausea and vomiting with
associated abdominal bloating. CT imaging revealed a large heterogeneous complex mass appeared to be originating from the right ovary. Labs revealed a gapped acidosis. She was mildly hyperglycemic and had an elevated beta hydroxybutyrate. She
was started on an insulin drip with DKA protocol and admitted for further evaluation and management.
1. Acute hypoxic respiratory failure
-Secondary to right-sided hemothorax is now resolved
-Patient had been requiring high flow oxygen, 30L/min, now weaned to room air intermittently
-Patient is s/p chest tube placement on 01/20, cytopathology neg for malignant cells, chest tube removed 01/28
-CT surgeon evaluated and no surgical indication
-CTA chest did not show any new finding explaining patient hemothorax.
-Repeat chest x-ray today 01/29 showed possible minimal right-sided pneumothorax that could possibly be a skinfold, will repeat chest x-ray as needed if respiratory status worsens
2. Acute blood loss anemia
-Currently stable, hemoglobin 10.1 today, status post transfusion 2 units PRBCs and 4 units FFP this admission
-From hemothorax and intra-abdominal bleeding related to right ovarian mass
-No GI blood loss reported
-Continue following hemoglobin with transfusion for less than 7
3. pelvic mass - presumed malignancy
-Hemorrhagic ascites
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
-CA 19-9 level of 60.3K. CEA 165 (WNL), CA 27-29 elevated at 900, CA125 level 18,000
-Paracentesis of 10 mL fluid showing hemorrhagic peritoneal fluid. Cytopathology surprisingly not showing any cancer cells.
-s/p US guided biopsy of mass on 01/23. Pathology report will guide further treatment plan.
-MRI abdomen/pelvis 01/28 showing large complex cystic mass originating from the left ovary measuring 20.5 x 8.3 x 15.0 cm, also shows right ovarian hemorrhagic cyst
-WASTE RECLAIMER and oncology input noted
-Input from Dr. Krause reviewed, recommend return for elective resection of ovarian mass not during this admission
4. Troponin elevation
-Denies any chest pain.
-Suspected type II AR from hypovolemia and tachycardia. Trop max at ~ 3.5 , trending down.
-With ongoing bleeding issue cannot be started on any antiplatelets/heparin product
-TTE showed preserved EF
-Cardiology following and no further intervention warranted at this point.
5. Hyponatremia
-Mild, clinically insignificant
-Will monitor
6. JULY -resolved
Metabolic acidosis -resolved
-JULY likely related to hypovolemia/hypotension and need of contrast for CT scan
-Patient had mild anion gap metabolic acidosis likely with JULY and malignancy related
-Avoid nephrotoxic medication and monitor
6. Hyperkalemia -resolved
-driven from acidosis and mild july
7. Hypovolemic shock - resolved
-Required IVF/support of vasopressor
8.Chronic left femoral vein thrombus
History of factor V Leiden mutation
-Peripheral vascular ultrasound report reviewed
-No anticoagulation considering hemothorax
9. Leukocytosis without fever - Improving
-Patient continued to have elevated white blood cell.
-Chest x-ray done and no new pneumonia/loculated effusion, low concern of infection
-Possible source of pulmonary versus malignancy - added empiric unasyn -to cover non MDR gram-negative and anerobic organisms, today is day 4 antibiotics
11. Shock liver - Resolved
-LFT continue to trend down
-Lipitor/Tylenol on hold
12. Urinary retention
-bladder scan of 1.1L - straight cath ordered
-mathis catheter placed on 01/26, plan for voiding trial tomorrow/
13. Sinus tachycardia
-monitor on tele
-Toprol-XL has been increased to Toprol-XL 50/d by cards.
CODE STATUS: DNR
Anticipated Discharge: 24 - 48 hours
Subjective/Interval History
-
Date of Service: January 29, 2025
Patient was seen and examined at bedside this morning. Overwhelmed, understandably, by the acuity of her medical course over the past week. Chest tube removed and breathing comfortably. Abdominal discomfort is minimal however she continues to
have very poor p.o. intake. She is deconditioned from her hospitalization and would likely require significant rehab.
Objective Data
-
Labs:
Laboratory Results
01/29/25
05:13
WBC 19.9 H
Hgb 10.1 L
Hct 30.3 L
Plt Count 359
Sodium 133 L
Potassium 4.1 D
Chloride 101
Carbon Dioxide 27
BUN 13
Creatinine 0.7
Glucose 103 H
Calcium 8.0 L
Total Bilirubin 1.3
AST 41 H
ALT 103 H
Alkaline Phosphatase 166 H
Vital Signs:
Vital Signs
Temp Pulse Resp BP Pulse Ox
98.4 F 95 22 162/86 93
01/29/25 11:49 01/29/25 11:00 01/29/25 11:00 01/29/25 10:00 01/29/25 11:00
I&O
01/28/25 01/29/25 01/30/25
06:59 06:59 06:59
Intake Total 760 / 760 240 / 240 120 / 120
Output Total 1750 / 1750 500 / 500
Balance -990 / -990 -260 / -260 120 / 120
Review of Systems
-
History Source: Patient
All other systems: Reviewed and negative
Constitutional: Reports Weakness
Abdomen/GI: Reports Other (Mild lower abdominal discomfort)
Physical Exam
-
General: No Apparent Distress
--- NOTE | 2025-01-29 15:28 | W.PN.GYNONC ---
Today's Communication
-
Transfer out of ICU, consult physical therapy and rehab physicians
Impression / Plan
-
Right pelvic mass -
Tumor markers including CA125, CEA and CA 19�9 are all elevated.
Overall appearance and presentation is worrisome for malignancy.
Ascites as well as pleural effusions are negative for malignancy
Preliminary report of pelvic mass biopsy shows fragments of organizing hematoma with no obvious evidence of malignancy.
Her daughter was present in the in the room today and appears to be very frustrated with current situation not knowing whether that mass is malignant or benign, she hears confusing messages from staff who have seen her indicating she has advanced
ovarian cancer based on imaging, most recent MRI had suggested that this is probably an ovarian malignancy as well but then the biopsies in the fluid have not shown any malignancy. I discussed with her dad while the imaging is concerning, the
ultimate proof is a pathologic evaluation of the mass in the abdomen.
I am inclined to allow her to transition to rehab for better physical strength and performance status before offering her surgery, she has had a very eventful hospital stay with significant comorbidities (liver and heart, cardiovascular shock). I
think offering her surgery at the current time while it is feasible may risk a prolonged hospital stay with significant elevated risk such as wound infection, increased risk of VTE.
She continues to go back and forth about decision to actually proceed with surgery. I think allowing her to come out of ICU and transition to rehabilitation including consideration of [facility] here in the building may be appropriate and then I
can make plans for surgical treatment in 2 to 4 weeks. I explicitly discussed with the patient and her daughter that I do think there is definite need for surgical intervention, exp lap, DICK BSO, possible staging, possible bowel resection.
Assuming she has a good performance status and ambulatory awaiting surgical recovery for her could be relatively easy and uneventful.
Subjective / Interval History
-
Patient was seen and evaluated, she is unhappy about continued presence of Ramirez catheter.
She reports her abdominal discomfort is decreased. She denies any nausea or vomiting. Her daughter is present
Objective Data
-
Lab Results:
01/29/25 05:13
01/29/25 05:13
Physical Exam
Vital Signs / I&O
Vitals
Temp Pulse Resp BP Pulse Ox
98.4 F 95 22 162/86 93
01/29/25 11:49 01/29/25 11:00 01/29/25 11:00 01/29/25 10:00 01/29/25 11:00
I&O
01/27/25 01/28/25 01/29/25 01/30/25
06:59 06:59 06:59 06:59
Intake Total 760 / 760 240 / 240 120 / 120
Output Total 1750 / 1750 500 / 500
Balance -990 / -990 -260 / -260 120 / 120
[facility]
[address] [place] [address]
[phone]
Patient Name: SARWAT FLORES
: 1945
Unit Number: [id number]
Age/Sex: 80/F
Patient
Location: [facility]
Order Provider: Joseph Rodriguez DO
Exam Service Date: 01/28/25

Magnetic Resonance Imaging Rpt
SignedOrder #:[id number]
Exams: MR Pelvis W/o & With Contrast
CPT: 28906
PROCEDURE: MR Pelvis W/o  With Contrast
CLINICAL INDICATION: Nausea. Vomiting. Bloating. Pelvic mass. Diabetic ketoacidosis.
TECHNIQUE: An MRI examination of the pelvis was performed with and without intravenous contrast on a 1.5 Laura magnet. Sagittal T2 fat-suppressed, axial T1, axial T1 fat-suppressed, axial T2 fat-suppressed, and coronal T2 fat-suppressed weighted
imaging sequences were obtained prior to the administration of intravenous contrast. Following the intravenous administration of 14 mL Clariscan gadolinium contrast material, axial, coronal, and sagittal T1-weighted fat-suppressed imaging sequences
were obtained. Axial subtraction images were obtained postcontrast.
COMPARISON: Comparison is made with an ultrasound examination of the pelvis performed 01/20/2025, a CTA examination of the abdomen and pelvis performed 01/20/2025, and a CT examination of the abdomen and pelvis 01/18/2025.
FINDINGS:
UTERUS: The uterus appears normal in size and is retroverted. The endometrium is thickened measuring 8.9 mm in thickness. There is a tiny 5 mm low T2 signal intensity intramural leiomyoma in the posterior uterine fundus.
RIGHT OVARY: There is a 1.7 x 1.7 x 3.1 cm oval-shaped high T1 and high intermediate T2 signal intensity nonenhancing hemorrhagic cyst in the right ovary which appears be located posterior to a large midline and a right-sided pelvic mass.
LEFT OVARY: There is a large 8.3 x 20.5 x 15.0 cm oval-shaped mass in the center and right side of the pelvis which appears to be arising from the left ovary. Most of the mass contains low to hyperintense T1 and very heterogeneous T2 signal
suggesting hemorrhage and necrosis which does not demonstrate enhancement. The mass has a thick rim of enhancement. There are thick enhancing septations in the left inferolateral aspect of the mass which appears to be location of the left ovary. The
MRI appearance is most consistent with a large epithelial ovarian tumor.
There is a small to moderate amount of complex hyperintense T1 and hyperintense T2 signal ascites or hemoperitoneum in the pelvic cul-de-sac. There is a thin rim of smooth of peritoneal enhancement in the pelvis.
GASTROINTESTINAL TRACT: The large pelvic mass displaces bowel loops. There is mild distention of colonic and small bowel throughout both sides of the abdomen. The descending colon and sigmoid colon are mostly collapsed.
There is a Ramirez catheter in the urinary bladder. There is mild diffuse urinary bladder wall thickening.
SKELETON: There is severe discogenic degenerative disease at L5/S1 with severe loss of intervertebral disc space height and adjacent chronic fatty degenerative endplate bone marrow changes. There is mild discogenic degenerative disease at L2/L3,
L3/L4, and L4/L5. There is a mild amount of enhancing bone marrow edema in the endplates adjacent to the left side of the L4/L5 intervertebral disc. There is mild to moderate edema along the posterior margin of both iliacus muscles. There is a
moderate to large amount of edema in the anterior proximal left thigh. There is severe subcutaneous edema throughout the posterior subcutaneous fat of the lower back.
IMPRESSION:
1. LARGE 20.5 cm COMPLEX CYSTIC MASS in the pelvis which appears to be arising from the LEFT OVARY and contains a large amount of internal hemorrhage and complex fluid/necrosis. 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
2. 3.1 cm hemorrhagic cyst in the right ovary.
3. Mild endometrial thickening.
4. Small to moderate complex ascites (hemoperitoneum) in the pelvis.
5. Mild distention of displaced small bowel and colonic loops in the abdomen.
6. Ramirez catheter in the urinary bladder.
Electronically signed by Kevyn Templeton MD, 01/29/2025 1:02 AM
Physical Exam
General: Well Nourished and No Apparent Distress
HEENT: Normocephalic
Respiratory: Clear and Non Labored Respirations
Cardiac: S1/S2 and Regular Rhythm
GI: Soft and Non Distended
Neuro: Awake, Alert and Oriented
Hematologic/Lymphatic: No Lymphadenopathy
Psych: Intact Judgement
Data Reviewed
-
MRI: Image personally visualized and interpreted
--- NOTE | 2025-01-29 16:09 | CM ---
Patient with Dx Acute hypoxic respiratory failure, Right-sided hemothorax, anemia, Right pelvic mass. O2 2L. Receiving IV Abx. PT/OT recommend skilled rehab.
Messages with Dr Banegas; patient/Dtr are interested in [facility] for rehab. Request MD order Physiatry Eval.
Met with patient and her daughter Elizabeth; they are interested in [facility] for rehab. Explained acute rehab and SNF levels of care. informed them that [facility] will need to evaluate and accept in order for patient to go to [facility]. Elizabeth is hopeful
for [facility] for 2 weeks as plan is for patient to have surgery in a few weeks to remove pelvic mass, once rehab is completed.
Spoke with [facility] Liaison; they will review and physiatry eval will be needed. Referral placed.
Plan follow up after seen by Physiatry.
[2025-01-29] MEDS: LOTRIMIN 1% CREAM 1 APPLIC TOPICAL ×2 (18:24→21:00)
[2025-01-30] VITALS (13 sets, daily range): BP systolic 129–155; BP diastolic 40–81
[2025-01-30] MEDS: UNASYN IV ×4 (00:20→16:57)
[2025-01-30] MEDS: TYLENOL 500 MG PO ×2 (03:31→18:40)
--- NOTE | 2025-01-30 06:27 | PTCARENOTE ---
Ramirez catheter removed @ 06:27. Pt due to void at 12:27.
[2025-01-30] MEDS: SENOKOT 8.6 MG PO ×2 (08:46→21:18)
[2025-01-30] MEDS: ZESTRIL 5 MG PO (08:46)
[2025-01-30] MEDS: LOTRIMIN 1% CREAM 1 APPLIC TOPICAL ×2 (08:46→21:18)
[2025-01-30] MEDS: TOPROL XL 50 MG PO (08:46)
--- NOTE | 2025-01-30 12:54 | PTCARENOTE ---
Ramirez was discontinued at 0600 as per doctors orders. At noon patient was still unable to void on her own. Bladder scan completed and read 1400ml. Patient straight cathed and only [address] Hastings.
--- NOTE | 2025-01-30 13:06 | W.PN.HOSP.TC ---
Today's Communication/Plan
-
Assessment / Plan
Assessment / Plan
Gen-AAOx3, NAD
HEENT-NC, AT, anicteric, clear oral mm
Neck-supple
CV-reg, no M, +S1/S2
Lungs-clear B/L
Abd-soft, NT, palpable lower abdominal mass
Musculoskeletal-no edema, no deformity
Skin-warm and dry, right chest tube removed with dressing clean dry intact
Neuro-grossly non-focal
Psych-calm, cooperative
Ms. Golden is a 79-year-old female with a medical history of breast cancer (diagnosed 2013, status postlumpectomy and radiation), factor V Leiden mutation carrier, and history of DVT (on Eliquis) who presented with nausea and vomiting with
associated abdominal bloating. CT imaging revealed a large heterogeneous complex mass appeared to be originating from the right ovary. Labs revealed a gapped acidosis. She was mildly hyperglycemic and had an elevated beta hydroxybutyrate. She
was started on an insulin drip with DKA protocol and admitted for further evaluation and management.
Acute hypoxic respiratory failure
-Secondary to right-sided hemothorax is now resolved
-Patient had been requiring high flow oxygen, 30L/min, now weaned to room air intermittently
-Patient is s/p chest tube placement on 01/20, cytopathology neg for malignant cells, chest tube removed 01/28
-CT surgeon evaluated and no surgical indication
-CTA chest did not show any new finding explaining patient hemothorax.
-Repeat chest x-ray today 01/29 showed possible minimal right-sided pneumothorax that could possibly be a skinfold, will repeat chest x-ray as needed if respiratory status worsens
-Remains comfortable and saturating appropriately on room air
Acute blood loss anemia
-Currently stable, status post transfusion 3 units PRBCs and 4 units FFP this admission
-Due to hemothorax and intra-abdominal bleeding related to right ovarian mass
-No GI blood loss reported
-Continue following hemoglobin with transfusion for less than 7
pelvic mass - presumed malignancy
-Hemorrhagic ascites
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
-CA 19-9 level of 60.3K. CEA 165 (WNL), CA 27-29 elevated at 900, CA125 level 18,000
-Paracentesis of 10 mL fluid showing hemorrhagic peritoneal fluid. Cytopathology surprisingly not showing any cancer cells.
-s/p US guided biopsy of mass on 01/23. Pathology report will guide further treatment plan.
-MRI abdomen/pelvis 01/28 showing large complex cystic mass originating from the left ovary measuring 20.5 x 8.3 x 15.0 cm, also shows right ovarian hemorrhagic cyst
-PORTRAIT PHOTOGRAPHER and oncology input noted
-Input from Dr. Krause reviewed, recommend return for elective resection of ovarian mass not during this admission
-Planning discharge to SNF for therapy to optimize her functional status prior to surgery
Urinary retention
-bladder scan of 1.1L - straight cath ordered
-mathis catheter placed on 01/26 and removed 01/30, unable to void spontaneously and straight cathed at noon
-Added Flomax
-Will check renal and bladder ultrasound
Troponin elevation
-Denies any chest pain.
-Suspected type II MS from hypovolemia and tachycardia. Trop peaked at ~ 3.5
-With ongoing bleeding issue cannot be started on any antiplatelets/heparin product
-TTE showed preserved EF
-Cardiology following and no further intervention warranted at this point.
Hyponatremia
-Mild, clinically insignificant
-Will monitor
JULY -resolved
Metabolic acidosis -resolved
-JULY likely related to hypovolemia/hypotension and need of contrast for CT scan
-Patient had mild anion gap metabolic acidosis likely with JULY and malignancy related
-Avoid nephrotoxic medication and monitor
Hyperkalemia -resolved
-driven from acidosis and mild july
Hypovolemic shock - resolved
-Required IVF/support of vasopressor
Chronic left femoral vein thrombus
History of factor V Leiden mutation
-Peripheral vascular ultrasound report reviewed
-No anticoagulation considering hemothorax
Leukocytosis without fever - Improving
-Patient continued to have elevated white blood cell.
-Chest x-ray done and no new pneumonia/loculated effusion, low concern of infection
-Possible source of pulmonary versus malignancy - added empiric unasyn -to cover non MDR gram-negative and anerobic organisms, today is day 4 antibiotics
Shock liver - Resolved
-LFT continue to trend down
-Lipitor/Tylenol on hold
Sinus tachycardia
-monitor on tele
-Toprol-XL has been increased to Toprol-XL 50/d by cards.
CODE STATUS: DNR
Anticipated Discharge: 24 - 48 hours
Subjective/Interval History
-
Date of Service: January 30, 2025
Patient was seen and examined at bedside this morning. Continues to improve clinically. No significant discomfort. She is cautiously starting to ambulate and pushing herself to increase her p.o. intake. She is pending evaluation by delivery technician
for potential acute rehab placement. She is relieved to have her Mathis removed and is undergoing spontaneous voiding trial.
Objective Data
-
Vital Signs:
Vital Signs
Temp Pulse Resp BP Pulse Ox
98.0 F 115 29 152/81 93
01/30/25 11:45 01/30/25 12:00 01/30/25 12:00 01/30/25 12:00 01/30/25 12:57
I&O
01/29/25 01/30/25 01/31/25
06:59 06:59 06:59
Intake Total 240 / 240 960 / 960
Output Total 500 / 500 450 / 450
Balance -260 / -260 510 / 510
Review of Systems
-
History Source: Patient
All other systems: Reviewed and negative
Constitutional: Reports Weakness
Physical Exam
-
General: No Apparent Distress
[2025-01-30] MEDS: FLOMAX 0.4 MG PO (13:26)
--- NOTE | 2025-01-30 14:25 | CM ---
Chart reviewed and per previous notes patient and family are hoping for acute rehab, physiatry were consulted and will await their evaluation, physical therapy are recommending skilled. [facility]errals sent to [facility].
Plan; Await evaluation and recommendations from physiatry.
--- NOTE | 2025-01-30 16:38 | W.PN.UPDATE ---
Update Note
Progress Note Update
We have been discussing details of hospital course and future planning with the patient and her daughter who has been at bedside. There has been some confusion about the patient's presumed malignancy due to conflicting messaging. We discussed the
very high suspicion that her pelvic mass is cancerous just based on imaging. However, we also discussed that we cannot confirm our suspicions without a positive tissue biopsy which we surprisingly do not yet have despite IR biopsy of mass,
abdominal fluid analysis, and pleural fluid analysis. It seems the area of tissue biopsy was actually a hematoma, confirmed on pathology report. Pathologic analysis of bloody pleural and peritoneal fluid also did not show evidence of malignant
cells. We discussed that, although these findings are surprising, they do not rule out malignancy. We also discussed the necessity of surgical resection of her pelvic mass, which appears to be emanating from her left ovary. Considering the
patient has become significantly deconditioned from the acuity of her current hospitalization, she would benefit from rehabilitation in order to optimize her functional status prior to undergoing major abdominal surgery. With that in mind, we are
recommending she go to rehab for physical therapy prior to elective surgery for resection of her pelvic mass.
[2025-01-31] VITALS (21 sets, daily range): BP systolic 128–177; BP diastolic 43–123
--- NOTE | 2025-01-31 00:02 | PTCARENOTE ---
Pt received from previous RN. Pt AAOx3, anxious, minimally conservative. Pt is nsr on monitor. satting 98% on RA. pt with no BM thus far during this RNs shift, bowel meds given as ordered. Assessment as documented. call light in reach. Safe
environment maintained.
[2025-01-31] MEDS: UNASYN IV ×4 (00:33→17:42)
[2025-01-31 05:38] LABS: % Basophils 0.3 % (0-2); % Eosinophils 1.5 % (0-6); % Monocytes 7.1 % (1.7-9.3); % Neutrophils 84.1 % (42.2-75.2); Absolute Basophils 0.1 10^3/uL (0-0.2); Absolute Eosinophils 0.3 10^3/uL (0-0.7); Absolute Immature Granulocytes 0.2 10^3/uL (0-0.05); Absolute Lymphocytes 1.1 10^3/uL (1.2-3.4); Absolute Monocytes 1.3 10^3/uL (0.1-0.6); Absolute Neutrophils 15.9 10^3/uL (1.4-6.5); Hematocrit 28.9 % (37.0-47.0); Hemoglobin 9.6 g/dL (12.0-16.0); Mean Corp Hgb Conc. 33.2 g/dL (33.0-37.0); Mean Corpuscular Hgb 28.4 pg (27.0-31.0); Mean Corpuscular Volume 85.5 fL (81.0-99.0); Mean Platelet Volume 10.3 fL (7.4-10.4); Nucleated Red Blood Cells % 0 %; Platelet Count 396 10^3/uL (130-400); Red Blood Cell Count 3.38 10^6/uL (4.20-5.40); White Blood Cell Count 18.9 10^3/uL (4.8-10.8)
[2025-01-31] MEDS: TYLENOL 500 MG PO ×3 (05:44→20:38)
[2025-01-31 05:59] LABS: Blood Urea Nitrogen 10 mg/dl (7-17); Calcium 8.1 mg/dl (8.4-10.2); Carbon Dioxide 25 mmol/L (22-30); Chloride 100 mmol/L (98-107); Estimated Creatinine Clearance 64 ml/min; Glucose 89 mg/dl (70-99); Potassium 3.8 mmol/L (3.5-5.1); Sodium 132 mmol/L (135-145); eGFR > 60.00
--- NOTE | 2025-01-31 08:20 | PTCARENOTE ---
Pt AAOx3, tearful and anxious. Talked with pt re rehab and her wishes for herself. Suggested palliative care conversation. Daughter will support mothers wishes. Daughter will call grief counselor that helped with her husbands passing.
[2025-01-31] MEDS: SENOKOT 8.6 MG PO (08:27)
[2025-01-31] MEDS: TOPROL XL 50 MG PO (08:28)
[2025-01-31] MEDS: FLOMAX 0.4 MG PO (08:29)
[2025-01-31] MEDS: ZESTRIL 5 MG PO (08:29)
[2025-01-31] MEDS: LOTRIMIN 1% CREAM 1 APPLIC TOPICAL ×2 (08:30→20:39)
--- NOTE | 2025-01-31 09:22 | W.PN.ONC2 ---
Today's Communication / Plan
-
At this time, patient needs to get stronger prior to undergoing additional surgical exploration and biopsies to prove or disprove primary pelvic malignancy.
Excellent summary yesterday afternoon by patient's primary hospitalist Dr. Joseph Rodriguez.
Reiterated these exact terms to patient's daughter and patient understand even though there is some degree of frustration that we do not have all the answers yet.
Will standby and see the patient intermittently as currently no specific oncologic intervention although Dr. Krause may also see the patient independently when he is rounding PRN.
Impression
Impression
Right pelvic mass suspect neoplasm. Ca 125 15473, Ca 27.29 908, Ca 19.9 21540, CEA 165. ascites fluid negative for malignancy. s/p CT guided biospy 01/23
Hepatic transaminitis, suspect shock liver
right sided hemothorax with chest tube -pleural fluid negative for malignancy
Acute on chronic anemia c/w blood loss - 3PRBC, last 01/21
coagulopathy secondary to DOAC +/-shock liver so clotting factor production may be reduced-s/p 4FFP, vitamin K, last 01/21
Hx DCIS s/p lumpectomy
DKA
Leukocytosis
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
type II DC in setting of respiratory failure, hemothorax, anemia and mass -cardiology following
Plan
Plan
follow for pathology of bx
If pathology suggestive of GI etiology then consider EGD +/- colonoscopy
anticoagulation on hold d/t ABLA -Hgb stable >8g/dL today
cautious use of vitamin K and FFP with high risk VTE/FVL, OAC on hold for bleeding
R chest tube management per thoracic surgery
consider at least dvt ppx once risk of bleeding improved since high risk VTE
Subjective/Objective
Chief Complaint
ACS Oncology F/U
Subjective
No c/o. Spoke with her and her daughter regarding the plan which is well summarized by the update note from yesterday afternoon by Dr. Joseph Rodriguez.
Vital Signs:
Vital Signs
Temp Pulse Resp BP Pulse Ox
98.1 F 105 22 128/43 92
01/31/25 07:47 01/31/25 08:28 01/31/25 06:48 01/31/25 08:28 01/31/25 06:48
Lab Results:
Laboratory Data
WBC 18.9 10^3/uL (4.8-10.8) H 01/31/25 04:33
Hgb 9.6 g/dL (12.0-16.0) L 01/31/25 04:33
Plt Count 396 10^3/uL (130-400) 01/31/25 04:33
PT 16.0 Sec (11.4-14.6) H 01/28/25 10:57
INR 1.25 01/28/25 10:57
APTT 26.9 Sec (23.4-35.0) 01/28/25 10:57
eGFR > 60.00 01/31/25 04:33
--- NOTE | 2025-01-31 12:15 | W.CON.PAL ---
Consultation
-
Date/Time Consultation Requested: 01/31/2025
Date/Time Consultation Performed: 01/31/2025
Requesting Provider: Dr. Rodriguez
Performing Provider: Dr. Odom
Reason for Consult: Goals of Care Discussion
Primary Diagnosis: Ovarian Mass
Reason for Admission
Illness Course/HPI
Lindsay is a 80 y/o female with hx of breast cancer, factor v, p/w nausea and bloating. found to have large right ovarian mass, right hemothorax. anemia. Seen in IMU. hemothorax resolved, chst tube removed now.
Biopsies during hospital stay were inconclusive of malignancy that was suggested by labs (elevated CA125), and imaging. At this time plan of care is not clear as we do not have a formal diagnosis of cancer to direct further treatment. Palliative
care consulted for goals of care.
Functional Status
Lindsay lives independently in a 2 [address] home. independent of adls and iadls.
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 She is still grieving his loss.
She has 4 children, only 2 actively involved in her care - daughter from [place] at bedside. son/daughter in law live in [facility].
patient is of sikhism med, received visits from pastoral care here in the hospital.
Goals of Care Discussion
-
Individuals Present for Discussion & Relationship to Patient:
Patient, daughter
Patient able to participate in discussion at time of visit: Yes
Patient Goals
Patient is uncertain about her goals of care as there is no official diagnosis.
At this time, the recommendation is pursue short term rehab, and once stronger recommended to have surgery to remove mass + definitive pathology..
Patient unsure if she will even want to pursue this surgery. Discussed benefits - pain management, confirm/deny diagnosis/potential prolonging of life as a result of treatment. Cons - surgical risks, and complications.
Patient expresses that when she had to go to for ultrasound she thought to herself 'is this my life now... i'm not sure I want this,' however she is not ready yet to forgo all treatments or therapies (i.e. is agreeable to rehab). She has personal
experience with cancer directed treatment/surgery as she is a breast cancer survivor
Daughter shares that patient has been going through prolonged grief since the of her 3 years ago, patient has worked with a grief rn neurology who has helped her in the past. has not been on medications for mood in the past.
Patient shares that her med and prayer helps her in making decisions. she is supported by her puppy trainer, and has received visits from pastoral care in the hospital.
Pain & Symptom Assessment
-
at this time denies pain, dyspnea or other symptoms.
Objective Data
-
Objective Data:
Vital Signs
Temp Pulse Resp BP Pulse Ox
98.1 F 105 22 128/43 96
01/31/25 07:47 01/31/25 08:28 01/31/25 06:48 01/31/25 08:28 01/31/25 08:00
Laboratory Results
01/31/25 04:33
01/31/25 04:33
PT 16.0 Sec (11.4-14.6) H 01/28/25 10:57
INR 1.25 01/28/25 10:57
APTT 26.9 Sec (23.4-35.0) 01/28/25 10:57
Hemoglobin A1c 5.6 % (4.0-5.6) 01/18/25 13:16
Total Protein 4.9 g/dl (6.3-8.2) L 01/29/25 05:13
Albumin 2.2 g/dl (3.5-5.0) L 01/29/25 05:13
Urine Color Yellow 01/21/25 20:35
Urine Clarity Clear (Clear) 01/21/25 20:35
Urine pH 6.0 (5.0-9.0) 01/21/25 20:35
Ur Specific Raven 1.015 (<1.030) 01/21/25 20:35
Urine Ketones 1+ (Negative) A 01/21/25 20:35
Urine Bilirubin Negative (Negative) 01/21/25 20:35
Palliative Performance Scale
Palliative Performance Scale:
PPS Level Ambulation Activity & Evidence of Disease Self Care Intake Conscious Level
100% Full Normal Activity & Work; Full Intake Full
No Evidence of Disease
90% Full Normal Activity & Work; Full Normal Full
Some Evidence of Disease
80% Full Normal Activity with Effort Full Normal or Full
Some Evidence of Disease Reduced
70% Reduced Unable Normal Job/Work Full Normal or Full
Significant Disease Reduced
60% Reduced Unable Hobby/Housework Occasional Normal or Full or Confusion
Significant Disease Assistance Reduced
50% Mainly Sit/Lie Unable to do Any Work Considerable Normal or Full or Confusion
Extensive Disease Assistance Req'd Reduced
40% Mainly in Bed Unable to do Most Activity Mainly Assistance Normal or Full or Drowsy;
Extensive Disease Reduced +/- Confusion
30% Totally Bed Unable to do Any Activity Total Care Normal or Full or Drowsy;
Bound Extensive Disease Reduced +/- Confusion
20% Totally Bed Bound Unable to do Any Activity Total Care Minimal to Full or Drowsy;
Extensive Disease Sips +/- Confusion
10% Totally Bed Bound Unable to do Any Activity Total Care Mouth Care Drowsy or Coma;
Extensive Disease Only +/- Confusion
0%
PPS Score Level:
Palliative Performance Score Response
Palliative Performance Score Response: 40%
Physical Exam
-
General: Well Developed
Neuro: Awake, Alert, Oriented and AO x 3
Psych: Calm
Assessment / Plan
-
Assessment/Plan:
Patient agreeable to rehab. She will defer decision for surgery to after rehab, at this time leaning away from surgery. Recommended that we revisit this once she is home, and can then plan accordingly and get the right supports in place. Recommended
palliative care follow up. provided brochure with contact information.
total floor time 40 mins
--- NOTE | 2025-01-31 14:45 | PTCARENOTE ---
Pt spoke with her grief counselor , ABT running as ordered . PT st cath with out incident
--- NOTE | 2025-01-31 15:23 | PTCARENOTE ---
Pt walked to pt waiting room and is now sittig there wit her daughter
--- NOTE | 2025-01-31 15:55 | PTCARENOTE ---
Pt sat in waiting room for 30 mins
--- NOTE | 2025-01-31 16:01 | W.PN.HOSP.TC ---
Today's Communication/Plan
-
Assessment / Plan
Assessment / Plan
Gen-AAOx3, NAD
HEENT-NC, AT, anicteric, clear oral mm
Neck-supple
CV-reg, no M, +S1/S2
Lungs-clear B/L
Abd-soft, NT, palpable lower abdominal mass
Musculoskeletal-no edema, no deformity
Skin-warm and dry
Neuro-grossly non-focal
Psych-calm, cooperative, sad, overwhelmed
Ms. Golden is a 79-year-old female with a medical history of breast cancer (diagnosed 2013, status postlumpectomy and radiation), factor V Leiden mutation carrier, and history of DVT (on Eliquis) who presented with nausea and vomiting with
associated abdominal bloating. CT imaging revealed a large heterogeneous complex mass appeared to be originating from the right ovary. Labs revealed a gapped acidosis. She was mildly hyperglycemic and had an elevated beta hydroxybutyrate. She
was started on an insulin drip with DKA protocol and admitted for further evaluation and management.
pelvic mass - presumed malignancy
-Hemorrhagic ascites
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
-CA 19-9 level of 60.3K. CEA 165 (WNL), CA 27-29 elevated at 900, CA125 level 18,000
-Paracentesis of 10 mL fluid showing hemorrhagic peritoneal fluid. Cytopathology surprisingly not showing any cancer cells.
-s/p US guided biopsy of mass on 01/23. Pathology report showing only hematoma
-MRI abdomen/pelvis 01/28 showing large complex cystic mass originating from the left ovary measuring 20.5 x 8.3 x 15.0 cm, also shows right ovarian hemorrhagic cyst
-WIDE LOAD ESCORT and oncology input noted and appreciated
-Input from Dr. Krause reviewed, recommend return for elective resection of ovarian mass not during this admission
-Planning discharge to SNF for therapy to optimize her functional status prior to surgery
-Patient's spirits are low and she is overwhelmed with the gravity of her situation and possible treatment options, she is not yet set on any particular course of action at this point other than rehabilitation to improve her functional status, she
has considered palliative care and would like more information from the palliative care team at this point, she is also going to speak with her outpatient therapist to help her sort through some of this complexity
-Will give a lab holiday for now unless urgently indicated
-Awaiting PT/OT/physiatry recommendations regarding rehab placement
Urinary retention
-mathis catheter placed on 01/26 and removed 01/30, unable to void spontaneously and has required intermittent straight cathing
-Started on Flomax
-She is now voiding spontaneously although relatively low volumes reportedly
-Does not want any further straight cath or Mathis
-Renal function has been normal, no sonographic evidence of hydronephrosis
-Will continue to monitor for now
Acute hypoxic respiratory failure
-Secondary to right-sided hemothorax is now resolved
-Patient had been requiring high flow oxygen, 30L/min, now weaned to room air intermittently
-Patient is s/p chest tube placement on 01/20, cytopathology neg for malignant cells, chest tube removed 01/28
-CT surgeon evaluated and no surgical indication
-CTA chest did not show any new finding explaining patient hemothorax.
-Repeat chest x-ray today 01/29 showed possible minimal right-sided pneumothorax that could possibly be a skinfold, will repeat chest x-ray as needed if respiratory status worsens
-Remains comfortable and saturating appropriately on room air
Acute blood loss anemia
-Currently stable, status post transfusion 3 units PRBCs and 4 units FFP this admission
-Due to hemothorax and intra-abdominal bleeding related to right ovarian mass
-No GI blood loss reported
-Continue following hemoglobin with transfusion for less than 7
-Avoid necessary blood draws
Troponin elevation
-Denies any chest pain.
-Suspected type II ND from hypovolemia and tachycardia. Trop peaked at ~ 3.5
-With ongoing bleeding issue cannot be started on any antiplatelets/heparin product
-TTE showed preserved EF
-Cardiology following and no further intervention warranted at this point.
Hyponatremia
-Mild, clinically insignificant
-Will monitor
JULY -resolved
Metabolic acidosis -resolved
-JULY likely related to hypovolemia/hypotension and need of contrast for CT scan
-Patient had mild anion gap metabolic acidosis likely with JULY and malignancy related
-Avoid nephrotoxic medication and monitor
Hyperkalemia -resolved
-driven from acidosis and mild july
Hypovolemic shock - resolved
-Required IVF/support of vasopressor
Chronic left femoral vein thrombus
History of factor V Leiden mutation
-Peripheral vascular ultrasound report reviewed
-No anticoagulation considering hemothorax
Leukocytosis without fever - Improving
-Patient continued to have elevated white blood cell.
-Chest x-ray done and no new pneumonia/loculated effusion, low concern of infection
-Possible source of pulmonary versus malignancy - added empiric unasyn -to cover non MDR gram-negative and anerobic organisms, today is day 4 antibiotics
Shock liver - Resolved
-LFT continue to trend down
-Lipitor/Tylenol on hold
Sinus tachycardia
-monitor on tele
-Toprol-XL has been increased to Toprol-XL 50/d by cards.
CODE STATUS: DNR
Anticipated Discharge: 24 - 48 hours
Subjective/Interval History
-
Date of Service: January 31, 2025
Patient was seen and examined at bedside this morning. Spirits are low as she is overwhelmed with the acuity of her illness and potential treatments and outcomes. She is considering palliative care but has not committed 20 treatment courses yet.
However she is committed to rehabilitation despite what the next steps may be for treatment of her pelvic mass.
Objective Data
-
Labs:
Laboratory Results
01/31/25
04:33
WBC 18.9 H
Hgb 9.6 L
Hct 28.9 L
Plt Count 396
Sodium 132 L
Potassium 3.8
Chloride 100
Carbon Dioxide 25
BUN 10
Creatinine 0.7
Glucose 89
Calcium 8.1 L
Vital Signs:
Vital Signs
Temp Pulse Resp BP Pulse Ox
98.6 F 104 22 172/73 95
01/31/25 15:35 01/31/25 15:10 01/31/25 15:10 01/31/25 15:49 01/31/25 15:04
I&O
01/30/25 01/31/25 02/01/25
06:59 06:59 06:59
Intake Total 960 / 960 520 / 520 120 / 120
Output Total 450 / 450 1900 / 1900 1000 / 1000
Balance 510 / 510 -1380 / -1380 -880 / -880
Review of Systems
-
History Source: Patient
All other systems: Reviewed and negative
Constitutional: Reports No Appetite
Psych: Reports Sad
Physical Exam
-
General: No Apparent Distress
--- NOTE | 2025-01-31 18:12 | PTCARENOTE ---
Pt bladder scan for 473 wants to wait to be st cath would like to try and void
[2025-01-31] MEDS: SENOKOT PO (21:27)
--- NOTE | 2025-01-31 21:36 | PTCARENOTE ---
pt received from previous RN. pt AAOx3, chatting with RN. NSR on monitor with pvcs. satting 98% on RA. pt bladder scanned for 654, agreeable to straight cath, pt is refusing mathis. straight cathed for 654. see intervention documentation. PCT
assisted pt with hs oral care. pt c/0 01/28 abd pain, pt given ordered tylenol. see MAR. assessment as documented. call light in reach.
[2025-02-01] VITALS (10 sets, daily range): BP systolic 149–175; BP diastolic 58–74; PULSE 118
[2025-02-01] MEDS: UNASYN IV ×4 (00:49→17:06)
--- NOTE | 2025-02-01 03:30 | PTCARENOTE ---
Pt with no urine output overnight. This RN explained the necessity of bladder scanning and subsequently straight cathing if scan deems necessary. Pt became visibly upset and teared up. Pt refusing intervention at this time. Pt also declining for
labs to be drawn at this time. This RN explained reasoning, necessity, and purpose of both care interventions to Pt.
[2025-02-01] MEDS: APRESOLINE 10 MG IV (04:10)
--- NOTE | 2025-02-01 04:30 | PTCARENOTE ---
BP 167/65(91). HR 105. pt given ordered dose of 10 mg IV hydralazine for SBP >160.
--- NOTE | 2025-02-01 05:13 | PTCARENOTE ---
BP 167/65(91). HR 105. pt given ordered dose of 10 mg IV hydralazine for SBP >160.
[2025-02-01] MEDS: ATIVAN 0.5 MG PO ×2 (05:50→14:34)
[2025-02-01] MEDS: SENOKOT PO ×2 (07:22→20:44)
[2025-02-01] MEDS: TOPROL XL 50 MG PO (07:22)
[2025-02-01] MEDS: LOTRIMIN 1% CREAM 1 APPLIC TOPICAL ×2 (07:23→20:43)
[2025-02-01] MEDS: FLOMAX 0.4 MG PO (07:23)
[2025-02-01] MEDS: ZESTRIL 5 MG PO (07:23)
--- NOTE | 2025-02-01 07:24 | PTCARENOTE ---
On walking rounds pt asleep
--- NOTE | 2025-02-01 09:09 | CON.MD ---
Documented by User: Khushboo Contreras PA-C 02/01/25 11:06
Consultation - Medical
-
Referral: Joseph Horner
Chief Complaint:�Debility, pelvic Mass
�
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
admission, with questionable rib fracture) presenting to the emergency department with nausea vomiting and lower quadrant abdominal pain. Found to be hyperglycemic treated with insulin drip for DKA protocol, CT scan showed large abdominal mass
complex 15 cm and ascites. Within 24 hours, she became dyspneic garry and her hemoglobin had dropped to 5.5. Repeat CT scan showed ascites fluid with right chest large volume pleural effusion. She developed hemothorax and needed urgent right chest
tube and multiple transfusions due to hemothorax and intra-abdominal bleeding related to right ovarian mass. No GI blood loss reported. Continue following hemoglobin with transfusion for less than 7. On 01/20, cytopathology negative for malignant
cells, chest tube removed 01/28. Per CT surgeon, no surgical indication. CTA of the chest did not show any new finding explaining patient hemothorax. Repeat chest x-ray 01/29 showed possible minimal right-sided pneumothorax that could post possibly
BX can follow-up, will repeat chest x-ray as needed is respiratory status worsened.
Seen by hematology�size of mass and CEA elevation concerning for malignancy. Cystadenoma also possibility. Recommended biopsy to establish both primary and the metastatic's status. If no mets then would anticipate surgical resection.
US guided biopsy of mass on 01/23. Pathology report showing only hematoma. OB/Guynn/oncology. Dr. Krause,recommends return for elective resection of ovarian mass not during this admission.Planning discharge to SNF for therapy to optimize her
functional status prior to surgery.she has considered palliative care and would like more information from the palliative care team at this point.
Cardiology was consulted for elevation of troponin. Patient denied chest pain. Elevation suspected to be type II IA from hypovolemia and tachycardia. Troponin peaked at 3.5. With ongoing bleeding issue cannot be started on any
antiplatelets/heparin products. TTE showed preserved EF cardiology following and no further intervention warranted at this time.
Experience urinary retention with Rmairez catheter placement on 01/26 and removed 01/30, unable to void spontaneously and has required intermittent straight cathing. She was started on Flomax. And is now voiding spontaneously although relatively low
volumes. She does not want any further straight catheter or Ramirez. Renal function has been normal, no sonographic evidence of hydronephrosis.
�
Past Medical History:�CVA�left, factor V Leiden, right breast cancer status post lumpectomy 2009, status post radiation.) (DVT-LLE
Procedure History:��Right breast lumpectomy 2009.
Family History:�����Daughter�breast cancer at 45����������
�
Social History:��
Functional Level Premorbidly:�Independent with all activities��
Functional Level at Previous Facility: Bed mobility�min assist, transfers�min assist, ambulated 14 feet x 2 with rolling walker and min assist of 1 for safety and line management with generalized fatigue and encouragement to progress, grooming set
up, lower extremity self-care�mod assist,
�
Tobacco:�Denies all��
Alcohol:�Denies��
Drug use:�Denies��
�
Lives With:�Alone
24-hour assistance available:��no
Number of floors:2��, split-level house
# steps to enter:�through garage 1 step and the front 1 step from curb then 1 to landing then 1 to front door
# steps to second floor:��4 steps up to kitchen level, 6 steps up to bedroom
Potential First Floor Set Up:��No
Driving:��yes
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
Allergies:�
Allergy/AdvReac Type Severity Reaction Status Date / Time
adhesive Allergy Rash Verified 05/23/24 20:00
erythromycin base Allergy Nausea Verified 05/23/24 20:00
�
�
Review of Systems:��
Constitutional: (x) abNormal _fatigued
Eye: (x) Normal _
Ear/Nose/Throat: (x) Normal _
Respiratory: (x) Normal _
Cardiovascular: (x) abNormal _hypotension, elevated troponin,
Gastrointestinal: (x) abNormal _large pelvic mass, nausea
Genitourinary: (x) Normal _
Musculoskeletal: (x) Normal _
Integumentary: (x) Normal _
Neurologic: (x) Normal _
Psychiatric: (x) abNormal _grieving, depressed, anxious- lost 3 years ago
Endocrine: (x) Normal _
Hematologic/Lymphatic: (x) abNormal _anemia, actor V Leiden heterozygote
Allergic/Immunologic: (x) Normal _
�
Medications:��
Active Current Visit Medication List
Category Date Time Status
Acetaminophen [Tylenol] Med 01/25/25 04:48 Active
500 mg PO Q4HPRN PRN
Ampicillin/Sulbactam 3 G [Unasyn] 3 gm Med 01/26/25 12:00 Active
0.9% Sodium Chloride 100 ml [Nss] 100 ml
IV Q6H
Atorvastatin [Lipitor] Med 01/18/25 23:31 Hold
40 mg PO HS
Clotrimazole [Lotrimin 1% Cream] Med 01/27/25 12:00 Active
See Dose Instructions TOPICAL BID
Dextrose 50%-Water [Dextrose 50% Syringe] Med 01/19/25 23:00 Active
12.5 grams IV [id number] PRN
Dicyclomine [Bentyl] Med 01/25/25 13:05 Active
10 mg PO QIDPRN PRN
Flush (0.9% Sodium Chloride) [Flush (Nss)] Med 01/18/25 22:00 Active
See Dose Instructions IV PER PROTOCOL
Glucagon [GlucaGen] Med 01/19/25 23:00 Active
1 mg IM PRN PRN
HydrALAZINE [Apresoline] Med 01/23/25 15:57 Active
10 mg IV Q4HPRN PRN
Lisinopril [Zestril] Med 01/26/25 08:00 Active
5 mg PO DAILY
Lorazepam [Ativan] Med 01/26/25 10:23 Active
0.5 mg PO BIDPRN PRN
Metoprolol Xl [Toprol Xl] Med 01/26/25 08:00 Active
50 mg PO DAILY
Ondansetron Injectable [Zofran] Med 01/18/25 23:31 Active
4 mg IV Q6HPRN PRN
Oxycodone [Roxicodone] Med 01/26/25 13:04 Active
2.5 mg PO Q4HPRN PRN
Oxycodone [Roxicodone] Med 01/26/25 13:04 Active
5 mg PO Q4HPRN PRN
Sennosides [Senokot] Med 01/30/25 08:00 Active
8.6 mg PO BID
Tamsulosin [Flomax] Med 01/30/25 13:00 Active
0.4 mg PO DAILY
�
Vitals:��
Temp Pulse Resp BP Pulse Ox
98.0 F 114 26 157/65 98
02/01/25 03:05 02/01/25 07:22 02/01/25 07:03 02/01/25 07:22 02/01/25 07:54
Height 5 ft 7 in
Actual Weight 66.95 kg
Body Mass Index (BMI) 23.1
�
Physical Exam:��
General Appearance/Observation: Well-developed, well-nourished individual in no apparent distress.��
Pain/Comfort Assessment: Denies��
Mood/Affect: calm, pleasant, apprehensive
�
Integumentary/Operative Site:��
�� Pressure Ulcer evaluation: absent over heels��
�� Other Type of Wound: absent��
�
�
Eyes: Conjunctiva/Lids: normal���� Pupils: pupils equal round and reactive to light and Accommodation��
Ears/Nose/Throat: oral mucosa moist,� throat clear.�������������Lips/Teeth/Gums: normal��
Neck: No muscle spasm or tenderness��
Cardiovascular: Heart: regular, no murmur��
Pulses: dorsalis pedis 2+ bilaterally��
Respiratory: Respiratory Effort/Chest Expansion: normal.�������Auscultation: Clear to auscultation bilaterally��
Gastrointestinal: abdomen with mild rlq tender, distension, normal abdominal bowel sounds
Genitourinary: No Ramirez��
Extremities:�Edema: None�Cyanosis: None�Trophic�changes: None
��
Neurology Exam:
Orientation: Alert, Oriented to self, Time, Place��
Memory: Intact for immediate medical concerns
Comprehension: Intact
Two step command: Intact
Naming: Intact
Cranial Nerves:
�� CNII:�Pupillary light reflex: Intact����Visual Field: NT
�� CN III, IV, : Extraocular muscles: Intact��
�� CN V:�Facial Sensation�at�Forehead: Intact ,�Maxilla: Intact,�Mandible: Intact
�� CN VII:�Facial movement: Symmetric
�� CN VIII:�Hearing: Normal
�� CN IX/X:�Speech & swallow: Normal�Position of Uvula: Midline
�� CN XI:�Shoulder shrug: Symmetric
�� CN XII:�Tongue protrusion: Midline
Sensory:
�� Light touch: Intact in bilateral upper and lower extremities
�
�
Reflexes:
�� Biceps: 2+ bilaterally
�� Brachioradialis: 2+ bilaterally
�� Triceps: 2+ bilaterally
�� Patellar: 3+ bilaterally
�� Achilles: 3+ bilaterally
�� Babinski: Downgoing bilaterally
�� Clonus: None
�� Marichuy: Negative bilaterally��
Cerebellar: Dysmetria/Ataxia: None��
Musculoskeletal:
Motor: (Manual muscle scale 0-5)��
Muscle SA EF WE EE FF FA HF KE DF EHL PF
Right� 5 5 5 5 5 5 5 5 5 5 5
Left 5 5 5 5 5 5 5 5 5 5 5
�
Tone: Normal in all extremities��
Range of Motion: Passively within normal limits in all extremities��
�
Lab Results:��
Labs
WBC 18.9 10^3/uL (4.8-10.8) H 01/31/25 04:33
RBC 3.38 10^6/uL (4.20-5.40) L 01/31/25 04:33
Hgb 9.6 g/dL (12.0-16.0) L 01/31/25 04:33
Hct 28.9 % (37.0-47.0) L 01/31/25 04:33
MCV 85.5 fL (81.0-99.0) 01/31/25 04:33
MCH 28.4 pg (27.0-31.0) 01/31/25 04:33
MCHC 33.2 g/dL (33.0-37.0) 01/31/25 04:33
RDW 15.0 % (11.5-14.5) H 01/31/25 04:33
Plt Count 396 10^3/uL (130-400) 01/31/25 04:33
MPV 10.3 fL (7.4-10.4) 01/31/25 04:33
Abs Immat Gran (auto) 0.2 10^3/uL (0-0.05) H 01/31/25 04:33
Absolute Neuts (auto) 15.9 10^3/uL (1.4-6.5) H 01/31/25 04:33
Absolute Lymphs (auto) 1.1 10^3/uL (1.2-3.4) L 01/31/25 04:33
Absolute Monos (auto) 1.3 10^3/uL (0.1-0.6) H 01/31/25 04:33
Absolute Eos (auto) 0.3 10^3/uL (0-0.7) 01/31/25 04:33
Absolute Basos (auto) 0.1 10^3/uL (0-0.2) 01/31/25 04:33
CBC Comment Cancelled 01/20/25 06:00
Immature Gran % 1.0 % (0-0.5) H 01/31/25 04:33
Neutrophils % 84.1 % (42.2-75.2) H 01/31/25 04:33
Lymphocytes % 6.0 % (20.5-51.1) L 01/31/25 04:33
Monocytes % 7.1 % (1.7-9.3) 01/31/25 04:33
Eosinophils % 1.5 % (0-6) 01/31/25 04:33
Basophils % 0.3 % (0-2) 01/31/25 04:33
Nucleated RBC % 0 % 01/31/25 04:33
PT 16.0 Sec (11.4-14.6) H 01/28/25 10:57
INR 1.25 01/28/25 10:57
APTT 26.9 Sec (23.4-35.0) 01/28/25 10:57
Fibrinogen 369 MG/DL (199-459) 01/20/25 16:11
VBG pH 7.42 (7.32-7.43) 01/21/25 03:59
VBG pCO2 41 mmHg (35-48) 01/21/25 03:59
VBG pO2 83 mmHg (30-50) H 01/21/25 03:59
VBG HCO3 26.6 mmol/L (22-27) 01/21/25 03:59
VBG O2 Sat (Natasha) 98.8 % 01/21/25 03:59
VBG Base Excess 1.9 mmol/L (-4 to +4) 01/21/25 03:59
VBG O2 Therapy 01/21/25 03:59
Sodium 132 mmol/L (135-145) L 01/31/25 04:33
Potassium 3.8 mmol/L (3.5-5.1) 01/31/25 04:33
Chloride 100 mmol/L (98-107) 01/31/25 04:33
Carbon Dioxide 25 mmol/L (22-30) 01/31/25 04:33
BUN 10 mg/dl (7-17) 01/31/25 04:33
Creatinine 0.7 mg/dL (0.6-1.0) 01/31/25 04:33
Estimated Creat Clear 64 ml/min 01/31/25 04:33
eGFR > 60.00 01/31/25 04:33
Glucose 89 mg/dl (70-99) 01/31/25 04:33
Hemoglobin A1c 5.6 % (4.0-5.6) 01/18/25 13:16
Calcium 8.1 mg/dl (8.4-10.2) L 01/31/25 04:33
Phosphorus 2.7 mg/dl (2.5-4.5) 01/22/25 03:22
Magnesium 2.2 mg/dl (1.6-2.3) 01/22/25 03:22
Total Bilirubin 1.3 mg/dl (0.2-1.3) 01/29/25 05:13
Direct Bilirubin 0.3 mg/dl (0.0-0.4) 01/24/25 05:28
AST 41 U/L (14-36) H 01/29/25 05:13
ALT 103 U/L (0-35) H 01/29/25 05:13
Alkaline Phosphatase 166 U/L (38-126) H 01/29/25 05:13
Lactate Dehydrogenase 3020 U/L (120-246) H 01/21/25 03:59
Troponin I Cancelled 01/21/25 23:45
C-Reactive Protein 7.80 mg/L (0.0-10.00) 01/18/25 13:16
Sel-Y-Rbjcgqpzjqu Pept 887 pg/ml 01/24/25 10:48
Total Protein 4.9 g/dl (6.3-8.2) L 01/29/25 05:13
Albumin 2.2 g/dl (3.5-5.0) L 01/29/25 05:13
Lipase 135 U/L (23-300) 01/18/25 13:16
Carcinoembryonic Ag 165 ng/ml 01/18/25 21:22
CA 19-9 Antigen 22579 U/mL (<=35) H 01/18/25 21:22
CA 27-29 908.7 U/mL (<=39.0) H 01/19/25 04:24
CA 125 Antigen Cancelled 01/19/25 06:00
Urine Color Yellow 01/21/25 20:35
Urine Clarity Clear (Clear) 01/21/25 20:35
Urine pH 6.0 (5.0-9.0) 01/21/25 20:35
Ur Specific [place] 1.015 (<1.030) 01/21/25 20:35
Urine Ketones 1+ (Negative) A 01/21/25 20:35
Ur Occult Blood Reflex 4+ (Negative) A 01/21/25 20:35
Urine Nitrite (Reflex) Negative (Negative) 01/21/25 20:35
Urine Bilirubin Negative (Negative) 01/21/25 20:35
Urine Urobilinogen Negative (Neg - 1+) 01/21/25 20:35
Leukocyte Esterase Rfl 3+ (Negative) A 01/21/25 20:35
Urine RBC 7-10 /HPF (0-2) A 01/21/25 20:35
Urine WBC (Reflex) 80-90 /HPF (0-5) A 01/21/25 20:35
Ur Squamous Epith Cells 6-10 /LPF (Few) 01/21/25 20:35
Urine Bacteria (Reflex) Moderate (Negative) A 01/21/25 20:35
Urine Glucose Negative (Negative) 01/21/25 20:35
Urine Albumin (Reflex) 2+ (Neg - Trace) A 01/21/25 20:35
Fluid WBC 17404 /CUMM 01/22/25 13:23
Fluid Hematocrit 5.0 % 01/20/25 17:40
Fluid Mononuclear Cell 20.2 % 01/22/25 13:23
Fl Polymorphonucl Cell 79.8 % 01/22/25 13:23
Fluid Other Cells Not Reportable 01/22/25 13:23
Fluid Diff Path Review Not Reportable 01/22/25 13:23
Fluid Total Protein 3.9 g/dl 01/22/25 13:20
Fluid LDH 4258 U/L 01/22/25 13:20
Fluid Triglycerides < 30 mg/dl 01/22/25 13:20
Random Vancomycin 10.5 ug/ml 01/21/25 03:59
B-Hydroxybutyrate 0.36 mmol/L (0.02-0.27) H 01/18/25 13:16
POC Glucose 79 mg/dl (70-99) 01/23/25 12:36
Blood Type O POS 01/20/25 09:31
Blood Type Confirm O POS 01/20/25 11:59
Antibody Screen Negative (Negative) 01/20/25 09:31
Crossmatch IS Only See Detail 01/20/25 09:31
Diagnostic Results: As per HPI��
CT abdomen pelvis:complex 'mass' extend from the soft tissues of the superior right true pelvis into the abdomen measuring up to approximately 15.8 cm with some small to moderate volume mildly complex ascites.
s/p US guided biopsy of mass on 01/23. Pathology report showing only hematoma
-
MRI abdomen/pelvis 01/28 showing large complex cystic mass originating from the left ovary measuring 20.5 x 8.3 x 15.0 cm, also shows right ovarian hemorrhagic cyst
Chest xray 01/27/25: Stable appearance of the right basilar pigtail chest tube. No discrete pneumothorax. Small bilateral pleural effusions with bibasilar atelectasis, similar to prior.
Chest xray 01/29/25
Interval removal of right pleural pigtail catheter.
Well-defined linear interface projecting over the lateral aspect of the right upper hemithorax. This could represent a small right pneumothorax, although could possibly also represent an overlying skinfold. Advise radiographic follow-up.
Assessment
�
Plan�
Acute inpatient rehab with PT/OT/SW/RN/psychology to increase independence with ADLs, improve balance, coordination, endurance, strength, mobility, community reintegration, decreased burden of care on others and family education.��
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 CA 19-9 level of 60.3K. CEA 165 (WNL), CA 27-29 elevated at 900, CA125 level 18,000. THERAPEUTIC DIETITIAN and oncology-Dr. Krause,recommend return for elective resection of ovarian mass not during this admission.Planning
discharge to SNF for therapy to optimize her functional status prior to surgery.she has considered palliative care and would like more information from the palliative care team at this point
Acute hypoxic respiratory failure: with right hemothorax s/p CT placement-improved. Patient comfortable on room air
Acute on chronic Anemia: Required transfusions- 3PRBC. coagulopathy secondary to DOAC +/-shock liver so clotting factor production may be reduced-s/p 4FFP, vitamin K - Hgb - 9.6
Leukocytosis without fever: Chest x-ray with no new pneumonia/loculated effusion, low concern of infection. Possible source of pulmonary versus malignancy�added empiric Unasyn. Consider ID for recommendation prior to discharge.
Hypovolemic shock: Suspect bleeding in abdomen due to ovarian malignancy, possibly hemothorax-resolved
Hyperkalemia: Resolved. Driven from acidosis and mild JULY.
Hepatic transaminitis- suspect shock liver-resolved. LFTs continue to trend down. Lipitor- on hold
CVA:May 2024 with no residual right wrist numbness which resolved on its own. States was not considered a TIA. posterolateral left frontal lobe old infarct
HTN: metoprolol 25mg daily, lisinopril 5 mg daily, hydralazine 10 mg IV every 4 as needed
HLD: Atorvastatin 40 bedtime- on hold due to LFTs
Elevated troponin: Likely type II in setting of respiratory failure, hemothorax, anemia and mass. Patient has been declining certain therapies
Sinus tachycardia�Toprol XL increased to 50/day by cardiology
JULY with hyperkalemia:
Thrombocytopenia: Continue to monitor. With platelets less than 50,000 recommend keeping therapies to bedside. If platelets less than 20,000 will use further caution with activity levels and hold therapy for platelets less than 10,000.��
Psych/anxiety: Psychology consult. Lorazepam 0.5 mg twice daily as needed monitor mood, adjust medications as needed.��
Skin: monitor for pressure sores/rashes/lesions.��
FEN:�Regular diet.��
Pain: acetaminophen or oxycodone 2.5mg every 4 as needed.��
Bowel: Colace and Senna, PRN bisacodyl.��
Bladder/urinary retention: Time void, PVRs, PRN straight cath.��Flomax 0.4 mg daily
GI Prophylaxis: Pantoprazole��
H/O DVT LLE: Mechanical and Eliquis. 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
Pulmonary: Incentive spirometry��
Safety: Continue to reinforce assistance with all transfers.��
Code Status:� DNR��
Dispo�(date/plan/equipment needs): Home with family care.��
�
�
Discharge disposition: Acute inpatient rehabilitation once all testings and necessary consults and recommendations have been completed and patient has been medically cleared
Summary recommendation: independent patient with deconditioning, ambulatory dysfunction secondary to pelvic mass complicated by anemia, acute respiratory failure, tachycardia during hospitalization would benefit from acute inpatient rehabilitation
for PT/OT/SW/RN/psychology to increase independence with ADLs, improve balance, coordination, endurance, strength, mobility, community reintegration, decreased burden of care on others and family education in anticipation of possible surgery in the
future.�
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 Biopsies inconclusive of malignancy. CA 19-9 level of 60.3K. CEA 165 (WNL), CA 27-29 elevated at 900, CA125 level 18,000. THERAPEUTIC DIETITIAN and oncology-Dr. Krause,recommends return for elective resection of ovarian mass
not during this admission. Palliative care consulted but Patient is uncertain about her goals of care as there is no official diagnosis. She would like to get stronger and resume some of the thing she likes, like the library and reading.
Leukocytosis without fever: Chest x-ray with no new pneumonia/loculated effusion, low concern of infection. Possible source of pulmonary versus malignancy�added empiric Unasyn
Abnormal chest Xray- 01/29/25. Well-defined linear interface projecting over the lateral aspect of the right upper hemithorax. This could represent a small right pneumothorax, although could possibly also represent an overlying skinfold. Advise
radiographic follow-up. Repeat imaging prior to discharge.
Sinus tachycardia�Toprol XL increased to 50/day by cardiology. Patient still tachy when seen with HR up 134 in bed talking. HR and BP to be better controlled prior to discharge
HTN: BP to be under control for at least 24 hours on PO regimen prior to discharge
Bowel: Colace and Senna, PRN bisacodyl.��
Bladder/urinary retention: Time void, PVRs, PRN straight cath.��Flomax 0.4 mg daily. Voiding but requires straight cath
Psych/anxiety/Depression: Psychology consult. Lorazepam 0.5 mg twice daily as needed. Could add Lexapro to regimen. monitor mood, adjust medications as needed.��
Thank you for allowing me to participate in the care of this patient.

Documented by User: Andrea Huizar MD 02/01/25 22:41
Consultation - Medical
-
Referral: Joseph Horner
Chief Complaint:�Debility, pelvic Mass
�
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
admission, with questionable rib fracture) presenting to the emergency department with nausea vomiting and lower quadrant abdominal pain. Found to be hyperglycemic treated with insulin drip for DKA protocol, CT scan showed large abdominal mass
complex 15 cm and ascites. Within 24 hours, she became dyspneic garry and her hemoglobin had dropped to 5.5. Repeat CT scan showed ascites fluid with right chest large volume pleural effusion. She developed hemothorax and needed urgent right chest
tube and multiple transfusions due to hemothorax and intra-abdominal bleeding related to right ovarian mass. No GI blood loss reported. Continue following hemoglobin with transfusion for less than 7. On 01/20, cytopathology negative for malignant
cells, chest tube removed 01/28. Per CT surgeon, no surgical indication. CTA of the chest did not show any new finding explaining patient hemothorax. Repeat chest x-ray 01/29 showed possible minimal right-sided pneumothorax that could post possibly
BX can follow-up, will repeat chest x-ray as needed is respiratory status worsened.
Seen by hematology�size of mass and CEA elevation concerning for malignancy. Cystadenoma also possibility. Recommended biopsy to establish both primary and the metastatic's status. If no mets then would anticipate surgical resection.
US guided biopsy of mass on 01/23. Pathology report showing only hematoma. OB/Guynn/oncology. Dr. Krause,recommends return for elective resection of ovarian mass not during this admission.Planning discharge to SNF for therapy to optimize her
functional status prior to surgery.she has considered palliative care and would like more information from the palliative care team at this point.
Cardiology was consulted for elevation of troponin. Patient denied chest pain. Elevation suspected to be type II IA from hypovolemia and tachycardia. Troponin peaked at 3.5. With ongoing bleeding issue cannot be started on any
antiplatelets/heparin products. TTE showed preserved EF cardiology following and no further intervention warranted at this time.
Experience urinary retention with Ramirez catheter placement on 01/26 and removed 01/30, unable to void spontaneously and has required intermittent straight cathing. She was started on Flomax. And is now voiding spontaneously although relatively low
volumes. She does not want any further straight catheter or Ramirez. Renal function has been normal, no sonographic evidence of hydronephrosis.
�
Past Medical History:�CVA�left, factor V Leiden, right breast cancer status post lumpectomy 2009, status post radiation.) (DVT-LLE)
Procedure History:��Right breast lumpectomy 2009.
Family History:�����Daughter�breast cancer at 45����������
�
Social History:��
Functional Level Premorbidly:�Independent with all activities��
Functional Level at Previous Facility: Bed mobility�min assist, transfers�min assist, ambulated 14 feet x 2 with rolling walker and min assist of 1 for safety and line management with generalized fatigue and encouragement to progress, grooming set
up, lower extremity self-care�mod assist,
�
Tobacco:�Denies all��
Alcohol:�Denies��
Drug use:�Denies��
�
Lives With:�Alone
24-hour assistance available:��no
Number of floors:2��, split-level house
# steps to enter:�through garage 1 step and the front 1 step from curb then 1 to landing then 1 to front door
# steps to second floor:��4 steps up to kitchen level, 6 steps up to bedroom
Potential First Floor Set Up:��No
Driving:��yes
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
Allergies:�
Allergy/AdvReac Type Severity Reaction Status Date / Time
adhesive Allergy Rash Verified 05/23/24 20:00
erythromycin base Allergy Nausea Verified 05/23/24 20:00
�
�
Review of Systems:��
Constitutional: (x) abNormal _fatigued
Eye: (x) Normal _
Ear/Nose/Throat: (x) Normal _
Respiratory: (x) Normal _
Cardiovascular: (x) abNormal _hypotension, elevated troponin,
Gastrointestinal: (x) abNormal _large pelvic mass, nausea
Genitourinary: (x) Normal _
Musculoskeletal: (x) Normal _
Integumentary: (x) Normal _
Neurologic: (x) Normal _
Psychiatric: (x) abNormal _grieving, depressed, anxious- lost 3 years ago
Endocrine: (x) Normal _
Hematologic/Lymphatic: (x) abNormal _anemia, actor V Leiden heterozygote
Allergic/Immunologic: (x) Normal _
�
Medications:��
Active Current Visit Medication List
Category Date Time Status
Acetaminophen [Tylenol] Med 01/25/25 04:48 Active
500 mg PO Q4HPRN PRN
Ampicillin/Sulbactam 3 G [Unasyn] 3 gm Med 01/26/25 12:00 Active
0.9% Sodium Chloride 100 ml [Nss] 100 ml
IV Q6H
Atorvastatin [Lipitor] Med 01/18/25 23:31 Hold
40 mg PO HS
Clotrimazole [Lotrimin 1% Cream] Med 01/27/25 12:00 Active
See Dose Instructions TOPICAL BID
Dextrose 50%-Water [Dextrose 50% Syringe] Med 01/19/25 23:00 Active
12.5 grams IV [id number] PRN
Dicyclomine [Bentyl] Med 01/25/25 13:05 Active
10 mg PO QIDPRN PRN
Flush (0.9% Sodium Chloride) [Flush (Nss)] Med 01/18/25 22:00 Active
See Dose Instructions IV PER PROTOCOL
Glucagon [GlucaGen] Med 01/19/25 23:00 Active
1 mg IM PRN PRN
HydrALAZINE [Apresoline] Med 01/23/25 15:57 Active
10 mg IV Q4HPRN PRN
Lisinopril [Zestril] Med 01/26/25 08:00 Active
5 mg PO DAILY
Lorazepam [Ativan] Med 01/26/25 10:23 Active
0.5 mg PO BIDPRN PRN
Metoprolol Xl [Toprol Xl] Med 01/26/25 08:00 Active
50 mg PO DAILY
Ondansetron Injectable [Zofran] Med 01/18/25 23:31 Active
4 mg IV Q6HPRN PRN
Oxycodone [Roxicodone] Med 01/26/25 13:04 Active
2.5 mg PO Q4HPRN PRN
Oxycodone [Roxicodone] Med 01/26/25 13:04 Active
5 mg PO Q4HPRN PRN
Sennosides [Senokot] Med 01/30/25 08:00 Active
8.6 mg PO BID
Tamsulosin [Flomax] Med 01/30/25 13:00 Active
0.4 mg PO DAILY
�
Vitals:��
Temp Pulse Resp BP Pulse Ox
98.0 F 114 26 157/65 98
02/01/25 03:05 02/01/25 07:22 02/01/25 07:03 02/01/25 07:22 02/01/25 07:54
Height 5 ft 7 in
Actual Weight 66.95 kg
Body Mass Index (BMI) 23.1
�
Physical Exam:��
General Appearance/Observation: Well-developed, well-nourished female in no apparent distress.��
Pain/Comfort Assessment: Denies��
Mood/Affect: calm, pleasant, apprehensive
�
Integumentary/Operative Site:��
�� Pressure Ulcer evaluation: absent over heels���
�
Eyes: Conjunctiva/Lids: normal���� Pupils: pupils equal round and reactive to light
Ears/Nose/Throat: oral mucosa moist,� throat clear.�������������Lips/Teeth/Gums: normal��
Cardiovascular: Heart: regular, no murmur��
Pulses: dorsalis pedis 2+ bilaterally��
Respiratory: Respiratory Effort/Chest Expansion: normal.�������Auscultation: Clear to auscultation bilaterally��
Gastrointestinal: abdomen with mild rlq tender, distension, normal abdominal bowel sounds
Genitourinary: No Ramirez��
Extremities:�Edema: None�Cyanosis: None�Trophic�changes: None
��
Neurology Exam:
Orientation: Alert, Oriented to self, Time, Place��
Memory: Intact for immediate medical concerns
Comprehension: Intact
Two step command: Intact
Naming: Intact
Cranial Nerves:
�� CNII:�Pupillary light reflex: Intact����
�� CN III, IV, : Extraocular muscles: Intact��
�� CN V:�Facial Sensation�at�Forehead: Intact ,�Maxilla: Intact,�Mandible: Intact
�� CN VII:�Facial movement: Symmetric
�� CN VIII:�Hearing: Normal
�� CN IX/X:�Speech & swallow: Normal�Position of Uvula: Midline
�� CN XI:�Shoulder shrug: Symmetric
�� CN XII:�Tongue protrusion: Midline
Sensory:
�� Light touch: Intact in bilateral upper and lower extremities
��
Reflexes:
�� Biceps: 2+ bilaterally
�� Brachioradialis: 2+ bilaterally
�� Triceps: 2+ bilaterally
�� Patellar: 3+ bilaterally
�� Achilles: 3+ bilaterally
�� Babinski: Downgoing bilaterally
�� Clonus: None
�� Marichuy: Negative bilaterally��
Cerebellar: Dysmetria/Ataxia: None��
Musculoskeletal: Motor: (Manual muscle scale 0-5)��
Muscle SA EF WE EE FF FA HF KE DF EHL PF
Right� 5 5 5 5 5 5 4 5 5 5 5
Left 5 5 5 5 5 5 4 5 5 5 5
�
Tone: Normal in all extremities��
Range of Motion: Passively within normal limits in all extremities��
�
Lab Results:��
Labs
WBC 18.9 10^3/uL (4.8-10.8) H 01/31/25 04:33
RBC 3.38 10^6/uL (4.20-5.40) L 01/31/25 04:33
Hgb 9.6 g/dL (12.0-16.0) L 01/31/25 04:33
Hct 28.9 % (37.0-47.0) L 01/31/25 04:33
MCV 85.5 fL (81.0-99.0) 01/31/25 04:33
MCH 28.4 pg (27.0-31.0) 01/31/25 04:33
MCHC 33.2 g/dL (33.0-37.0) 01/31/25 04:33
RDW 15.0 % (11.5-14.5) H 01/31/25 04:33
Plt Count 396 10^3/uL (130-400) 01/31/25 04:33
MPV 10.3 fL (7.4-10.4) 01/31/25 04:33
Abs Immat Gran (auto) 0.2 10^3/uL (0-0.05) H 01/31/25 04:33
Absolute Neuts (auto) 15.9 10^3/uL (1.4-6.5) H 01/31/25 04:33
Absolute Lymphs (auto) 1.1 10^3/uL (1.2-3.4) L 01/31/25 04:33
Absolute Monos (auto) 1.3 10^3/uL (0.1-0.6) H 01/31/25 04:33
Absolute Eos (auto) 0.3 10^3/uL (0-0.7) 01/31/25 04:33
Absolute Basos (auto) 0.1 10^3/uL (0-0.2) 01/31/25 04:33
CBC Comment Cancelled 01/20/25 06:00
Immature Gran % 1.0 % (0-0.5) H 01/31/25 04:33
Neutrophils % 84.1 % (42.2-75.2) H 01/31/25 04:33
Lymphocytes % 6.0 % (20.5-51.1) L 01/31/25 04:33
Monocytes % 7.1 % (1.7-9.3) 01/31/25 04:33
Eosinophils % 1.5 % (0-6) 01/31/25 04:33
Basophils % 0.3 % (0-2) 01/31/25 04:33
Nucleated RBC % 0 % 01/31/25 04:33
PT 16.0 Sec (11.4-14.6) H 01/28/25 10:57
INR 1.25 01/28/25 10:57
APTT 26.9 Sec (23.4-35.0) 01/28/25 10:57
Fibrinogen 369 MG/DL (199-459) 01/20/25 16:11
VBG pH 7.42 (7.32-7.43) 01/21/25 03:59
VBG pCO2 41 mmHg (35-48) 01/21/25 03:59
VBG pO2 83 mmHg (30-50) H 01/21/25 03:59
VBG HCO3 26.6 mmol/L (22-27) 01/21/25 03:59
VBG O2 Sat (Natasha) 98.8 % 01/21/25 03:59
VBG Base Excess 1.9 mmol/L (-4 to +4) 01/21/25 03:59
VBG O2 Therapy 01/21/25 03:59
Sodium 132 mmol/L (135-145) L 01/31/25 04:33
Potassium 3.8 mmol/L (3.5-5.1) 01/31/25 04:33
Chloride 100 mmol/L (98-107) 01/31/25 04:33
Carbon Dioxide 25 mmol/L (22-30) 01/31/25 04:33
BUN 10 mg/dl (7-17) 01/31/25 04:33
Creatinine 0.7 mg/dL (0.6-1.0) 01/31/25 04:33
Estimated Creat Clear 64 ml/min 01/31/25 04:33
eGFR > 60.00 01/31/25 04:33
Glucose 89 mg/dl (70-99) 01/31/25 04:33
Hemoglobin A1c 5.6 % (4.0-5.6) 01/18/25 13:16
Calcium 8.1 mg/dl (8.4-10.2) L 01/31/25 04:33
Phosphorus 2.7 mg/dl (2.5-4.5) 01/22/25 03:22
Magnesium 2.2 mg/dl (1.6-2.3) 01/22/25 03:22
Total Bilirubin 1.3 mg/dl (0.2-1.3) 01/29/25 05:13
Direct Bilirubin 0.3 mg/dl (0.0-0.4) 01/24/25 05:28
AST 41 U/L (14-36) H 01/29/25 05:13
ALT 103 U/L (0-35) H 01/29/25 05:13
Alkaline Phosphatase 166 U/L (38-126) H 01/29/25 05:13
Lactate Dehydrogenase 3020 U/L (120-246) H 01/21/25 03:59
Troponin I Cancelled 01/21/25 23:45
C-Reactive Protein 7.80 mg/L (0.0-10.00) 01/18/25 13:16
Tmi-D-Rsokyfkgwrq Pept 887 pg/ml 01/24/25 10:48
Total Protein 4.9 g/dl (6.3-8.2) L 01/29/25 05:13
Albumin 2.2 g/dl (3.5-5.0) L 01/29/25 05:13
Lipase 135 U/L (23-300) 01/18/25 13:16
Carcinoembryonic Ag 165 ng/ml 01/18/25 21:22
CA 19-9 Antigen 87511 U/mL (<=35) H 01/18/25 21:22
CA 27-29 908.7 U/mL (<=39.0) H 01/19/25 04:24
CA 125 Antigen Cancelled 01/19/25 06:00
Urine Color Yellow 01/21/25 20:35
Urine Clarity Clear (Clear) 01/21/25 20:35
Urine pH 6.0 (5.0-9.0) 01/21/25 20:35
Ur Specific [place] 1.015 (<1.030) 01/21/25 20:35
Urine Ketones 1+ (Negative) A 01/21/25 20:35
Ur Occult Blood Reflex 4+ (Negative) A 01/21/25 20:35
Urine Nitrite (Reflex) Negative (Negative) 01/21/25 20:35
Urine Bilirubin Negative (Negative) 01/21/25 20:35
Urine Urobilinogen Negative (Neg - 1+) 01/21/25 20:35
Leukocyte Esterase Rfl 3+ (Negative) A 01/21/25 20:35
Urine RBC 7-10 /HPF (0-2) A 01/21/25 20:35
Urine WBC (Reflex) 80-90 /HPF (0-5) A 01/21/25 20:35
Ur Squamous Epith Cells 6-10 /LPF (Few) 01/21/25 20:35
Urine Bacteria (Reflex) Moderate (Negative) A 01/21/25 20:35
Urine Glucose Negative (Negative) 01/21/25 20:35
Urine Albumin (Reflex) 2+ (Neg - Trace) A 01/21/25 20:35
Fluid WBC 49214 /CUMM 01/22/25 13:23
Fluid Hematocrit 5.0 % 01/20/25 17:40
Fluid Mononuclear Cell 20.2 % 01/22/25 13:23
Fl Polymorphonucl Cell 79.8 % 01/22/25 13:23
Fluid Other Cells Not Reportable 01/22/25 13:23
Fluid Diff Path Review Not Reportable 01/22/25 13:23
Fluid Total Protein 3.9 g/dl 01/22/25 13:20
Fluid LDH 4258 U/L 01/22/25 13:20
Fluid Triglycerides < 30 mg/dl 01/22/25 13:20
Random Vancomycin 10.5 ug/ml 01/21/25 03:59
B-Hydroxybutyrate 0.36 mmol/L (0.02-0.27) H 01/18/25 13:16
POC Glucose 79 mg/dl (70-99) 01/23/25 12:36
Blood Type O POS 01/20/25 09:31
Blood Type Confirm O POS 01/20/25 11:59
Antibody Screen Negative (Negative) 01/20/25 09:31
Crossmatch IS Only See Detail 01/20/25 09:31
Diagnostic Results: As per HPI��
CT abdomen pelvis:complex 'mass' extend from the soft tissues of the superior right true pelvis into the abdomen measuring up to approximately 15.8 cm with some small to moderate volume mildly complex ascites.
s/p US guided biopsy of mass on 01/23. Pathology report showing only hematoma
-
MRI abdomen/pelvis 01/28 showing large complex cystic mass originating from the left ovary measuring 20.5 x 8.3 x 15.0 cm, also shows right ovarian hemorrhagic cyst
Chest xray 01/27/25: Stable appearance of the right basilar pigtail chest tube. No discrete pneumothorax. Small bilateral pleural effusions with bibasilar atelectasis, similar to prior.
Chest xray 01/29/25
Interval removal of right pleural pigtail catheter.
Well-defined linear interface projecting over the lateral aspect of the right upper hemithorax. This could represent a small right pneumothorax, although could possibly also represent an overlying skinfold. Advise radiographic follow-up.
Assessment
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
found in DKA, noted with large abdominal mass complex 15 cm and ascites, anemia from intra-abdominal bleeding from right ovarian mass requiring transfusion, right chest large volume pleural effusion. She developed hemothorax and needed urgent right
chest tube, cytopathology negative for malignant cells
Plan�
Acute inpatient rehab with PT/OT/SW/RN/psychology to increase independence with ADLs, improve balance, coordination, endurance, strength, mobility, community reintegration, decreased burden of care on others and family education.��
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 CA 19-9 level of 60.3K. CEA 165 (WNL), CA 27-29 elevated at 900, CA125 level 18,000. THERAPEUTIC DIETITIAN and oncology-Dr. Krause,recommend return for elective resection of ovarian mass not during this admission.Planning
discharge to SNF for therapy to optimize her functional status prior to surgery. She has considered palliative care because she saw how her suffered over the years with his cancer. Discussed finding out more about the biopsy results with
prognosis and course of treatment suggested. She would like more information from the palliative care team at this point
Acute hypoxic respiratory failure: with right hemothorax s/p CT placement-improved. Patient comfortable on room air
Acute on chronic Anemia: Required transfusions- 3PRBC. coagulopathy secondary to DOAC +/-shock liver so clotting factor production may be reduced-s/p 4FFP, vitamin K - Hgb - 9.6
Leukocytosis without fever: Chest x-ray with no new pneumonia/loculated effusion, low concern of infection. Possible source of pulmonary versus malignancy�added empiric Unasyn. Consider ID for recommendation prior to discharge.
Hypovolemic shock: Suspect bleeding in abdomen due to ovarian malignancy, possibly hemothorax-resolved
Hyperkalemia: Resolved. Driven from acidosis and mild JULY.
Hepatic transaminitis- suspect shock liver-resolved. LFTs continue to trend down. Lipitor- on hold
CVA:May 2024 with no residual right wrist numbness which resolved on its own. States was not considered a TIA. posterolateral left frontal lobe old infarct
HTN: metoprolol 25mg daily, lisinopril 5 mg daily, hydralazine 10 mg IV every 4 as needed
HLD: Atorvastatin 40 bedtime- on hold due to LFTs
Elevated troponin: Likely type II in setting of respiratory failure, hemothorax, anemia and mass. Patient has been declining certain therapies
Sinus tachycardia�Toprol XL increased to 50/day by cardiology
JULY with hyperkalemia:
Psych/anxiety: Psychology consult. Lorazepam 0.5 mg twice daily as needed monitor mood, adjust medications as needed.��
Skin: monitor for pressure sores/rashes/lesions.��
FEN:�Regular diet.��
Pain: acetaminophen or oxycodone 2.5mg every 4 as needed.��
Bowel: Colace and Senna, PRN bisacodyl.��
Bladder/urinary retention: Time void, PVRs, PRN straight cath.��Flomax 0.4 mg daily
GI Prophylaxis: Pantoprazole��
H/O DVT LLE: Mechanical and Eliquis. US 3/3 chronic occlusive thrombus within the left femoral vein
Pulmonary: Incentive spirometry��
Safety: Continue to reinforce assistance with all transfers.��
Code Status:� DNR��
Dispo�(date/plan/equipment needs): Home with family care.��
Discharge disposition: Acute inpatient rehabilitation once all testings and necessary consults and recommendations have been completed and patient has been medically cleared
Attending Statement:
I saw and examined the patient today. Reviewed care plan with patient, therapy, nursing, and physician pediatric medical assistant. I agree with the above subjective and physical exam, and plan as documented by ROSA Contreras with adjustments made as necessary. A
total of 60 minutes were spent with the patient preparing for the evaluation, obtaining history, performing examination and evaluation, counseling, data review, case management, care coordination, cost recorder, and EMR documentation.
Summary recommendation: independent patient with deconditioning, ambulatory dysfunction secondary to pelvic mass complicated by anemia, acute respiratory failure, tachycardia during hospitalization would benefit from acute inpatient rehabilitation
for PT/OT/SW/RN/psychology to increase independence with ADLs, improve balance, coordination, endurance, strength, mobility, community reintegration, decreased burden of care on others and family education in anticipation of possible surgery in the
future.�
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 Biopsies inconclusive of malignancy. CA 19-9 level of 60.3K. CEA 165 (WNL), CA 27-29 elevated at 900, CA125 level 18,000. THERAPEUTIC DIETITIAN and oncology-Dr. Krause,recommends return for elective resection of ovarian mass
not during this admission. Palliative care consulted but Patient is uncertain about her goals of care as there is no official diagnosis. She would like to get stronger and resume some of the thing she likes, like the library and reading.
Leukocytosis without fever: Chest x-ray with no new pneumonia/loculated effusion, low concern of infection. Possible source of pulmonary versus malignancy�added empiric Unasyn
Abnormal chest Xray- 01/29/25. Well-defined linear interface projecting over the lateral aspect of the right upper hemithorax. This could represent a small right pneumothorax, although could possibly also represent an overlying skinfold. Advise
radiographic follow-up. Repeat imaging prior to discharge.
Sinus tachycardia�Toprol XL increased to 50/day by cardiology. Patient still tachy when seen with HR up 134 in bed talking. HR and BP to be better controlled prior to discharge
HTN: BP to be under control for at least 24 hours on PO regimen prior to discharge
Bowel: Colace and Senna, PRN bisacodyl.��
Bladder/urinary retention: Time void, PVRs, PRN straight cath.��Flomax 0.4 mg daily. Voiding but requires straight cath
Psych/anxiety/Depression: Psychology consult. Lorazepam 0.5 mg twice daily as needed. Could add Lexapro to regimen. monitor mood, adjust medications as needed.��
Thank you for allowing me to participate in the care of this patient.
--- NOTE | 2025-02-01 13:37 | CM ---
Patient with Dx pelvic mass, urinary retention, Acute hypoxic respiratory failure, Right-sided hemothorax (resolved), anemia. Room air. Receiving IV Abx. Last seen by PT/OT 01/29; recommended SNF. Physiatry recommends acute rehab. Per nurse
assessment: A/O.
Spoke with [facility]; they are able to accept the patient and their first availability would be 02/05. José is aware that daughter only wants [facility].
Met with patient who was sleeping.
Spoke with daughter Elizabeth by phone; provided update that patient is accepted by [facility] however they will not have an available bed until 02/05. Offered daughter option of other [facility] or other acute rehab such as
[place] or [facility]. Daughter prefers patient wait and go to [facility].
Case discussed with Dr Bassam Elise.
Plan [facility] 02/05 when bed available.
--- NOTE | 2025-02-01 16:47 | W.PN.HOSP.TC ---
Today's Communication/Plan
-
Assessment / Plan
Assessment / Plan
Gen-AAOx3, NAD
HEENT-NC, AT, anicteric, clear oral mm
Neck-supple
CV-reg, no M, +S1/S2
Lungs-clear B/L
Abd-soft, NT, palpable lower abdominal mass
Musculoskeletal-no edema, no deformity
Skin-warm and dry
Neuro-grossly non-focal
Psych-calm, cooperative, overwhelmed
Ms. Golden is a 79-year-old female with a medical history of breast cancer (diagnosed 2013, status postlumpectomy and radiation), factor V Leiden mutation carrier, and history of DVT (on Eliquis) who presented with nausea and vomiting with
associated abdominal bloating. CT imaging revealed a large heterogeneous complex mass appeared to be originating from the right ovary. Labs revealed a gapped acidosis. She was mildly hyperglycemic and had an elevated beta hydroxybutyrate. She
was started on an insulin drip with DKA protocol and admitted for further evaluation and management.
pelvic mass - presumed malignancy
-Hemorrhagic ascites
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
-CA 19-9 level of 60.3K. CEA 165 (WNL), CA 27-29 elevated at 900, CA125 level 18,000
-Paracentesis of 10 mL fluid showing hemorrhagic peritoneal fluid. Cytopathology surprisingly not showing any cancer cells.
-s/p US guided biopsy of mass on 01/23. Pathology report showing only hematoma
-MRI abdomen/pelvis 01/28 showing large complex cystic mass originating from the left ovary measuring 20.5 x 8.3 x 15.0 cm, also shows right ovarian hemorrhagic cyst
-CLINICAL ASST and oncology input noted and appreciated
-Input from Dr. Krause reviewed, recommend return for elective resection of ovarian mass not during this admission
-Planning discharge to SNF for therapy to optimize her functional status prior to surgery
-Patient's spirits are low and she is overwhelmed with the gravity of her situation and possible treatment options, she is not yet set on any particular course of action at this point other than rehabilitation to improve her functional status, she
has considered palliative care and would like more information from the palliative care team at this point, she is also going to speak with her outpatient therapist to help her sort through some of this complexity
-Will give a lab holiday for now unless urgently indicated
-Awaiting acute rehab placement
Urinary retention
-mathis catheter placed on 01/26 and removed 01/30, now voiding spontaneously
-Continue Flomax
-Renal function has been normal, no sonographic evidence of hydronephrosis
-Will continue to monitor for now
Acute hypoxic respiratory failure
-Secondary to right-sided hemothorax is now resolved
-Patient had been requiring high flow oxygen, 30L/min, now weaned to room air intermittently
-Patient is s/p chest tube placement on 01/20, cytopathology neg for malignant cells, chest tube removed 01/28
-CT surgeon evaluated and no surgical indication
-CTA chest did not show any new finding explaining patient hemothorax.
-Repeat chest x-ray 01/29 showed possible minimal right-sided pneumothorax that could possibly be a skinfold, will repeat chest x-ray as needed if respiratory status worsens
-Remains comfortable and saturating appropriately on room air, repeat chest x-ray shows small bilateral pleural effusions
Acute blood loss anemia
-Currently stable, status post transfusion 3 units PRBCs and 4 units FFP this admission
-Due to hemothorax and intra-abdominal bleeding related to right ovarian mass
-No GI blood loss reported
-Continue following hemoglobin with transfusion for less than 7
-Avoid necessary blood draws
Troponin elevation
-Denies any chest pain.
-Suspected type II IL from hypovolemia and tachycardia. Trop peaked at ~ 3.5
-With ongoing bleeding issue cannot be started on any antiplatelets/heparin product
-TTE showed preserved EF
-Cardiology following and no further intervention warranted at this point.
Hyponatremia
-Mild, clinically insignificant
-Will monitor
JULY -resolved
Metabolic acidosis -resolved
-JULY likely related to hypovolemia/hypotension and need of contrast for CT scan
-Patient had mild anion gap metabolic acidosis likely with JULY and malignancy related
-Avoid nephrotoxic medication and monitor
Hyperkalemia -resolved
-driven from acidosis and mild july
Hypovolemic shock - resolved
-Required IVF/support of vasopressor
Chronic left femoral vein thrombus
History of factor V Leiden mutation
-Peripheral vascular ultrasound report reviewed
-No anticoagulation considering hemothorax
Leukocytosis without fever - Improving
-Patient continued to have elevated white blood cell.
-Chest x-ray done and no new pneumonia/loculated effusion, low concern of infection
-Possible source of pulmonary versus malignancy - added empiric unasyn -to cover non MDR gram-negative and anerobic organisms, today is day 4 antibiotics
Shock liver - Resolved
-LFT continue to trend down
-Lipitor/Tylenol on hold
Sinus tachycardia
-monitor on tele
-Toprol-XL has been increased to Toprol-XL 50/d by cards.
CODE STATUS: DNR
Anticipated Discharge: 24 - 48 hours
Subjective/Interval History
-
Date of Service: February 01, 2025
Patient was seen and examined at bedside this morning. Continues to feel very anxious at night. Otherwise pain-free and breathing comfortably. Awaiting rehab placement.
Objective Data
-
Labs:
Laboratory Results
02/01/25
06:00
WBC Cancelled
Hgb Cancelled
Hct Cancelled
Plt Count Cancelled
Sodium Cancelled
Potassium Cancelled
Chloride Cancelled
Carbon Dioxide Cancelled
BUN Cancelled
Creatinine Cancelled
Glucose Cancelled
Calcium Cancelled
Vital Signs:
Vital Signs
Temp Pulse Resp BP Pulse Ox
98.7 F 117 26 158/61 94
02/01/25 11:57 02/01/25 12:00 02/01/25 12:00 02/01/25 12:00 02/01/25 12:00
I&O
01/31/25 02/01/25 02/02/25
06:59 06:59 06:59
Intake Total 520 / 520 730 / 730
Output Total 1900 / 1900 2110 / 2110 500 / 500
Balance -1380 / -1380 -1380 / -1380 -500 / -500
Review of Systems
-
History Source: Patient
All other systems: Reviewed and negative
Physical Exam
-
General: No Apparent Distress
[2025-02-02] VITALS (14 sets, daily range): BP systolic 112–152; BP diastolic 39–73
[2025-02-02] MEDS: UNASYN IV ×2 (00:57→06:16)
--- NOTE | 2025-02-02 02:09 | PTCARENOTE ---
Addendum entered by Maureen Carvalho RN 02/02/25 07:19:
PT refusing bladder scan and straight cath until this AM. See work list for amounts.
Original Note:
Assumed care of Pt from Day RN. Pt was willing to allow bladder scan around 1999 showing 280. Pt refusing next q4 BS, RN and Pt came up with a plan to BS after a hot cup of tea. Pt stating the hot cup of tea is what she does at home to help and
'that is what my body knows'. Pt making this RN aware that she will not be getting a Ramirez ever again. Emotional support given. With all going on Pt seemed very talkative and engaged in conversations. Call swift within reach. Assessment vitals and
care as charted.
[2025-02-02] MEDS: TYLENOL 500 MG PO (04:10)
[2025-02-02] MEDS: ATIVAN 0.5 MG PO ×2 (04:20→18:32)
[2025-02-02] MEDS: SENOKOT 8.6 MG PO (08:50)
[2025-02-02] MEDS: LOTRIMIN 1% CREAM 1 APPLIC TOPICAL ×2 (08:50→20:55)
[2025-02-02] MEDS: FLOMAX 0.4 MG PO (08:51)
[2025-02-02] MEDS: ZESTRIL 5 MG PO (08:51)
[2025-02-02] MEDS: TOPROL XL 50 MG PO (08:51)
--- NOTE | 2025-02-02 10:16 | CON.ID ---
Consultation
-
Date/Time Consultation Requested: 02/02/25 9:04
Date/Time Consultation Performed: 02/02/25 10:19
Requesting Provider: Dr Rodriguez
Performing Provider: Dr Candelaria
Reason for Consultation: Persistent leukocytosis, tachycardia
Chief Complaint / Past History
Chief Complaint
abdominal pain, nausea, vomiting
History of Present Illness
Ms Golden is a 80 year old female with history of stage 1 right breast cancer s/p lumpectomy/radiation 2013, factor 5 leiden mutation, who presented here a little over two weeks ago for nausea, vomiting and lower abdominal pain which was sudden
onset, with bilious, nonbloody emesis. The pain does not radiate. No diarrhea or constipation. No fevers or chills. No chest pain or shortness of breath however patient did syncopize post vomiting.
On arrival here she was afebrile, 100/60, pulse of 95, and saturating 100% on room air. Troponin was 0.012, ECG showed normal sinus rhythm at a rate of 99. She had a white count of 22,000 with a left shift and hemoglobin of 13.9 and a platelet of
287. Blood glucose was 170. Sodium 130 potassium 4.5 chloride 100 and bicarb 18 she had a normal BUN and creatinine of 15 and 0.8. LFTs were normal. Lipase was normal. Beta-hydroxybutyrate was elevated at 0.36. She was started on an insulin
drip
CT abdomen pelvis: Extremely large heterogeneous complex 'mass' appearing to extend from the soft tissues of the superior right true pelvis into the abdomen measuring up to approximately 15.8 cm with some small to moderate volume mildly complex
ascites. 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 Exophytic uterine mass would be less likely. Other etiology such as a mass of other origin or large hematoma would also be less likely.
CA 19-9 level of 60.3K. CEA 165 (WNL), CA 27-29 elevated at 900, CA125 level 18,000. Paracentesis of 10 mL fluid showing hemorrhagic peritoneal fluid. Cytopathology no cancer cells.
CT chest 01/20 - large right sided pleural effusion - she became short of breath requiring O2 and hypotensive, she was transferred to the ICU. She underwent chest tube placement 01/20/25 and was found to have spontaneous hemothorax. Cytopathology
negative for malignant cells.
Course also notable for shock liver -resolved
01/23 underwent US guided biopsy of mass - pathology with hematoma. MRI abdomen/pelvis 01/28: large complex cystic mass originating from the left ovary 20.5 x 8.3 x 15.0 cm, also right ovarian hemorrhagic cyst. Dr Krause recommended she undergo
optimization at rehab and return for elective resection.
Course has also been notable for urinary retention with mathis placed 01/26, removed 01/30 and now voiding
Has been on unasyn from 01/26-present.
Patient has developed vaginal itching and found to have a yeast infection 01/27.
Today 02/02 patient reports no: fevers, chills, headache, sore throat, postnasal drip, cough, sputum production, nausea, vomiting, diarrhea, new rashes, new joint pains, tenderness over her PICC line, new extremity swelling. She has mild tenderness
over this sacral area but no erythema, wound or blanching skin. She has some nasal stuffiness in the setting of the recent onset of spring. Also a sensation of incomplete bladder emptying.
Past History
Additional Past Medical History:
Right breast cancer status post lumpectomy 2009, status post radiation
Additional Past Surgical History:
Right breast lumpectomy 2010
Allergy History:
adhesive Allergy (Verified 05/23/24 20:00)
Rash
erythromycin base Allergy (Verified 05/23/24 20:00)
Nausea
Medications Reviewed: Yes
Social History
Tobacco: Non-Smoker
Alcohol: None
Drug: None
Family History
Family History: Not Pertinent
Review of Systems
Review of Systems
General: Negative Fever or Chills
All systems: All other systems were reviewed and were negative
Vital Signs
Temp Pulse Resp BP Pulse Ox
99.7 F 102 26 138/55 92
02/02/25 04:10 02/02/25 06:00 02/01/25 12:00 02/02/25 04:00 02/02/25 04:00
Physical Exam
Physical Exam
Constitutional: No Acute Distress
Cardiovascular: Regular Rate and S1/S2; Negative Murmur or Rub
Pulmonary: Clear and Symmetric; Negative Wheezes, Rales or Rhonchi
Gastrointestinal: Soft, Non Tender, Non Distended and Normal Bowel Sounds
Skin: Warm and Dry; Negative Rash or Jaundice
Lab / Diagnostic Study Results
02/01/25 06:00
Abs Immat Gran (auto) 0.2 10^3/uL (0-0.05) H 01/31/25 04:33
Absolute Neuts (auto) 15.9 10^3/uL (1.4-6.5) H 01/31/25 04:33
Absolute Lymphs (auto) 1.1 10^3/uL (1.2-3.4) L 01/31/25 04:33
Absolute Monos (auto) 1.3 10^3/uL (0.1-0.6) H 01/31/25 04:33
Absolute Basos (auto) 0.1 10^3/uL (0-0.2) 01/31/25 04:33
Immature Gran % 1.0 % (0-0.5) H 01/31/25 04:33
Neutrophils % 84.1 % (42.2-75.2) H 01/31/25 04:33
Lymphocytes % 6.0 % (20.5-51.1) L 01/31/25 04:33
Monocytes % 7.1 % (1.7-9.3) 01/31/25 04:33
Eosinophils % 1.5 % (0-6) 01/31/25 04:33
Basophils % 0.3 % (0-2) 01/31/25 04:33
PT 16.0 Sec (11.4-14.6) H 01/28/25 10:57
INR 1.25 01/28/25 10:57
C-Reactive Protein 7.80 mg/L (0.0-10.00) 01/18/25 13:16
Ur Squamous Epith Cells 6-10 /LPF (Few) 01/21/25 20:35
Microbiology Results
Micro:
01/20/25 05:06 Blood Culture - Final
Blood/Venous No Growth - Final Report
01/20/25 17:41 Body Fluid Culture - Final
Pleural Fluid No Growth After 72 Hours
Gram Stain - Final
01/21/25 20:35 Urine Culture - Final
Urine No Significant Growth
Assessment / Plan
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
Minimal Tachycardia - present through most of stay
Persistent leukocytosis
- cultures have been nonrevealing
- 02/01 CXR - L midlung with small area of possible fluid in the fissure vs infiltrate however patient reports no current respiratory symptoms and is on minimal O2
- review of systems today not revealing beyond persistent complaint of urinary retention
- recheck ua reflex to culture
- yeast infection noted - can complete 7 days of clotrimazole, if not resolved then could do a x1 dose of oral fluconazole 150 mg po qday x2; unlikely to cause systemic symptoms
- if UA not revealing then would consider tachycardia and persistent leukocytosis likely related to probable malignancy. In the absence of other focal symptoms, repeating further workup likely low yield.
[2025-02-02 15:37] LABS: Urine Albumin Negative (Neg - Trace); Urine Bilirubin Negative (Negative); Urine Character Clear (Clear); Urine Color Yellow; Urine Glucose Negative (Negative); Urine Ketone Negative (Negative); Urine Leukocyte Negative (Negative); Urine Nitrite Negative (Negative); Urine Occult Blood 1+ (Negative); Urine Specific Gravity 1.005 (<1.030); Urine Urobilinogen Negative (Neg - 1+)
[2025-02-02 15:45] LABS: Urine Red Blood Cell 0-2 /HPF (0-2); Urine Squamous Cell 0-2 /LPF (Few); Urine White Cell 0-2 /HPF (0-5)
[2025-02-02 16:23] LABS: % Basophils 0.5 % (0-2); % Eosinophils 1.7 % (0-6); % Immature Granulocytes 1.1 % (0-0.5); % Lymphocytes 7.5 % (20.5-51.1); % Monocytes 9.6 % (1.7-9.3); % Neutrophils 79.6 % (42.2-75.2); Absolute Basophils 0.1 10^3/uL (0-0.2); Absolute Eosinophils 0.2 10^3/uL (0-0.7); Absolute Immature Granulocytes 0.2 10^3/uL (0-0.05); Absolute Lymphocytes 1.1 10^3/uL (1.2-3.4); Absolute Monocytes 1.4 10^3/uL (0.1-0.6); Absolute Neutrophils 11.3 10^3/uL (1.4-6.5); Hematocrit 26.6 % (37.0-47.0); Hemoglobin 8.8 g/dL (12.0-16.0); Mean Corp Hgb Conc. 33.1 g/dL (33.0-37.0); Mean Corpuscular Hgb 27.7 pg (27.0-31.0); Mean Corpuscular Volume 83.6 fL (81.0-99.0); Mean Platelet Volume 9.7 fL (7.4-10.4); Nucleated Red Blood Cells % 0 %; Platelet Count 538 10^3/uL (130-400); Red Blood Cell Count 3.18 10^6/uL (4.20-5.40); Red Cell Dist. Width 15.2 % (11.5-14.5); White Blood Cell Count 14.2 10^3/uL (4.8-10.8)
--- NOTE | 2025-02-02 17:07 | W.PN.HOSP.TC ---
Today's Communication/Plan
-
Assessment / Plan
Assessment / Plan
Gen-AAOx3, NAD
HEENT-NC, AT, anicteric, clear oral mm
Neck-supple
CV-reg, no M, +S1/S2
Lungs-clear B/L
Abd-soft, NT, palpable lower abdominal mass
Musculoskeletal-no edema, no deformity
Skin-warm and dry
Neuro-grossly non-focal
Psych-calm, cooperative
Ms. Golden is a 79-year-old female with a medical history of breast cancer (diagnosed 2013, status postlumpectomy and radiation), factor V Leiden mutation carrier, and history of DVT (on Eliquis) who presented with nausea and vomiting with
associated abdominal bloating. CT imaging revealed a large heterogeneous complex mass appeared to be originating from the right ovary. Labs revealed a gapped acidosis. She was mildly hyperglycemic and had an elevated beta hydroxybutyrate. She
was started on an insulin drip with DKA protocol and admitted for further evaluation and management.
pelvic mass - presumed malignancy
-Hemorrhagic ascites
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
-CA 19-9 level of 60.3K. CEA 165 (WNL), CA 27-29 elevated at 900, CA125 level 18,000
-Paracentesis of 10 mL fluid showing hemorrhagic peritoneal fluid. Cytopathology surprisingly not showing any cancer cells.
-s/p US guided biopsy of mass on 01/23. Pathology report showing only hematoma
-MRI abdomen/pelvis 01/28 showing large complex cystic mass originating from the left ovary measuring 20.5 x 8.3 x 15.0 cm, also shows right ovarian hemorrhagic cyst
-CIRCULATION CREW LEADER and oncology input noted and appreciated
-Input from Dr. Krause reviewed, recommend return for elective resection of ovarian mass not during this admission
-Planning discharge to SNF for therapy to optimize her functional status prior to surgery
-Patient's spirits are low and she is overwhelmed with the gravity of her situation and possible treatment options, she is not yet set on any particular course of action at this point other than rehabilitation to improve her functional status, she
has considered palliative care and would like more information from the palliative care team at this point, she is also going to speak with her outpatient therapist to help her sort through some of this complexity
-Will give a lab holiday for now unless urgently indicated
-Awaiting acute rehab placement
-Suspect mild persistent leukocytosis and tachycardia secondary to malignancy, doubt ongoing infection
Urinary retention
-mathis catheter placed on 01/26 and removed 01/30, now voiding spontaneously although requiring intermittent straight cath
-Continue Flomax
-Renal function has been normal, no sonographic evidence of hydronephrosis
-Repeat urinalysis unremarkable
-Will continue to monitor off of antibiotics for now
Yeast infection:
-Complete 7 days of topical clotrimazole
-If not resolved after clotrimazole can do 1 dose of oral fluconazole
Acute hypoxic respiratory failure
-Secondary to right-sided hemothorax is now resolved
-Patient had been requiring high flow oxygen, 30L/min, now weaned to room air
-Patient is s/p chest tube placement on 01/20, cytopathology neg for malignant cells, chest tube removed 01/28
-CT surgeon evaluated and no surgical indication
-CTA chest did not show any new finding explaining patient hemothorax.
-Completed a course of antibiotics for empiric treatment of possible pneumonia
-Chest x-ray 02/02 shows no pneumothorax, does show small bilateral pleural effusions, evaluated by ID with low concern for ongoing infection (input much appreciated)
-Remains comfortable and saturating appropriately on room air, repeat chest x-ray shows small bilateral pleural effusions
Acute blood loss anemia
-Currently stable, status post transfusion 3 units PRBCs and 4 units FFP this admission
-Due to hemothorax and intra-abdominal bleeding related to right ovarian mass
-No GI blood loss reported
-Continue following hemoglobin with transfusion for less than 7
-Avoid necessary blood draws
Troponin elevation
-Denies any chest pain.
-Suspected type II [place] from hypovolemia and tachycardia. Trop peaked at ~ 3.5
-With ongoing bleeding issue cannot be started on any antiplatelets/heparin product
-TTE showed preserved EF
-Cardiology following and no further intervention warranted at this point.
Hyponatremia
-Mild, clinically insignificant
-Will monitor
JULY -resolved
Metabolic acidosis -resolved
-JULY likely related to hypovolemia/hypotension and need of contrast for CT scan
-Patient had mild anion gap metabolic acidosis likely with JULY and malignancy related
-Avoid nephrotoxic medication and monitor
Hyperkalemia -resolved
-driven from acidosis and mild july
Hypovolemic shock - resolved
-Required IVF/support of vasopressor
Chronic left femoral vein thrombus
History of factor V Leiden mutation
-Peripheral vascular ultrasound report reviewed
-No anticoagulation considering hemothorax
Leukocytosis without fever
-Suspect malignancy related
- Improving
-Patient continued to have elevated white blood cell although downtrending, mildly persistent tachycardia
-Completed a course of antibiotics empirically for possible pneumonia
-Doubt ongoing infection, appreciate input and guidance from infectious disease team
Abnormal LFTs:
-Suspect initially shock liver which is now resolved
-LFT continue to trend down
-Possibly contributed to by malignancy, will need follow-up
Sinus tachycardia
-monitor on tele
-Toprol-XL has been increased to Toprol-XL 50/d by cards.
CODE STATUS: DNR
Anticipated Discharge: 24 - 48 hours
Subjective/Interval History
-
Date of Service: February 02, 2025
Patient was seen and examined at bedside this morning. No acute distress. Still requiring intermittent straight cath for urinary retention. Awaiting rehab placement.
Objective Data
-
Labs:
Laboratory Results
02/02/25
14:46
WBC 14.2 H
Hgb 8.8 L
Hct 26.6 L
Plt Count 538 H D
Vital Signs:
Vital Signs
Temp Pulse Resp BP Pulse Ox
98.9 F 96 26 152/65 96
02/02/25 11:21 02/02/25 16:00 02/01/25 12:00 02/02/25 16:00 02/02/25 16:05
I&O
02/01/25 02/02/25 02/03/25
06:59 06:59 06:59
Intake Total 730 / 730 600 / 600
Output Total 2110 / 2110 1085 / 1085 650 / 650
Balance -1380 / -1380 -485 / -485 -650 / -650
Review of Systems
-
History Source: Patient
All other systems: Reviewed and negative
Physical Exam
-
General: No Apparent Distress
--- NOTE | 2025-02-02 17:45 | PTCARENOTE ---
pt being transferred to [facility]. report given to Elena.
--- NOTE | 2025-02-02 17:58 | PTCARENOTE ---
pt adamant about transfeerring out room. discussed with Radha/labor supervisor and attempted to explin that bed is last bed available for ED patient. Pt still refusing to be transferred, labor supervisor notified and transfer postponed for now.
--- NOTE | 2025-02-02 20:10 | PTCARENOTE ---
private room assigned to pt. pt still saying that she is staying in current room and is very upset that shes being asked to move. pt requested ativan and dose given. supervisor heading made aware.
[2025-02-02] MEDS: SENOKOT PO (21:09)
[2025-02-03] VITALS (10 sets, daily range): BP systolic 114–183; BP diastolic 48–84; PULSE 99; BMI 22.2
--- NOTE | 2025-02-03 00:13 | PTCARENOTE ---
Assumed care of Pt from Day RN. Pt continues to refuse to move rooms. Conversation had with Pt to understand how she is feeling. Pt making clear she is anxious and nerves to back slid in care if she is moved from IMU. Pt referring to her meeting
with MOLECULAR TECHNOLOGIST and Chief a few days ago on IMU. nuclear medicine supervisor made aware and came to bed side to talk to Pt about concerns. PT will be staying in IMU for the night. Emotional support given. Pt appearing relieved at this time.
[2025-02-03] MEDS: TYLENOL 500 MG PO (03:00)
--- NOTE | 2025-02-03 06:50 | PTCARENOTE ---
Throughout night Pt allowing bladder scan at times and attempt to void on bsc. Pt delaying straight cath until allowed to attempted to urinate more at a later time. This morning Pt allowing straight cath to be performed. See work list for amounts.
[2025-02-03] MEDS: ZESTRIL 5 MG PO (09:09)
[2025-02-03] MEDS: FLOMAX 0.4 MG PO (09:09)
[2025-02-03] MEDS: SENOKOT PO (09:09)
[2025-02-03] MEDS: TOPROL XL 50 MG PO (09:09)
[2025-02-03] MEDS: LOTRIMIN 1% CREAM 1 APPLIC TOPICAL ×2 (09:10→19:38)
--- NOTE | 2025-02-03 10:53 | W.PN.ID1 ---
Date of Service
Date of Service: February 03, 2025
Today's Communication
- repeat blood cultures x2
- UA 02/02 no pyuria
- 02/01 CXR - L midlung with small area of possible fluid in the fissure vs infiltrate however patient reports no current respiratory symptoms and is on minimal O2
- influenza screen
- recent covid screen negative
- can start cefdinir 300 mg PO BID to complete a 7 day course
- yeast infection noted - can complete 7 days of clotrimazole, if not resolved then could do a x1 dose of oral fluconazole 150 mg po qday x2; unlikely to cause systemic symptoms
Assessment / Plan
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
Minimal Tachycardia - present through most of stay
Persistent leukocytosis
- repeat blood cultures x2
- UA 02/02 no pyuria
- 02/01 CXR - L midlung with small area of possible fluid in the fissure vs infiltrate however patient reports no current respiratory symptoms and is on minimal O2
- influenza screen
- recent covid screen negative
- can start cefdinir 300 mg PO BID to complete a 7 day course
- yeast infection noted - can complete 7 days of clotrimazole, if not resolved then could do a x1 dose of oral fluconazole 150 mg po qday x2; unlikely to cause systemic symptoms
Chief Complaint
-: Fever
Subjective / Review of Systems
febrile to 101.5
bp stable
urinary retention ongoing
Vital Signs / Physical Exam
Vital Signs
Vital Signs
Temp Pulse Resp BP Pulse Ox
98.0 F 98 26 148/68 97
02/03/25 07:33 02/03/25 08:49 02/01/25 12:00 02/03/25 08:49 02/03/25 08:00
Physical Exam
Constitutional: No Acute Distress and Chronically Ill
Cardiovascular: Regular Rate and S1/S2; Negative Murmur or Rub
Pulmonary: Clear and Symmetric; Negative Wheezes or Rales
Gastrointestinal: Soft, Non Tender, Non Distended and Normal Bowel Sounds
Skin: Warm and Dry; Negative Rash or Jaundice
Objective Data
Lab Data
Lab Results
02/02/25 14:46
02/01/25 06:00
PT 16.0 Sec (11.4-14.6) H 01/28/25 10:57
INR 1.25 01/28/25 10:57
APTT 26.9 Sec (23.4-35.0) 01/28/25 10:57
Estimated Creat Clear Cancelled 02/01/25 06:00
Total Bilirubin 1.3 mg/dl (0.2-1.3) 01/29/25 05:13
AST 41 U/L (14-36) H 01/29/25 05:13
ALT 103 U/L (0-35) H 01/29/25 05:13
Alkaline Phosphatase 166 U/L (38-126) H 01/29/25 05:13
C-Reactive Protein 7.80 mg/L (0.0-10.00) 01/18/25 13:16
Most recent labs reviewed.
Micro Results:
01/20/25 05:06 Blood Culture - Final
Blood/Venous No Growth - Final Report
01/20/25 17:41 Body Fluid Culture - Final
Pleural Fluid No Growth After 72 Hours
Gram Stain - Final
01/21/25 20:35 Urine Culture - Final
Urine No Significant Growth
Care Review
Plan reviewed with: Physician (Dr Banegas - fever)
[2025-02-03] MEDS: ATIVAN 0.5 MG PO (13:04)
[2025-02-03] MEDS: OMNICEF 300 MG PO ×2 (14:09→19:37)
--- NOTE | 2025-02-03 15:04 | PTCARENOTE ---
Patient agreeable to transfer to another private room, placed back in bed board. VSS. Patient unable to void. Bladder scan results unreliable.. at 1330 bladder scan showing 1900ml with only 250ml urine output with straight cath and a 70ml post
straight cath bladder scan. Patient felt relief after straight cath. Patient reports anxious, PRN ativan given. Will continue to closely monitor.
--- NOTE | 2025-02-03 17:08 | W.PN.HOSP.TC ---
Today's Communication/Plan
-
Assessment / Plan
Assessment / Plan
Gen-AAOx3, NAD
HEENT-NC, AT, anicteric, clear oral mm
Neck-supple
CV-reg, no M, +S1/S2
Lungs-clear B/L
Abd-soft, NT, palpable lower abdominal mass
Musculoskeletal-no edema, no deformity
Skin-warm and dry
Neuro-grossly non-focal
Psych-calm, cooperative
Ms. Golden is a 79-year-old female with a medical history of breast cancer (diagnosed 2013, status postlumpectomy and radiation), factor V Leiden mutation carrier, and history of DVT (on Eliquis) who presented with nausea and vomiting with
associated abdominal bloating. CT imaging revealed a large heterogeneous complex mass appeared to be originating from the right ovary. Labs revealed a gapped acidosis. She was mildly hyperglycemic and had an elevated beta hydroxybutyrate. She
was started on an insulin drip with DKA protocol and admitted for further evaluation and management.
Pelvic mass
- presumed malignant with associated intraperitoneal hemorrhage which is currently stable
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
-CA 19-9 level of 60.3K. CEA 165 (WNL), CA 27-29 elevated at 900, CA125 level 18,000
-Paracentesis of 10 mL fluid showing hemorrhagic peritoneal fluid. Cytopathology surprisingly not showing any cancer cells.
-s/p US guided biopsy of mass on 01/23. Pathology report showing only hematoma
-MRI abdomen/pelvis 01/28 showing large complex cystic mass originating from the left ovary measuring 20.5 x 8.3 x 15.0 cm, also shows right ovarian hemorrhagic cyst
-Input from Dr. Krause reviewed, recommend return for elective resection of ovarian mass not during this admission
-Planning discharge to SNF for therapy to optimize her functional status prior to surgery
-Will give a lab holiday for now unless urgently indicated
-Awaiting acute rehab placement, apparently [facility] may have a bed available Monday 02/05
-Suspect mild persistent leukocytosis and tachycardia secondary to malignancy, doubt ongoing infection, did obtain blood cultures and started cefdinir empirically after isolated fever on the morning of 02/03
Urinary retention
-mathis catheter placed on 01/26 and removed 01/30, now voiding spontaneously although requiring intermittent straight cath
-Continue Flomax
-Renal function has been normal, no sonographic evidence of hydronephrosis
-Repeat urinalysis unremarkable
-Difficult to assess for retention on bladder scan due to known intraperitoneal hemorrhage which is currently stable
Yeast infection:
-Complete 7 days of topical clotrimazole
-If not resolved after clotrimazole can do 1 dose of oral fluconazole
Acute hypoxic respiratory failure
-Secondary to right-sided hemothorax is now resolved
-Patient had been requiring high flow oxygen, 30L/min, now weaned to room air
-Patient is s/p chest tube placement on 01/20, cytopathology neg for malignant cells, chest tube removed 01/28
-CT surgeon evaluated and no surgical indication
-CTA chest did not show any new finding explaining patient hemothorax.
-Completed a course of antibiotics for empiric treatment of possible pneumonia
-Chest x-ray 02/02 shows no pneumothorax, does show small bilateral pleural effusions, evaluated by ID with low concern for ongoing infection (input much appreciated)
-Remains comfortable and saturating appropriately on room air, repeat chest x-ray shows small bilateral pleural effusions
-Restarted antibiotics with cefdinir on 02/03 following isolated fever that morning which I suspect is malignancy related
Acute blood loss anemia
-Currently stable, status post transfusion 3 units PRBCs and 4 units FFP this admission
-Due to hemothorax and intra-abdominal bleeding related to right ovarian mass
-No GI blood loss reported
-Continue following hemoglobin with transfusion for less than 7
-Avoid necessary blood draws
Troponin elevation
-Denies any chest pain.
-Suspected type II [place] from hypovolemia and tachycardia. Trop peaked at ~ 3.5
-With ongoing bleeding issue cannot be started on any antiplatelets/heparin product
-TTE showed preserved EF
-Cardiology following and no further intervention warranted at this point.
Hyponatremia
-Mild, clinically insignificant
-Will monitor
JULY -resolved
Metabolic acidosis -resolved
-JULY likely related to hypovolemia/hypotension and need of contrast for CT scan
-Patient had mild anion gap metabolic acidosis likely with JULY and malignancy related
-Avoid nephrotoxic medication and monitor
Hyperkalemia -resolved
-driven from acidosis and mild july
Hypovolemic shock - resolved
-Required IVF/support of vasopressor
Chronic left femoral vein thrombus
History of factor V Leiden mutation
-Peripheral vascular ultrasound report reviewed
-No anticoagulation considering hemothorax
Leukocytosis without fever
-Suspect malignancy related
- Improving
-Patient continued to have elevated white blood cell although downtrending, mildly persistent tachycardia
-Completed a course of antibiotics empirically for possible pneumonia
-Doubt ongoing infection, appreciate input and guidance from infectious disease team
Abnormal LFTs:
-Suspect initially shock liver which is now resolved
-LFT continue to trend down
-Possibly contributed to by malignancy, will need follow-up
Sinus tachycardia
-monitor on tele
-Toprol-XL has been increased to Toprol-XL 50/d by cards.
CODE STATUS: DNR
Anticipated Discharge: 24 - 48 hours
Subjective/Interval History
-
Date of Service: February 03, 2025
Patient was seen and examined at bedside this morning. Family present. Mild fever this morning, likely tumor related. Added cefdinir for antibiotic coverage. Blood cultures obtained. Appreciate ID input. Awaiting acute rehab placement.
Objective Data
-
Vital Signs:
Vital Signs
Temp Pulse Resp BP Pulse Ox
99.1 F 101 26 139/48 97
02/03/25 14:39 02/03/25 16:00 02/01/25 12:00 02/03/25 16:00 02/03/25 08:00
I&O
02/02/25 02/03/25 02/04/25
06:59 06:59 06:59
Intake Total 600 / 600 220 / 220
Output Total 1085 / 1085 1375 / 1375 250 / 250
Balance -485 / -485 -1155 / -1155 -250 / -250
Review of Systems
-
History Source: Patient
All other systems: Reviewed and negative
Physical Exam
-
General: No Apparent Distress
[2025-02-03] MEDS: SENOKOT 8.6 MG PO (19:37)
--- NOTE | 2025-02-03 20:05 | PTCARENOTE ---
Pt transferred to [id number]. 2000 given before, bs done.
[2025-02-04 03:17] VITALS: BP 171/67
--- NOTE | 2025-02-04 05:17 | W.PN.HOSP.TC ---
Today's Communication/Plan
-
cont abx as per ID
check CBC
cont PT/OT
follow cultures
Assessment / Plan
Assessment / Plan
Physical exam
Gen-AAOx3, NAD
HEENT-NC, AT, anicteric, clear oral mm
Neck-supple
CV-reg, no M, +S1/S2
Lungs-clear B/L
Abd-soft, NT, palpable lower abdominal mass
Musculoskeletal-no edema, no deformity
Skin-warm and dry
Neuro-grossly non-focal
Psych-calm, cooperative
Ms. Golden is a 79-year-old female with a medical history of breast cancer (diagnosed 2013, status postlumpectomy and radiation), factor V Leiden mutation carrier, and history of DVT (on Eliquis) who presented with nausea and vomiting with
associated abdominal bloating. CT imaging revealed a large heterogeneous complex mass appeared to be originating from the right ovary. Labs revealed a gapped acidosis. She was mildly hyperglycemic and had an elevated beta hydroxybutyrate. She
was started on an insulin drip with DKA protocol and admitted for further evaluation and management.
Pelvic mass
- presumed malignant with associated intraperitoneal hemorrhage which is currently stable
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
-CA 19-9 level of 60.3K. CEA 165 (WNL), CA 27-29 elevated at 900, CA125 level 18,000
-Paracentesis of 10 mL fluid showing hemorrhagic peritoneal fluid. Cytopathology surprisingly not showing any cancer cells.
-s/p US guided biopsy of mass on 01/23. Pathology report showing only hematoma
-MRI abdomen/pelvis 01/28 showing large complex cystic mass originating from the left ovary measuring 20.5 x 8.3 x 15.0 cm, also shows right ovarian hemorrhagic cyst
-Input from Dr. Krause reviewed, recommend return for elective resection of ovarian mass not during this admission
-Planning discharge to SNF for therapy to optimize her functional status prior to surgery
-Awaiting acute rehab placement [facility]
-Suspect mild persistent leukocytosis and tachycardia secondary to malignancy, blood cultures NGTD, started on cefdinir empirically as per ID after isolated fever on the morning of 02/03
Urinary retention
-mathis catheter placed on 01/26 and removed 01/30, now voiding spontaneously although requiring intermittent straight cath
-Continue Flomax
-Renal function has been normal, no sonographic evidence of hydronephrosis
-Repeat urinalysis unremarkable
-Difficult to assess for retention on bladder scan due to known intraperitoneal hemorrhage which is currently stable
Yeast infection:
-Complete 7 days of topical clotrimazole
-If not resolved after clotrimazole can do 1 dose of oral fluconazole
Acute hypoxic respiratory failure
-Secondary to right-sided hemothorax is now resolved
-Patient had been requiring high flow oxygen, 30L/min, now weaned to room air
-Patient is s/p chest tube placement on 01/20, cytopathology neg for malignant cells, chest tube removed 01/28
-CT surgeon evaluated and no surgical indication
-CTA chest did not show any new finding explaining patient hemothorax.
-Completed a course of antibiotics for empiric treatment of possible pneumonia
-Chest x-ray 02/02 shows no pneumothorax, does show small bilateral pleural effusions, evaluated by ID with low concern for ongoing infection (input much appreciated)
-Remains comfortable and saturating appropriately on room air, repeat chest x-ray shows small bilateral pleural effusions
-Restarted antibiotics with cefdinir on 02/03 following isolated fever that morning which I suspect is malignancy related
Acute blood loss anemia
-Currently stable, status post transfusion 3 units PRBCs and 4 units FFP this admission
-Due to hemothorax and intra-abdominal bleeding related to right ovarian mass
-No GI blood loss reported
-Continue following hemoglobin with transfusion for less than 7
-Avoid necessary blood draws
Troponin elevation
-Denies any chest pain.
-Suspected type II NH from hypovolemia and tachycardia. Trop peaked at ~ 3.5
-With ongoing bleeding issue cannot be started on any antiplatelets/heparin product
-TTE showed preserved EF
-Cardiology following and no further intervention warranted at this point.
Hyponatremia
-Mild, clinically insignificant
-Will monitor
JULY -resolved
Metabolic acidosis -resolved
-JULY likely related to hypovolemia/hypotension and need of contrast for CT scan
-Patient had mild anion gap metabolic acidosis likely with JULY and malignancy related
-Avoid nephrotoxic medication and monitor
Hyperkalemia -resolved
-driven from acidosis and mild july
Hypovolemic shock - resolved
-Required IVF/support of vasopressor
Chronic left femoral vein thrombus
History of factor V Leiden mutation
-Peripheral vascular ultrasound report reviewed
-No anticoagulation considering hemothorax
Leukocytosis without fever
-Suspect malignancy related
- Improving
-Patient continued to have elevated white blood cell although downtrending, mildly persistent tachycardia
-Completed a course of antibiotics empirically for possible pneumonia
-Doubt ongoing infection, appreciate input and guidance from infectious disease team
Abnormal LFTs:
-Suspect initially shock liver which is now resolved
-LFT continue to trend down
-Possibly contributed to by malignancy, will need follow-up
Sinus tachycardia
-monitor on tele
-Toprol-XL has been increased to Toprol-XL 50/d by cards.
CODE STATUS: DNR
discussed with patient and patient's daughter Elizabeth
I spent a total of 45 minutes with the patient or on the floor. More than 50% of this time involved counseling and coordination of care.
Anticipated Discharge: 24 - 48 hours
Subjective/Interval History
-
Date of Service: February 04, 2025
No acute distress sitting up comfortably in bed.
Objective Data
-
Vital Signs:
Vital Signs
Temp Pulse Resp BP Pulse Ox
99.4 F 102 14 171/67 98
02/04/25 03:17 02/04/25 03:17 02/04/25 03:17 02/04/25 03:17 02/04/25 03:17
I&O
02/02/25 02/03/25 02/04/25
06:59 06:59 06:59
Intake Total 600 / 600 220 / 220
Output Total 1085 / 1085 1375 / 1375 700 / 700
Balance -485 / -485 -1155 / -1155 -700 / -700
[2025-02-04 06:00] VITALS: BMI 21.5
[2025-02-04 07:10] VITALS: BP 138/78
[2025-02-04] MEDS: SENOKOT 8.6 MG PO ×2 (08:21→22:07)
[2025-02-04] MEDS: OMNICEF 300 MG PO ×2 (08:21→22:07)
[2025-02-04] MEDS: TOPROL XL 50 MG PO (08:21)
[2025-02-04] MEDS: ZESTRIL 5 MG PO (08:21)
[2025-02-04] MEDS: FLOMAX 0.4 MG PO (08:22)
[2025-02-04] MEDS: LOTRIMIN 1% CREAM 1 APPLIC TOPICAL ×2 (08:22→22:07)
--- NOTE | 2025-02-04 08:50 | W.PN.ONC2 ---
Today's Communication / Plan
-
.
Impression
Impression
Right pelvic mass suspect neoplasm. Ca 125 02973, Ca 27.29 908, Ca 19.9 04375, CEA 165. ascites fluid negative for malignancy. s/p CT guided biospy 01/23
Hepatic transaminitis, suspect shock liver -improving
right sided hemothorax with chest tube -pleural fluid negative for malignancy - chest tube removed 01/28
Acute on chronic anemia c/w blood loss - 3PRBC, last 01/21 -Hgb 8.8g/dL
coagulopathy secondary to DOAC +/-shock liver so clotting factor production may be reduced-s/p 4FFP, vitamin K, last 01/21
Hx DCIS s/p lumpectomy
DKA
Leukocytosis
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
type II ID in setting of respiratory failure, hemothorax, anemia and mass
fever, 101.5 on 02/03
Plan
Plan
mass bx pathology, pleural fluid, and abdominal ascites cytology non-malignant
eventual resection of ovarian mass with Dr. Krause
follow cultures, on cefdinir , ID following
consider at least dvt ppx once risk of bleeding improved since high risk VTE
Subjective/Objective
Subjective
no new complaints
on room air
Vital Signs:
Vital Signs
Temp Pulse Resp BP Pulse Ox
99.6 F 111 16 138/78 95
02/04/25 07:10 02/04/25 08:21 02/04/25 07:10 02/04/25 08:21 02/04/25 07:10
Lab Results:
Laboratory Data
WBC 14.2 10^3/uL (4.8-10.8) H 02/02/25 14:46
Hgb 8.8 g/dL (12.0-16.0) L 02/02/25 14:46
Plt Count 538 10^3/uL (130-400) H D 02/02/25 14:46
PT 16.0 Sec (11.4-14.6) H 01/28/25 10:57
INR 1.25 01/28/25 10:57
APTT 26.9 Sec (23.4-35.0) 01/28/25 10:57
eGFR Cancelled 02/01/25 06:00
--- NOTE | 2025-02-04 10:28 | PTCARENOTE ---
received patient this am, patient is very anxious, and taken back by her diagnosis, sat with patient and offered emotional support. Monitor shows NSR, VSS. bladder scan performed at 0742 by night RN, 358cc, encouraged patient to get OOB, ambulate to
BR with assist to void, patient verbalizes understanding.
--- NOTE | 2025-02-04 11:31 | CM ---
Spoke with Sarah from [facility]
Physiatry consult completed - rec acute
[facility] referral in [facility], accepted
Will reach out to CM later regarding bed availability
no pre-cert needed
PLAN: [facility], pending bed availability
[2025-02-04 11:45] VITALS: BP 135/61
--- NOTE | 2025-02-04 13:17 | PTCARENOTE ---
CBC drawn and sent to lab. unable to draw from midline.
[2025-02-04 13:34] LABS: % Basophils 0.5 % (0-2); % Eosinophils 2.9 % (0-6); % Immature Granulocytes 0.7 % (0-0.5); % Lymphocytes 10.3 % (20.5-51.1); % Monocytes 11.6 % (1.7-9.3); Absolute Basophils 0.1 10^3/uL (0-0.2); Absolute Eosinophils 0.3 10^3/uL (0-0.7); Absolute Immature Granulocytes 0.1 10^3/uL (0-0.05); Absolute Monocytes 1.1 10^3/uL (0.1-0.6); Absolute Neutrophils 7.3 10^3/uL (1.4-6.5); Hematocrit 27.4 % (37.0-47.0); Hemoglobin 8.9 g/dL (12.0-16.0); Mean Corp Hgb Conc. 32.5 g/dL (33.0-37.0); Mean Corpuscular Hgb 27.7 pg (27.0-31.0); Mean Corpuscular Volume 85.4 fL (81.0-99.0); Mean Platelet Volume 9.6 fL (7.4-10.4); Nucleated Red Blood Cells % 0 %; Platelet Count 507 10^3/uL (130-400); Red Blood Cell Count 3.21 10^6/uL (4.20-5.40); Red Cell Dist. Width 15.1 % (11.5-14.5); White Blood Cell Count 9.9 10^3/uL (4.8-10.8)
[2025-02-04] MEDS: ATIVAN 0.5 MG PO (14:15)
--- NOTE | 2025-02-04 14:17 | PTCARENOTE ---
after st. cath, patient requested Ativan, patient stated; 'I am anxious', Ativan po given as ordered.
[2025-02-04 15:15] VITALS: BP 141/63
--- NOTE | 2025-02-04 16:32 | W.PN.ID1 ---
Date of Service
Date of Service: February 04, 2025
Today's Communication
- c/w cefdinir 300 mg PO BID to complete a 7 day course
- completed clotimazole
Assessment / Plan
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
Minimal Tachycardia - present through most of stay
Persistent leukocytosis
- repeat blood cultures x2
- UA 02/02 no pyuria
- 02/01 CXR - L midlung with small area of possible fluid in the fissure vs infiltrate however patient reports no current respiratory symptoms and is on minimal O2
- influenza screen
- recent covid screen negative
- c/w cefdinir 300 mg PO BID to complete a 7 day course
- completed clotimazole
Chief Complaint
-: Fever
Subjective / Review of Systems
afebrile
bp stable
no specific complaints - 'im better since my daughter came to visit'
Vital Signs / Physical Exam
Vital Signs
Vital Signs
Temp Pulse Resp BP Pulse Ox
99.9 F 97 16 141/63 95
02/04/25 15:15 02/04/25 15:15 02/04/25 15:15 02/04/25 15:15 02/04/25 15:15
Physical Exam
Constitutional: No Acute Distress
Cardiovascular: Regular Rate and S1/S2; Negative Murmur or Rub
Pulmonary: Clear and Symmetric; Negative Wheezes or Rales
Gastrointestinal: Soft, Non Tender, Non Distended and Normal Bowel Sounds
Skin: Warm and Dry; Negative Rash or Jaundice
Objective Data
Lab Data
Lab Results
02/04/25 13:11
02/01/25 06:00
PT 16.0 Sec (11.4-14.6) H 01/28/25 10:57
INR 1.25 01/28/25 10:57
APTT 26.9 Sec (23.4-35.0) 01/28/25 10:57
Estimated Creat Clear Cancelled 02/01/25 06:00
Total Bilirubin 1.3 mg/dl (0.2-1.3) 01/29/25 05:13
AST 41 U/L (14-36) H 01/29/25 05:13
ALT 103 U/L (0-35) H 01/29/25 05:13
Alkaline Phosphatase 166 U/L (38-126) H 01/29/25 05:13
C-Reactive Protein 7.80 mg/L (0.0-10.00) 01/18/25 13:16
Most recent labs reviewed.
Micro Results:
02/03/25 14:08 Blood Culture - Preliminary
Blood/Venous No Growth in 24 hours- Final report to follow
02/03/25 12:56 Blood Culture - Preliminary
Blood/Venous No Growth in 24 hours- Final report to follow
02/03/25 12:06 Influenza Types A & B (JASEN) - Final
Nasal Swab Negative for Influenza A & B, NAAT
Negative results must be combined with clinical observations
and patient history.
Nucleic Acid Amplification test (NAAT)performed on the
[employer] platform.
01/20/25 05:06 Blood Culture - Final
Blood/Venous No Growth - Final Report
01/20/25 17:41 Body Fluid Culture - Final
Pleural Fluid No Growth After 72 Hours
Gram Stain - Final
01/21/25 20:35 Urine Culture - Final
Urine No Significant Growth
[2025-02-04 19:10] VITALS: BP 163/79
[2025-02-04 23:37] VITALS: BP 137/65
[2025-02-05] VITALS (7 sets, daily range): BP systolic 133–171; BP diastolic 62–87; PULSE 97; O2SAT 93; BMI 21.6
[2025-02-05] MEDS: TYLENOL 500 MG PO (05:19)
--- NOTE | 2025-02-05 07:28 | W.PN.HOSP.TC ---
Today's Communication/Plan
-
monitor H&H
topical clotrimazole resumed for vaginal candidiasis, oral fluconazole started
PT/OT
cont abx as per ID
follow cultures
robitussin prn
Assessment / Plan
Assessment / Plan
Physical exam
Gen-AAOx3, NAD
HEENT-NC, AT, anicteric, clear oral mm
Neck-supple
CV-reg, no M, +S1/S2
Lungs-clear B/L
Abd-soft, NT, palpable lower abdominal mass
Musculoskeletal-no edema, no deformity
Skin-warm and dry
Neuro-grossly non-focal
Psych-calm, cooperative
Ms. Golden is a 79-year-old female with a medical history of breast cancer (diagnosed 2013, status postlumpectomy and radiation), factor V Leiden mutation carrier, and history of DVT (on Eliquis) who presented with nausea and vomiting with
associated abdominal bloating. CT imaging revealed a large heterogeneous complex mass appeared to be originating from the right ovary. Labs revealed a gapped acidosis. She was mildly hyperglycemic and had an elevated beta hydroxybutyrate. She
was started on an insulin drip with DKA protocol and admitted for further evaluation and management.
Pelvic mass
- presumed malignant with associated intraperitoneal hemorrhage which is currently stable
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
-CA 19-9 level of 60.3K. CEA 165 (WNL), CA 27-29 elevated at 900, CA125 level 18,000
-Paracentesis of 10 mL fluid showing hemorrhagic peritoneal fluid. Cytopathology surprisingly not showing any cancer cells.
-s/p US guided biopsy of mass on 01/23. Pathology report showing only hematoma
-MRI abdomen/pelvis 01/28 showing large complex cystic mass originating from the left ovary measuring 20.5 x 8.3 x 15.0 cm, also shows right ovarian hemorrhagic cyst
-Input from Dr. Krause reviewed, recommend return for elective resection of ovarian mass not during this admission
-Planning discharge to SNF for therapy to optimize her functional status prior to surgery
-Awaiting acute rehab placement [facility]
-Suspect mild persistent leukocytosis and tachycardia secondary to malignancy, blood cultures NGTD, started on cefdinir empirically as per ID after isolated fever on the morning of 02/03
Urinary retention
-mathis catheter placed on 01/26 and removed 01/30, now voiding spontaneously although requiring intermittent straight cath
-Continue Flomax
-Renal function has been normal, no sonographic evidence of hydronephrosis
-Repeat urinalysis unremarkable
-Difficult to assess for retention on bladder scan due to known intraperitoneal hemorrhage which is currently stable
Yeast infection:
-Completed >7 days of topical clotrimazole, restarted as infection persists
-Oral Fluconazole ordered as per ID recc's
Acute hypoxic respiratory failure
-Secondary to right-sided hemothorax is now resolved
-Patient had been requiring high flow oxygen, 30L/min, now weaned to room air
-Patient is s/p chest tube placement on 01/20, cytopathology neg for malignant cells, chest tube removed 01/28
-CT surgeon evaluated and no surgical indication
-CTA chest did not show any new finding explaining patient hemothorax.
-Completed a course of antibiotics for empiric treatment of possible pneumonia
-Chest x-ray 02/02 shows no pneumothorax, does show small bilateral pleural effusions, evaluated by ID with low concern for ongoing infection (input much appreciated)
-Remains comfortable and saturating appropriately on room air, repeat chest x-ray shows small bilateral pleural effusions
-Restarted antibiotics with cefdinir on 02/03 following isolated fever that morning which I suspect is malignancy related
-weaned off oxygen supplementation to room air
Acute blood loss anemia
-Currently stable, status post transfusion 3 units PRBCs and 4 units FFP this admission
-Due to hemothorax and intra-abdominal bleeding related to right ovarian mass
-No GI blood loss reported
-Continue following hemoglobin with transfusion for less than 7
Troponin elevation
-Denies any chest pain.
-Suspected type II DE from hypovolemia and tachycardia. Trop peaked at ~ 3.5
-With ongoing bleeding issue cannot be started on any antiplatelets/heparin product
-TTE showed preserved EF
-Cardiology following and no further intervention warranted at this point.
Hyponatremia
-Mild, clinically insignificant
-Will monitor
JULY -resolved
Metabolic acidosis -resolved
-JULY likely related to hypovolemia/hypotension and need of contrast for CT scan
-Patient had mild anion gap metabolic acidosis likely with JULY and malignancy related
-Avoid nephrotoxic medication and monitor
Hyperkalemia -resolved
-driven from acidosis and mild july
Hypovolemic shock - resolved
-Required IVF/support of vasopressor
Chronic left femoral vein thrombus
History of factor V Leiden mutation
-Peripheral vascular ultrasound report reviewed
-No anticoagulation considering hemothorax
Leukocytosis without fever
-Suspect malignancy related
- Improving
-Patient continued to have elevated white blood cell although downtrending, mildly persistent tachycardia
-Completed a course of antibiotics empirically for possible pneumonia
-Doubt ongoing infection, appreciate input and guidance from infectious disease team
Abnormal LFTs:
-Suspect initially shock liver which is now resolved
-LFT continue to trend down
-Possibly contributed to by malignancy, will need follow-up
Sinus tachycardia
-monitor on tele
-Toprol-XL has been increased to Toprol-XL 50/d by cards.
CODE STATUS: DNR
discussed with patient and patient's daughter Elizabeth
I spent a total of 45 minutes with the patient or on the floor. More than 50% of this time involved counseling and coordination of care.
Anticipated Discharge: 24 - 48 hours
Subjective/Interval History
-
Date of Service: February 05, 2025
Vaginal rash persists. Developed cough overnight. Otherwise no acute distress, sitting up comfortably in chair.
Objective Data
-
Vital Signs:
Vital Signs
Temp Pulse Resp BP Pulse Ox
99.3 F 101 16 151/62 97
02/05/25 03:05 02/05/25 03:05 02/05/25 03:05 02/05/25 03:05 02/05/25 04:04
I&O
02/04/25 02/05/25 02/06/25
06:59 06:59 06:59
Intake Total 1380 / 1380
Output Total 700 / 700 1450 / 1450
Balance -700 / -700 -70 / -70
[2025-02-05 09:20] LABS: Hematocrit 23.1 % (37.0-47.0); Hemoglobin 7.7 g/dL (12.0-16.0); Mean Corp Hgb Conc. 33.3 g/dL (33.0-37.0); Mean Corpuscular Hgb 28.1 pg (27.0-31.0); Mean Corpuscular Volume 84.3 fL (81.0-99.0); Mean Platelet Volume 9.3 fL (7.4-10.4); Platelet Count 469 10^3/uL (130-400); Red Blood Cell Count 2.74 10^6/uL (4.20-5.40); Red Cell Dist. Width 15.3 % (11.5-14.5); White Blood Cell Count 7.5 10^3/uL (4.8-10.8)
[2025-02-05] MEDS: OMNICEF 300 MG PO ×2 (09:48→20:52)
[2025-02-05] MEDS: ZESTRIL 5 MG PO (09:48)
[2025-02-05] MEDS: FLOMAX 0.4 MG PO (09:48)
[2025-02-05] MEDS: SENOKOT 8.6 MG PO ×2 (09:48→20:42)
[2025-02-05] MEDS: TOPROL XL 50 MG PO (09:49)
[2025-02-05 12:05] LABS: Hematocrit 24.9 % (37.0-47.0); Hemoglobin 8.1 g/dL (12.0-16.0)
--- NOTE | 2025-02-05 14:51 | CM ---
Spoke with [facility] no beds available at
Discussed with patient and daughter other acute rehabs and declined & patient states would like SNF
Prefer [facility]
Referral entered in [facility] for [facility]
PT rec SNF vs. Acute
tt hospitalist
no precert needed
PLAN: SNF, pending bed availability
[2025-02-05] MEDS: ROBITUSSIN 200 MG PO (16:25)
[2025-02-05] MEDS: DIFLUCAN 150 MG PO (16:34)
--- NOTE | 2025-02-05 17:01 | W.PN.GYNONC ---
Today's Communication
-
apply lotrisone to labia BID
continue with PT
Impression / Plan
-
Right pelvic mass -
Tumor markers including CA125, CEA and CA 19�9 are all elevated.
Overall appearance and presentation is worrisome for malignancy. Malignancy is not confirmed until we have histologic documentation.
Ascites as well as pleural effusions are negative for malignancy
Preliminary report of pelvic mass biopsy shows fragments of organizing hematoma with no obvious evidence of malignancy.
My plan is for her to return back to the office 7 to 10 days after transfer to rehabilitation at which time I will sudden motions plan for return back to the operating room in the hospital for laparotomy with resection of the pelvic mass.
I am inclined to allow her to transition to rehab for better physical strength and performance status before offering her surgery, she has had a very eventful hospital stay with significant comorbidities (liver and heart, cardiovascular shock). I
think offering her surgery at the current time while it is feasible may risk a prolonged hospital stay with significant elevated risk such as wound infection, increased risk of VTE.
Because of her significant risk of VTE, it is reasonable to consider heparin 5000 units subcu twice daily while her CBCs closely monitored.
Most likely her daughter is going back to [place] until she returns back to the surgery in a few weeks.
She has candidiasis involving labia, I recommended Lotrisone
Subjective / Interval History
-
Patient appears to be overall more comfortable with less abdominal pain
She does not understand why she has voiding dysfunction with intermittent retention of urine
She has pruritus involving external genitalia despite use of topical antifungal cream
She appears to be in a better mood in general looking forward to next steps including transfer to rehabilitation
Objective Data
-
Lab Results:
02/05/25 11:39
02/01/25 06:00
EXAMINATION: PA and lateral radiographs of the chest.
INDICATION: Follow-up hemothorax/pneumothorax.
COMPARISON: 01/29/2025.
FINDINGS: There is biapical scarring. Abnormality over the right upper lung on the previous study was most likely related to skinfold artifacts, now resolved. Other previously seen skinfold artifact over the lateral left lung has resolved. There is
new small airspace opacity over the lateral aspect of the left midlung. This is not well seen on the lateral projection. There are bilateral small pleural effusions with adjacent atelectasis. Slightly increased on the right as compared with prior.
Unchanged on the left. Right effusion is slightly larger. Cardiomediastinal silhouette is unchanged. Pulmonary vasculature within normal limits. No acute osseous abnormality is seen. Mild degenerative changes thoracic spine.
IMPRESSION:
1. No pneumothorax.
2. Bilateral small pleural effusions and adjacent atelectasis, right greater than left. Increased on the right as compared with previous.
3. New small focal airspace opacity over the left midlung. Small volume fluid along the fissure is possible. Other etiologies including developing pneumonia cannot be excluded.
Electronically signed by Andrea Ferrell DO, 02/01/2025 3:15 PM
Physical Exam
Vital Signs / I&O
Vitals
Temp Pulse Resp BP Pulse Ox
98.6 F 110 16 160/83 95
02/05/25 14:59 02/05/25 15:30 02/05/25 15:30 02/05/25 15:30 02/05/25 16:37
I&O
02/03/25 02/04/25 02/05/25 02/06/25
06:59 06:59 06:59 06:59
Intake Total 220 / 220 1380 / 1380
Output Total 1375 / 1375 700 / 700 2049 525 / 525
Balance -1155 / -1155 -700 / -700 -670 / -670 -525 / -525
Physical Exam
General: No Apparent Distress
HEENT: Normocephalic and Good Dentition
Respiratory: Clear and Non Labored Respirations
Cardiac: S1/S2 and Regular Rhythm
GI: Soft and Non Distended
Neuro: Awake, Alert and Oriented
Psych: Calm
[2025-02-05] MEDS: LOTRISONE CREAM 1 APPLIC TOPICAL (20:52)
[2025-02-06] MEDS: TYLENOL 500 MG PO ×3 (01:37→20:17)
[2025-02-06 03:00] VITALS: BP 145/67
[2025-02-06 06:21] LABS: Urine Albumin 1+ (Neg - Trace); Urine Bilirubin Negative (Negative); Urine Character Clear (Clear); Urine Color Yellow; Urine Glucose Negative (Negative); Urine Ketone Negative (Negative); Urine Leukocyte Negative (Negative); Urine Nitrite Negative (Negative); Urine Occult Blood 2+ (Negative); Urine Urobilinogen 1+ (Neg - 1+)
[2025-02-06 06:34] LABS: Urine Mucus Moderate
[2025-02-06 06:37] LABS: Urine Bacteria Moderate (Negative)
[2025-02-06 06:44] LABS: COVID-19 Antigen Negative (Negative)
[2025-02-06] MEDS: ROBITUSSIN 200 MG PO (06:45)
--- NOTE | 2025-02-06 06:52 | W.PN.UPDATE ---
Update Note
Progress Note Update
Patient complained of cough, sore throat, febrile with temp 100.6. Denies sob.
No wheezing or crackle noted during the lung exam.
Blood cultures x 2 (neg ) on 02/03/25
Will get chest x-ray and check covid and flu.
--- NOTE | 2025-02-06 06:53 | W.PN.HOSP.TC ---
Today's Communication/Plan
-
start heparin 5000 Q12 dvt ppx
monitor H&H
start Tamiflu
cont abx antifungal
Assessment / Plan
Assessment / Plan
Physical exam
Gen-AAOx3, NAD
HEENT-NC, AT, anicteric, clear oral mm
Neck-supple
CV-reg, no M, +S1/S2
Lungs-clear B/L
Abd-soft, NT, palpable lower abdominal mass
Musculoskeletal-no edema, no deformity
Skin-warm and dry
Neuro-grossly non-focal
Psych-calm, cooperative
Ms. Golden is a 79-year-old female with a medical history of breast cancer (diagnosed 2013, status postlumpectomy and radiation), factor V Leiden mutation carrier, and history of DVT (on Eliquis) who presented with nausea and vomiting with
associated abdominal bloating. CT imaging revealed a large heterogeneous complex mass appeared to be originating from the right ovary. Labs revealed a gapped acidosis. She was mildly hyperglycemic and had an elevated beta hydroxybutyrate. She
was started on an insulin drip with DKA protocol and admitted for further evaluation and management.
Flu 02/06/25
remains stable on room air
Tamiflu started
Pelvic mass
- presumed malignant with associated intraperitoneal hemorrhage which is currently stable
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
-CA 19-9 level of 60.3K. CEA 165 (WNL), CA 27-29 elevated at 900, CA125 level 18,000
-Paracentesis of 10 mL fluid showing hemorrhagic peritoneal fluid. Cytopathology surprisingly not showing any cancer cells.
-s/p US guided biopsy of mass on 01/23. Pathology report showing only hematoma
-MRI abdomen/pelvis 01/28 showing large complex cystic mass originating from the left ovary measuring 20.5 x 8.3 x 15.0 cm, also shows right ovarian hemorrhagic cyst
-Input from Dr. Krause reviewed, recommend return for elective resection of ovarian mass not during this admission
-Planning discharge to SNF for therapy to optimize her functional status prior to surgery
-Awaiting acute rehab placement [facility]
-Suspect mild persistent leukocytosis and tachycardia secondary to malignancy, blood cultures NGTD, started on cefdinir empirically as per ID after isolated fever on the morning of 02/03
Urinary retention
-mathis catheter placed on 01/26 and removed 01/30, now voiding spontaneously although requiring intermittent straight cath
-Continue Flomax
-Renal function has been normal, no sonographic evidence of hydronephrosis
-Repeat urinalysis unremarkable
-Difficult to assess for retention on bladder scan due to known intraperitoneal hemorrhage which is currently stable
Yeast infection:
-Completed >7 days of topical clotrimazole, restarted as infection persists
-Oral Fluconazole ordered as per ID recc's
Acute hypoxic respiratory failure
-Secondary to right-sided hemothorax is now resolved
-Patient had been requiring high flow oxygen, 30L/min, now weaned to room air
-Patient is s/p chest tube placement on 01/20, cytopathology neg for malignant cells, chest tube removed 01/28
-CT surgeon evaluated and no surgical indication
-CTA chest did not show any new finding explaining patient hemothorax.
-Completed a course of antibiotics for empiric treatment of possible pneumonia
-Chest x-ray 02/02 shows no pneumothorax, does show small bilateral pleural effusions, evaluated by ID with low concern for ongoing infection (input much appreciated)
-Remains comfortable and saturating appropriately on room air, repeat chest x-ray shows small bilateral pleural effusions
-Restarted antibiotics with cefdinir on 02/03 following isolated fever that morning which I suspect is malignancy related
-weaned off oxygen supplementation to room air
Acute blood loss anemia
-Currently stable, status post transfusion 3 units PRBCs and 4 units FFP this admission
-Due to hemothorax and intra-abdominal bleeding related to right ovarian mass
-No GI blood loss reported
-Continue following hemoglobin with transfusion for less than 7
Troponin elevation
-Denies any chest pain.
-Suspected type II [place] from hypovolemia and tachycardia. Trop peaked at ~ 3.5
-With ongoing bleeding issue cannot be started on any antiplatelets/heparin product
-TTE showed preserved EF
-Cardiology following and no further intervention warranted at this point.
Hyponatremia
-Mild, clinically insignificant
-Will monitor
JULY -resolved
Metabolic acidosis -resolved
-JULY likely related to hypovolemia/hypotension and need of contrast for CT scan
-Patient had mild anion gap metabolic acidosis likely with JULY and malignancy related
-Avoid nephrotoxic medication and monitor
Hyperkalemia -resolved
-driven from acidosis and mild july
Hypovolemic shock - resolved
-Required IVF/support of vasopressor
Chronic left femoral vein thrombus
History of factor V Leiden mutation
-Peripheral vascular ultrasound report reviewed
Leukocytosis without fever
-Suspect malignancy related
- Improving
-Patient continued to have elevated white blood cell although downtrending, mildly persistent tachycardia
-Completed a course of antibiotics empirically for possible pneumonia
-Doubt ongoing infection, appreciate input and guidance from infectious disease team
Abnormal LFTs:
-Suspect initially shock liver which is now resolved
-LFT continue to trend down
-Possibly contributed to by malignancy, will need follow-up
Sinus tachycardia
-monitor on tele
-Toprol-XL has been increased to Toprol-XL 50/d by cards.
DVT ppx SCD, Heparin 5000 BID added given stable H&H and increased VTE risk
CODE STATUS: DNR
discussed with patient and patient's daughter Elizabeth
I spent a total of 45 minutes with the patient or on the floor. More than 50% of this time involved counseling and coordination of care.
Anticipated Discharge: 24 - 48 hours
Subjective/Interval History
-
Date of Service: February 06, 2025
Objective Data
-
Labs:
Laboratory Results
02/06/25
06:00
WBC Pending
Hgb Pending
Hct Pending
Plt Count Pending
Sodium Pending
Potassium Pending
Chloride Pending
Carbon Dioxide Pending
BUN Pending
Creatinine Pending
Glucose Pending
Calcium Pending
Total Bilirubin Pending
AST Pending
ALT Pending
Alkaline Phosphatase Pending
Vital Signs:
Vital Signs
Temp Pulse Resp BP Pulse Ox
99.8 F 103 16 145/67 95
02/06/25 03:00 02/06/25 03:00 02/06/25 03:00 02/06/25 03:00 02/06/25 03:00
I&O
02/04/25 02/05/25 02/06/25
06:59 06:59 06:59
Intake Total 1380 / 1380 1200 / 1200
Output Total 700 / 700 2050 / 0 1150 / 1150
Balance -700 / -700 -670 / -670 50 / 50
--- NOTE | 2025-02-06 06:58 | PTCARENOTE ---
Around 0130 pt had a temp of 101.0 and a BP of 177/80. Tylenol given at 01:37. temp rechecked 100.3. Pt also complained of nausea, refused med. Bladder scanned per protocol-->655ml. CODE NUMBER STAMPER notified; Enrico Christian. Orders given for flu & covid test.
Chest X-ray for cough and fever and urinalysis reflect culture. Urojet and Ramirez for retention. Pt is stable; call swift within reach.
Around 0600 pt complained of sore throat and cough. Gave Robitussin see JAN. Pt stable.
[2025-02-06 07:15] VITALS: BP 169/84
--- NOTE | 2025-02-06 07:57 | DOWNTIME ---
There was a [employer] Auditor Downtime on 02/06/2025 from 0100 to 02/07/2024 at 0420 . Downtime documentation of patient's care, including medication administrations, has been reconciled in the electronic record per guidelines. Refer to the
patient's paper chart under the miscellaneous tab to see printed paper medication records and downtime forms.
[2025-02-06] MEDS: ZOFRAN 4 MG IV ×2 (08:00→14:03)
[2025-02-06 08:27] LABS: Hematocrit 27.3 % (37.0-47.0); Hemoglobin 8.9 g/dL (12.0-16.0); Mean Corp Hgb Conc. 32.6 g/dL (33.0-37.0); Mean Corpuscular Hgb 27.4 pg (27.0-31.0); Mean Platelet Volume 9.8 fL (7.4-10.4); Platelet Count 498 10^3/uL (130-400); Red Blood Cell Count 3.25 10^6/uL (4.20-5.40); Red Cell Dist. Width 14.9 % (11.5-14.5); White Blood Cell Count 8.5 10^3/uL (4.8-10.8)
--- NOTE | 2025-02-06 08:30 | PTCARENOTE ---
Patient c/o nausea this morning; vomited small amount; Zofran given @ 0800. Patient unable to take any PO medications at this time; ice pack applied to help reduce fever (100.7); will re-assess in an hour.
[2025-02-06 08:56] LABS: ALT (SGPT) 46 U/L (0-35); AST (SGOT) 40 U/L (14-36); Albumin 2.8 g/dl (3.5-5.0); Alkaline Phosphatase 175 U/L (38-126); Blood Urea Nitrogen 7 mg/dl (7-17); Calcium 8.6 mg/dl (8.4-10.2); Carbon Dioxide 23 mmol/L (22-30); Chloride 100 mmol/L (98-107); Estimated Creatinine Clearance 64 ml/min; Glucose 102 mg/dl (70-99); Iron 26 ug/dl (37-170); Sodium 133 mmol/L (135-145); Total Bilirubin 0.9 mg/dl (0.2-1.3); Total Protein 5.8 g/dl (6.3-8.2); eGFR > 60.00
[2025-02-06 09:05] LABS: Percent Saturation 11 % (20-50); Total Iron Binding Capacity 236 ug/dl (265-497)
[2025-02-06 09:42] LABS: Folate 5.6 ng/ml (2.76-20); Vitamin B12 589 pg/ml (239-931)
[2025-02-06] MEDS: TOPROL XL PO ×2 (09:42→14:21)
[2025-02-06] MEDS: OMNICEF PO ×2 (09:42→10:00)
[2025-02-06] MEDS: DIFLUCAN PO ×2 (09:43→10:00)
[2025-02-06] MEDS: SENOKOT PO ×3 (09:43→20:24)
[2025-02-06] MEDS: HEPARIN 5000 UNITS SC ×2 (09:43→20:15)
[2025-02-06] MEDS: ZESTRIL PO ×2 (09:43→14:22)
[2025-02-06] MEDS: FLOMAX PO ×2 (09:44→14:13)
[2025-02-06] MEDS: LOTRISONE CREAM 1 APPLIC TOPICAL ×2 (09:44→20:25)
[2025-02-06 11:00] VITALS: BP 123/63
[2025-02-06] MEDS: TAMIFLU PO (11:36)
--- NOTE | 2025-02-06 11:39 | CM ---
Patient test + influenza 02/06
covid neg
PT rec SNF vs. Acute
Patient prefer SNF-[facility] referral in [facility]
PLAN: SNF, pending bed availability
[2025-02-06] MEDS: TAMIFLU 75 MG PO ×2 (12:00→20:17)
[2025-02-06 15:10] VITALS: BP 164/71
--- NOTE | 2025-02-06 16:34 | W.PN.ID1 ---
Date of Service
Date of Service: February 06, 2025
Today's Communication
- agree with tamiflu x5 day course
- agree with fluconazole given persistent yeast infection
- c/w cefdinir 300 mg PO BID to complete a 7 day course
- stable for dc from ID perspective
Assessment / Plan
Influenza
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
Minimal Tachycardia - present through most of stay
Persistent leukocytosis
- agree with tamiflu x5 day course
-droplet precautions
- agree with fluconazole given persistent yeast infection
- c/w cefdinir 300 mg PO BID to complete a 7 day course
- stable for dc from ID perspective
Chief Complaint
-: Fever
Subjective / Review of Systems
relapse of fevers
bp stable
on room air
Vital Signs / Physical Exam
Vital Signs
Vital Signs
Temp Pulse Resp BP Pulse Ox
100.1 F 106 16 164/71 97
02/06/25 15:10 02/06/25 15:10 02/06/25 15:10 02/06/25 15:10 02/06/25 15:10
Physical Exam
Constitutional: No Acute Distress
Cardiovascular: Regular Rate
Pulmonary: Symmetric and Non Labored
Gastrointestinal: Non Distended
Skin: Dry; Negative Rash or Jaundice
Neurological: Negative Awake
Objective Data
Lab Data
Lab Results
02/06/25 07:21
02/06/25 07:21
PT 16.0 Sec (11.4-14.6) H 01/28/25 10:57
INR 1.25 01/28/25 10:57
APTT 26.9 Sec (23.4-35.0) 01/28/25 10:57
Estimated Creat Clear 64 ml/min 02/06/25 07:21
Total Bilirubin 0.9 mg/dl (0.2-1.3) 02/06/25 07:21
AST 40 U/L (14-36) H 02/06/25 07:21
ALT 46 U/L (0-35) H 02/06/25 07:21
Alkaline Phosphatase 175 U/L (38-126) H 02/06/25 07:21
C-Reactive Protein 7.80 mg/L (0.0-10.00) 01/18/25 13:16
Most recent labs reviewed.
Micro Results:
02/03/25 14:08 Blood Culture - Preliminary
Blood/Venous No Growth in 72 hours- Final report to follow
02/03/25 12:56 Blood Culture - Preliminary
Blood/Venous No Growth in 72 hours- Final report to follow
02/06/25 06:00 Influenza Types A & B (JASEN) - Final
Nasal Swab Influenza A Positive, NAAT
02/03/25 12:06 Influenza Types A & B (JASEN) - Final
Nasal Swab Negative for Influenza A & B, NAAT
Negative results must be combined with clinical observations
and patient history.
Nucleic Acid Amplification test (NAAT)performed on the
[employer] platform.
01/20/25 05:06 Blood Culture - Final
Blood/Venous No Growth - Final Report
01/20/25 17:41 Body Fluid Culture - Final
Pleural Fluid No Growth After 72 Hours
Gram Stain - Final
01/21/25 20:35 Urine Culture - Final
Urine No Significant Growth
[2025-02-06] MEDS: OMNICEF 300 MG PO (20:16)
[2025-02-06 20:20] VITALS: BP 172/87
[2025-02-06 23:13] VITALS: BP 130/60
[2025-02-07] VITALS (7 sets, daily range): BP systolic 115–175; BP diastolic 56–73; PULSE 84; O2SAT 94
--- NOTE | 2025-02-07 07:21 | W.PN.HOSP.TC ---
Today's Communication/Plan
-
Discharge planning Acute Rehab
Assessment / Plan
Assessment / Plan
Physical exam
Gen-AAOx3, NAD
HEENT-NC, AT, anicteric, clear oral mm
Neck-supple
CV-reg, no M, +S1/S2
Lungs-clear B/L
Abd-soft, NT, palpable lower abdominal mass
Musculoskeletal-no edema, no deformity
Skin-warm and dry
Neuro- AOx3 conversant coherent
Psych-calm, cooperative
Ms. Golden is a 79-year-old female with a medical history of breast cancer (diagnosed 2013, status postlumpectomy and radiation), factor V Leiden mutation carrier, and history of DVT (on Eliquis) who presented with nausea and vomiting with
associated abdominal bloating. CT imaging revealed a large heterogeneous complex mass appeared to be originating from the right ovary. Labs revealed a gapped acidosis. She was mildly hyperglycemic and had an elevated beta hydroxybutyrate. She
was started on an insulin drip with DKA protocol and admitted for further evaluation and management.
Flu 02/06/25
remains stable on room air
Tamiflu started
Pelvic mass
- presumed malignant with associated intraperitoneal hemorrhage which is currently stable
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
-CA 19-9 level of 60.3K. CEA 165 (WNL), CA 27-29 elevated at 900, CA125 level 18,000
-Paracentesis of 10 mL fluid showing hemorrhagic peritoneal fluid. Cytopathology surprisingly not showing any cancer cells.
-s/p US guided biopsy of mass on 01/23. Pathology report showing only hematoma
-MRI abdomen/pelvis 01/28 showing large complex cystic mass originating from the left ovary measuring 20.5 x 8.3 x 15.0 cm, also shows right ovarian hemorrhagic cyst
-Input from Dr. Krause reviewed, recommend return for elective resection of ovarian mass not during this admission
-Planning discharge to SNF for therapy to optimize her functional status prior to surgery
-Awaiting acute rehab placement [facility]
-Suspect mild persistent leukocytosis and tachycardia secondary to malignancy, blood cultures NGTD, started on cefdinir empirically as per ID after isolated fever on the morning of 02/03
Urinary retention
-mathis catheter placed on 01/26 and removed 01/30, now voiding spontaneously although requiring intermittent straight cath
-Continue Flomax
-Renal function has been normal, no sonographic evidence of hydronephrosis
-Repeat urinalysis unremarkable
-Difficult to assess for retention on bladder scan due to known intraperitoneal hemorrhage which is currently stable
Yeast infection:
-topical clotrimazole as per layaway clerk
-Oral Fluconazole 2 doses completed as per ID
Acute hypoxic respiratory failure
-Secondary to right-sided hemothorax is now resolved
-Patient had been requiring high flow oxygen, 30L/min, now weaned to room air
-Patient is s/p chest tube placement on 01/20, cytopathology neg for malignant cells, chest tube removed 01/28
-CT surgeon evaluated and no surgical indication
-CTA chest did not show any new finding explaining patient hemothorax.
-Completed a course of antibiotics for empiric treatment of possible pneumonia
-Chest x-ray 02/02 shows no pneumothorax, does show small bilateral pleural effusions, evaluated by ID with low concern for ongoing infection (input much appreciated)
-Remains comfortable and saturating appropriately on room air, repeat chest x-ray shows small bilateral pleural effusions
-Restarted antibiotics with cefdinir on 02/03 following isolated fever that morning which I suspect is malignancy related
-weaned off oxygen supplementation to room air
Acute blood loss anemia
-Currently stable, status post transfusion 3 units PRBCs and 4 units FFP this admission
-Due to hemothorax and intra-abdominal bleeding related to right ovarian mass
-No GI blood loss reported
-Continue following hemoglobin with transfusion for less than 7
Troponin elevation
-Denies any chest pain.
-Suspected type II KY from hypovolemia and tachycardia. Trop peaked at ~ 3.5
-With ongoing bleeding issue cannot be started on any antiplatelets/heparin product
-TTE showed preserved EF
-Cardiology following and no further intervention warranted at this point.
Hyponatremia
-Mild, clinically insignificant
-Will monitor
JULY -resolved
Metabolic acidosis -resolved
-JULY likely related to hypovolemia/hypotension and need of contrast for CT scan
-Patient had mild anion gap metabolic acidosis likely with JULY and malignancy related
-Avoid nephrotoxic medication and monitor
Hyperkalemia -resolved
-driven from acidosis and mild july
Hypovolemic shock - resolved
-Required IVF/support of vasopressor
Chronic left femoral vein thrombus
History of factor V Leiden mutation
-Peripheral vascular ultrasound report reviewed
Leukocytosis without fever
-Suspect malignancy related
- Improving
-Patient continued to have elevated white blood cell although downtrending, mildly persistent tachycardia
-Completed a course of antibiotics empirically for possible pneumonia
-Doubt ongoing infection, appreciate input and guidance from infectious disease team
Abnormal LFTs:
-Suspect initially shock liver which is now resolved
-LFT continue to trend down
-Possibly contributed to by malignancy, will need follow-up
Sinus tachycardia
-monitor on tele
-Toprol-XL has been increased to Toprol-XL 50/d by cards.
DVT ppx SCD, Heparin 5000 BID added given stable H&H and increased VTE risk
CODE STATUS: DNR
Medically stable for discharge Acute Rehab with outpatient follow up recommendations
discussed with patient and patient's daughter Elizabeth
I spent a total of 45 minutes with the patient or on the floor. More than 50% of this time involved counseling and coordination of care.
Anticipated Discharge: Within 24 hours
Subjective/Interval History
-
Date of Service: February 07, 2025
Fever this morning treated with Tylenol. Reports improvement in vaginal rash, itching resolved.
Objective Data
-
Labs:
Laboratory Results
02/07/25
06:56
Hgb Pending
Hct Pending
Vital Signs:
Vital Signs
Temp Pulse Resp BP Pulse Ox
99.6 F 93 16 149/71 96
02/07/25 03:03 02/07/25 03:03 02/07/25 03:03 02/07/25 03:03 02/07/25 03:03
I&O
02/06/25 02/07/25 02/08/25
06:59 06:59 06:59
Intake Total 1200 / 1200 960 / 960
Output Total 1150 / 1150 775 / 775
Balance 50 / 50 185 / 185
[2025-02-07 08:03] LABS: Hemoglobin 8.3 g/dL (12.0-16.0)
[2025-02-07] MEDS: TOPROL XL 50 MG PO (08:13)
[2025-02-07] MEDS: DIFLUCAN 150 MG PO (08:13)
[2025-02-07] MEDS: TYLENOL 1000 MG PO ×2 (08:14→20:44)
[2025-02-07] MEDS: HEPARIN 5000 UNITS SC ×2 (08:15→20:23)
[2025-02-07] MEDS: FLOMAX 0.4 MG PO (08:15)
[2025-02-07] MEDS: TAMIFLU 75 MG PO ×2 (08:15→20:25)
[2025-02-07] MEDS: SENOKOT 8.6 MG PO (08:15)
[2025-02-07] MEDS: ZESTRIL 5 MG PO (08:15)
[2025-02-07] MEDS: OMNICEF 300 MG PO ×2 (08:15→20:25)
[2025-02-07] MEDS: LOTRISONE CREAM 1 APPLIC TOPICAL (08:21)
--- NOTE | 2025-02-07 12:17 | CM ---
Addendum entered by Bianka Mendosa, RN 02/07/25 16:15:
IMM reviewed.
Original Note:
Reviewed the chart notes and spoke with the patient at the bedside. CM spoke with Sarah E M Assembler with [facility]. Bed will be available tomorrow at . CM continues to be available to patient/family and is monitoring medical plan for
needs at discharge.
Plan: Discharge to [facility] tomorrow. No precert required.
--- NOTE | 2025-02-07 12:36 | W.PN.ONC2 ---
Today's Communication / Plan
-
.
Impression
Impression
Right pelvic mass suspect neoplasm. Ca 125 11926, Ca 27.29 908, Ca 19.9 71193, CEA 165. ascites fluid negative for malignancy. s/p CT guided biospy 01/23
Hepatic transaminitis, suspect shock liver -improving
right sided hemothorax with chest tube -pleural fluid negative for malignancy - chest tube removed 01/28
Acute on chronic anemia c/w blood loss - 3PRBC, last 01/21 -Hgb 8.8g/dL
coagulopathy secondary to DOAC +/-shock liver so clotting factor production may be reduced-s/p 4FFP, vitamin K, last 01/21
Hx DCIS s/p lumpectomy
DKA
Leukocytosis
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
type II [place] in setting of respiratory failure, hemothorax, anemia and mass
fever, 101.5 on 02/03 -influenza positive
Plan
Plan
mass bx pathology, pleural fluid, and abdominal ascites cytology non-malignant
eventual resection of ovarian mass with Dr. Krause
on tamiflu, on cefdinir , ID following
on heparin dvt ppx since high risk VTE
Subjective/Objective
Subjective
no new complaints
working with PT/OT
Vital Signs:
Vital Signs
Temp Pulse Resp BP Pulse Ox
99.5 F 84 15 132/57 96
02/07/25 11:00 02/07/25 11:00 02/07/25 11:00 02/07/25 11:00 02/07/25 11:00
Lab Results:
Laboratory Data
WBC 8.5 10^3/uL (4.8-10.8) 02/06/25 07:21
Hgb 8.3 g/dL (12.0-16.0) L 02/07/25 06:56
Plt Count 498 10^3/uL (130-400) H 02/06/25 07:21
PT 16.0 Sec (11.4-14.6) H 01/28/25 10:57
INR 1.25 01/28/25 10:57
APTT 26.9 Sec (23.4-35.0) 01/28/25 10:57
eGFR > 60.00 02/06/25 07:21
--- NOTE | 2025-02-07 16:20 | W.PN.ID1 ---
Date of Service
Date of Service: February 07, 2025
Today's Communication
- agree with fluconazole given persistent yeast infection, x2 days
- c/w cefdinir 300 mg PO BID to complete a 7 day course
- stable for dc from ID perspective
Assessment / Plan
Influenza
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
Minimal Tachycardia - present through most of stay
Persistent leukocytosis
- agree with tamiflu x5 day course
- droplet precautions
- agree with fluconazole given persistent yeast infection, x2 days
- c/w cefdinir 300 mg PO BID to complete a 7 day course
- stable for dc from ID perspective
Chief Complaint
-: Fever
Subjective / Review of Systems
afebrile
bp stable
tolerating current therapies
Vital Signs / Physical Exam
Vital Signs
Vital Signs
Temp Pulse Resp BP Pulse Ox
98.8 F 95 16 117/73 96
02/07/25 15:10 02/07/25 15:10 02/07/25 15:10 02/07/25 15:10 02/07/25 15:10
Physical Exam
Constitutional: No Acute Distress
Cardiovascular: Regular Rate
Pulmonary: Symmetric and Non Labored
Gastrointestinal: Non Distended
Skin: Dry; Negative Rash or Jaundice
Neurological: Negative Awake
Objective Data
Lab Data
Lab Results
02/07/25 06:56
02/06/25 07:21
PT 16.0 Sec (11.4-14.6) H 01/28/25 10:57
INR 1.25 01/28/25 10:57
APTT 26.9 Sec (23.4-35.0) 01/28/25 10:57
Estimated Creat Clear 64 ml/min 02/06/25 07:21
Total Bilirubin 0.9 mg/dl (0.2-1.3) 02/06/25 07:21
AST 40 U/L (14-36) H 02/06/25 07:21
ALT 46 U/L (0-35) H 02/06/25 07:21
Alkaline Phosphatase 175 U/L (38-126) H 02/06/25 07:21
C-Reactive Protein 7.80 mg/L (0.0-10.00) 01/18/25 13:16
Most recent labs reviewed.
Micro Results:
02/03/25 14:08 Blood Culture - Preliminary
Blood/Venous No Growth in 4 days- Final report to follow
02/03/25 12:56 Blood Culture - Preliminary
Blood/Venous No Growth in 4 days- Final report to follow
02/06/25 06:00 Influenza Types A & B (JASEN) - Final
Nasal Swab Influenza A Positive, NAAT
02/03/25 12:06 Influenza Types A & B (JASEN) - Final
Nasal Swab Negative for Influenza A & B, NAAT
Negative results must be combined with clinical observations
and patient history.
Nucleic Acid Amplification test (NAAT)performed on the
[employer] platform.
01/20/25 05:06 Blood Culture - Final
Blood/Venous No Growth - Final Report
01/20/25 17:41 Body Fluid Culture - Final
Pleural Fluid No Growth After 72 Hours
Gram Stain - Final
01/21/25 20:35 Urine Culture - Final
Urine No Significant Growth
[2025-02-07] MEDS: SENOKOT PO (20:28)
[2025-02-07] MEDS: LOTRISONE CREAM TOPICAL (21:04)
--- NOTE | 2025-02-08 07:17 | W.PN.HOSP.TC ---
Today's Communication/Plan
-
discharge planning Acute rehab pending fever free 24 hours
Assessment / Plan
Assessment / Plan
Physical exam
Gen-AAOx3, NAD
HEENT-NC, AT, anicteric, clear oral mm
Neck-supple
CV-reg, no M, +S1/S2
Lungs-clear B/L
Abd-soft, NT, palpable lower abdominal mass
Musculoskeletal-no edema, no deformity
Skin-warm and dry
Neuro- AOx3 conversant coherent
Psych-calm, cooperative
Ms. Golden is a 79-year-old female with a medical history of breast cancer (diagnosed 2013, status postlumpectomy and radiation), factor V Leiden mutation carrier, and history of DVT (on Eliquis) who presented with nausea and vomiting with
associated abdominal bloating. CT imaging revealed a large heterogeneous complex mass appeared to be originating from the right ovary. Labs revealed a gapped acidosis. She was mildly hyperglycemic and had an elevated beta hydroxybutyrate. She
was started on an insulin drip with DKA protocol and admitted for further evaluation and management.
Flu 02/06/25
remains stable on room air
Tamiflu
Pelvic mass
- presumed malignant with associated intraperitoneal hemorrhage which is currently stable
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
-CA 19-9 level of 60.3K. CEA 165 (WNL), CA 27-29 elevated at 900, CA125 level 18,000
-Paracentesis of 10 mL fluid showing hemorrhagic peritoneal fluid. Cytopathology surprisingly not showing any cancer cells.
-s/p US guided biopsy of mass on 01/23. Pathology report showing only hematoma
-MRI abdomen/pelvis 01/28 showing large complex cystic mass originating from the left ovary measuring 20.5 x 8.3 x 15.0 cm, also shows right ovarian hemorrhagic cyst
-Input from Dr. Krause reviewed, recommend return for elective resection of ovarian mass not during this admission
-Planning discharge to SNF for therapy to optimize her functional status prior to surgery
-Awaiting acute rehab placement [facility]
-Suspect mild persistent leukocytosis and tachycardia secondary to malignancy, blood cultures NGTD, started on cefdinir empirically as per ID after isolated fever on the morning of 02/03
Urinary retention
-mathis catheter placed on 01/26 and removed 01/30, now voiding spontaneously although requiring intermittent straight cath
-Continue Flomax
-Renal function has been normal, no sonographic evidence of hydronephrosis
-Repeat urinalysis unremarkable
-Difficult to assess for retention on bladder scan due to known intraperitoneal hemorrhage which is currently stable
Yeast infection:
-topical clotrimazole as per tool smith
-Oral Fluconazole 2 doses completed as per ID
Acute hypoxic respiratory failure
-Secondary to right-sided hemothorax is now resolved
-Patient had been requiring high flow oxygen, 30L/min, now weaned to room air
-Patient is s/p chest tube placement on 01/20, cytopathology neg for malignant cells, chest tube removed 01/28
-CT surgeon evaluated and no surgical indication
-CTA chest did not show any new finding explaining patient hemothorax.
-Completed a course of antibiotics for empiric treatment of possible pneumonia
-Chest x-ray 02/02 shows no pneumothorax, does show small bilateral pleural effusions, evaluated by ID with low concern for ongoing infection (input much appreciated)
-Remains comfortable and saturating appropriately on room air, repeat chest x-ray shows small bilateral pleural effusions
-Restarted antibiotics with cefdinir on 02/03 following isolated fever that morning which I suspect is malignancy related
-weaned off oxygen supplementation to room air
Acute blood loss anemia
-Currently stable, status post transfusion 3 units PRBCs and 4 units FFP this admission
-Due to hemothorax and intra-abdominal bleeding related to right ovarian mass
-No GI blood loss reported
-Continue following hemoglobin with transfusion for less than 7
Troponin elevation
-Denies any chest pain.
-Suspected type II [place] from hypovolemia and tachycardia. Trop peaked at ~ 3.5
-With ongoing bleeding issue cannot be started on any antiplatelets/heparin product
-TTE showed preserved EF
-Cardiology following and no further intervention warranted at this point.
Hyponatremia
-Mild, clinically insignificant
-Will monitor
JULY -resolved
Metabolic acidosis -resolved
-JULY likely related to hypovolemia/hypotension and need of contrast for CT scan
-Patient had mild anion gap metabolic acidosis likely with JULY and malignancy related
-Avoid nephrotoxic medication and monitor
Hyperkalemia -resolved
-driven from acidosis and mild july
Hypovolemic shock - resolved
-Required IVF/support of vasopressor
Chronic left femoral vein thrombus
History of factor V Leiden mutation
-Peripheral vascular ultrasound report reviewed
Leukocytosis without fever
-Suspect malignancy related
- Improving
-Patient continued to have elevated white blood cell although downtrending, mildly persistent tachycardia
-Completed a course of antibiotics empirically for possible pneumonia
-Doubt ongoing infection, appreciate input and guidance from infectious disease team
Abnormal LFTs:
-Suspect initially shock liver which is now resolved
-LFT continue to trend down
-Possibly contributed to by malignancy, will need follow-up
Sinus tachycardia
-monitor on tele
-Toprol-XL has been increased to Toprol-XL 50/d by cards.
DVT ppx SCD, Heparin 5000 BID added given stable H&H and increased VTE risk
CODE STATUS: DNR
discharge planning Acute rehab pending fever free 24 hours
discussed with patient and patient's daughter Elizabeth
I spent a total of 35 minutes with the patient or on the floor. More than 50% of this time involved counseling and coordination of care.
Anticipated Discharge: 24 - 48 hours
Subjective/Interval History
-
Date of Service: February 08, 2025
no acute distress resting comfortably in bed. fever spike overnight. patient otherwise reports feeling relatively well.
Objective Data
-
Vital Signs:
Vital Signs
Temp Pulse Resp BP Pulse Ox
99.5 F 85 16 119/56 95
02/07/25 23:28 02/07/25 23:28 02/07/25 23:28 02/07/25 23:28 02/07/25 23:28
I&O
02/07/25 02/08/25 02/09/25
06:59 06:59 06:59
Intake Total 960 / 960 990 / 990
Output Total 775 / 775 800 / 800
Balance 185 / 185 190 / 190
[2025-02-08 08:00] VITALS: BP 139/67
[2025-02-08] MEDS: TAMIFLU 75 MG PO ×2 (08:59→21:58)
[2025-02-08] MEDS: HEPARIN 5000 UNITS SC ×2 (08:59→21:59)
[2025-02-08] MEDS: ZESTRIL 5 MG PO (08:59)
[2025-02-08] MEDS: SENOKOT PO ×3 (09:00→21:59)
[2025-02-08] MEDS: FLOMAX 0.4 MG PO (09:00)
[2025-02-08] MEDS: OMNICEF PO (09:00)
[2025-02-08] MEDS: TOPROL XL 50 MG PO (09:00)
[2025-02-08] MEDS: LOTRISONE CREAM TOPICAL (09:01)
[2025-02-08] MEDS: OMNICEF 300 MG PO ×2 (09:10→21:58)
--- NOTE | 2025-02-08 09:40 | CM ---
Addendum entered by Wilma Morrow 02/08/25 16:25:
Spoke with Sarah from [facility] & states they now will have a bed on Sunday 02/11
PLAN: [facility]
Original Note:
Spoke with Sarah from [facility], unable to accept today as patient had 101 fever last evening.
Stated patient would need to be fever free for 24hrs without Tylenol
CM to touch base with Sarah at the end of the day for [facility] tomorrow.
[facility]
[2025-02-08 16:00] VITALS: BP 122/77
--- NOTE | 2025-02-08 16:45 | W.PN.ID1 ---
Date of Service
Date of Service: February 08, 2025
Today's Communication
- agree with tamiflu x5 day course, could be extended to 10 days if fever not resolving in the next day or two
- droplet precautions
- agree with fluconazole given persistent yeast infection, x2 days
- c/w cefdinir 300 mg PO BID to complete a 7 day course
- will transfer to [facility] when afebrile
Assessment / Plan
Influenza
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
Minimal Tachycardia - present through most of stay
Persistent leukocytosis
- agree with tamiflu x5 day course, could be extended to 10 days if fever not resolving in the next day or two
- droplet precautions
- agree with fluconazole given persistent yeast infection, x2 days
- c/w cefdinir 300 mg PO BID to complete a 7 day course
- will transfer to [facility] when afebrile
Chief Complaint
-: Fever
Subjective / Review of Systems
fevers ongoing but improved
bp stable
remains on room air
'I feel better'
Vital Signs / Physical Exam
Vital Signs
Vital Signs
Temp Pulse Resp BP Pulse Ox
99.0 F 92 18 139/67 94
02/08/25 08:00 02/08/25 08:59 02/08/25 08:00 02/08/25 08:59 02/08/25 10:46
Physical Exam
Constitutional: No Acute Distress
Cardiovascular: Regular Rate and S1/S2; Negative Murmur or Rub
Pulmonary: Clear and Symmetric; Negative Wheezes or Rales
Gastrointestinal: Soft, Non Tender, Non Distended and Normal Bowel Sounds
Skin: Warm and Dry; Negative Rash or Jaundice
Objective Data
Lab Data
Lab Results
02/07/25 06:56
02/06/25 07:21
PT 16.0 Sec (11.4-14.6) H 01/28/25 10:57
INR 1.25 01/28/25 10:57
APTT 26.9 Sec (23.4-35.0) 01/28/25 10:57
Estimated Creat Clear 64 ml/min 02/06/25 07:21
Total Bilirubin 0.9 mg/dl (0.2-1.3) 02/06/25 07:21
AST 40 U/L (14-36) H 02/06/25 07:21
ALT 46 U/L (0-35) H 02/06/25 07:21
Alkaline Phosphatase 175 U/L (38-126) H 02/06/25 07:21
C-Reactive Protein 7.80 mg/L (0.0-10.00) 01/18/25 13:16
Most recent labs reviewed.
Micro Results:
02/03/25 14:08 Blood Culture - Final
Blood/Venous No Growth - Final Report
02/03/25 12:56 Blood Culture - Final
Blood/Venous No Growth - Final Report
02/06/25 06:00 Influenza Types A & B (JASEN) - Final
Nasal Swab Influenza A Positive, NAAT
02/03/25 12:06 Influenza Types A & B (JASEN) - Final
Nasal Swab Negative for Influenza A & B, NAAT
Negative results must be combined with clinical observations
and patient history.
Nucleic Acid Amplification test (NAAT)performed on the
[employer] platform.
01/20/25 05:06 Blood Culture - Final
Blood/Venous No Growth - Final Report
01/20/25 17:41 Body Fluid Culture - Final
Pleural Fluid No Growth After 72 Hours
Gram Stain - Final
01/21/25 20:35 Urine Culture - Final
Urine No Significant Growth
[2025-02-08] MEDS: LOTRISONE CREAM 1 APPLIC TOPICAL (22:10)
[2025-02-08 23:14] VITALS: BP 147/65
--- NOTE | 2025-02-09 07:06 | W.PN.HOSP.TC ---
Today's Communication/Plan
-
discharge planning Acute rehab pending fever free 24 hours
last day cefdinir 7 day course
Assessment / Plan
Assessment / Plan
Physical exam
Gen-AAOx3, NAD
HEENT-NC, AT, anicteric, clear oral mm
Neck-supple
CV-reg, no M, +S1/S2
Lungs-clear B/L
Abd-soft, NT, palpable lower abdominal mass
Musculoskeletal-no edema, no deformity
Skin-warm and dry
Neuro- AOx3 conversant coherent
Psych-calm, cooperative
Ms. Golden is a 79-year-old female with a medical history of breast cancer (diagnosed 2013, status postlumpectomy and radiation), factor V Leiden mutation carrier, and history of DVT (on Eliquis) who presented with nausea and vomiting with
associated abdominal bloating. CT imaging revealed a large heterogeneous complex mass appeared to be originating from the right ovary. Labs revealed a gapped acidosis. She was mildly hyperglycemic and had an elevated beta hydroxybutyrate. She
was started on an insulin drip with DKA protocol and admitted for further evaluation and management.
Flu 02/06/25
remains stable on room air
Tamiflu
Pelvic mass
- presumed malignant with associated intraperitoneal hemorrhage which is currently stable
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
-CA 19-9 level of 60.3K. CEA 165 (WNL), CA 27-29 elevated at 900, CA125 level 18,000
-Paracentesis of 10 mL fluid showing hemorrhagic peritoneal fluid. Cytopathology surprisingly not showing any cancer cells.
-s/p US guided biopsy of mass on 01/23. Pathology report showing only hematoma
-MRI abdomen/pelvis 01/28 showing large complex cystic mass originating from the left ovary measuring 20.5 x 8.3 x 15.0 cm, also shows right ovarian hemorrhagic cyst
-Input from Dr. Krause reviewed, recommend return for elective resection of ovarian mass not during this admission
-Planning discharge to SNF for therapy to optimize her functional status prior to surgery
-Awaiting acute rehab placement [facility]
-Suspect mild persistent leukocytosis and tachycardia secondary to malignancy, blood cultures NGTD, started on cefdinir empirically as per ID after isolated fever on the morning of 02/03
-Complete 7 days Cefdinir 02/09/25 as per ID
Urinary retention
-mathis catheter placed on 01/26 and removed 01/30, now voiding spontaneously although requiring intermittent straight cath
-Continue Flomax
-Renal function has been normal, no sonographic evidence of hydronephrosis
-Repeat urinalysis unremarkable
-Difficult to assess for retention on bladder scan due to known intraperitoneal hemorrhage which is currently stable
Yeast infection:
-topical clotrimazole as per slide developer
-Oral Fluconazole 2 doses completed as per ID
Acute hypoxic respiratory failure
-Secondary to right-sided hemothorax is now resolved
-Patient had been requiring high flow oxygen, 30L/min, now weaned to room air
-Patient is s/p chest tube placement on 01/20, cytopathology neg for malignant cells, chest tube removed 01/28
-CT surgeon evaluated and no surgical indication
-CTA chest did not show any new finding explaining patient hemothorax.
-Completed a course of antibiotics for empiric treatment of possible pneumonia
-Chest x-ray 02/02 shows no pneumothorax, does show small bilateral pleural effusions, evaluated by ID with low concern for ongoing infection (input much appreciated)
-Remains comfortable and saturating appropriately on room air, repeat chest x-ray shows small bilateral pleural effusions
-Restarted antibiotics with cefdinir on 02/03 following isolated fever that morning which I suspect is malignancy related
-weaned off oxygen supplementation to room air
Acute blood loss anemia
-Currently stable, status post transfusion 3 units PRBCs and 4 units FFP this admission
-Due to hemothorax and intra-abdominal bleeding related to right ovarian mass
-No GI blood loss reported
-Continue following hemoglobin with transfusion for less than 7
Troponin elevation
-Denies any chest pain.
-Suspected type II [place] from hypovolemia and tachycardia. Trop peaked at ~ 3.5
-With ongoing bleeding issue cannot be started on any antiplatelets/heparin product
-TTE showed preserved EF
-Cardiology following and no further intervention warranted at this point.
Hyponatremia
-Mild, clinically insignificant
-Will monitor
JULY -resolved
Metabolic acidosis -resolved
-JULY likely related to hypovolemia/hypotension and need of contrast for CT scan
-Patient had mild anion gap metabolic acidosis likely with JULY and malignancy related
-Avoid nephrotoxic medication and monitor
Hyperkalemia -resolved
-driven from acidosis and mild july
Hypovolemic shock - resolved
-Required IVF/support of vasopressor
Chronic left femoral vein thrombus
History of factor V Leiden mutation
-Peripheral vascular ultrasound report reviewed
Leukocytosis without fever
-Suspect malignancy related
- Improving
-Patient continued to have elevated white blood cell although downtrending, mildly persistent tachycardia
-Completed a course of antibiotics empirically for possible pneumonia
-Doubt ongoing infection, appreciate input and guidance from infectious disease team
Abnormal LFTs:
-Suspect initially shock liver which is now resolved
-LFT continue to trend down
-Possibly contributed to by malignancy, will need follow-up
Sinus tachycardia
-monitor on tele
-Toprol-XL has been increased to Toprol-XL 50/d by cards.
DVT ppx SCD, Heparin 5000 BID added given stable H&H and increased VTE risk
CODE STATUS: DNR
discharge planning Acute rehab pending fever free 24 hours
discussed with patient and patient's daughter Elizabeth
I spent a total of 35 minutes with the patient or on the floor. More than 50% of this time involved counseling and coordination of care.
Anticipated Discharge: 24 - 48 hours
Subjective/Interval History
-
Date of Service: February 09, 2025
No acute distress sitting up comfortably in bed. Fever free 24 hours. Denies new acute issues.
Objective Data
-
Vital Signs:
Vital Signs
Temp Pulse Resp BP Pulse Ox
99.7 F 88 16 147/65 94
02/08/25 23:14 02/08/25 23:14 02/08/25 23:14 02/08/25 23:14 02/08/25 23:14
I&O
02/08/25 02/09/25 02/10/25
06:59 06:59 06:59
Intake Total 990 / 990 660 / 660
Output Total 800 / 800 850 / 850
Balance 190 / 190 -190 / -190
[2025-02-09 07:15] VITALS: BP 153/55
[2025-02-09] MEDS: SENOKOT 8.6 MG PO (08:46)
[2025-02-09] MEDS: TAMIFLU 75 MG PO ×2 (08:46→19:32)
[2025-02-09] MEDS: OMNICEF 300 MG PO ×2 (08:46→19:32)
[2025-02-09] MEDS: ZESTRIL 5 MG PO (08:46)
[2025-02-09] MEDS: TOPROL XL 50 MG PO (08:46)
[2025-02-09] MEDS: FLOMAX 0.4 MG PO (08:47)
[2025-02-09] MEDS: HEPARIN 5000 UNITS SC ×2 (08:47→19:31)
[2025-02-09] MEDS: LOTRISONE CREAM TOPICAL ×2 (08:51→19:34)
[2025-02-09 15:10] VITALS: BP 176/71
[2025-02-09] MEDS: TYLENOL 1000 MG PO (15:15)
[2025-02-09] MEDS: APRESOLINE 10 MG IV (15:16)
[2025-02-09 17:29] VITALS: BP 124/57
[2025-02-09] MEDS: SENOKOT PO (19:34)
[2025-02-09 23:11] VITALS: BP 167/72
[2025-02-10] VITALS (7 sets, daily range): BP systolic 106–184; BP diastolic 51–76; PULSE 84
[2025-02-10] MEDS: APRESOLINE 10 MG IV ×2 (02:14→15:41)
[2025-02-10] MEDS: TYLENOL 1000 MG PO ×2 (02:14→15:43)
[2025-02-10] MEDS: ZOFRAN 4 MG IV ×2 (03:56→18:09)
--- NOTE | 2025-02-10 06:40 | W.PN.HOSP.TC ---
Today's Communication/Plan
-
discharge planning Acute rehab pending fever free 24 hours
cont Tamiflu
Assessment / Plan
Assessment / Plan
Physical exam
Gen-AAOx3, NAD
HEENT-NC, AT, anicteric, clear oral mm
Neck-supple
CV-reg, no M, +S1/S2
Lungs-clear B/L
Abd-soft, NT, palpable lower abdominal mass
Musculoskeletal-no edema, no deformity
Skin-warm and dry
Neuro- AOx3 conversant coherent
Psych-calm, cooperative
Ms. Golden is a 79-year-old female with a medical history of breast cancer (diagnosed 2013, status postlumpectomy and radiation), factor V Leiden mutation carrier, and history of DVT (on Eliquis) who presented with nausea and vomiting with
associated abdominal bloating. CT imaging revealed a large heterogeneous complex mass appeared to be originating from the right ovary. Labs revealed a gapped acidosis. She was mildly hyperglycemic and had an elevated beta hydroxybutyrate. She
was started on an insulin drip with DKA protocol and admitted for further evaluation and management.
Flu 02/06/25
remains stable on room air
completed 5 days Tamiflu but extending due to persistent spiking fevers, can discontinue when fever free 24 hours or when max 10 days completed.
Pelvic mass
- presumed malignant with associated intraperitoneal hemorrhage which is currently stable
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
-CA 19-9 level of 60.3K. CEA 165 (WNL), CA 27-29 elevated at 900, CA125 level 18,000
-Paracentesis of 10 mL fluid showing hemorrhagic peritoneal fluid. Cytopathology surprisingly not showing any cancer cells.
-s/p US guided biopsy of mass on 01/23. Pathology report showing only hematoma
-MRI abdomen/pelvis 01/28 showing large complex cystic mass originating from the left ovary measuring 20.5 x 8.3 x 15.0 cm, also shows right ovarian hemorrhagic cyst
-Input from Dr. Krause reviewed, recommend return for elective resection of ovarian mass not during this admission
-Planning discharge to SNF for therapy to optimize her functional status prior to surgery
-Awaiting acute rehab placement [facility]
-Suspect mild persistent leukocytosis and tachycardia secondary to malignancy, blood cultures NGTD, started on cefdinir empirically as per ID after isolated fever on the morning of 02/03
-Complete 7 days Cefdinir 02/09/25 as per ID
Urinary retention
-mathis catheter placed on 01/26 and removed 01/30, now voiding spontaneously although requiring intermittent straight cath
-Continue Flomax
-Renal function has been normal, no sonographic evidence of hydronephrosis
-Repeat urinalysis unremarkable
-Difficult to assess for retention on bladder scan due to known intraperitoneal hemorrhage which is currently stable
Yeast infection:
-topical clotrimazole as per assistant project manager
-Oral Fluconazole 2 doses completed as per ID
Acute hypoxic respiratory failure
-Secondary to right-sided hemothorax is now resolved
-Patient had been requiring high flow oxygen, 30L/min, now weaned to room air
-Patient is s/p chest tube placement on 01/20, cytopathology neg for malignant cells, chest tube removed 01/28
-CT surgeon evaluated and no surgical indication
-CTA chest did not show any new finding explaining patient hemothorax.
-Completed a course of antibiotics for empiric treatment of possible pneumonia
-Chest x-ray 02/02 shows no pneumothorax, does show small bilateral pleural effusions, evaluated by ID with low concern for ongoing infection (input much appreciated)
-Remains comfortable and saturating appropriately on room air, repeat chest x-ray shows small bilateral pleural effusions
-Restarted antibiotics with cefdinir on 02/03 following isolated fever that morning which I suspect is malignancy related
-weaned off oxygen supplementation to room air
Acute blood loss anemia
-Currently stable, status post transfusion 3 units PRBCs and 4 units FFP this admission
-Due to hemothorax and intra-abdominal bleeding related to right ovarian mass
-No GI blood loss reported
-Continue following hemoglobin with transfusion for less than 7
Troponin elevation
-Denies any chest pain.
-Suspected type II [place] from hypovolemia and tachycardia. Trop peaked at ~ 3.5
-With ongoing bleeding issue cannot be started on any antiplatelets/heparin product
-TTE showed preserved EF
-Cardiology following and no further intervention warranted at this point.
Hyponatremia
-Mild, clinically insignificant
-Will monitor
JULY -resolved
Metabolic acidosis -resolved
-JULY likely related to hypovolemia/hypotension and need of contrast for CT scan
-Patient had mild anion gap metabolic acidosis likely with JULY and malignancy related
-Avoid nephrotoxic medication and monitor
Hyperkalemia -resolved
-driven from acidosis and mild july
Hypovolemic shock - resolved
-Required IVF/support of vasopressor
Chronic left femoral vein thrombus
History of factor V Leiden mutation
-Peripheral vascular ultrasound report reviewed
Leukocytosis without fever
-Suspect malignancy related
- Improving
-Patient continued to have elevated white blood cell although downtrending, mildly persistent tachycardia
-Completed a course of antibiotics empirically for possible pneumonia
-Doubt ongoing infection, appreciate input and guidance from infectious disease team
Abnormal LFTs:
-Suspect initially shock liver which is now resolved
-LFT continue to trend down
-Possibly contributed to by malignancy, will need follow-up
Sinus tachycardia
-monitor on tele
-Toprol-XL has been increased to Toprol-XL 50/d by cards.
DVT ppx SCD, Heparin 5000 BID added given stable H&H and increased VTE risk
CODE STATUS: DNR
discharge planning Acute rehab pending fever free 24 hours
discussed with patient and patient's daughter Elizabeth
I spent a total of 35 minutes with the patient or on the floor. More than 50% of this time involved counseling and coordination of care.
Anticipated Discharge: Within 24 hours
Subjective/Interval History
-
Date of Service: February 10, 2025
no acute distress. understandably frustrated with length of stay.
Objective Data
-
Vital Signs:
Vital Signs
Temp Pulse Resp BP Pulse Ox
99.8 F 101 19 124/53 97
02/10/25 04:03 02/10/25 02:14 02/09/25 23:11 02/10/25 04:03 02/10/25 02:05
I&O
02/08/25 02/09/25 02/10/25
06:59 06:59 06:59
Intake Total 990 / 990 660 / 660 1140 / 1140
Output Total 800 / 800 850 / 850 900 / 900
Balance 190 / 190 -190 / -190 240 / 240
[2025-02-10] MEDS: TOPROL XL 50 MG PO (08:32)
[2025-02-10] MEDS: FLOMAX 0.4 MG PO (08:32)
[2025-02-10] MEDS: TAMIFLU 75 MG PO (08:32)
[2025-02-10] MEDS: SENOKOT PO ×2 (08:32→19:51)
[2025-02-10] MEDS: LOTRISONE CREAM TOPICAL ×2 (08:33→20:23)
[2025-02-10] MEDS: ZESTRIL 5 MG PO (08:33)
[2025-02-10] MEDS: HEPARIN 5000 UNITS SC ×2 (08:33→19:47)
[2025-02-10] MEDS: TAMIFLU PO (19:47)
[2025-02-11] MEDS: TAMIFLU PO ×2 (06:35→06:36)
[2025-02-11 07:10] VITALS: BP 171/66
[2025-02-11] MEDS: ZESTRIL 5 MG PO (08:38)
[2025-02-11] MEDS: FLOMAX 0.4 MG PO (08:38)
[2025-02-11] MEDS: TOPROL XL 50 MG PO (08:38)
[2025-02-11] MEDS: TAMIFLU 75 MG PO (08:38)
[2025-02-11] MEDS: SENOKOT PO ×2 (08:39→20:47)
[2025-02-11] MEDS: LOTRISONE CREAM TOPICAL ×2 (08:39→20:47)
[2025-02-11] MEDS: HEPARIN 5000 UNITS SC ×2 (08:40→20:47)
[2025-02-11] MEDS: ZOFRAN 4 MG IV ×2 (08:44→15:08)
[2025-02-11 11:35] VITALS: BP 135/60
--- NOTE | 2025-02-11 12:07 | CM ---
spoke with Sarah from [facility]
unable to accept today - she states patient needs to be fever free without tylenol for 24hrs.
PLAN: [facility]
--- NOTE | 2025-02-11 13:03 | W.PN.HOSP.TC ---
Today's Communication/Plan
-
Assessment / Plan
Assessment / Plan
Physical exam
Gen-AAOx3, NAD
HEENT-NC, AT, anicteric, clear oral mm
Neck-supple
CV-reg, no M, +S1/S2
Lungs-clear B/L
Abd-soft, mild lower abdominal tenderness, palpable lower abdominal mass
Musculoskeletal-no edema, no deformity
Skin-warm and dry
Neuro- AOx3 conversant coherent
Psych-calm, cooperative
Ms. Golden is a 79-year-old female with a medical history of breast cancer (diagnosed 2013, status postlumpectomy and radiation), factor V Leiden mutation carrier, and history of DVT (on Eliquis) who presented with nausea and vomiting with
associated abdominal bloating. CT imaging revealed a large heterogeneous complex mass appeared to be originating from the right ovary. Labs revealed a gapped acidosis. She was mildly hyperglycemic and had an elevated beta hydroxybutyrate. She
was started on an insulin drip with DKA protocol and admitted for further evaluation and management.
Flu 02/06/25
remains stable on room air
completed 5 days Tamiflu 02/11
-Discharge to acute rehab once afebrile for 24 hours
Pelvic mass
- presumed malignant with associated intraperitoneal hemorrhage which is currently stable
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
-CA 19-9 level of 60.3K. CEA 165 (WNL), CA 27-29 elevated at 900, CA125 level 18,000
-Paracentesis of 10 mL fluid showing hemorrhagic peritoneal fluid. Cytopathology surprisingly not showing any cancer cells.
-s/p US guided biopsy of mass on 01/23. Pathology report showing only hematoma
-MRI abdomen/pelvis 01/28 showing large complex cystic mass originating from the left ovary measuring 20.5 x 8.3 x 15.0 cm, also shows right ovarian hemorrhagic cyst
-Input from Dr. Krause reviewed, recommend return for elective resection of ovarian mass not during this admission
-Planning discharge to SNF for therapy to optimize her functional status prior to surgery
-Awaiting acute rehab placement [facility]
-Suspect mild persistent leukocytosis and tachycardia secondary to malignancy, blood cultures NGTD, started on cefdinir empirically as per ID after isolated fever on the morning of 02/03
-Complete 7 days Cefdinir 02/09/25 as per ID
Urinary retention
-mathis catheter placed on 01/26 and removed 01/30, had been voiding spontaneously although requiring intermittent straight cath
-Now Mathis catheter back in place and to remain in place at discharge with outpatient urology follow-up
-Continue Flomax
-Renal function has been normal, no sonographic evidence of hydronephrosis
-Repeat urinalysis unremarkable
-Difficult to assess for retention on bladder scan due to known intraperitoneal hemorrhage which is currently stable
Yeast infection:
-topical clotrimazole as per business analyst sales operations
-Oral Fluconazole 2 doses completed as per ID
Acute hypoxic respiratory failure
-Secondary to right-sided hemothorax is now resolved
-Patient had been requiring high flow oxygen, 30L/min, now weaned to room air
-Patient is s/p chest tube placement on 01/20, cytopathology neg for malignant cells, chest tube removed 01/28
-CT surgeon evaluated and no surgical indication
-CTA chest did not show any new finding explaining patient hemothorax.
-Completed a course of antibiotics for empiric treatment of possible pneumonia
-Chest x-ray 02/02 shows no pneumothorax, does show small bilateral pleural effusions, evaluated by ID with low concern for ongoing infection (input much appreciated)
-Remains comfortable and saturating appropriately on room air, repeat chest x-ray shows small bilateral pleural effusions
-Completed another course of antibiotics with cefdinir on 02/03 through 02/09
-weaned off oxygen supplementation to room air
Acute blood loss anemia
-Currently stable, status post transfusion 3 units PRBCs and 4 units FFP this admission
-Due to hemothorax and intra-abdominal bleeding related to right ovarian mass
-No GI blood loss reported
-Continue following hemoglobin with transfusion for less than 7
Troponin elevation
-Denies any chest pain.
-Suspected type II LA from hypovolemia and tachycardia. Trop peaked at ~ 3.5
-With ongoing bleeding issue cannot be started on any antiplatelets/heparin product
-TTE showed preserved EF
-Cardiology following and no further intervention warranted at this point.
Hyponatremia
-Mild, clinically insignificant
-Will monitor
JULY -resolved
Metabolic acidosis -resolved
-JULY likely related to hypovolemia/hypotension and need of contrast for CT scan
-Patient had mild anion gap metabolic acidosis likely with JULY and malignancy related
-Avoid nephrotoxic medication and monitor
Hyperkalemia -resolved
-driven from acidosis and mild july
Hypovolemic shock - resolved
-Required IVF/support of vasopressor
Chronic left femoral vein thrombus
History of factor V Leiden mutation
-Peripheral vascular ultrasound report reviewed
Leukocytosis
-Probably related to influenza infection
-Resolved
-Completed a course of antibiotics empirically for possible pneumonia
Abnormal LFTs:
-Suspect initially shock liver which is now resolved
-Remain mildly elevated and stable
-Possibly contributed to by malignancy, will need follow-up
Sinus tachycardia
-monitor on tele
-Toprol-XL has been increased to Toprol-XL 50/d by cards.
DVT ppx SCD, Heparin 5000 BID added given stable H&H and increased VTE risk
CODE STATUS: DNR
discharge planning Acute rehab pending fever free 24 hours
discussed with patient and patient's daughter Elizabeth
I spent a total of 35 minutes with the patient or on the floor. More than 50% of this time involved counseling and coordination of care.
Anticipated Discharge: 24 - 48 hours
Subjective/Interval History
-
Date of Service: February 11, 2025
Patient was seen and examined at bedside this morning. Continues to have poor appetite with some nausea. Finishing course of Tamiflu today.
Objective Data
-
Labs:
Laboratory Results
02/11/25
12:28
WBC Pending
Hgb Pending
Hct Pending
Plt Count Pending
Sodium Pending
Potassium Pending
Chloride Pending
Carbon Dioxide Pending
BUN Pending
Creatinine Pending
Glucose Pending
Calcium Pending
Total Bilirubin Pending
AST Pending
ALT Pending
Alkaline Phosphatase Pending
Vital Signs:
Vital Signs
Temp Pulse Resp BP Pulse Ox
99.8 F 87 16 135/60 97
02/11/25 11:54 02/11/25 11:54 02/11/25 11:54 02/11/25 11:35 02/11/25 07:10
I&O
02/10/25 02/11/25 02/12/25
06:59 06:59 06:59
Intake Total 1140 / 1140 960 / 960
Output Total 900 / 900 425 / 425
Balance 240 / 240 535 / 535
Review of Systems
-
History Source: Patient
All other systems: Reviewed and negative
Abdomen/GI: Reports Abdominal Pain (Mild lower quadrant abdominal soreness) and Nausea
Physical Exam
-
General: No Apparent Distress
[2025-02-11 13:24] VITALS: BP 129/65; PULSE 89; O2SAT 98
[2025-02-11 15:14] VITALS: BP 137/63
[2025-02-11 16:51] LABS: % Eosinophils 1.4 % (0-6); % Immature Granulocytes 1.4 % (0-0.5); % Lymphocytes 24.9 % (20.5-51.1); % Monocytes 12.4 % (1.7-9.3); % Neutrophils 59.9 % (42.2-75.2); Absolute Eosinophils 0.1 10^3/uL (0-0.7); Absolute Immature Granulocytes 0.1 10^3/uL (0-0.05); Absolute Lymphocytes 1.1 10^3/uL (1.2-3.4); Absolute Monocytes 0.5 10^3/uL (0.1-0.6); Absolute Neutrophils 2.6 10^3/uL (1.4-6.5); Hematocrit 27.8 % (37.0-47.0); Mean Corp Hgb Conc. 32.4 g/dL (33.0-37.0); Mean Corpuscular Hgb 26.9 pg (27.0-31.0); Mean Corpuscular Volume 83.2 fL (81.0-99.0); Mean Platelet Volume 10.2 fL (7.4-10.4); Nucleated Red Blood Cells % 0 %; Platelet Count 373 10^3/uL (130-400); Red Blood Cell Count 3.34 10^6/uL (4.20-5.40); Red Cell Dist. Width 15.8 % (11.5-14.5); Reticulocyte Count 1.4 % (0.4-2.8); White Blood Cell Count 4.4 10^3/uL (4.8-10.8)
[2025-02-11 17:03] LABS: ALT (SGPT) 49 U/L (0-35); AST (SGOT) 67 U/L (14-36); Albumin 2.6 g/dl (3.5-5.0); Alkaline Phosphatase 180 U/L (38-126); Blood Urea Nitrogen 15 mg/dl (7-17); Calcium 8.3 mg/dl (8.4-10.2); Carbon Dioxide 27 mmol/L (22-30); Chloride 102 mmol/L (98-107); Direct Bilirubin 0.4 mg/dl (0.0-0.4); Estimated Creatinine Clearance 56 ml/min; Glucose 97 mg/dl (70-99); Potassium 3.8 mmol/L (3.5-5.1); Sodium 134 mmol/L (135-145); Total Bilirubin 0.8 mg/dl (0.2-1.3); Total Protein 5.6 g/dl (6.3-8.2); eGFR > 60.00
[2025-02-11 23:10] VITALS: BP 162/64
[2025-02-12 07:35] VITALS: BP 136/64
--- NOTE | 2025-02-12 08:36 | W.PN.GYNONC ---
Today's Communication
-
My plan is for her to return back to the office 2 weeks [facility]
If she is staying in the hospital for now, please repeat CT CAP w and wo contrast to see the evolution of mass and hempperitoneum
Impression / Plan
-
Right pelvic mass -
Tumor markers including CA125, CEA and CA 19�9 are all elevated.
Overall appearance and presentation is worrisome for malignancy. Malignancy is not confirmed until we have histologic documentation.
Ascites as well as pleural effusions are negative for malignancy
Preliminary report of pelvic mass biopsy shows fragments of organizing hematoma with no obvious evidence of malignancy.
My plan is for her to return back to the office 2 weeks after admisssion to [facility]
she is very freightened at the prospect of any surgery
If she is staying in the hospital for now, please repeat CT CAP w and wo contrast to see the evolution of mass and hempperitoneum
Subjective / Interval History
-
she feels better from the flu perspective
still with intermittent cough
reports no BM x 3 days, soreness in abdomen, + flatus
no further emesis
Objective Data
-
Lab Results:
02/11/25 16:34
02/11/25 16:34
Physical Exam
Vital Signs / I&O
Vitals
Temp Pulse Resp BP Pulse Ox
98.7 F 90 16 136/64 100
02/12/25 07:35 02/12/25 07:35 02/12/25 07:35 02/12/25 07:35 02/12/25 07:35
I&O
02/10/25 02/11/25 02/12/25 02/13/25
06:59 06:59 06:59 06:59
Intake Total 1140 / 1140 960 / 960 360 / 360
Output Total 900 / 900 425 / 425 150 / 150
Balance 240 / 240 535 / 535 210 / 210
Physical Exam
General: No Apparent Distress
HEENT: Normocephalic and Moist Mucous Membranes
Cardiac: S1/S2 and Regular Rhythm
GI: Soft, Non Tender and Non Distended
Skin: Warm
Neuro: Awake, Alert and Oriented
Hematologic/Lymphatic: No Lymphadenopathy
Psych: Calm
[2025-02-12] MEDS: TOPROL XL 50 MG PO (08:58)
[2025-02-12] MEDS: SENOKOT PO (08:58)
[2025-02-12] MEDS: HEPARIN 5000 UNITS SC (08:58)
[2025-02-12] MEDS: FLOMAX 0.4 MG PO (08:58)
[2025-02-12] MEDS: ZESTRIL 5 MG PO (08:58)
[2025-02-12] MEDS: LOTRISONE CREAM 1 APPLIC TOPICAL (08:59)
[2025-02-12] MEDS: ZOFRAN 4 MG IV (10:38)
--- NOTE | 2025-02-12 11:08 | CM ---
Patient seen at bedside
Spoke with Sarah from [facility] - bed available today
IMM explained & signed. In chart
PLAN: [facility]
Report #: [phone]
Fax #: [phone]
--- NOTE | 2025-02-12 11:52 | W.DCSUMMARY ---
Discharge Summary
Discharge Data
Date of Admission: 01/18/25
Date of Discharge: 02/12/25
-
Pending Results: No
Hospital Course
Ms. Golden is a 79-year-old female with a medical history of breast cancer (diagnosed 2013, status postlumpectomy and radiation), factor V Leiden mutation carrier, and history of DVT (on Eliquis) who presented with nausea and vomiting with
associated abdominal bloating. CT imaging revealed a large heterogeneous complex mass appeared to be originating from the right ovary. Labs revealed a gapped acidosis. She was mildly hyperglycemic and had an elevated beta hydroxybutyrate. She
was initially started on an insulin drip with DKA protocol and admitted for further evaluation and management. She was fluid resuscitated and insulin drip was able to be discontinued after her anion gap normalized.
Further imaging with MRI showed that her pelvic mass was originating from her left ovary but she also had a right ovarian hemorrhagic cyst with a small amount of hemoperitoneum. She developed acute hypoxic respiratory failure requiring increasing
amounts of supplemental oxygen. She was found to have a large right-sided hemothorax for which a chest tube was placed on 01/20 and notably was able to be removed on 01/28. She required transfusion of 3 units PRBCs and 4 units of FFP. Her home
Eliquis was discontinued indefinitely. She required vasopressors for period of time but was able to be weaned off of both vasopressors and supplemental oxygen. She completed a course of antibiotics for empiric treatment of pneumonia. She
underwent biopsy of her pelvic mass. Pathology and fluid studies of pelvic mass, fluid from right hemithorax, and fluid from peritoneum all showed no evidence of malignancy. However, her pelvic mass is still highly suspected to be malignant. She
has been followed by oncology and gynecologic oncology all of whom recommend follow-up for surgical planning after acute rehabilitation in order to improve her functional status perioperatively. She has been accepted at [facility] after hospital
discharge. Prior to discharge to rehab she developed intermittent fevers and tested positive for influenza A. She was started on oseltamivir and completed a 5-day course. She was not hypoxic during that time and only complained of a mild cough.
Of note, she developed acute urinary retention during this admission requiring placement of Mathis catheter. She underwent voiding trial and was able to urinate spontaneously although was not able to fully empty her bladder which required repeated
straight catheterizations. Ultimately, Mathis catheter was replaced. She will be continued on Flomax and will need to follow-up with a urologist in the outpatient setting.
At the time of hospital discharge she was hemodynamically stable. She will be discharged to acute rehab at [facility]. Gynecologic oncology (Dr. Dov Krause) would like her to follow-up in 2 weeks to discuss surgical options regarding her pelvic mass.
She was evaluated by the colorectal surgery team during this admission who felt they may be of some assistance surgically considering the proximity of her pelvic mass to her colon. The necessity of involving colorectal surgery can be further
discussed with gynecologic oncology team. She will also need close follow-up with medical oncology and of course with her primary care physician. Because she will be discharged with a Matihs catheter she will need to follow-up with a urologist
regarding a monitored voiding trial. Ms. Golden should not be restarted on Eliquis due to significant bleeding risk. Please include patient's daughter Elizabeth Chatman in all aspects of planning. She lives in [place] but will be traveling back as
needed and would like to be involved in coordinating care. She can be reached at [phone].
Physical exam
Gen-AAOx3, NAD
HEENT-NC, AT, anicteric, clear oral mm
Neck-supple
CV-reg, no M, +S1/S2
Lungs-clear B/L
Abd-soft, mild lower abdominal tenderness, palpable lower abdominal mass, Mathis catheter in place
Musculoskeletal-no edema, no deformity
Skin-warm and dry
Neuro- AOx3 conversant coherent
Psych-calm, cooperative
Discharge Plan
-
Patient Disposition: Acute Rehab Facility
Discharge Diagnosis/Procedures: Acute hypoxic respiratory failure, acute blood loss anemia, right sided hemothorax, acute urinary retention, pelvic mass suspected malignant
Diet: As tolerated
Activity: With assistance and As tolerated
Other Services: PT and OT
Activity Restrictions/Additional Instructions:
Ms. Golden is a 79-year-old female with a medical history of breast cancer (diagnosed 2013, status postlumpectomy and radiation), factor V Leiden mutation carrier, and history of DVT (on Eliquis) who presented with nausea and vomiting with
associated abdominal bloating. CT imaging revealed a large heterogeneous complex mass appeared to be originating from the right ovary. Labs revealed a gapped acidosis. She was mildly hyperglycemic and had an elevated beta hydroxybutyrate. She
was initially started on an insulin drip with DKA protocol and admitted for further evaluation and management. She was fluid resuscitated and insulin drip was able to be discontinued after her anion gap normalized.
Further imaging with MRI showed that her pelvic mass was originating from her left ovary but she also had a right ovarian hemorrhagic cyst with a small amount of hemoperitoneum. She developed acute hypoxic respiratory failure requiring increasing
amounts of supplemental oxygen. She was found to have a large right-sided hemothorax for which a chest tube was placed on 01/20 and notably was able to be removed on 01/28. She required transfusion of 3 units PRBCs and 4 units of FFP. Her home
Eliquis was discontinued indefinitely. She required vasopressors for period of time but was able to be weaned off of both vasopressors and supplemental oxygen. She completed a course of antibiotics for empiric treatment of pneumonia. She
underwent biopsy of her pelvic mass. Pathology and fluid studies of pelvic mass, fluid from right hemithorax, and fluid from peritoneum all showed no evidence of malignancy. However, her pelvic mass is still highly suspected to be malignant. She
has been followed by oncology and gynecologic oncology all of whom recommend follow-up for surgical planning after acute rehabilitation in order to improve her functional status perioperatively. She has been accepted at [facility] after hospital
discharge. Prior to discharge to rehab she developed intermittent fevers and tested positive for influenza A. She was started on oseltamivir and completed a 5-day course. She was not hypoxic during that time and only complained of a mild cough.
Of note, she developed acute urinary retention during this admission requiring placement of Mathis catheter. She underwent voiding trial and was able to urinate spontaneously although was not able to fully empty her bladder which required repeated
straight catheterizations. Ultimately, Mathis catheter was replaced. She will be continued on Flomax and will need to follow-up with a urologist in the outpatient setting.
At the time of hospital discharge she was hemodynamically stable. She will be discharged to acute rehab at [facility]. Gynecologic oncology (Dr. Dov Krause) would like her to follow-up in 2 weeks to discuss surgical options regarding her pelvic mass.
She was evaluated by the colorectal surgery team during this admission who felt they may be of some assistance surgically considering the proximity of her pelvic mass to her colon. The necessity of involving colorectal surgery can be further
discussed with gynecologic oncology team. She will also need close follow-up with medical oncology and of course with her primary care physician. Because she will be discharged with a Mathis catheter she will need to follow-up with a urologist
regarding a monitored voiding trial. Ms. Golden should not be restarted on Eliquis due to significant bleeding risk. Please include patient's daughter Elizabeth Chatman in all aspects of planning. She lives in [place] but will be traveling back as
needed and would like to be involved in coordinating care. She can be reached at [phone].
Referrals:
Sapna Landry MD [Active] -
Nikkie Sanchez MD [Family Provider] -
Marcelo Partida MD [Active] - (monitored voiding trial, unable to discontinue mathis while inpatient)
Elan Anderson MD [Active] - in one to two weeks
Dov Krause MD [Active] - (follow up in 2 weeks to discuss surgical options)
Prescriptions:
New
tamsulosin 0.4 mg Capsule
0.4 mg PO DAILY 30 Days Qty: 30 0RF
sennosides [Cassidy-stacia] 8.6 mg Tablet
8.6 mg PO BID 30 Days Qty: 60 0RF
metoprolol succinate 50 mg Tablet Extended Release 24 Hr
50 mg PO DAILY 30 Days Qty: 30 0RF
lisinopril 5 mg Tablet
5 mg PO DAILY 30 Days Qty: 30 0RF
Continued
atorvastatin 40 mg tablet
40 mg PO HS
Discontinued
Eliquis 5 mg Tablet
5 mg PO BID Qty: 60 3RF
metoprolol succinate [Toprol XL] 25 mg tablet extended release 24 hr
25 mg PO DAILY Qty: 30 5RF
Discharge Orders:
Discharge Patient (As Directed); Ordered 02/12/25
Ordered By: Joseph Rodriguez
Discharge Date and Time
Print Language: POLISH
[2025-02-12 15:00] VITALS: BP 171/68
--- NOTE | 2025-02-12 15:43 | VATNOTE ---
left midline removed per protocol. 14cm retrieved.
== END 2025-02-12 17:12 | DRG 754 ==
LOC: 2 NORTH 20:37
PROVIDERS: Emergency Medicine; Hospitalist; Internal Medicine; Internal Medicine Cardiovascular Disease; Nurse Practitioner Adult Health; Nurse Practitioner Family; Nurse Practitioner Gerontology; Radiology Diagnostic Radiology; Radiology Vascular & Interventional Radiology; ADMITTING PHYSICIAN Internal Medicine; ATTENDING PHYSICIAN Internal Medicine; CONSULT PHYSICIAN Internal Medicine Cardiovascular Disease; CONSULT PHYSICIAN Internal Medicine Critical Care Medicine; CONSULT PHYSICIAN Internal Medicine Hematology & Oncology; CONSULT PHYSICIAN Internal Medicine Hospice and Palliative Medicine; CONSULT PHYSICIAN Obstetrics & Gynecology; CONSULT PHYSICIAN Obstetrics & Gynecology Gynecologic Oncology; CONSULT PHYSICIAN Physical Medicine & Rehabilitation; CONSULT PHYSICIAN Specialist; CONSULT PHYSICIAN Student in an Organized Health Care Education/Training Program; CONSULT PHYSICIAN Surgery; CONSULT PHYSICIAN Thoracic Surgery (Cardiothoracic Vascular Surgery); EMERGENCY PHYSICIAN Emergency Medicine; FAMILY PHYSICIAN Internal Medicine
PROC: 30233N1 Transfusion of Nonautologous Red Blood Cells into Peripheral Vein, Percutaneous Approach (ICD-10-PCS; 2025-01-20)
PROC: 5A0935A Assistance with Respiratory Ventilation, Less than 24 Consecutive Hours, High Flow/Velocity Cannula (ICD-10-PCS; 2025-01-20)
PROC: 0W9930Z Drainage of Right Pleural Cavity with Drainage Device, Percutaneous Approach (ICD-10-PCS; 2025-01-20)
PROC: 30233K1 Transfusion of Nonautologous Frozen Plasma into Peripheral Vein, Percutaneous Approach (ICD-10-PCS; 2025-01-21)
PROC: 0W9G3ZX Drainage of Peritoneal Cavity, Percutaneous Approach, Diagnostic (ICD-10-PCS; 2025-01-22)
PROC: 0WBH3ZX Excision of Retroperitoneum, Percutaneous Approach, Diagnostic (ICD-10-PCS; 2025-01-23)
PROC: 0WP9X0Z Removal of Drainage Device from Right Pleural Cavity, External Approach (ICD-10-PCS; 2025-01-29)
DX: C56.1 Malignant neoplasm of right ovary (principal); E11.10 Type 2 diabetes mellitus with ketoacidosis without coma; K66.1 Hemoperitoneum; J96.01 Acute respiratory failure with hypoxia; K72.00 Acute and subacute hepatic failure without coma; R57.1 Hypovolemic shock; I21.A1 Myocardial infarction type 2; J10.00 Influenza due to other identified influenza virus with unspecified type of pneumonia; J94.2 Hemothorax; D62 Acute posthemorrhagic anemia; D68.51 Activated protein C resistance; R18.8 Other ascites; E87.1 Hypo-osmolality and hyponatremia; N17.9 Acute kidney failure, unspecified; I82.512 Chronic embolism and thrombosis of left femoral vein; I82.532 Chronic embolism and thrombosis of left popliteal vein; J98.11 Atelectasis; J90 Pleural effusion, not elsewhere classified; I11.9 Hypertensive heart disease without heart failure; D50.9 Iron deficiency anemia, unspecified; F32.A Depression, unspecified; E78.00 Pure hypercholesterolemia, unspecified; E78.1 Pure hyperglyceridemia; E83.51 Hypocalcemia; E04.1 Nontoxic single thyroid nodule; R91.1 Solitary pulmonary nodule; K44.9 Diaphragmatic hernia without obstruction or gangrene; K80.20 Calculus of gallbladder without cholecystitis without obstruction; E86.1 Hypovolemia; E88.09 Other disorders of plasma-protein metabolism, not elsewhere classified; R11.14 Bilious vomiting; B37.31 Acute candidiasis of vulva and vagina; E87.5 Hyperkalemia; R19.7 Diarrhea, unspecified; D69.6 Thrombocytopenia, unspecified; R33.9 Retention of urine, unspecified; D72.829 Elevated white blood cell count, unspecified; W19.XXXA Unspecified fall, initial encounter; Y93.9 Activity, unspecified; Y92.9 Unspecified place or not applicable; Z60.2 Problems related to living alone; Z66 Do not resuscitate; Z79.01 Long term (current) use of anticoagulants; Z92.3 Personal history of irradiation; Z88.1 Allergy status to other antibiotic agents; Z88.8 Allergy status to other drugs, medicaments and biological substances; Z11.52 Encounter for screening for COVID-19; Z86.73 Personal history of transient ischemic attack (TIA), and cerebral infarction without residual deficits; Z86.000 Personal history of in-situ neoplasm of breast; Z63.4 Disappearance and death of family member; Z86.711 Personal history of pulmonary embolism; Z80.0 Family history of malignant neoplasm of digestive organs; Z80.3 Family history of malignant neoplasm of breast
CPT/HCPCS: 88305; 32557; 49083; 49180; 71045; 71046; 71250; 71275; 72197; 74174; 74177; 76770; 76856; 76942; 80048; 80053; 80076; 80202; 81003; 81015; 82010; 82248; 82378; 82607; 82728; 82746; 82805; 82962; 83036; 83540; 83550; 83615; 83690; 83735; 83880; 84100; 84157; 84478; 84484; 85014; 85018; 85025; 85027; 85045; 85384; 85610; 85730; 86140; 86300; 86301; 86304; 86850; 86900; 86901; 86920; 87015; 87040; 87070; 87086; 87205; 87502; 87811; 88112; 88333; 88334; 88341; 88342; 89051; 93005; 93306; 93970; 96361; 96365; 96366; 96367; 96375; 96376; 97116; 97163; 97167; 97530; 97535; 99291; C1729; C1769; J7030; P9016; P9059; Q9967

== ENCOUNTER 2025-02-15 22:46 | Emergency (ER) | payer MEDICARE, OTHER, SELFPAY ==
[2025-02-15 22:47] VITALS: BP 133/55
[2025-02-15 22:48] VITALS: BMI 21.3
[2025-02-15 22:50] VITALS: BP 135/55
[2025-02-15 23:00] VITALS: BP 132/60
[2025-02-15 23:13] LABS: Urine Albumin 2+ (Neg - Trace); Urine Bilirubin 1+ (Negative); Urine Character Clear (Clear); Urine Color Yellow; Urine Glucose Negative (Negative); Urine Ketone 3+ (Negative); Urine Leukocyte 2+ (Negative); Urine Nitrite Negative (Negative); Urine Occult Blood 2+ (Negative); Urine Specific Gravity 1.015 (<1.030); Urine Urobilinogen 2+ (Neg - 1+)
[2025-02-15 23:22] LABS: Urine Bacteria Few (Negative); Urine Mucus Few; Urine Red Blood Cell 0-2 /HPF (0-2)
[2025-02-16] VITALS: BP 116/44
[2025-02-16 00:49] LABS: % Basophils 0.2 % (0-2); % Immature Granulocytes 1.7 % (0-0.5); % Lymphocytes 14.1 % (20.5-51.1); % Monocytes 12.7 % (1.7-9.3); % Neutrophils 70.3 % (42.2-75.2); Absolute Eosinophils 0.1 10^3/uL (0-0.7); Absolute Immature Granulocytes 0.2 10^3/uL (0-0.05); Absolute Lymphocytes 1.7 10^3/uL (1.2-3.4); Absolute Monocytes 1.5 10^3/uL (0.1-0.6); Absolute Neutrophils 8.4 10^3/uL (1.4-6.5); Hematocrit 22.2 % (37.0-47.0); Hemoglobin 7.3 g/dL (12.0-16.0); Mean Corp Hgb Conc. 32.9 g/dL (33.0-37.0); Mean Corpuscular Hgb 26.9 pg (27.0-31.0); Mean Corpuscular Volume 81.9 fL (81.0-99.0); Nucleated Red Blood Cells % 0 %; Platelet Count 465 10^3/uL (130-400); Red Blood Cell Count 2.71 10^6/uL (4.20-5.40); Red Cell Dist. Width 15.4 % (11.5-14.5)
[2025-02-16 01:00] VITALS: BP 121/47
[2025-02-16 01:01] LABS: ALT (SGPT) 36 U/L (0-35); AST (SGOT) 40 U/L (14-36); Albumin 2.5 g/dl (3.5-5.0); Alkaline Phosphatase 188 U/L (38-126); Blood Urea Nitrogen 11 mg/dl (7-17); Calcium 8.5 mg/dl (8.4-10.2); Carbon Dioxide 25 mmol/L (22-30); Chloride 103 mmol/L (98-107); Estimated Creatinine Clearance 64 ml/min; Glucose 100 mg/dl (70-99); Potassium 3.6 mmol/L (3.5-5.1); Sodium 133 mmol/L (135-145); Total Protein 5.6 g/dl (6.3-8.2); eGFR > 60.00
--- NOTE | 2025-02-16 01:53 | ED.GENMED ---
History of Present Illness
General
Chief Complaint: Urinary Symptoms
Source: patient and records
Time Seen by Provider: 02/16/25 01:25
History of Present Illness
History of Present Illness:
This patient is a 80-year-old female with a recent prolonged hospitalization, currently at [facility], newly diagnosed STEEL LAYER [facility], the emergency department due to urinary retention. According to EMELY Meier who I spoke to, patient inadvertently removed her
Ramirez yesterday. Since then, they have been performing straight caths. When they did a bladder scan she was measuring out over a liter however straight cath only resulted in about 25 to 50 cc of urine. Upon repeat a bladder scan she was still
measuring at over a liter which prompted her visit here. Patient denies dysuria, abdominal pain, diaphoresis. She does note low-grade fever yesterday. She denies complaints otherwise.
Past History
Past History
ED Past Medical History: Cancer (Stage I right breast cancer 2009, lumpectomy and local radiation), HTN, Hypercholesterolemia and Other (DVT left lower extremity January 2022, streptococcal throat infection, STEEL LAYER mass)
ED Past Surgical History: Gynecological (Right breast lumpectomy 2009. Stage I breast cancer. Local XRT.)
Social History
Tobacco: Non-smoker
Alcohol: None
Drug: None
Personal:
Living: other ([facility])
Employment: Retired
Family History
Family History: Negative Diabetes
Phy Exam
Physical Exam
Physical Exam:
GENERAL: Alert , in no apparent distress, very comfortable pleasant
EYE: pupils equal and reactive
NECK: Supple, no significant adenopathy.
ENT: o/p clr, mmm.
CARDIAC: Regular rate and rhythm .
LUNGS: Clear breath sounds bilaterally, no acute respiratory distress, no wheezes/rales/rhonchi
ABDOMEN: Soft, without focal tenderness, no r/g
NEUROLOGICAL: Alert and oriented, no focal neuro deficits
SKIN: Warm and dry, skin intact.
MUSCULOSKELETAL: No edema, well perfused.
PSYCH: Normal and appropriate interaction.
Course
Orders/Labs/Results
Orders:
Orders
02/15/25 23:07
Urine Culture Reflexed from UA [Urinalysis Reflex To Culture] Urgent
Date Specimen was Collected: 02/15/25
Time Specimen was Collected: 23:07
Urine Microscopic Reflex Cult Urgent
Urine Culture Urgent
MYKE Source: U
Specimen Description:
Date Specimen was Collected: 02/15/25
Time Specimen was Collected: 23:07
02/16/25 00:39
CMP [Comprehensive Metabolic Panel] Urgent
Complete Blood Count/With Diff Urgent
02/16/25 01:56
CefTRIAXone [Rocephin] 1,000 mg IV NOW STA
02/16/25 02:18
CT Abd/Pel (IV only)-DH only Urgent
Comment:
Reason For Exam: hx pelvic mass, now reported urinary retention
02/16/25 02:37
Sterile Water [Sterile Water For Injection] 10 ml .ROUTE .STK-MED ONE
Abnormal Lab Results
02/15/25 02/16/25
23:07 00:39
WBC 12.0 H 10^3/uL
(4.8-10.8)
RBC 2.71 L 10^6/uL
(4.20-5.40)
Hgb 7.3 L g/dL
(12.0-16.0)
Hct 22.2 L %
(37.0-47.0)
MCH 26.9 L pg
(27.0-31.0)
MCHC 32.9 L g/dL
(33.0-37.0)
RDW 15.4 H %
(11.5-14.5)
Plt Count 465 H 10^3/uL
(130-400)
Abs Immat Gran (auto) 0.2 H 10^3/uL
(0-0.05)
Absolute Neuts (auto) 8.4 H 10^3/uL
(1.4-6.5)
Absolute Monos (auto) 1.5 H 10^3/uL
(0.1-0.6)
Immature Gran % 1.7 H %
(0-0.5)
Lymphocytes % 14.1 L %
(20.5-51.1)
Monocytes % 12.7 H %
(1.7-9.3)
Sodium 133 L mmol/L
(135-145)
Glucose 100 H mg/dl
(70-99)
AST 40 H U/L
(14-36)
ALT 36 H U/L
(0-35)
Alkaline Phosphatase 188 H U/L
(38-126)
Total Protein 5.6 L g/dl
(6.3-8.2)
Albumin 2.5 L g/dl
(3.5-5.0)
Urine Ketones 3+ A
(Negative)
Ur Occult Blood Reflex 2+ A
(Negative)
Urine Bilirubin 1+ A
(Negative)
Urine Urobilinogen 2+ A
(Neg - 1+)
Leukocyte Esterase Rfl 2+ A
(Negative)
Urine WBC (Reflex) 11-15 A /HPF
(0-5)
Urine Bacteria (Reflex) Few A
(Negative)
Urine Albumin (Reflex) 2+ A
(Neg - Trace)
02/16/25 00:39
02/16/25 00:39
Vital Signs
Initial and Last Documented VS:
Initial Vital Signs
BP
133/55
02/15/25 22:47
Last Documented Vital Signs
Temp Pulse Resp BP Pulse Ox
98.1 F 96 18 136/54 96
03/28/25 22:50 02/16/25 06:10 02/16/25 06:10 02/16/25 06:10 02/16/25 06:10
*Critical Care Note
Total Time (30-74mins, 75-104mins- exclusive of procedures): Not Applicable
Update Note
Update Note:
Patient presents to the Emergency Department with __presumed urinary retention
Number and Complexity of Problems Addressed at the Encounter
� Chronic conditions affecting care:
� Acute Exacerbation and/or Progression of Chronic Illness:
� Differential Diagnosis includes: But not limited to atonic bladder status post Ramirez placement, retention related to pelvic mass, miscalculation of bladder volume by machine, etc. etc.
Amount and/or Complexity of Data to be Reviewed and Analyzed
� I performed an independent evaluation of and my interpretation is:
EKG:
CT: Large right-sided pelvic mass has increased in size, now demonstrates more you uniformly low attenuation centrally suggesting necrosis correlate with any history of recent treatment such as embolization. Small amount of
free fluid in the pelvis. Decompressed thickened bladder with a Ramirez in place. Mild bilateral hydro likely related to history of urinary retention. Small right pleural effusion decreased compared to prior
Xrays:
Laboratory Studies: Patient has a slight with white blood cell count elevation, and slight worsening of her baseline anemia. LFTs are improving. Urine suggestive of infection
Other:
� Review of other/old records reveals:
� Clinical information was obtained by an independent historian:
� Prescriptions/Medications Considered but not given:
� Further testing considered but not performed:
Risk of Complications and/or Morbidity or Mortality of Patient Management
� Social determinants of health affecting care:
� Discussion with other providers (PCP, Hospitalists, Consultants, etc):
� Escalation of care including admission/observation vs risk of discharge considered: CAT scan confirms that Ramirez in place and bladder is draining, suspect erroneous measurement by bladder scanner given that patient also has a
pelvic mass. Unfortunately the mass has increased in size with potential necrosis. Patient has mild bilateral hydro, potentially related to the history of retention. Will alert [facility] regarding importance of close follow-up of the CT
findings, will start antibiotics for what appears to be a UTI. Patient is not septic and resting comfortably.
ED Attending Note
-
Portions of this chart may have been created with voice recognition software.� Occasional wrong word or��sound alike� substitutions may have occurred due to the inherent limitations of voice recognition software.
Discharge Plan
Departure
Patient Disposition: Other
Date of Disposition: 02/16/25
Time of Disposition: 04:53
Condition: Good
Discharge Problem:
uti
Instructions: Urinary Tract Infection, Adult (DC), BLOOD PRESSURE
Prescriptions:
New
cefdinir 300 mg capsule
300 mg PO BID Qty: 20 0RF
No Action
atorvastatin 40 mg tablet
40 mg PO HS
tamsulosin 0.4 mg Capsule
0.4 mg PO DAILY 30 Days Qty: 30 0RF
sennosides [Cassidy-stacia] 8.6 mg Tablet
8.6 mg PO BID 30 Days Qty: 60 0RF
metoprolol succinate 50 mg Tablet Extended Release 24 Hr
50 mg PO DAILY 30 Days Qty: 30 0RF
lisinopril 5 mg Tablet
5 mg PO DAILY 30 Days Qty: 30 0RF
Referrals:
Nikkie Sanchez MD [Family Provider] -
Activity Restrictions/Additional Instructions:
YOU HAVE CAT SCAN FINDINGS WELL LABORATORY FINDINGS THAT REQUIRE VERY CLOSE FOLLOW-UP. PLEASE HAVE YOUR DOCTOR REVIEW THESE THIS MORNING FOR FURTHER MANAGEMENT.
Interventions
Interventions:
*Risk Screen - Suicide Last Done: 02/15/25 22:50
*General Assessment Last Done: 02/15/25 22:50
*Neglect/Abuse Screening Last Done: 02/15/25 22:50
*ED- Fall Risk Assessment Last Done: 02/15/25 22:50
*ED COVID-19 Vaccine History Last Done: 02/15/25 22:50
*Nursing Disposition Last Done: 02/16/25 06:10
ED-Female Genitourinary Assessment Last Done: 02/15/25 23:05
Discharge Date and Time
Discharge Date/Time: 02/16/25 06:10
Print Language: URDU
[2025-02-16 02:00] VITALS: BP 123/51
[2025-02-16] MEDS: ROCEPHIN 1000 MG IV (02:41)
[2025-02-16 06:10] VITALS: BP 136/54
== END 2025-02-16 06:10 | disposition other institution (70) ==
LOC: EMR 22:46
PROVIDERS: Emergency Medicine; EMERGENCY PHYSICIAN Emergency Medicine; FAMILY PHYSICIAN Internal Medicine
DX: N39.0 Urinary tract infection, site not specified (principal); E78.00 Pure hypercholesterolemia, unspecified; I10 Essential (primary) hypertension; Z85.3 Personal history of malignant neoplasm of breast; Z86.718 Personal history of other venous thrombosis and embolism
CPT/HCPCS: 99284; 96374; 74177; 80053; 81003; 81015; 85025; 87086; Q9967

== ENCOUNTER 2025-03-05 12:20 | Inpatient (IN) | payer MEDICARE, OTHER, SELFPAY ==
--- NOTE | 2025-03-04 06:30 | W.CON.GYNONC ---
Chief Complaint
-
Pelvic Mass
History of Present Illness
80 year old female, here for resection of pelvic mass
. She was most recently admitted to [facility] at [facility] after being admitted to [facility] on 01/18 with acute onset of bilious vomiting and also abdominal pain. Her initial work up showed large mass in pelvis s/o possible
ovarian mass/ malignancy. She also had large gap acidosis and elevated Beta-hydroxybutyrate- so treated for presumed DKA. Her course was complicated with large right hemothorax and required CT placement to drain and also required PRBCs and FFP. She
was on Eliquis due to history of DVT in left leg- which was discontinued. She was also placed on pressure support due to hypotension and was also on supplemental oxygen. Both were eventually weaned off. She was empirically treated for ' presumed
Pneumonia'. Her course complicated further with intermittent fever and had Influenza A- which was treated with Tamiflu. She claims, it made her more sick. She also had urinary retention and Ramirez was placed- voiding trial failed- so she has Ramirez
placed again. Unfortunately- biopsy of Pelvic mass and right pleural effusion did not suggest malignancy but her tumor markers are very high and [facility] and Oncology group were following her- recommends possible surgery once she recovers from
her deconditioning. Patient may not be aware of possible Dx of her pelvic mass- so I did not discuss with her further. She admits to weight loss- after being admitted to hospital. She denies headache or dizziness. Although- after blood work this
morning- she felt nauseous and was brought back to her room. She denies chest pain or shortness of breath. She has mild cough. No abdominal pain- but admits ' abdominal distension'. Appetite is fair. She has Ramirez catheter. No fever or chills. Her
BP is soft. She is not diabetic.
Past Medical History
Additional Past Medical History:
As above with right sided pelvic mass, ascites/ Right hemothorax- status post CT tube placement/ HTN/ History of right breast cancer, status post lumpectomy, XRT / Left LE DVT (03/2022)/ Factor V Leiden carrier/ Weight loss/ Anemia- multifactorial
/ ? Depression/ Hyponatremia/ Hyperlipidemia / Urinary retention/ Abnormal LFTs.
Additional Past Surgical History:
Right breast lumpectomy/ Pelvic mass biopsy
Social History
Tobacco: Non-smoker
Alcohol: None
Drug: None
Family History
Family History: Cancer (Dad- Pancreatic cancer. Daughter- breast cancer ( per Oncology note).), Hypertension (Dad) and Other (Dad- TIA)
Allergies / Home Medications
Allergies reflects when Allergies were last updated in [facility].
Home Medications with original date entered in [facility]
Allergy/Medication List:
Allergies
Allergy/AdvReac Type Severity Reaction Status Date / Time
adhesive Allergy Rash Verified 05/23/24 20:00
erythromycin base Allergy Nausea Verified 05/23/24 20:00
Home Medications
atorvastatin 40 mg tablet 40 mg PO HS High Cholesterol 01/18/25
lisinopril 5 mg tablet 5 mg PO DAILY 30 days #30 tabs 02/12/25
metoprolol succinate 50 mg tablet,extended release 24 hr 50 mg PO DAILY 30 days #30 tabs 02/12/25
sennosides 8.6 mg tablet (Cassidy-stacia) 8.6 mg PO BID 30 days #60 tabs 02/12/25
tamsulosin 0.4 mg capsule 0.4 mg PO DAILY 30 days #30 caps 02/12/25
Review of Systems
-
History Source: Patient and Transfer Record
A 12 point Review of Systems was completed except as noted: Yes
Constitutional: Reports Weight Loss and Fatigue
EENT: Reports No Symptoms
Respiratory: Reports Cough
Cardiac: Reports No Symptoms
Abdomen/GI: Reports Nausea (abdominal distension)
: Reports Other (urinary retention- status post Ramirez)
Musculoskeletal: Reports No Symptoms
Skin: Reports No Symptoms
Neurological: Reports Weakness
Endocrine: Reports No Symptoms
Hematologic/Lymphatic: Reports No Symptoms
Psych: Reports Anxiety
Physical Exam
Vital Signs
Vital Signs
Temp Pulse Resp BP Pulse Ox
98.6 F 89 18 106/58 97
02/13/25 08:26 02/13/25 08:26 02/12/25 19:05 02/13/25 08:26 02/13/25 08:26
Physical Exam
General: Other (Underweight- malnourished. Non toxic. No distress)
HEENT: Normocephalic (pallor)
Respiratory: Clear
Cardiac: S1/S2, Regular Rhythm and Other (B/L LE- no edema noted. No calf tenderness noted. Peripheral pulses- present )
Breast: Deferred by me
GI: Soft and Distended (?mild ascites- mild tenderness noted . )
Rectal: Deferred by Provider
Genito-urinary: No Costovertebral Tend and Other (has Ramirez catheter- draining clear urine)
Musculoskeletal: Other (B/L LE- no edema noted. No calf tenderness noted. Peripheral pulses- present )
Skin: Warm
Neuro: Awake, Alert, Oriented and Other (generalized weakness noted. Gait- not tested)
Psych: Calm, Anxious and Depressed
Laboratory Results
-
Laboratory Data
02/13/25 09:49
02/13/25 09:49
Labs/ Imaging studies at [facility]:
Lipid panel (08/2024)- TC-164, TG-110, LDL_ 63, HDL- 79, VLDL_ 22.
(01/2025)- B12- 589, Folic acid- 5.6, HBA1c- 5.6. Abnormal LFTs. CRP- 7.80
CEA- 165, CA 19 9- 07156, CA 125- 30728, CA 27 29- 908.7.
Medical History
Allergies
Allergies reflect when allergies were last updated in [facility].
adhesive Allergy (Verified 02/28/25 12:25)
Redness, Itching
erythromycin base Adverse Reaction (Verified 02/28/25 12:25)
Nausea
Physical Exam
Physical Exam
General: Other (Underweight- malnourished. Non toxic. No distress)
HEENT: Normocephalic (pallor)
Respiratory: Clear
Cardiac: S1/S2, Regular Rhythm and Other (B/L LE- no edema noted. No calf tenderness noted. Peripheral pulses- present )
Breast: Deferred by me
GI: Soft and Distended (?mild ascites- mild tenderness noted . )
Rectal: Deferred by Provider
Genito-urinary: No Costovertebral Tend and Other (has Ramirez catheter- draining clear urine)
Musculoskeletal: Other (B/L LE- no edema noted. No calf tenderness noted. Peripheral pulses- present )
Skin: Warm
Neuro: Awake, Alert, Oriented and Other (generalized weakness noted. Gait- not tested)
Psych: Calm, Anxious and Depressed
Results
-
Procedures: 02/22/2025
PROCEDURE: Unsuccessful attempted IVC filter placement.
INDICATION: Deep venous thrombosis and pulmonary embolism, plan for surgery secondary to large pelvic mass. Request for IVC filter placement.
TECHNIQUE AND FINDINGS: The risks and benefits of the procedure, including significant risks of long-term indwelling filter, were discussed with the patient and informed, written consent was obtained. The patient was brought into the angiography
suite and positioned supine. A time-out was performed to verify the patient's identity and the planned procedure. The right neck was prepped and draped in the usual sterile fashion. Maximum sterile barrier technique was used throughout. The
procedure was performed under continuous hemodynamic monitoring.
Preliminary ultrasound was performed. Next, 10 mL of 1% lidocaine was administered subcutaneously for local anesthesia. Then under direct ultrasound guidance, right internal jugular vein was accessed with a 21-gauge needle. Permanent ultrasound
image recorded. 0.018 inch guidewire was advanced through the needle. The needle was exchanged for a 4 Lithuanian introducer. Under fluoroscopic guidance, the wire was then exchanged for a 0.037 inch guidewire. The guidewire was advanced through the
superior vena cava to the right atrium. Initial attempts to advance the wire to the inferior vena cava were unsuccessful. Therefore the introducer was exchanged for a 5 Lithuanian angled tip catheter. Wire and catheter were then directed into the
inferior vena cava under fluoroscopic guidance. The wire and catheter were then advanced to the right iliac vein.
Angled tip catheter was then removed and a 5 Lithuanian sheath was advanced into position. Next a 5 Lithuanian flush catheter was advanced over the wire. Contrast study at the right iliac vein was obtained. This showed occlusion of the inferior vena cava
secondary to extrinsic compression from the large rounded pelvic mass. With some superior drainage via retroperitoneal and paraspinal veins. Catheter was then retracted superiorly. Contrast study was repeated with the catheter tip in the infrarenal
inferior vena cava. This again showed relatively long segment occlusion of the cava, with only very short segment of patent infrarenal cava. Length of the segment was unsatisfactory for deployment of IVC filter. The renal veins were opacified.
Contrast emptied into the right atrium as expected. There are some artifacts on the IVC study secondary to bowel gas.Catheter was removed over a guidewire. Guidewire was removed.
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
Significant Lab, Radiology and Store Mgr Findings:
chest x-ray 02/15/2025
Persistent homogeneous opacity projects over mid left lung laterally. This could represent loculated fluid within the oblique fissure or pneumonia. It is stable dating back to 02/01/2025. Close follow-up chest films recommended.
CT of the abdomen and pelvis with intravenous contrast 02/16/2025
There is a large mass arising in the pelvis and extending into the abdomen. On previous MRI, this was felt to originate from the left ovary. This mass is suspicious for neoplasia. The mass is larger than on recent CT and MRI examinations. It has
fairly homogeneous cystic signal intensity on today's examination. Question whether there has been any interval treatment. Also, based on interval enlargement, torsion would be a consideration, and please correlate clinically.
Ramirez catheter is present within the bladder. Small amount of free fluid in the anterior pelvis just superior to the collapsed bladder. Small amount of free fluid in the pelvic cul-de-sac.There is thrombus present within the right common femoral
vein and proximal femoral vein.No contrast extends into the ureters or bladder on images delayed 13 minutes from intravenous contrast administration. Mild to moderate right pelvicalyceal dilation. Minimal dilation of the left calyces and renal
pelvis.Cholelithiasis. No evidence for biliary ductal dilation.
Peripheral venous ultrasound 02/17/2025
There is new nonocclusive thrombus within the right common femoral and proximal femoral veins with occlusive thrombus in the mid/distal femoral vein.
Chest x-ray�02/18/2025
There is a stable patchy opacity projecting over the lateral left midlung which may represent loculated fluid or ongoing pneumonia. A CT chest may be considered for further evaluation.Minimal bibasilar opacities favored to represent atelectasis.
CT chest�02/19/2025
1. There are multiple filling defects within the right lower lobe segmental pulmonary arteries consistent with pulmonary emboli. There is no evidence of right heart strain.
2. There is a 1.7 cm pleural-based opacity within the anterior left upper lobe which corresponds with the opacity seen on prior chest radiographs. This may represent a persistent infectious/inflammatory process, possible atelectasis/scarring.
Malignancy cannot be excluded and follow-up CT chest is recommended to ensure resolution/stability.
3. Trace right pleural effusion with likely bibasilar atelectasis.
4. Post radiation changes within the anterior right upper lobe, similar to prior.
Impression / Plan
-
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 CA 19-9 level of 60.3K. CEA 165 (WNL), CA 27-29 elevated at 900, CA125 level 18,000. 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
I have discussed management with patient and her daughter and we joseph proceed wot remove uterus , both tubes and ovaries as primary treatment, additional biopsies may be done including Omentectomy, peritoneal biopsies, because of her DVT and occluded
IVC I WILL NOT do retroperitoneal LN dissection. possiblity of bowel resection discussed with patient
Risk of procedure is infection, bleeding, injury to adjacent organs, DVT, PE, CV complications. including .
will start with robotic approach and may need to convert to open exp lap.
I anticipate she will be admitted to hospital post op
Other Medical Issues:
History of right breast cancer, status post lumpectomy and XRT- OP Oncology follow up.
Acute hypoxic respiratory failure: likely from right hemothorax and atelectasis- status post CT tube placement - now resolved- Treated for Influenza A as well. (02/18)- chest x-ray with stable patchy opacity projecting over the lateral left midlung
which may represent loculated fluid or ongoing pneumonia. A CT chest may be considered for further evaluation.Minimal bibasilar opacities favored to represent atelectasis.
Fever: Low grade fever. Chest xray 02/15- Small pleural effusions. No new radiographic abnormality in the chest (02/22) blood culture-no growth-72 hours, Urine culture-negative as of 02/19.
Acute on chronic Anemia: Required transfusions- 3PRBC. coagulopathy secondary to DOAC +/-shock liver so clotting factor production may be reduced-s/p 4FFP, vitamin K - (02/18) Hgb -8.2 from 7.3 (02/25) 7.4 stable from prior. Ordered heme stool-
awaiting specimen. serum Iron- and TIBC 191- both low and saturation 14%-L ( no Ferritin as it will be high due to ongoing issues with pelvic mass/ malignancy) for anemia- if low iron and high TIBC- s/o possible GI blood loss. Already has
constipation so Iron supplement if given would only worsen situation given ferric gluconate on 02/25.. (02/27) Hgb 7.3 from 7.4
Factor V Leiden carrier- follow with Hematology.
H/O Hyperkalemia: in hospital Driven from acidosis and mild JULY. (02/13) resolved 3.8
Hypokalemia: (02/26) 3.5 from 3.2- after K+ 40meq stat.
H/o Hepatic transaminitis- suspect shock liver-. (02/13) AST- 67, ALT 48 from 49, Alkaline Phosphatase-228 from 180
CVA:May 2024 with no residual right wrist numbness which resolved on its own. States was not considered a TIA. posterolateral left frontal lobe old infarct
HTN: Metoprolol XL decreased to 25mg daily.
Orthostatic hypotension: (02/13) Hypotensive in therapy- Thigh-high teds. (02/15) orthostatic- Midodrine 5mg once. IV fluid 80ml/hr 1L. Monitor. T/c Midodrine standing if still low after fluids.
HLD: Atorvastatin 40 HS
H/O Elevated troponin: in hospital Likely type II in setting of respiratory failure, hemothorax, anemia and mass. Patient has been declining certain therapies
Sinus tachycardia�Toprol XL 25mg qd -Monitor HR
.��
Bowel: Colace and Senna, PRN bisacodyl.��MiraLAX 17 g daily as needed.
Bladder/urinary retention: Time void, PVRs, PRN straight cath.�Cont Flomax 0.4 mg. (02/18) Ramirez was placed back in the ED on 02/16. Urine culture�negative. Omnicef d/michaelle. (02/25) flomax -d/michaelle
GI Prophylaxis: Pantoprazole��20mg qd
H/O DVT LLE-New RLE DVT/NEW PE: Mechanical and heparin 5000 units SC every 12. US 01/21 chronic occlusive thrombus within the left femoral vein. off of Eliquis due to right hemothorax- monitor clinically- OP Hematology follow up. (02/18) New occlusive
thrombus of right mid/distal femoral vein. Sent msg to Dr. Krause-recommended therapeutic Lovenox 1 mg/kg and also sent message to her bioinformatics computer scientist/oncologist who is recommending IVC filter prior to surgery. Switched to Lovenox 60mg
bid. (02/20) CT PE study- 02/19-with new multiple small right lower lobe segmental pulmonary emboli. Patient agreeable to IVC filter placement. (02/22)IR with availability for this afternoon. Per IR no need to stop Lovenox , ok to proceed with hgb of 7.4
and should be able to resume therapy that day. (4/) unsuccessful placement of IVC filter due to extrinsic compression by the mass. (02/26) going home on Lovenox. Instructions given by RN to daughter who already knows how to give injection
Pulmonary: Incentive spirometry��
Safety: Continue to reinforce assistance with all transfers.��
Code Status:� DNR�
[2025-03-05] VITALS (8 sets, daily range): BP systolic 110–152; BP diastolic 58–77; BMI 20.5
[2025-03-05] MEDS: NORMOSOL-R/PLASMALYTE-A 1000 IV (12:55)
[2025-03-05] MEDS: CELEBREX 200 MG PO (13:10)
[2025-03-05] MEDS: NEURONTIN 300 MG PO (13:10)
[2025-03-05] MEDS: TYLENOL 1000 MG PO (13:11)
[2025-03-05 13:15] LABS: Hematocrit 28.6 % (37.0-47.0); Hemoglobin 9.3 g/dL (12.0-16.0)
[2025-03-05] MEDS: HEPARIN 5000 UNITS SC (16:27)
--- NOTE | 2025-03-05 21:31 | W.IMMPOSTOP ---
Surgical Immed Post Op Note
-
Primary Surgeon: Elan Anderson MD
Assisting Surgeon: Barber Granados
Pre-op Diagnosis: Pelvic mass
Post-op Diagnosis: Pelvic mass, enterotomies
Procedure Performed: Repair of enterotomies x 4, lysis of adhesions
Anesthesia Type: General
Specimen / Cultures: None for my portion
Estimated Blood Loss: Minimal for my portion
Complications: None
Operative Findings: IntraOp consult for small bowel injury during resection of pelvic mass; performed lysis of adhesions between loops of small bowel and small bowel mesentery; identified 4 enterotomies, all less than 50% circumference and without
injury to mesentery; repaired each primarily; ran the bowel from the ligament of Treitz to the ligament of Treves and no additional small bowel injuries encountered; identified 2 small mesenteric cysts (less than 1.5 cm each) along the mesenteric
border of the small bowel, no compromise of the mesentery and left them in situ; identified the appendix and cecum, which appeared normal; remainder of the surgery to be dictated by Dr. Krause
--- NOTE | 2025-03-05 21:38 | OR.RPT ---
Operative Report
Operative Report
DATE OF OPERATION: 03/05/2025
SURGEON: Elan Anderson MD
PREOPERATIVE DIAGNOSIS: Pelvic mass
POSTOPERATIVE DIAGNOSIS: Pelvic mass, small bowel injury
OPERATION: Diagnostic laparoscopy, repair of enterotomy x 4, lysis of adhesions
ASSISTANTS:
1. GRACIA Coy
ANESTHESIA: General
ESTIMATED BLOOD LOSS: Per Dr. Krause, minimal for my portion
FINDINGS:
1. 4 enterotomies (one in the jejunum, 3 in the distal ileum each greater than 20 cm apart; most distal enterotomy about 50 cm proximal to the ileocecal valve); repaired primarily
SPECIMENS:
1. None for my portion
DRAINS: None
COMPLICATIONS: No immediate complications.
INDICATIONS: Dr. Krause called for intraoperative consult regarding concern of small bowel injury.
PROCEDURE IN DETAIL: Dr. Krause obtain the consent prior to the surgery. Upon my arrival, the patient was intubated and sedated. The patient was in steep Trendelenburg position. Orogastric tube and Ramirez were in place. The robot was in position
with 4 ports and an preschool assistant principal port across the mid to upper abdomen. Dr. Krause explained that the pelvic mass was originating from the ovary and was adherent to multiple loops of small bowel, requiring extensive lysis of adhesions and dissection.
The mass was no invading any loops of bowel and there was no carcinomatosis. I took over the controls and examined the bowel. I identified the ascending colon and cecum. There were adhesions between the right abdomen and the ascending colon. I
identified the appendix and terminal ileum which appeared healthy. I worked my way proximally along the small bowel. I identified an enterotomy in the distal ileum. This was less than 50% of the circumference and the bowel was well-perfused. I
repaired this primarily with imbricating Lembert sutures of 3-0 Vicryl. I continued proximally and identified another enterotomy about 20 cm from the prior enterotomy. Again, this was less than 50% of the circumference and the bowel appeared
healthy without signs of ischemia. Therefore, I primarily repaired this with imbricating Lembert sutures of 3-0 Vicryl. I continued up the small bowel and encountered a tag stitch that Dr. Krause placed to help identify the area of small bowel
injury. I noted an enterotomy at this location in the jejunum. This represented less than 50% of the circumference and the bowel appeared healthy. Therefore, I repaired this primarily with imbricating Lembert sutures of 3-0 Vicryl. I continued
proximally until identified the ligament of Treitz. I encountered several adhesions between loops of small bowel in the small bowel mesentery, creating the potential for internal hernias. I took these adhesions down sharply, taking care to avoid
injury to nearby bowel. I ran the bowel from the ligament of Treitz to the ligament of Treves. The bowel appeared healthy and was peristalsing throughout its entire length. I identified one more enterotomy about 50 cm proximal to the ileocecal
valve. This was also less than 50% of the circumference of the bowel. The bowel appeared well-perfused in this area. I repaired this primarily with imbricating Lembert stitches of 3-0 Vicryl. The rest of the bowel was without injury or concern.
I evaluated the proximal rectum to the descending colon and there were no concerns for injury. Dr. Krause explained that there was no colon involvement and no concern for injury. At this point, I returned the controls to Dr. Krause and he
performed the remainder of the surgery, to be dictated by him.
The patient tolerated my portion of the procedure well. I recommended replacing the orogastric tube with a nasogastric tube. I left the operating room.
DICTATED BY: Elan Anderson MD
[2025-03-05 22:29] LABS: Hematocrit 27.7 % (37.0-47.0); Hemoglobin 9.1 g/dL (12.0-16.0); Mean Corp Hgb Conc. 32.9 g/dL (33.0-37.0); Mean Corpuscular Hgb 26.8 pg (27.0-31.0); Mean Corpuscular Volume 81.7 fL (81.0-99.0); Mean Platelet Volume 9.3 fL (7.4-10.4); Platelet Count 433 10^3/uL (130-400); Red Blood Cell Count 3.39 10^6/uL (4.20-5.40); Red Cell Dist. Width 15.6 % (11.5-14.5)
--- NOTE | 2025-03-05 22:33 | PTCARENOTE ---
Dr. Manriquez (Hospitalist) at bed side. informed about labs drawn. He said the pt is to upgraded tele and ng tube to low intermittent suction.
--- NOTE | 2025-03-05 22:35 | HPS.HSE ---
Family Physician
-
Family Physician: INTERVIEWE UNKNOWN - PT NOT
Chief Complaint
-
Postoperative management
History of Present Illness
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
large mass in the pelvis status post biopsy concerning for left ovarian mass, with a complex hospital course notable for repair of small bowel injury, hemothorax, hemoperitoneum, PE, attempted SVC filter placement that failed and now on
anticoagulation with Lovenox who is postop day 0 status post robotic TLH/BSO.
Required 2 L crystalloid and 1 packed RBCs.
Currently she is afebrile with oxygen saturation of 100% on room air. Blood pressure 124/63 with pulse rate of 85. Labs are pending.
Medical History
Past Medical History
Past Medical History: Reports Cancer (Right breast cancer status post lumpectomy 2009, status post radiation. Left ovarian mass status with biopsy and now status post surgery) and Other (DVT)
Additional Past Medical History:
Factor V Leiden
Past Surgical History: Reports Other (Right breast lumpectomy 2010. Small bowel repair)
Social History
Tobacco: Non-smoker
Alcohol: None
Drug: None
Employment: Not Employed
Family History
Family History: Not pertinent
Allergies / Home Medications
Allergies reflects when Allergies were last updated in [facility].
Home Medications with original date entered in [facility]
Allergy/Medication List:
Allergies
Allergy/AdvReac Type Severity Reaction Status Date / Time
adhesive Allergy Redness, Verified 03/05/25 12:53
Itching
erythromycin base Allergy Nausea Verified 03/05/25 12:53
Home Medications
atorvastatin 40 mg tablet 40 mg PO HS High Cholesterol 01/18/25
enoxaparin 60 mg/0.6 mL subcutaneous syringe 60 mg (0.6 mL) SC Q12 DVTs 30 days #36 mL 02/26/25
metoprolol succinate 25 mg tablet,extended release 24 hr 25 mg PO DAILY Blood pressure 30 days #30 tabs 02/26/25
sennosides 8.6 mg tablet (Cassidy-stacia) 17.2 mg (2 x 8.6 mg) PO NOON Constipation 30 days #60 tabs 02/26/25
acetaminophen 325 mg tablet 500 mg PO Q4HPRN PRN mild pain 03/05/25
Review of Systems
-
History Source: Patient
Constitutional: Reports No Symptoms
EENT: Reports No Symptoms
Respiratory: Reports No Symptoms
Cardiac: Reports No Symptoms
Abdomen/GI: Reports No Symptoms
: Reports No Symptoms
Musculoskeletal: Reports No Symptoms
Skin: Reports No Symptoms
Neurological: Reports No Symptoms
Endocrine: Reports No Symptoms
Hematologic/Lymphatic: Reports No Symptoms
Psych: Reports No Symptoms
Physical Exam
Vital Signs
Vital Signs
Temp Pulse Resp BP Pulse Ox
98.0 F 85 15 134/63 96
03/05/25 22:00 03/05/25 22:30 03/05/25 22:30 03/05/25 22:15 03/05/25 22:30
Physical Exam
General: No Apparent Distress, Comfortable and Conversant (slightly conversant)
HEENT: NormoCephalic, Anicteric, Moist mucous membranes, Atraumatic, PERRLA and No Ptosis; No Oxygen
Respiratory: Clear
Cardiac: S1/S2 and Regular Rhythm
Breast: Deferred by me
GI: Soft, Non Tender, Non Distended, Normal Bowel Sounds and Other (NG tube)
Rectal: Deferred by Provider
Genito-urinary: Clear Urine and Ramirez
Musculoskeletal: No Clubbing, No Cyanosis and No Edema
Skin: Warm
Neuro: Alert and Nonfocal/grossly intact
Hematologic/Lymphatic: No Lymphadenopathy
Psych: Calm
Laboratory Results
-
03/05/25 22:21
Data Reviewed
-
Lab Data: Labs Reviewed by me
Old Records: Reviewed
Impression/Plan
-
IMPRESSION:
80-year-old male with a recent complex past medical history who is postop day #0 status post robotic assisted surgery including total hyst and BSO , partial omentectomy extensive lysis of adhesions and repair of [address] Anderson in
colorectal surgery. She is hemodynamically stable and afebrile. CBC is stable at 9 but required 1 unit pRBC and 3 L crystaloid with surgery.
PLAN:
Post - operative management
- admit to telemetry
- NG tube to low intermittent suction, if no output, will d/c in am
- npo overnight, gently hydration with d5 L R for now
- pain control and antiemetics, low dose iv dilaudid. tylenol rectal prn fever
- continuing with ertapenem per GI
- GI consultation (Dr. Anderson)
- [employer]-Onc consultation (Dr. Dov Krause)
Hypercoagulability - h/o FVL, DVT and recent PE on lovenox
- s/p extensive surgery, will hold lovenox tx for 48 hours
- lovenox sq 40 ppx dosing for now
- trend h/h
Code status - DNR
[2025-03-05 22:42] LABS: Blood Urea Nitrogen 12 mg/dl (7-17); Calcium 7.5 mg/dl (8.4-10.2); Carbon Dioxide 25 mmol/L (22-30); Chloride 103 mmol/L (98-107); Estimated Creatinine Clearance 72 ml/min; Glucose 115 mg/dl (70-99); Potassium 4.5 mmol/L (3.5-5.1); Sodium 134 mmol/L (135-145); eGFR > 60.00
[2025-03-05] MEDS: ZOFRAN 4 MG IV ×2 (22:42→23:22)
--- NOTE | 2025-03-05 22:58 | CON.HOSP ---
Addendum entered and electronically signed by Claudia Mistry MD 03/19/25 06:09:
Consult peformed on 03/05/2025
Original Note:
Family Physician
-
Family Physician: INTERVIEWE UNKNOWN - PT NOT
Chief Complaint
-
Post operative management
History of Present Illness
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
large mass in the pelvis status post biopsy concerning for left ovarian mass, with a complex hospital course notable for repair of small bowel injury, hemothorax, hemoperitoneum, PE, attempted SVC filter placement that failed and now on
anticoagulation with Lovenox who is postop day 0 status post robotic TLH/BSO.
Required 2 L crystalloid and 1 packed RBCs.
Currently she is afebrile with oxygen saturation of 100% on room air. Blood pressure 124/63 with pulse rate of 85.
CBC shows a white count of 14, hemoglobin of 9 and normal platelet count.
Electrolytes were stable with a sodium of 134, normal potassium and chloride and bicarb. BUN/creatinine were normal
Medical History
Past Medical History
Past Medical History: Reports Cancer (Breast cancer status post lumpectomy, ovarian cancer), HTN and Other (Factor V Leiden, DVT, PE)
Past Surgical History: Reports Bowel Resection and Other (Lumpectomy)
Social History
Tobacco: Non-smoker
Alcohol: None
Drug: None
Family History
Family History: Reviewed & Not Pertinent
Allergies / Home Medications
Allergies reflects when Allergies were last updated in [facility].
Home Medications with original date entered in [facility]
Allergy/Medication List:
Allergies
Allergy/AdvReac Type Severity Reaction Status Date / Time
adhesive Allergy Redness, Verified 03/05/25 12:53
Itching
erythromycin base Allergy Nausea Verified 03/05/25 12:53
Home Medications
atorvastatin 40 mg tablet 40 mg PO HS High Cholesterol 01/18/25
enoxaparin 60 mg/0.6 mL subcutaneous syringe 60 mg (0.6 mL) SC Q12 DVTs 30 days #36 mL 02/26/25
metoprolol succinate 25 mg tablet,extended release 24 hr 25 mg PO DAILY Blood pressure 30 days #30 tabs 02/26/25
sennosides 8.6 mg tablet (Cassidy-stacia) 17.2 mg (2 x 8.6 mg) PO NOON Constipation 30 days #60 tabs 02/26/25
acetaminophen 325 mg tablet 500 mg PO Q4HPRN PRN mild pain 03/05/25
Review of Systems
-
History Source: Patient
Constitutional: Reports No Symptoms
EENT: Reports No Symptoms
Respiratory: Reports No Symptoms
Cardiac: Reports No Symptoms
Abdomen/GI: Reports No Symptoms
: Reports No Symptoms
Musculoskeletal: Reports No Symptoms
Skin: Reports No Symptoms
Neurological: Reports No Symptoms
Endocrine: Reports No Symptoms
Hematologic/Lymphatic: Reports No Symptoms
Psych: Reports No Symptoms
Physical Exam
Vital Signs
Vital Signs
Temp Pulse Resp BP Pulse Ox
98.4 F 86 17 133/58 96
03/05/25 22:45 03/05/25 22:45 03/05/25 22:45 03/05/25 22:45 03/05/25 22:45
Physical Exam
General: Well Developed, No Apparent Distress and Comfortable
HEENT: Normocephalic
Respiratory: Clear
Cardiac: S1/S2 and Regular Rhythm
Breast: Deferred by me
GI: Soft, Non Tender and Non Distended
Rectal: Deferred by Provider
Genito-urinary: No Costovertebral Tend, Clear Urine and Ramirez Catheter
Musculoskeletal: No Clubbing, No Cyanosis and No Edema
Skin: Warm
Neuro: AO x 3
Hematologic/Lymphatic: No Lymphadenopathy
Psych: Calm
Laboratory Results
-
Laboratory Results
03/05/25 22:21
03/05/25 22:21
Data Reviewed
-
Lab Data: Labs Reviewed
Old Records: Reviewed
Impression / Plan
-
IMPRESSION:
80-year-old male with a recent complex past medical history who is postop day #0 status post robotic assisted surgery including total hyst and BSO , partial omentectomy extensive lysis of adhesions and repair of [address] Anderson in
colorectal surgery. She is hemodynamically stable and afebrile. CBC is stable at 9 but required 1 unit pRBC and 3 L crystaloid with surgery. Hgb improved compared to discharge values. Ove
PLAN:
Post - operative management
- admit to telemetry
- NG tube to low intermittent suction, if no output, will d/c in am and advance diet as tolerated
- npo overnight, gently hydration with NS for now
- pain control and antiemetics, low dose iv dilaudid. tylenol rectal prn fever
- continuing with ertapenem per GI,
- Super[employer]-Onc consultation (Dr. Dov Krause)
Hypercoagulability - h/o FVL, DVT and recent PE on lovenox
- s/p extensive surgery, will hold lovenox tx for 48 hours, if stable CBC and no complications, restart lovenox 60 q 12
- lovenox sq 40 ppx dosing for now
- CBC in am
HTN
- while NPO, on metoprolol 5 IV q 6, hold parameters for HR < 60, SBP < 100
Calcium - mild hypocalcemia. check repeat calcium with albumin to determine corrected calcium
Code Status -DNR
[2025-03-05] MEDS: INVANZ 60 MG IV (23:15)
[2025-03-05] MEDS: LOPRESSOR 5 MG IV (23:24)
[2025-03-05] MEDS: NSS 1000 IV (23:27)
--- NOTE | 2025-03-05 23:30 | PTCARENOTE ---
New admit to 2S from PACU. Pt. drowsy but arousable to verbal stimuli, VSS, NGT set up to LIS per orders, mathis draining clear yellow urine. Surgical sites inspected with off-going PACU nurse. Pt. oriented to room and unit policies, call light
within reach, bed locked and in lowest position.
[2025-03-06] VITALS (9 sets, daily range): BP systolic 107–155; BP diastolic 56–75
--- NOTE | 2025-03-06 04:53 | W.IMMPOSTOP ---
Surgical Immed Post Op Note
-
Primary Surgeon: Dov Krause
Assisting Surgeon: GRACIA Grant
Pre-op Diagnosis: Pelvic Mass
Post-op Diagnosis: torsed necrotic hemorrhagic cyst of left overy, extensive adhesions
Procedure Performed: Robtotic TLH BSO, Partial omentectomy, extesnive lysis of adhesions
additional procedures: Robotic assisted laparoscopic repair of multiple enterotomies (Dr Kelby Anderson)
Anesthesia Type: General , ET
Specimen / Cultures: Uterus, cervix, right tube and ovary, Left tube and ovary, Omentum
Estimated Blood Loss: 100 cc
Complications: enterotomy (unavoidable secondary to extensive adhesions)
Operative Findings: 20 cm mass arising from left ovary, twisted on a stock 3 revolutions , normal right tube and ovary, extensive inflammatory changes with adherence to boael mesentery, , 2 loops of small bowel, paracolic gutters, normal but
inflamed appendix, normal colon, omentum with adhesions to Right and left abdomen, normal upper abdomen including liver, spleen, diaphragm
[2025-03-06] MEDS: LOPRESSOR 5 MG IV ×3 (05:33→18:04)
[2025-03-06 06:58] LABS: Hematocrit 32.6 % (37.0-47.0); Hemoglobin 10.6 g/dL (12.0-16.0); Mean Corp Hgb Conc. 32.5 g/dL (33.0-37.0); Mean Corpuscular Hgb 26.4 pg (27.0-31.0); Mean Corpuscular Volume 81.1 fL (81.0-99.0); Mean Platelet Volume 9.9 fL (7.4-10.4); Platelet Count 490 10^3/uL (130-400); Red Blood Cell Count 4.02 10^6/uL (4.20-5.40); Red Cell Dist. Width 15.8 % (11.5-14.5); White Blood Cell Count 28.7 10^3/uL (4.8-10.8)
[2025-03-06 07:34] LABS: Albumin 2.4 g/dl (3.5-5.0); Blood Urea Nitrogen 13 mg/dl (7-17); Calcium 8.3 mg/dl (8.4-10.2); Chloride 104 mmol/L (98-107); Glucose 101 mg/dl (70-99); Potassium 4.1 mmol/L (3.5-5.1); Sodium 137 mmol/L (135-145); Total Bilirubin 1.6 mg/dl (0.2-1.3); Total Protein 5.4 g/dl (6.3-8.2)
[2025-03-06 07:50] LABS: ALT (SGPT) 14 U/L (0-35); AST (SGOT) 40 U/L (14-36); Alkaline Phosphatase 150 U/L (38-126); Carbon Dioxide 21 mmol/L (22-30); Estimated Creatinine Clearance 72 ml/min; eGFR > 60.00
--- NOTE | 2025-03-06 08:08 | OR.RPT ---
Operative Report
Operative Report
Date of Procedure: 03/05/[address] Krause
Primary Surgeon: Dov Krause
Assisting Surgeon: GRACIA Grant
Pre-op Diagnosis: Pelvic Mass
Post-op Diagnosis: torsed necrotic hemorrhagic cyst of left overy, extensive adhesions
Procedure Performed: Robtotic TLH BSO, Partial omentectomy, extesnive lysis of adhesions
additional procedures: Robotic assisted laparoscopic repair of multiple enterotomies (Dr Kelby Anderson)
Anesthesia Type: General , ET
Specimen / Cultures: Uterus, cervix, right tube and ovary, Left tube and ovary, Omentum
Estimated Blood Loss: 100 cc
Complications: enterotomy (unavoidable secondary to extensive adhesions)
Indication for the surgery: This is a 80-year-old woman who had been admitted almost 6 weeks ago to hospital with abdominal pain and was found to have pelvic mass as well as hemoperitoneum and hemothorax, she was managed initially by taking off
Eliquis, placing chest tube urgently, she subsequently had anemia and received blood transfusions, patient developed ambulatory dysfunction, she had influenza A infection yeast infection and sepsis which was treated. She required transfer to [facility] for rehabilitation at which time DVT and pulmonary embolism was diagnosed. Attempt was made to place a preoperative IVC filter but it was unsuccessful. Patient is brought to the operating room for definitive management of the pelvic mass
today. During the course of hospitalization tumor markers were examined and they were all elevated and abnormal suspicious for malignancy. Cytology of the pleural fluid as well as peritoneal fluid and also a biopsy of the mass only revealed
presence of blood with no evidence of malignancy.
Operative Findings: 20 cm mass arising from left ovary, twisted on a stock 3 revolutions , normal right tube and ovary, extensive inflammatory changes with adherence to boael mesentery, , 2 loops of small bowel, paracolic gutters, normal but
inflamed appendix, normal colon, omentum with adhesions to Right and left abdomen, normal upper abdomen including liver, spleen, diaphragm
Procedure in detail: This patient was taken to the operating room and placed in supine position, general anesthesia was administered, she was intubated without any difficulty. She was placed in lithotomy position using yellowfin stereopsis,
appropriate IVs were placed, arms were wrapped with foam and placed along the patient's side and we checked all joints to ensure that there is no excessive pressure present. Next she was prepped in the abdomen perineum and vagina and she was
draped. Timeout procedure was carried out and she received appropriate antibiotics. Ramirez catheter was placed and the patient to drain the bladder under sterile conditions. Speculum was placed in the vagina and anterior lip of the cervix was
grasped with single-tooth tenaculum, cervical canal was dilated, we placed the uterine manipulator with 3.0 YANCI ring around the cervix and insufflated the balloon in the vagina. Attention was turned to the abdomen. Veress needle was inserted just
below the left subcostal margin. Insufflation with CO2 gas was performed using air seal system, up to pressure of 15 mmHg. Next 8 mm excised robotic port was inserted in the abdomen 25 cm cephalad to symphysis pubis, survey of the abdomen reveals
evidence of hemosiderin deposits involving peritoneal surfaces as well as right and left paracolic gutters, under direct visualization axillary robotic ports were placed in the right and left upper abdomen as well as right and left lateral upper
abdomen. During the placement of ports there was drainage of loculated old blood likely from the pelvic cyst which was drained then the cyst was partially deflated. We examined the upper abdomen and noted right and left diaphragms to be normal
liver spleen and stomach were normal there were omental adhesions to the right lower quadrant as well as left abdomen and these were taken down sharply once this was completed the robotic system was docked with the patient in a 28 degree
Trendelenburg. I began to start working both in the right and left pelvis I was able to take adhesions between the mass and anterior abdominal wall and eventually between the mass and right paracolic gutter. It became evident that there were
portions of the omentum that was covering the mass and this was taken away, 2 loops of small bowel was very densely adherent to the mass and we gradually peeled these portions of the bowel away, next the mass was peeled away from the mesentery of
the small and large bowel. There were no adhesions between the colon and the mass. It eventually became evident that the right tube and ovary appears to be within normal limits there are inflammatory changes involving the right and left paracolic
gutters and right and left pelvic peritoneum the appendix was visualized and appeared to be inflamed. The mass appeared to arise from the left ovary and there was evidence of 3 rotations on its axis suggestive of a prior torsion. I was able to
open the right and left pelvic peritoneum and seal and divide the round ligaments anterior and posterior leaves of the broad ligament were dissected open. The course of the ureter was identified in both retroperitoneal spaces. We were able to seal
both IP ligaments with vessel sealer, the left tube and ovary was detached from the cornua of the uterus. Bladder flap was sharply developed and advanced below the cervicovaginal junction. The right IP ligament was isolated sealed and divided.
The right tube and ovary was left attached to the uterus. Uterine arteries followed by cardinal ligaments followed by uterosacral ligaments were sealed and divided. Circumferential incision was made over the YANCI ring until the uterus and cervix
was detached. We extracted uterus and cervix and right tube and ovary from the vagina, we introduced a 10/15 mm back into the abdomen and open did and placed the left ovary and tube inside this mass. Following this the mass was brought out through
the vagina, we had to remove portions of the mass within the bag and eventually the whole mass was extracted and submitted to frozen section.At this point I requested assistance from Dr. Elan Anderson who previously was aware of this patient had
assisted with her care during the previous hospitalization. He ran the small bowel in its entirety from the ligament of Treitz down to the ileocecal valve during the course of exploration we recognized that there were 4 small enterotomies each of
these enterotomies were repaired meticulously with interrupted sutures and excellent hemostasis was present there was no leakage of gastrointestinal contents. The mesentery of the small bowel was intact and good vascularity was present throughout
the entire small bowel. He also examined the large bowel and we did not identify any evidence of other abnormalities and a separate dictation will be made by him. Once he had completed his portion of the procedure I returned back to the console.
Dr. Magaña from pathology called me to inform me that the left ovarian mass was primarily a infarcted hemorrhagic cyst secondary to torsion and he was unable to identify any evidence of malignancy. Because of the abnormal tumor markers that were
present prior to surgery I did go ahead and remove a generous portion of infracolic omentum we sealed and divided across omental vessels and this portion of the omentum was extracted through the vagina and was submitted to pathology. Please note
that the previous peritoneal fluid as well as pleural fluid was negative for malignancy as well consistent with the findings here.
I went ahead and closed the vaginal cuff with 0 Vicryl suture ligature incorporating uterosacral ligaments at both vaginal apices. I then used a V-Loc suture in a running fashion starting from right to the left side and back to the right side.
Excellent hemostasis was established. All ports were removed after the entire pelvis was irrigated. Once this was completed all port sites were closed with 4-0 Monocryl in a subcuticular fashion. Skin glue was applied to all incisions. The
vagina was examined, there was no lacerations or bleeding. Patient was awakened extubated and returned back to recovery room stable awake and extubated counts of laps instruments and needle was correct x 2 I was present and scrubbed for entire
procedure
Please note that enterotomies encountered during this case were not a complication of the procedure and these were inherent to the nature of the procedure. We had the option to perform an en bloc resection of the mass with the bowel but I felt that
the morbidity of that was higher for this patient.
--- NOTE | 2025-03-06 08:18 | VNURNOTE ---
Chart reviewed. Patient is current with [facility] nursing. Will continue to follow hospital course and DC plans.
--- NOTE | 2025-03-06 08:27 | W.PN.GYNONC ---
Today's Communication
-
N/A
Impression / Plan
-
Pelvic mass- Status post definitive resection, pathology so far appears to be benign in nature. Complicated by extensive involvement of small bowel and unavoidable enterotomy now status post repair. Discussed with the patient that postop return of
bowel function remains the primary concern, for now she remains n.p.o. with an NG tube in place.
Sinus tachycardia�on metoprolol IV
.��
Bowel: NGT in place, NPO
Bladder/urinary retention: Mathis is replaced, I hope to be able to remove mathis tomorrow
GI Prophylaxis: Pantoprazole��20mg qd
H/O DVT LLE-New RLE DVT/NEW PE: Mechanical SCD, keep on lovenox prophylactic today, if Hgb stable will go therapeutic dose 48 hrs after procedure
Pulmonary: Incentive spirometry��
History of right breast cancer, status post lumpectomy and XRT- OP Oncology follow up.��
Code Status:� DNR�
appreciate collaboration with medicine/hospitalist team, and colorectal surgery teams
Subjective / Interval History
-
Postop day 1 status post robotic TLH�BSO, extensive lysis of adhesion, repair of multiple enterotomies. Operative findings and procedures were discussed and reviewed with the patient. She appears to be comfortable overnight without significant
complaints.
Objective Data
-
Lab Results:
03/06/25 06:10
03/06/25 06:10
Physical Exam
Vital Signs / I&O
Vitals
Temp Pulse Resp BP Pulse Ox
97.5 F 93 18 155/75 99
03/06/25 07:20 03/06/25 07:20 03/06/25 07:20 03/06/25 07:20 03/06/25 07:20
I&O
03/04/25 03/05/25 03/06/25 03/07/25
06:59 06:59 06:59 06:59
Intake Total 0 / 0
Output Total 400 / 400
Balance -400 / -400
Physical Exam
General: Well Nourished and No Apparent Distress
Respiratory: Clear and Non Labored Respirations
Cardiac: S1/S2 and Regular Rhythm
GI: Soft, Non Tender and Normal Bowel Sounds
Skin: Warm
Neuro: Awake, Alert and Oriented
Psych: Calm
Data Reviewed
-
Lab Data: Labs Reviewed and Discussed with Family
[2025-03-06] MEDS: NSS 1000 IV ×2 (09:17→19:58)
--- NOTE | 2025-03-06 09:38 | CM ---
CM reviewed medical records. CM met with patient in room. Patient lived independently, but daughter is in [place] from [place] to provide support. Patient is known to [facility] and is agreeable to continued services. Patient has a history of [facility] recently.
She stated that it was 'very hard', but she felt she 'got much better'. She would prefer to avoid placement again. Patient is active with her PCP. Patient uses [facility] for medication services.
Patient states that she is afraid of her potential diagnosis. Patient stated she is very motivated to return to her 6 grandchildren and her pet cat. CM provide emotional support.
CM updated [facility] Admission RN.
PLAN: Home with [facility]
--- NOTE | 2025-03-06 10:52 | W.PN.HOSP.TC ---
Today's Communication/Plan
-
Continue current care
Assessment / Plan
Assessment / Plan
Gen-AAOx3, NAD
HEENT-NC, AT, anicteric, clear oral mm, NG tube
Neck-supple
CV-reg, no M, +S1/S2
Lungs-clear B/L
Abd-soft, NT, ND
Ext-no edema
Musculoskeletal-no cyanosis, clubbing
Skin-warm and dry
Neuro-grossly non-focal
Psych-calm, cooperative
Left pelvic mass, small bowel injury -stable postoperative situation, underwent diagnostic laparoscopy, repair of enterotomy x 4, SAHRA 03/05/25. Path report pending.
Currently n.p.o., NG tube in place. Continue IV fluids.
Empiric IV ertapenem per surgical service.
History of multiple VTE/factor V Leiden -recently on Eliquis. Changed to full dose Lovenox prior to admission for surgical management reasons. Anticipate resuming full dose anticoagulation with either Eliquis or Lovenox when okay with primary
service. Currently on prophylactic doses of Lovenox.
Most recent events were noted on CT chest dated February 19, 2025. Findings of multiple filling defects within the right lower lobe segmental pulmonary arteries consistent with pulmonary emboli. No evidence of right heart strain.
Most recent lower extremity ultrasound was dated 02/17/2025, new nonocclusive thrombus within the right common femoral and proximal femoral veins with occlusive thrombus in the mid/distal femoral vein.
Known history of chronic left femoral vein thrombus.
Hyponatremia -present on admission. Improved.
Recent spontaneous right-sided hemothorax -noted January 20, 2025. Managed with chest tube placement 01/20, removed 01/28. Fluid analysis negative for malignancy. Anticoagulation was briefly interrupted. Attempt at IVC filter by IR but unsuccessful.
Subacute anemia, normocytic - Hemoglobin stable at 10.6 today. Last transfused January 21.
Essential hypertension -currently n.p.o., NG tube in place. Blood pressure elevated likely due to pain, inability to give oral meds. Was on metoprolol succinate 25 mg daily.
Currently on IV Lopressor 5 mg every 6 hours [id number].
Hyperlipidemia -atorvastatin.
History of breast cancer (2013) -lumpectomy, radiation.
History of ovarian cancer
History of stroke -May 2024.
DNR
Anticipated Discharge: > 48 hours
Subjective/Interval History
-
Date of Service: March 06, 2025
Patient seen and examined. Complaining of sore throat from NG tube. Denies abdominal pain.
Objective Data
-
Labs:
Laboratory Results
03/06/25
06:10
WBC 28.7 H
Hgb 10.6 L
Hct 32.6 L
Plt Count 490 H
Sodium 137
Potassium 4.1
Chloride 104
Carbon Dioxide 21 L
BUN 13
Creatinine 0.6
Glucose 101 H
Calcium 8.3 L
Total Bilirubin 1.6 H
AST 40 H
ALT 14
Alkaline Phosphatase 150 H
Vital Signs:
Vital Signs
Temp Pulse Resp BP Pulse Ox
97.5 F 93 18 155/75 99
03/06/25 07:20 03/06/25 07:20 03/06/25 07:20 03/06/25 07:20 03/06/25 07:20
I&O
03/05/25 03/06/25 03/07/25
06:59 06:59 06:59
Intake Total 0 / 0
Output Total 400 / 400
Balance -400 / -400
Review of Systems
-
History Source: Patient
All other systems: Reviewed and negative
[2025-03-06 12:03] LABS: % Basophils 0.1 % (0-2); % Lymphocytes 2.5 % (20.5-51.1); % Monocytes 2.4 % (1.7-9.3); Absolute Immature Granulocytes 0.3 10^3/uL (0-0.05); Absolute Lymphocytes 0.7 10^3/uL (1.2-3.4); Absolute Monocytes 0.7 10^3/uL (0.1-0.6); Absolute Neutrophils 26.9 10^3/uL (1.4-6.5); Nucleated Red Blood Cells % 0 %
[2025-03-06] MEDS: TORADOL 15 MG IV ×2 (15:25→22:05)
[2025-03-06] MEDS: NSS 250 IV (17:46)
[2025-03-06] MEDS: LOVENOX 40 MG SC (18:04)
--- NOTE | 2025-03-06 20:20 | PTCARENOTE ---
Addendum entered by Megan Huston RN 03/06/25 23:02:
PCT reported while performing mathis care that catheter had dislodged. Upon inspection, balloon was slightly inflated about ~1-[address] Krause updated, instructed to leave catheter out.
Original Note:
CXR results reported to Dr. Krause, instructed to advance. Advanced NGT to 60 cm marking from 54 cm.
[2025-03-07] VITALS (7 sets, daily range): BP systolic 117–147; BP diastolic 51–68; PULSE 104
[2025-03-07] MEDS: LOPRESSOR 5 MG IV ×4 (00:42→16:42)
[2025-03-07] MEDS: INVANZ 60 MG IV (00:42)
[2025-03-07] MEDS: NSS 1000 IV ×2 (06:18→15:28)
[2025-03-07 07:34] LABS: % Basophils 0.2 % (0-2); % Immature Granulocytes 1.3 % (0-0.5); % Lymphocytes 4.2 % (20.5-51.1); % Monocytes 4.7 % (1.7-9.3); % Neutrophils 89.6 % (42.2-75.2); Absolute Immature Granulocytes 0.3 10^3/uL (0-0.05); Absolute Lymphocytes 0.9 10^3/uL (1.2-3.4); Absolute Neutrophils 19.8 10^3/uL (1.4-6.5); Hematocrit 28.9 % (37.0-47.0); Hemoglobin 9.3 g/dL (12.0-16.0); Mean Corp Hgb Conc. 32.2 g/dL (33.0-37.0); Mean Corpuscular Hgb 26.2 pg (27.0-31.0); Mean Corpuscular Volume 81.4 fL (81.0-99.0); Nucleated Red Blood Cells % 0 %; Red Blood Cell Count 3.55 10^6/uL (4.20-5.40); Red Cell Dist. Width 16.3 % (11.5-14.5); White Blood Cell Count 22.1 10^3/uL (4.8-10.8)
[2025-03-07 07:49] LABS: Mean Platelet Volume 9.1 fL (7.4-10.4); Platelet Count 480 10^3/uL (130-400)
[2025-03-07 07:51] LABS: ALT (SGPT) 10 U/L (0-35); AST (SGOT) 33 U/L (14-36); Alkaline Phosphatase 120 U/L (38-126); Blood Urea Nitrogen 20 mg/dl (7-17); Calcium 8.1 mg/dl (8.4-10.2); Carbon Dioxide 23 mmol/L (22-30); Chloride 110 mmol/L (98-107); Estimated Creatinine Clearance 72 ml/min; Glucose 95 mg/dl (70-99); Potassium 4.2 mmol/L (3.5-5.1); Sodium 137 mmol/L (135-145); Total Protein 4.8 g/dl (6.3-8.2); eGFR > 60.00
--- NOTE | 2025-03-07 09:06 | W.PN.GYNONC ---
Addendum entered and electronically signed by Dov Krause MD 03/07/25 13:17:
I have reviewed her labs and noted that her WBC is now decreased to 22,000, hemoglobin is relatively stable at 9-10 range. She is hemodynamically stable.
On clinical examination abdomen remains soft, laparoscopic port sites are intact.
Overnight her Mathis came out, I did not replace it and she appears to have been voiding without significant difficulty.
It is my understanding that abdominal x-ray has been ordered and consideration will be given to clamping the NG tube for a trial.
Given that she is hemodynamically stable I think it is reasonable now approximately 2 days after surgery to consider resuming therapeutic anticoagulation with Lovenox given the fact that she had pulmonary embolism and DVT.
Dov Krause
Original Note:
Today's Communication
-
-
Impression / Plan
-
Pelvic mass- Status post definitive resection, pathology so far appears to be benign in nature. Complicated by extensive involvement of small bowel and unavoidable enterotomy now status post repair. Discussed with the patient that postop return of
bowel function remains the primary concern, for now she remains n.p.o. with an NG tube in place.
Sinus tachycardia�on metoprolol IV
.��
Bowel: NGT in place, NPO
Bladder/urinary retention: Mathis is replaced, I hope to be able to remove mathis tomorrow
GI Prophylaxis: Pantoprazole��20mg qd
H/O DVT LLE-New RLE DVT/NEW PE: Mechanical SCD, keep on lovenox prophylactic today, if Hgb stable will go therapeutic dose 48 hrs after procedure
Pulmonary: Incentive spirometry��
History of right breast cancer, status post lumpectomy and XRT- OP Oncology follow up.��
Code Status:� DNR�
appreciate collaboration with medicine/hospitalist team, and colorectal surgery teams
POD 2
continued improvement
bowel- NGT in place and draining, NPO
pulmonary-incentive spirometry- continue use
continue SCD, out of bed to chair
mathis removed will watch for urinary retention
will continue collaboration of care with medicine and colorectal surgery teams
Subjective / Interval History
-
POD2
She is feeling ok planning to get out of bed today throat feeling better but still difficulty talking. Her only complaints of pain are from her IV site which was just placed in the pass two hours and from the mathis coming out.
Objective Data
-
Lab Results:
03/07/25 07:13
03/07/25 07:13
Physical Exam
Vital Signs / I&O
Vitals
Temp Pulse Resp BP Pulse Ox
97.4 F 96 18 147/67 97
03/07/25 07:20 03/07/25 07:20 03/07/25 07:20 03/07/25 07:20 03/07/25 07:20
I&O
03/05/25 03/06/25 03/07/25 03/08/25
06:59 06:59 06:59 06:59
Intake Total 0 / 0
Output Total 400 / 400 125 / 125
Balance -400 / -400 -125 / -125
Physical Exam
abdomen is soft port sites closed and dry, bowels sounds, slightly distended compared to yesterday
Musculoskeletal: No Edema
Data Reviewed
-
Lab Data: Labs Reviewed and Discussed with Physician
--- NOTE | 2025-03-07 10:16 | CM ---
CM reviewed medical records. Plan for home with [facility] when medically ready.
PLAN: home no needs.
--- NOTE | 2025-03-07 10:22 | W.PN.CRS1 ---
Today's Communication / Plan
-
As below
Assessment/Plan
-
80-year-old female with PMH of breast cancer s/p lumpectomy, HTN, HLD, factor V Leiden complicated by DVT with recent hospitalization for pelvic mass complicated by thoracic and abdominal bleeding, managed nonoperatively with chest tube, who
presents for elective surgery
POD 2 robotic hysterectomy, intraoperative consult for repair of enterotomies x 4
Afebrile, HR 90s�100s, normotensive
WBC 22.1 from 28.7, Hb 9.3 from 10.6, Cr 0.6
� Evidence of bowel function, but not a lot; abdomen appears mildly distended but not tympanitic; will obtain abdominal x-ray
�If no evidence of bowel dilation, will proceed with clamp trial of NGT
�Otherwise continue n.p.o. with IVF
� Pain control with Toradol and Dilaudid as needed
� Continue IV ertapenem for 7 days due to intraoperative contamination
� OOB/IS
� Care per Dr. Krause
� Appreciate hospitalist
Subjective Data
Subjective Data
Date of Service: March 07, 2025
Patient doing well. Denies nausea or vomiting, just complains of pain due to the NG tube.
States that she is passing some gas, had some flatus this morning, but no BMs yet. Denies sensation of bloating.
Pain controlled.
Objective Data
-
Vital Signs
Temp Pulse Resp BP Pulse Ox
97.4 F 96 18 147/67 97
03/07/25 07:20 03/07/25 07:20 03/07/25 07:20 03/07/25 07:20 03/07/25 07:20
Intake & Output
03/06/25 03/07/25 03/08/25
06:59 06:59 06:59
Intake Total 0 / 0
Output Total 400 / 400 125 / 125
Balance -400 / -400 -125 / -125
Intake:
Oral fluids 0 / 0
IV fluids (Total) 0 / 0
IV piggybacks 0 / 0
Output:
Urine, Ramirez 400 / 400 125 / 125
Lab Results
03/07/25 07:13
03/07/25 07:13
Physical Exam
-
General: No Acute Distress and AOx3
HEENT: Grossly Normal
Abdomen: Soft, Distended (Mildly distended, not tympanitic), Tender (Mildly tender diffusely, mainly near incisions), No Guarding and No Rebound
Skin: Warm and Dry
Wound: No Signs of Infection, Dressing in Place (With Dermabond) and No Skin Erythema
[2025-03-07] MEDS: TORADOL 15 MG IV ×3 (11:15→22:43)
--- NOTE | 2025-03-07 11:49 | W.PN.HOSP.TC ---
Today's Communication/Plan
-
Continue current care
Assessment / Plan
Assessment / Plan
Gen-AAOx3, NAD
HEENT-NC, AT, anicteric, clear oral mm, NG tube
Neck-supple
CV-reg, no M, +S1/S2
Lungs-clear B/L
Abd-soft, NT, ND
Ext-no edema
Musculoskeletal-no cyanosis, clubbing
Skin-warm and dry
Neuro-grossly non-focal
Psych-calm, cooperative
Left pelvic mass, small bowel injury -stable postoperative situation, underwent diagnostic laparoscopy, repair of enterotomy x 4, SAHRA 03/05/25. Path report pending.
Currently n.p.o., NG tube in place. Continue IV fluids.
Empiric IV ertapenem per surgical service due to abdominal contamination during surgery.
History of multiple VTE/factor V Leiden -recently on Eliquis. Changed to full dose Lovenox prior to admission for surgical management reasons. Anticipate resuming full dose anticoagulation with either Eliquis or Lovenox when okay with primary
service. Currently on prophylactic doses of Lovenox.
Most recent events were noted on CT chest dated February 19, 2025. Findings of multiple filling defects within the right lower lobe segmental pulmonary arteries consistent with pulmonary emboli. No evidence of right heart strain.
Most recent lower extremity ultrasound was dated 02/17/2025, new nonocclusive thrombus within the right common femoral and proximal femoral veins with occlusive thrombus in the mid/distal femoral vein.
Known history of chronic left femoral vein thrombus.
Hyponatremia -present on admission. Improved.
Recent spontaneous right-sided hemothorax -noted January 20, 2025. Managed with chest tube placement 01/20, removed 01/28. Fluid analysis negative for malignancy. Anticoagulation was briefly interrupted. Attempt at IVC filter by IR but unsuccessful.
Subacute anemia, normocytic - Hemoglobin stable today. Transfused 1u PRBC 03/05.
Essential hypertension -currently n.p.o., NG tube in place. Blood pressure elevated likely due to pain, inability to give oral meds. Was on metoprolol succinate 25 mg daily.
Currently on IV Lopressor 5 mg every 6 hours [id number].
Hyperlipidemia -atorvastatin.
History of breast cancer (2013) -lumpectomy, radiation.
History of ovarian cancer
History of stroke -May 2024.
DNR
Anticipated Discharge: > 48 hours
Subjective/Interval History
-
Date of Service: March 07, 2025
Patient seen/examined, complaining of abdominal discomfort.
Objective Data
-
Labs:
Laboratory Results
03/07/25
07:13
WBC 22.1 H
Hgb 9.3 L
Hct 28.9 L
Plt Count 480 H
Sodium 137
Potassium 4.2
Chloride 110 H
Carbon Dioxide 23
BUN 20 H
Creatinine 0.6
Glucose 95
Calcium 8.1 L
Total Bilirubin 1.0
AST 33
ALT 10
Alkaline Phosphatase 120
Vital Signs:
Vital Signs
Temp Pulse Resp BP Pulse Ox
97.4 F 107 18 157/79 97
03/07/25 07:20 03/07/25 11:16 03/07/25 07:20 03/07/25 11:16 03/07/25 07:20
I&O
03/06/25 03/07/25 03/08/25
06:59 06:59 06:59
Intake Total 0 / 0
Output Total 400 / 400 125 / 125
Balance -400 / -400 -125 / -125
Review of Systems
-
History Source: Patient
All other systems: Reviewed and negative
[2025-03-07] MEDS: LOVENOX 40 MG SC (16:42)
--- NOTE | 2025-03-07 17:30 | PTCARENOTE ---
S Patient bladder scanned twice, @ 12:21 noon for 200ml and at 17:25pm for 310ml. Patient denies any discomfort at this time. OOB to bedside commode, unsuccessful to void.
B patient admitted for a robotic assisted [facility] BSO stating
A see online database
R RN reached out to Hospitalist- Dr. Nova and made aware of findings, informed to continue to monitor patient. Will inform oncoming nurse.
--- NOTE | 2025-03-07 21:02 | PTCARENOTE ---
Patient bladder scanned and found to have 453 mls of urine in her bladder. Pt. stated that she had no urge to void and was not having any abdominal discomfort or fullness. Straight cathing discussed with pt. and pt. refused, stating that any time
her abdomen/groin area was touched she was experiencing severe pain. Pain medicine offered prior to straight cath procedure to which pt. again refused and asked to have a mathis replaced so as not to repeatedly have the need to be straight cathed/
avoid unnecessary pain/discomfort. Patient refusal and request relayed to provider. Will reinsert mathis per order. Patient resting at this time, VSS, plan of care continues.
--- NOTE | 2025-03-07 21:06 | W.PN.UPDATE ---
Update Note
Progress Note Update
Apparently previous mathis cath fell out overnight. Pt has been DTV and has not voided all day. Current bladder scan approx 500ml. Pt refuses str cath and will only allow replacement of mathis despite education (increased infection etc). For now will
allow mathis to be replaced.
[2025-03-08] VITALS (8 sets, daily range): BP systolic 148–192; BP diastolic 71–83; PULSE 108; BMI 20.5
[2025-03-08] MEDS: LOPRESSOR 5 MG IV ×5 (00:35→23:51)
[2025-03-08] MEDS: NSS 1000 IV ×2 (00:50→14:41)
[2025-03-08] MEDS: INVANZ 60 MG IV (00:50)
--- NOTE | 2025-03-08 05:30 | W.PN.GYNONC ---
Today's Communication
-
decrease IV fluids
ambulate, PT eval
remains NPO
Impression / Plan
-
Pelvic mass- Status post definitive resection, pathology so far appears to be benign in nature. Complicated by extensive involvement of small bowel and unavoidable enterotomy now status post repair.
Discussed with the patient that postop return of bowel function remains the primary concern, for now she remains n.p.o. with an NG tube in place.
Sinus tachycardia�on metoprolol IV
.��
Bowel: NGT in place, NPO
Bladder/urinary retention: Sharp is replaced, again had retention. i will sk urology to comment about management, i suspect she is deconditioned and may need to learn straight cath.please note this problem developed during prior hospital stay when
she was bedridden
GI Prophylaxis: Pantoprazole��20mg qd
H/O DVT LLE-New RLE DVT/NEW PE: Mechanical SCD, keep on lovenox prophylactic today, if Hgb stable will go therapeutic dose 48 hrs after procedure
Pulmonary: Incentive spirometry��
History of right breast cancer, status post lumpectomy and XRT- OP Oncology follow up.��
Code Status:� DNR�
Subjective / Interval History
-
POD 3 Robotic TLH BSO, extensive SAHRA, repair of enterotomies
feels ok, minimal pain
passing flatus
Objective Data
-
Lab Results:
03/07/25 07:13
Physical Exam
Vital Signs / I&O
Vitals
Temp Pulse Resp BP Pulse Ox
98.0 F 100 16 149/71 96
03/08/25 03:15 03/08/25 03:15 03/08/25 03:15 03/08/25 03:15 03/08/25 03:15
I&O
03/05/25 03/06/25 03/07/25 03/08/25
06:59 06:59 06:59 06:59
Intake Total 0 / 0 60 / 60
Output Total 400 / 400 125 / 125 200 / 200
Balance -400 / -400 -125 / -125 -140 / -140
Physical Exam
General: No Apparent Distress
Respiratory: Clear and Non Labored Respirations
Cardiac: S1/S2 and Regular Rhythm
GI: Soft and Non Distended
Musculoskeletal: No Cyanosis and No Edema
[2025-03-08 07:54] LABS: % Basophils 0.1 % (0-2); % Eosinophils 0.3 % (0-6); % Immature Granulocytes 1.2 % (0-0.5); % Lymphocytes 6.2 % (20.5-51.1); % Monocytes 5.3 % (1.7-9.3); % Neutrophils 86.9 % (42.2-75.2); Absolute Immature Granulocytes 0.2 10^3/uL (0-0.05); Absolute Monocytes 0.8 10^3/uL (0.1-0.6); Absolute Neutrophils 13.3 10^3/uL (1.4-6.5); Hematocrit 24.6 % (37.0-47.0); Hemoglobin 7.8 g/dL (12.0-16.0); Mean Corp Hgb Conc. 31.7 g/dL (33.0-37.0); Mean Corpuscular Hgb 26.2 pg (27.0-31.0); Mean Corpuscular Volume 82.6 fL (81.0-99.0); Mean Platelet Volume 9.4 fL (7.4-10.4); Nucleated Red Blood Cells % 0 %; Platelet Count 456 10^3/uL (130-400); Red Blood Cell Count 2.98 10^6/uL (4.20-5.40); Red Cell Dist. Width 16.5 % (11.5-14.5); White Blood Cell Count 15.3 10^3/uL (4.8-10.8)
--- NOTE | 2025-03-08 09:03 | W.PN.CRS1 ---
Today's Communication / Plan
-
As below
Assessment/Plan
-
80-year-old female with PMH of breast cancer s/p lumpectomy, HTN, HLD, factor V Leiden complicated by DVT with recent hospitalization for pelvic mass complicated by thoracic and abdominal bleeding, managed nonoperatively with chest tube, who
presents for elective surgery
POD 3 robotic hysterectomy, intraoperative consult for repair of enterotomies x 4
Afebrile, HR 90s�100s, normotensive
WBC 153. from 22.1, Hb 7.8 from 9.3, Cr 0.6
� Improving bowel function; will try clamp trial for 6 hours; if no nausea, bloating and output less than 150 mL, okay to remove
� If NGT removed, continue n.p.o. with sips and IVF
� Pain control with Toradol and Dilaudid as needed
� Continue IV ertapenem for 7 days due to intraoperative contamination
�Continue DVT PPx with Lovenox; will repeat CBC at noon for 1.5 g drop this a.m.; low suspicion for acute blood loss
� OOB/IS
� Care per Dr. Krause
� Appreciate hospitalist
Subjective Data
Subjective Data
Date of Service: March 08, 2025
No overnight events. Continues to have pain in the neck associated with the NGT.
Denies nausea or vomiting. Passing flatus more reliably, no BMs yet.
Ramirez was removed yesterday, but replaced for retention.
Pain controlled.
Objective Data
-
Vital Signs
Temp Pulse Resp BP Pulse Ox
97.8 F 100 16 148/77 98
03/08/25 07:03 03/08/25 07:03 03/08/25 07:03 03/08/25 07:03 03/08/25 07:03
Intake & Output
03/07/25 03/08/25 03/09/25
06:59 06:59 06:59
Intake Total 120 / 120 530 / 530
Output Total 125 / 125 500 / 500 100 / 100
Balance -125 / -125 -380 / -380 430 / 430
Intake:
IV fluids (Total) 480 / 480
IV piggybacks 50 / 50
Amount instilled into GI Tube ( 120 / 120
Total)
[place] Sump 120 / 120
Output:
Gastrointestinal tube output ( 500 / 500
Total)
[place] Sump 500 / 500
Urine, Ramirez 125 / 125 100 / 100
Lab Results
03/08/25 07:00
03/07/25 07:13
Physical Exam
-
General: No Acute Distress and AOx3
HEENT: Grossly Normal
Abdomen: Soft, Distended (Minimally distended, tympanitic), Tender (Appropriately tender near incisions) and Other (Incisions well-approximated without erythema or drainage, Dermabond in place)
Skin: Warm and Dry
Wound: No Signs of Infection and No Skin Erythema
--- NOTE | 2025-03-08 10:03 | W.PN.HOSP.TC ---
Today's Communication/Plan
-
Recheck CBC
Assessment / Plan
Assessment / Plan
Gen-AAOx3, NAD
HEENT-NC, AT, anicteric, clear oral mm, NG tube
Neck-supple
CV-reg, no M, +S1/S2
Lungs-clear B/L
Abd-soft, NT, ND
Ext-no edema
Musculoskeletal-no cyanosis, clubbing
Skin-warm and dry
Neuro-grossly non-focal
Psych-calm, cooperative
Left pelvic mass, small bowel injury -stable postoperative situation, underwent diagnostic laparoscopy, repair of enterotomy x 4, SAHRA 03/05/25. Path report pending.
Currently n.p.o., NG tube in place. Continue IV fluids.
Empiric IV ertapenem per surgical service due to abdominal contamination during surgery. Leukocytosis improving.
Awaiting return of bowel function. Abdominal x-ray from 03/07 shows mildly distended loops of small bowel. Ileus versus incomplete obstruction.
History of multiple VTE/factor V Leiden -recently on Eliquis. Changed to full dose Lovenox prior to admission for surgical management reasons. Anticipate resuming full dose anticoagulation with either Eliquis or Lovenox when okay with primary
service. Currently on prophylactic doses of Lovenox.
Most recent events were noted on CT chest dated February 19, 2025. Findings of multiple filling defects within the right lower lobe segmental pulmonary arteries consistent with pulmonary emboli. No evidence of right heart strain.
Most recent lower extremity ultrasound was dated 02/17/2025, new nonocclusive thrombus within the right common femoral and proximal femoral veins with occlusive thrombus in the mid/distal femoral vein.
Known history of chronic left femoral vein thrombus.
Hyponatremia -present on admission. Improved.
Recent spontaneous right-sided hemothorax -noted January 20, 2025. Managed with chest tube placement 01/20, removed 01/28. Fluid analysis negative for malignancy. Anticoagulation was briefly interrupted. Attempt at IVC filter by IR but unsuccessful.
Acute anemia, normocytic - Transfused 1u PRBC 03/05. Hemoglobin 7.8 this morning, repeat pending for 12:00. I asked nursing to set her up more before the blood draw, rule out supine anemia.
Essential hypertension -currently n.p.o., NG tube in place. Blood pressure elevated likely due to pain, inability to give oral meds. Was on metoprolol succinate 25 mg daily.
Currently on IV Lopressor 5 mg every 6 hours [id number].
Hyperlipidemia -atorvastatin.
History of breast cancer (2013) -lumpectomy, radiation.
History of ovarian cancer
History of stroke -May 2024.
DNR
Anticipated Discharge: > 48 hours
Subjective/Interval History
-
Date of Service: March 08, 2025
Patient seen and examined. Complaining of throat pain from NG tube. Denies abdominal pain.
Objective Data
-
Labs:
Laboratory Results
03/08/25 03/08/25
07:00 12:00
WBC 15.3 H Pending
Hgb 7.8 L Pending
Hct 24.6 L Pending
Plt Count 456 H Pending
Vital Signs:
Vital Signs
Temp Pulse Resp BP Pulse Ox
97.8 F 100 16 148/77 98
03/08/25 07:03 03/08/25 07:03 03/08/25 07:03 03/08/25 07:03 03/08/25 07:03
I&O
03/07/25 03/08/25 03/09/25
06:59 06:59 06:59
Intake Total 120 / 120 530 / 530
Output Total 125 / 125 500 / 500 100 / 100
Balance -125 / -125 -380 / -380 430 / 430
Review of Systems
-
History Source: Patient
All other systems: Reviewed and negative
--- NOTE | 2025-03-08 14:15 | PTCARENOTE ---
Per Dr. Anderson's instruction, NGT was clamped @08:05, check residual @14:00 and if less 150mls and no bloating or nausea, NGT may be pulled out; residual only 25mls, patient denied bloating and nausea, NGT removed @14:15.
[2025-03-08 14:36] LABS: % Basophils 0.2 % (0-2); % Eosinophils 0.2 % (0-6); % Immature Granulocytes 1.1 % (0-0.5); % Monocytes 4.9 % (1.7-9.3); % Neutrophils 88.6 % (42.2-75.2); Absolute Immature Granulocytes 0.1 10^3/uL (0-0.05); Absolute Lymphocytes 0.5 10^3/uL (1.2-3.4); Absolute Monocytes 0.5 10^3/uL (0.1-0.6); Absolute Neutrophils 9.5 10^3/uL (1.4-6.5); Hematocrit 36.8 % (37.0-47.0); Hemoglobin 11.5 g/dL (12.0-16.0); Mean Corp Hgb Conc. 31.3 g/dL (33.0-37.0); Mean Corpuscular Volume 83.1 fL (81.0-99.0); Mean Platelet Volume 8.9 fL (7.4-10.4); Nucleated Red Blood Cells % 0 %; Platelet Count 412 10^3/uL (130-400); Red Blood Cell Count 4.43 10^6/uL (4.20-5.40); Red Cell Dist. Width 16.4 % (11.5-14.5); White Blood Cell Count 10.7 10^3/uL (4.8-10.8)
[2025-03-08] MEDS: LOVENOX 40 MG SC (17:22)
--- NOTE | 2025-03-08 19:24 | CONS.URO ---
Consultation
-
Performing Provider: Celinefer
Reason for Consultation: Urinary retention
Medical History
History of Present Illness
80F with large pelvic gynecologic mass
POD s/p 3 Robotic TLH BSO, extensive SAHRA, repair of enterotomies due to small bowel involvement
pathology so far appears benign
In the course of post op care was found to have urinary retention and mathis catheter was required to be replaced
patient did not herself note an inability to void
She has had ileus and NGT which were just recently removed
Not yet ambulatory
Starting to pass flatus and have ROBF
She has no prior urologic history and no past issues with urinary retention
There was no suspicion for injury during the operation
Past Medical History
Past Medical History: Other (Breast cancer status post lumpectomy, ovarian cancer), HTN and Other (Factor V Leiden, DVT, PE)
Past Surgical History: Bowel Resection and Other (Lumpectomy)
Social History
Tobacco: Non-smoker
Alcohol: None
Drug: None
Family History
Family History: Reviewed & Not Pertinent
Allergies/Home Medications
Allergies
Allergy/AdvReac Type Severity Reaction Status Date / Time
adhesive Allergy Redness, Verified 03/05/25 12:53
Itching
erythromycin base Allergy Nausea Verified 03/05/25 12:53
Home Medications
�Medication �Instructions �Recorded �Confirmed �Type
atorvastatin 40 mg tablet 40 mg PO HS High Cholesterol 01/18/25 03/05/25 History
enoxaparin 60 mg/0.6 mL 60 mg (0.6 mL) SC Q12 DVTs 30 days 02/26/25 03/05/25 Rx
subcutaneous syringe #36 mL
metoprolol succinate 25 mg 25 mg PO DAILY Blood pressure 30 02/26/25 03/05/25 Rx
tablet,extended release 24 hr days #30 tabs
sennosides 8.6 mg tablet (Cassidy-stacia) 17.2 mg (2 x 8.6 mg) PO NOON 02/26/25 03/05/25 Rx
Constipation 30 days #60 tabs
acetaminophen 325 mg tablet 500 mg PO Q4HPRN PRN mild pain 03/05/25 03/05/25 History
Physical Exam
Vital Signs
Vital Signs
Temp Pulse Resp BP Pulse Ox
98.8 F 98 14 171/72 97
03/08/25 15:00 03/08/25 15:45 03/08/25 15:45 03/08/25 17:22 03/08/25 15:00
Lab / Testing Results
Laboratory Results
03/08/25 13:53
03/07/25 07:13
Physical Exam
General: Well Developed, Well Nourished and No Apparent Distress
GI: Soft and Non Tender
Neuro: AO x 3
Psych: Calm and Intact Judgement
Assessment / Plan
-
80F with post operative urinary retention following
excision of massive abdominopelvic mass, robotic DICK/BSO with repair of enterotomies
- Urinary retention is common in the acute setting and associated with major surgery, anesthesia, pain medications, immobility, etc
- Repeat trial of void when patient is ambulatory, tolerating a regular diet, moving bowels regularly, and nearing discharge
- Please reach out if further attempts at trial of void are not successful
[2025-03-09] MEDS: INVANZ 60 MG IV (00:04)
[2025-03-09 03:48] VITALS: BP 172/85
[2025-03-09] MEDS: LOPRESSOR 5 MG IV (06:02)
[2025-03-09 07:23] VITALS: BP 180/76
[2025-03-09] MEDS: LOVENOX 60 MG SC ×2 (09:11→19:39)
--- NOTE | 2025-03-09 10:45 | W.PN.HOSP.TC ---
Today's Communication/Plan
-
Out of bed to chair
Await CBC
DC IV Lopressor
Toprol XL
Assessment / Plan
Assessment / Plan
Gen-AAOx3, NAD
HEENT-NC, AT, anicteric, clear oral mm
Neck-supple
CV-reg, no M, +S1/S2
Lungs-clear B/L
Abd-soft, NT, ND
Ext-no edema
Musculoskeletal-no cyanosis, clubbing
Skin-warm and dry
Neuro-grossly non-focal
Psych-calm, cooperative
Left pelvic mass, small bowel injury -stable postoperative situation, underwent diagnostic laparoscopy, repair of enterotomy x 4, SAHRA 03/05/25. Path report pending.
Clear liquid diet started. NG tube removed.
Empiric IV ertapenem per surgical service due to abdominal contamination during surgery. Leukocytosis improving.
Awaiting return of bowel function. Abdominal x-ray from 03/07 shows mildly distended loops of small bowel. Ileus versus incomplete obstruction.
Acute postoperative urinary retention -likely due to multiple factors including limited mobility, pain, analgesics, constipation, etc.
Ramirez catheter in place. Anticipate removal prior to discharge.
History of multiple VTE/factor V Leiden -full dose Lovenox resumed 03/08. Can change to Eliquis prior to discharge.
Most recent events were noted on CT chest dated February 19, 2025. Findings of multiple filling defects within the right lower lobe segmental pulmonary arteries consistent with pulmonary emboli. No evidence of right heart strain.
Most recent lower extremity ultrasound was dated 02/17/2025, new nonocclusive thrombus within the right common femoral and proximal femoral veins with occlusive thrombus in the mid/distal femoral vein.
Known history of chronic left femoral vein thrombus.
Hyponatremia -present on admission. Improved.
Recent spontaneous right-sided hemothorax -noted January 20, 2025. Managed with chest tube placement 01/20, removed 01/28. Fluid analysis negative for malignancy. Anticoagulation was briefly interrupted. Attempt at IVC filter by IR but unsuccessful.
Acute anemia, normocytic - Transfused 1u PRBC 03/05. Hemoglobin 11.5 yesterday on repeat. CBC pending for today.
Essential hypertension -DC IV Lopressor, resume Toprol-XL 25 mg daily.
Hyperlipidemia -atorvastatin.
History of breast cancer (2013) -lumpectomy, radiation.
History of ovarian cancer
History of stroke -May 2024.
DNR
PT/OT
Updated daughter at the bedside.
Anticipated Discharge: > 48 hours
Subjective/Interval History
-
Date of Service: March 09, 2025
Patient seen and examined. Denies abdominal pain. Concerned about urinary retention.
Objective Data
-
Labs:
Laboratory Results
03/09/25
10:36
WBC Pending
Hgb Pending
Hct Pending
Plt Count Pending
Vital Signs:
Vital Signs
Temp Pulse Resp BP Pulse Ox
98.4 F 95 16 180/76 97
03/09/25 07:23 03/09/25 07:23 03/09/25 07:23 03/09/25 07:23 03/09/25 07:23
I&O
03/08/25 03/09/25 03/10/25
06:59 06:59 06:59
Intake Total 120 / 120 1540 / 1540
Output Total 500 / 500 950 / 950
Balance -380 / -380 590 / 590
Review of Systems
-
History Source: Patient
All other systems: Reviewed and negative
[2025-03-09 10:59] LABS: % Basophils 0.2 % (0-2); % Eosinophils 0.7 % (0-6); % Immature Granulocytes 0.9 % (0-0.5); % Monocytes 7.6 % (1.7-9.3); % Neutrophils 82.6 % (42.2-75.2); Absolute Eosinophils 0.1 10^3/uL (0-0.7); Absolute Immature Granulocytes 0.1 10^3/uL (0-0.05); Absolute Monocytes 0.9 10^3/uL (0.1-0.6); Absolute Neutrophils 9.9 10^3/uL (1.4-6.5); Hematocrit 24.5 % (37.0-47.0); Hemoglobin 7.8 g/dL (12.0-16.0); Mean Corp Hgb Conc. 31.8 g/dL (33.0-37.0); Mean Corpuscular Hgb 26.1 pg (27.0-31.0); Mean Corpuscular Volume 81.9 fL (81.0-99.0); Mean Platelet Volume 8.9 fL (7.4-10.4); Nucleated Red Blood Cells % 0 %; Platelet Count 514 10^3/uL (130-400); Red Blood Cell Count 2.99 10^6/uL (4.20-5.40); Red Cell Dist. Width 16.6 % (11.5-14.5)
[2025-03-09 11:10] VITALS: BP 195/84
[2025-03-09] MEDS: TOPROL XL 25 MG PO (11:20)
--- NOTE | 2025-03-09 11:38 | W.PN.CRS1 ---
Today's Communication / Plan
-
Trial of clears
Assessment/Plan
-
80-year-old female with PMH of breast cancer s/p lumpectomy, HTN, HLD, factor V Leiden complicated by DVT with recent hospitalization for pelvic mass complicated by thoracic and abdominal bleeding, managed nonoperatively with chest tube, who
presents for elective surgery
POD #4 robotic hysterectomy, intraoperative consult for repair of enterotomies x 4
Afebrile, Hypertensive with tachycardia
Leukocytosis trended down from yesterday AM labs, H/H stable at 7.8
NGT out since 03/08 without n/v. Passing flatus.
� Trial of clears
- IVF until tolerating PO
- HTN management as per hospitalist team
� Pain control with Tylenol, Toradol and Dilaudid as needed
� Continue IV ertapenem for 7 days due to intraoperative contamination
� Continue DVT PPx with Lovenox
� OOB/IS
� Care per Dr. Krause
� Appreciate hospitalist
Subjective Data
Procedure
03/06/2025 Robotic TLH BSO, Partial omentectomy, extesnive lysis of adhesions (Dr. Krause)
Robotic assisted laparoscopic repair of multiple enterotomies (Dr Kelby Anderson)
Subjective Data
Date of Service: March 09, 2025
Patient seen and examined at bedside with Dr. Garcia. Denies n/v. Sore throat but improving. Minimal abdominal pain. Passing flatus.
Objective Data
-
Vital Signs
Temp Pulse Resp BP Pulse Ox
98.4 F 103 17 195/84 97
03/09/25 11:10 03/09/25 11:20 03/09/25 11:10 03/09/25 11:20 03/09/25 11:10
Intake & Output
03/08/25 03/09/25 03/10/25
06:59 06:59 06:59
Intake Total 120 / 120 1540 / 1540
Output Total 500 / 500 950 / 950
Balance -380 / -380 590 / 590
Intake:
IV fluids (Total) 1440 / 1440
IV piggybacks 100 / 100
Amount instilled into GI Tube ( 120 / 120
Total)
[place] Sump 120 / 120
Output:
Gastrointestinal tube output ( 500 / 500 25 / 25
Total)
[place] Sump 500 / 500 / 25
Urine, Ramirez 925 / 925
Lab Results
03/09/25 10:36
03/07/25 07:13
Physical Exam
-
General: No Acute Distress and AOx3
HEENT: Grossly Normal
Abdomen: Soft, Non Distended, Tender (Appropriately tender near incisions) and Other (Incisions well-approximated without erythema or drainage, Dermabond in place)
Skin: Warm and Dry
Wound: No Signs of Infection and No Skin Erythema
[2025-03-09] MEDS: TORADOL 15 MG IV (14:03)
[2025-03-09] MEDS: NSS 1000 IV (14:52)
[2025-03-09 15:40] VITALS: BP 175/90
--- NOTE | 2025-03-09 15:48 | W.PN.GYNONC ---
Today's Communication
-
repeat Hgb
Impression / Plan
-
Pelvic mass- Status post definitive resection, pathology so far appears to be benign in nature. Complicated by extensive involvement of small bowel and unavoidable enterotomy now status post repair.
Discussed with the patient that postop return of bowel function remains the primary concern
marcia diet ok
Sinus tachycardia�po long ating cb connor started
.��
Bowel: advance as tolerated
Bladder/urinary retention: Sharp is replaced,
GI Prophylaxis: Pantoprazole��20mg qd
H/O DVT LLE-New RLE DVT/NEW PE: started lovenox BID
Pulmonary: Incentive spirometry��
History of right breast cancer, status post lumpectomy and XRT- OP Oncology follow up.��
Code Status:� DNR�
Subjective / Interval History
-
POD 4
Patient appears to be comfortable, she is in a chair, daughter present. She is passing flatus, she has not had a bowel movement. NG tube has been removed last night, she did not have any vomiting and tolerated liquids okay
Objective Data
-
Lab Results:
03/07/25 07:13
Physical Exam
Vital Signs / I&O
Vitals
Temp Pulse Resp BP Pulse Ox
98.7 F 98 16 175/90 97
03/09/25 15:40 03/09/25 15:40 03/09/25 15:40 03/09/25 15:40 03/09/25 15:40
I&O
03/07/25 03/08/25 03/09/25 03/10/25
06:59 06:59 06:59 06:59
Intake Total 120 / 120 1540 / 1540
Output Total 125 / 125 500 / 500 950 / 950 750 / 750
Balance -125 / -125 -380 / -380 590 / 590 -750 / -750
Physical Exam
GI: Soft, Non Tender, Non Distended and Normal Bowel Sounds
[2025-03-09 16:13] LABS: Hematocrit 24.2 % (37.0-47.0); Hemoglobin 7.7 g/dL (12.0-16.0)
[2025-03-09 19:05] VITALS: BP 205/95
[2025-03-09 23:08] VITALS: BP 184/84
[2025-03-10] MEDS: INVANZ 60 MG IV
[2025-03-10] MEDS: TOPROL XL 12.5 MG PO (00:32)
[2025-03-10 04:42] VITALS: BP 187/82
[2025-03-10 05:13] LABS: % Basophils 0.2 % (0-2); % Eosinophils 2.7 % (0-6); % Immature Granulocytes 1.3 % (0-0.5); % Lymphocytes 10.6 % (20.5-51.1); % Monocytes 9.2 % (1.7-9.3); Absolute Eosinophils 0.3 10^3/uL (0-0.7); Absolute Immature Granulocytes 0.1 10^3/uL (0-0.05); Absolute Lymphocytes 1.1 10^3/uL (1.2-3.4); Absolute Monocytes 0.9 10^3/uL (0.1-0.6); Absolute Neutrophils 7.5 10^3/uL (1.4-6.5); Hematocrit 24.2 % (37.0-47.0); Hemoglobin 7.7 g/dL (12.0-16.0); Mean Corp Hgb Conc. 31.8 g/dL (33.0-37.0); Mean Corpuscular Volume 81.8 fL (81.0-99.0); Mean Platelet Volume 8.9 fL (7.4-10.4); Nucleated Red Blood Cells % 0 %; Platelet Count 497 10^3/uL (130-400); Red Blood Cell Count 2.96 10^6/uL (4.20-5.40); Red Cell Dist. Width 16.5 % (11.5-14.5); White Blood Cell Count 9.9 10^3/uL (4.8-10.8)
[2025-03-10 05:33] LABS: ALT (SGPT) 16 U/L (0-35); AST (SGOT) 38 U/L (14-36); Albumin 1.4 g/dl (3.5-5.0); Alkaline Phosphatase 173 U/L (38-126); Blood Urea Nitrogen 9 mg/dl (7-17); Calcium 7.7 mg/dl (8.4-10.2); Carbon Dioxide 26 mmol/L (22-30); Chloride 106 mmol/L (98-107); Estimated Creatinine Clearance 72 ml/min; Glucose 104 mg/dl (70-99); Potassium 3.5 mmol/L (3.5-5.1); Sodium 136 mmol/L (135-145); Total Bilirubin 1.1 mg/dl (0.2-1.3); Total Protein 4.2 g/dl (6.3-8.2); eGFR > 60.00
[2025-03-10] MEDS: TOPROL XL 25 MG PO (05:59)
[2025-03-10] MEDS: LOVENOX 60 MG SC ×2 (08:05→19:50)
[2025-03-10 08:20] VITALS: BP 180/82
--- NOTE | 2025-03-10 09:13 | PTCARENOTE ---
Addendum entered by Jessica Gallardo RN 03/10/25 11:09:
spoke with Dr. Nova, would like to maintain pt on current dose of Lopressor (home dose). BP may be bladder and BM related. Will continue to monitor VS and outputs
Original Note:
820:notified Dr. Gant of pt's BP manual 180/82 Hr 84 after morning dose of Lopressor given on [facility] shift [facility] (05) with additional dose of 12.5mg Lopressor given o/n, d/t SBP 187. will await orders. No CP or dizziness
--- NOTE | 2025-03-10 10:32 | W.PN.GYNONC ---
Today's Communication
-
OOB,
dc IV fluids
dc mathis
ambulate with walker as much as tolerated
ok to shower
Impression / Plan
-
Pelvic mass- Status post definitive resection, pathology so far appears to be benign in nature. Complicated by extensive involvement of small bowel and unavoidable enterotomy now status post repair.
Discussed with the patient that postop return of bowel function remains the primary concern
marcia diet ok, advance to full liquids
saw patient ith Dr Garcia ([facility]) who agrees
Sinus tachycardia�po long ating cb connor started, consider dc telemetry
.��
Bowel: advance as tolerated
Bladder/urinary retention: Mathis is removed today, please avoid replacing, may need straight cath
GI Prophylaxis: Pantoprazole��20mg qd
H/O DVT LLE-New RLE DVT/NEW PE: started lovenox BID
Pulmonary: Incentive spirometry��
History of right breast cancer, status post lumpectomy and XRT- OP Oncology follow up.��
Code Status:� DNR�
Subjective / Interval History
-
marcia clears ok
afebrile
no pain, she is hungry
+ flatus, No BM
Objective Data
-
Lab Results:
03/10/25 04:51
03/10/25 04:51
Physical Exam
Vital Signs / I&O
Vitals
Temp Pulse Resp BP Pulse Ox
97.6 F 84 14 180/82 97
03/10/25 07:17 03/10/25 08:20 03/10/25 07:17 03/10/25 08:20 03/10/25 07:17
I&O
03/08/25 03/09/25 03/10/25 03/11/25
06:59 06:59 06:59 06:59
Intake Total 120 / 120 1540 / 1540 480 / 480
Output Total 500 / 500 950 / 950 1350 / 1350
Balance -380 / -380 590 / 590 -870 / -870
Physical Exam
General: Well Developed and No Apparent Distress
Respiratory: Clear
Cardiac: S1/S2 and Regular Rhythm
GI: Soft, Non Tender and Normal Bowel Sounds
Data Reviewed
-
Lab Data: Labs Reviewed
--- NOTE | 2025-03-10 11:04 | W.PN.HOSP.TC ---
Addendum entered and electronically signed by Tyrone Nova DO 03/10/25 12:07:
Brought to my attention that the blood pressures are being checked on the patient's leg. That explains the elevated pressures. Discussed with nurse to start checking pressures in the arms only.
Original Note:
Today's Communication/Plan
-
Encourage ambulation
Bladder scan protocol
Okay to DC telemetry
Assessment / Plan
Assessment / Plan
Gen-AAOx3, NAD
HEENT-NC, AT, anicteric, clear oral mm
Neck-supple
CV-reg, no M, +S1/S2
Lungs-clear B/L
Abd-soft, NT, ND
Ext-no edema
Musculoskeletal-no cyanosis, clubbing
Skin-warm and dry
Neuro-grossly non-focal
Psych-calm, cooperative
Left pelvic mass, small bowel injury -stable postoperative situation, underwent diagnostic laparoscopy, repair of enterotomy x 4, SAHRA 03/05/25. Path report pending. NG tube removed.
Diet advanced to full liquids. Encourage ambulation to help bowel motility.
Empiric IV ertapenem per surgical service due to abdominal contamination during surgery. Leukocytosis improving.
Awaiting return of bowel function. Abdominal x-ray from 03/07 shows mildly distended loops of small bowel. Ileus versus incomplete obstruction.
Acute postoperative urinary retention -likely due to multiple factors including limited mobility, pain, analgesics, constipation, etc.
Ramirez catheter removed this morning, bladder scan protocol ordered.
History of multiple VTE/factor V Leiden -full dose Lovenox resumed 03/08. Can change to Eliquis prior to discharge.
Most recent events were noted on CT chest dated February 19, 2025. Findings of multiple filling defects within the right lower lobe segmental pulmonary arteries consistent with pulmonary emboli. No evidence of right heart strain.
Most recent lower extremity ultrasound was dated 02/17/2025, new nonocclusive thrombus within the right common femoral and proximal femoral veins with occlusive thrombus in the mid/distal femoral vein.
Known history of chronic left femoral vein thrombus.
Hyponatremia -present on admission. Improved.
Recent spontaneous right-sided hemothorax -noted January 20, 2025. Managed with chest tube placement 01/20, removed 01/28. Fluid analysis negative for malignancy. Anticoagulation was briefly interrupted. Attempt at IVC filter by IR but unsuccessful.
Acute anemia, normocytic - Transfused 1u PRBC 03/05. Hemoglobin 11.5 yesterday on repeat. CBC pending for today.
Essential hypertension -continue Toprol XL 25 mg daily. Blood pressure remains high, suspect related to constipation, urinary retention. She denies pain. Would prefer to not make changes to Toprol XL at this time.
Hyperlipidemia -atorvastatin.
History of breast cancer (2013) -lumpectomy, radiation.
History of ovarian cancer
History of stroke -May 2024.
DNR
PT/OT -Home health recommended.
Updated daughter at the bedside.
Anticipated Discharge: 24 - 48 hours
Subjective/Interval History
-
Date of Service: March 10, 2025
Patient seen and examined. Denies pain. No bowel movement so far.
Objective Data
-
Labs:
Laboratory Results
03/10/25
04:51
WBC 9.9
Hgb 7.7 L
Hct 24.2 L
Plt Count 497 H
Sodium 136
Potassium 3.5
Chloride 106
Carbon Dioxide 26
BUN 9
Creatinine 0.4 L
Glucose 104 H
Calcium 7.7 L
Total Bilirubin 1.1
AST 38 H
ALT 16
Alkaline Phosphatase 173 H
Vital Signs:
Vital Signs
Temp Pulse Resp BP Pulse Ox
97.6 F 84 14 180/82 97
03/10/25 07:17 03/10/25 08:20 03/10/25 07:17 03/10/25 08:20 03/10/25 07:17
I&O
03/09/25 03/10/25 03/11/25
06:59 06:59 06:59
Intake Total 1540 / 1540 480 / 480
Output Total 950 / 950 1350 / 1350
Balance 590 / 590 -870 / -870
Review of Systems
-
History Source: Patient
All other systems: Reviewed and negative
[2025-03-10 11:25] LABS: Magnesium 1.7 mg/dl (1.6-2.3)
--- NOTE | 2025-03-10 11:29 | W.PN.CRS1 ---
Today's Communication / Plan
-
full liquids
d/c ivf/abx
Assessment/Plan
-
80-year-old female with PMH of breast cancer s/p lumpectomy, HTN, HLD, factor V Leiden complicated by DVT with recent hospitalization for pelvic mass complicated by thoracic and abdominal bleeding, managed nonoperatively with chest tube, who
presents for elective surgery
POD #5 robotic hysterectomy, intraoperative consult for repair of enterotomies x 4
Afebrile, Hypertensive with intermittent tachycardia
Leukocytosis resolved, h/h stable
Passing flatus/tolerating clears
� Advance to FLD
- d/c IVF
- HTN management as per hospitalist team
� Pain control with Tylenol, Tramadol as needed
� Ok to d/c Invanz, completed 5 day course
� Continue DVT PPx with Lovenox
� OOB/IS
Subjective Data
Procedure
03/06/2025 Robotic TLH BSO, Partial omentectomy, extesnive lysis of adhesions (Dr. Krause)
Robotic assisted laparoscopic repair of multiple enterotomies (Dr Kelby Anderson)
Subjective Data
Date of Service: March 10, 2025
Patient seen and examined at bedside with Salvador Garcia and Nelida. Denies n/v. Sore throat is improving now that NGT has been removed. Minimal discomfort. Passing a good amount of flatus but no BM as of yet.
Objective Data
-
Vital Signs
Temp Pulse Resp BP Pulse Ox
97.6 F 84 14 180/82 97
03/10/25 07:17 03/10/25 08:20 03/10/25 07:17 03/10/25 08:20 03/10/25 07:17
Intake & Output
03/09/25 03/10/25 03/11/25
06:59 06:59 06:59
Intake Total 1540 / 1540 480 / 480
Output Total 950 / 950 1350 / 1350
Balance 590 / 590 -870 / -870
Intake:
IV fluids (Total) 1440 / 1440 480 / 480
IV piggybacks 100 / 100
Output:
Gastrointestinal tube output (
Total)
Creston Sump
Urine, Ramirez 925 / 925 1350 / 1350
Lab Results
03/10/25 04:51
03/10/25 04:51
Physical Exam
-
General: No Acute Distress and AOx3
HEENT: Grossly Normal
Abdomen: Soft, Non Distended, Tender (Appropriately tender near incisions) and Other (Incisions well-approximated without erythema or drainage, Dermabond in place)
Skin: Warm and Dry
Wound: No Signs of Infection and No Skin Erythema
--- NOTE | 2025-03-10 12:16 | PTCARENOTE ---
TT with Dr. Nova, lumpectomy was 15 yrs ago ok to use right arm for BP's, removing pink band.
[2025-03-10] MEDS: KCL 40 MEQ PO (12:24)
[2025-03-10 12:45] VITALS: BP 150/73
[2025-03-10 14:55] VITALS: BP 168/84
[2025-03-10 19:15] VITALS: BP 149/66
[2025-03-10 23:05] VITALS: BP 143/72
[2025-03-11] VITALS (8 sets, daily range): BP systolic 117–172; BP diastolic 66–89
--- NOTE | 2025-03-11 03:19 | PTCARENOTE ---
-pt mathis cath was pulled yesterday 6am it was inserted on the for retention she was st cath 17:30for BScan >400ml , I scanned her for 244cc , pt is angry and is refusing to get up to use the commode , ambulate to restroom or use bedpan .. I
educated her of st cath and she is expressing she will not get up and she just wants the mathis back in ..RUBBER INSULATOR made aware
--- NOTE | 2025-03-11 05:17 | PTCARENOTE ---
pt with behaviors refusing bladder scan, refusing all options to void ambulate to restroom, bedside commode, bedpan and incontinent pads. Pt educated at length regarding UTI and other complications of voiding and bladder scan ''I do not want to get
out of bed and want the mathis back in''. HOSPITAL LIAISON was notified however nno as to reinsert mathis at this time.
[2025-03-11 05:27] LABS: % Basophils 0.3 % (0-2); % Immature Granulocytes 1.2 % (0-0.5); % Lymphocytes 10.3 % (20.5-51.1); % Monocytes 10.3 % (1.7-9.3); % Neutrophils 74.9 % (42.2-75.2); Absolute Eosinophils 0.3 10^3/uL (0-0.7); Absolute Immature Granulocytes 0.1 10^3/uL (0-0.05); Hematocrit 22.4 % (37.0-47.0); Hemoglobin 7.3 g/dL (12.0-16.0); Mean Corp Hgb Conc. 32.6 g/dL (33.0-37.0); Mean Corpuscular Hgb 26.6 pg (27.0-31.0); Mean Corpuscular Volume 81.8 fL (81.0-99.0); Mean Platelet Volume 9.2 fL (7.4-10.4); Nucleated Red Blood Cells % 0 %; Platelet Count 508 10^3/uL (130-400); Red Blood Cell Count 2.74 10^6/uL (4.20-5.40); Red Cell Dist. Width 16.8 % (11.5-14.5); White Blood Cell Count 9.3 10^3/uL (4.8-10.8)
--- NOTE | 2025-03-11 06:19 | W.PN.GYNONC ---
Today's Communication
-
continue attempts at restoring her voiding ability
ambulate
Impression / Plan
-
Pelvic mass- Status post definitive resection, pathology so far appears to be benign in nature. Complicated by extensive involvement of small bowel and unavoidable enterotomy now status post repair.
marcia full liquids ok
Anemia: Hgb stable at 7-8 range
Sinus tachycardia�po long ating cb connor started, consider dc telemetry
.��
Bowel: advance as tolerated
Bladder/urinary retention: Sharp is removed needed straight cath, etiology of retention is unclear, but suspect deconditioning
GI Prophylaxis: Pantoprazole��20mg qd
H/O DVT LLE-New RLE DVT/NEW PE: started lovenox BID
Pulmonary: Incentive spirometry��
History of right breast cancer, status post lumpectomy and XRT- OP Oncology follow up.��
Code Status:� DNR�
Subjective / Interval History
-
slept well, denies any new issues
spent a lot of time in chair yesterday
Objective Data
-
Lab Results:
03/11/25 05:15
03/10/25 04:51
Physical Exam
Vital Signs / I&O
Vitals
Temp Pulse Resp BP Pulse Ox
98.1 F 100 16 143/67 96
03/11/25 03:05 03/11/25 03:05 03/11/25 03:05 03/11/25 03:05 03/11/25 03:05
I&O
03/08/25 03/09/25 03/10/25 03/11/25
06:59 06:59 06:59 06:59
Intake Total 120 / 120 1540 / 1540 480 / 480 2120 / 2120
Output Total 500 / 500 950 / 950 1350 / 1350 390 / 390
Balance -380 / -380 590 / 590 -870 / -870 1730 / 1730
Physical Exam
General: No Apparent Distress
HEENT: Moist Mucous Membranes
Respiratory: Clear and Non Labored Respirations
Cardiac: S1/S2 and Regular Rhythm
GI: Soft, Non Distended and Normal Bowel Sounds
[2025-03-11] MEDS: LOVENOX 60 MG SC ×2 (08:51→20:28)
[2025-03-11] MEDS: TOPROL XL 25 MG PO (08:51)
--- NOTE | 2025-03-11 08:57 | W.PN.CRS1 ---
Today's Communication / Plan
-
as below
Assessment/Plan
-
80-year-old female with PMH of breast cancer s/p lumpectomy, HTN, HLD, factor V Leiden complicated by DVT with recent hospitalization for pelvic mass complicated by thoracic and abdominal bleeding, managed nonoperatively with chest tube, who
presents for elective surgery
POD 6 robotic hysterectomy, intraoperative consult for repair of enterotomies x 4
Tmax 100.3, HR 80s�100s, normotensive
WBC 9.3 from 9.9, Hb 7.3 from 7.7
� Okay to advance to regular diet
� Pain control with Toradol and Dilaudid as needed
� Continue IV ertapenem for 7 days due to intraoperative contamination
�Continue therapeutic Lovenox
� OOB/IS
� Care per Dr. Krause
� Appreciate hospitalist; colorectal to sign off; please call for any questions or concerns
Subjective Data
Procedure
03/06/2025 Robotic TLH BSO, Partial omentectomy, extesnive lysis of adhesions (Dr. Krause)
Robotic assisted laparoscopic repair of multiple enterotomies (Dr Kelby Anderson)
Subjective Data
Date of Service: March 11, 2025
No overnight events.
Pain controlled.
Denies nausea/vomiting. Tolerating full liquid diet.
+flatus +BMs (first BM since surgery overnight). On voiding trial, no void yet.
Pt is OOB.
Objective Data
-
Vital Signs
Temp Pulse Resp BP Pulse Ox
99.1 F 113 16 172/89 95
03/11/25 07:10 03/11/25 08:51 03/11/25 07:10 03/11/25 08:51 03/11/25 07:10
Intake & Output
03/10/25 03/11/25 03/12/25
06:59 06:59 06:59
Intake Total 480 / 480 2119
Output Total 1350 / 1350 390 / 390
Balance -870 / -870 1729 / 1729
Intake:
Oral fluids 2119
IV fluids (Total) 480 / 480
Output:
Urine, Ramirez 1350 / 1350
Straight cath output 390 / 390
Lab Results
03/11/25 05:15
03/10/25 04:51
Physical Exam
-
General: No Acute Distress and AOx3
HEENT: Grossly Normal
Abdomen: Soft, Non Distended, Tender (Appropriately tender near incisions), No Guarding and No Rebound
Skin: Warm and Dry
Incision: Clear, Dry, Intact, No Skin Erythema and Other (Covered with Dermabond)
[2025-03-11] MEDS: FLOMAX 0.8 MG PO (11:08)
--- NOTE | 2025-03-11 12:25 | CM ---
Cm reviewed medical records. Plan for discharge to home with home health when medically ready.
PLAN: home with HH
--- NOTE | 2025-03-11 14:09 | W.PN.HOSP.TC ---
Today's Communication/Plan
-
monitor for urinary retention
1 U prbc ordered
Assessment / Plan
Assessment / Plan
Left pelvic mass
Inra-op small bowel injury
stable postoperative situation, underwent diagnostic laparoscopy, repair of enterotomy x 4, SAHRA 03/05/25. Path report pending. NG tube removed.
Patient was on empiric IV ertapenem for concern of bacterial peritonitis, this has been discontinued
Patient has been started regular diet and has been tolerating without any problems. Patient had a bowel movement today
Acute postoperative urinary retention
likely due to multiple factors including limited mobility, pain, analgesics, constipation, etc.
Ramirez catheter discontinued and patient being monitored for bowel function recovery
History of multiple VTE/factor V Leiden
-full dose Lovenox resumed 03/08. Can change to Eliquis prior to discharge.
Most recent events were noted on CT chest dated February 19, 2025. Findings of multiple filling defects within the right lower lobe segmental pulmonary arteries consistent with pulmonary emboli. No evidence of right heart strain.
Most recent lower extremity ultrasound was dated 02/17/2025, new nonocclusive thrombus within the right common femoral and proximal femoral veins with occlusive thrombus in the mid/distal femoral vein.
Known history of chronic left femoral vein thrombus.
Hyponatremia -present on admission. Improved.
Recent spontaneous right-sided hemothorax
-noted January 20, 2025. Managed with chest tube placement 01/20, removed 01/28. Fluid analysis negative for malignancy. Anticoagulation was briefly interrupted. Attempt at IVC filter by IR but unsuccessful.
Acute anemia, normocytic
- Hemoglobin drifting down again and 7.3 today, providing 1 unit of PRBC
Essential hypertension -Uncontrolled
-Patient already on Toprol-XL 25 mg daily, added Procardia 30mg/d to regimen
Hyperlipidemia -atorvastatin.
History of breast cancer (2013) -lumpectomy, radiation.
History of ovarian cancer
History of stroke -May 2024.
DNR
PT/OT -Home health recommended.
case discussed with onc captain fire prevention bureau surgeon
Anticipated Discharge: 24 - 48 hours
Subjective/Interval History
-
Date of Service: March 11, 2025
Denies any abdominal pain/nausea/vomiting
Ramirez catheter regimen removed in the morning
Patient is having bowel movements
No other reported problems
Objective Data
-
Labs:
Laboratory Results
03/11/25
05:15
WBC 9.3
Hgb 7.3 L
Hct 22.4 L
Plt Count 508 H
Vital Signs:
Vital Signs
Temp Pulse Resp BP Pulse Ox
98.0 F 104 16 168/81 99
03/11/25 11:36 03/11/25 11:36 03/11/25 11:36 03/11/25 11:36 03/11/25 11:36
I&O
03/10/25 03/11/25 03/12/25
06:59 06:59 06:59
Intake Total 480 / 480 2120 / 2120
Output Total 1350 / 1350 390 / 390
Balance -870 / -870 1730 / 1730
Review of Systems
-
Respiratory: Reports No Symptoms
Cardiac: Reports No Symptoms
Abdomen/GI: Reports No Symptoms
Physical Exam
-
General: No Apparent Distress and Comfortable
HEENT: Negative Oxygen
GI: Soft, Nontender, Nondistended and Normal Bowel Sounds
Musculoskeletal: No Edema
Neuro: Awake, Alert, Oriented, No Motor Deficits and Nonfocal/Grossly Intact
Psych: Calm
[2025-03-11] MEDS: PROCARDIA XL (EXTENDED RELEASE) 30 MG PO (15:04)
--- NOTE | 2025-03-11 20:28 | VATNOTE ---
mADE pcn AWARE us REPORT + OCCLUSIVE THROMBUS L FOREARM ceph vein. Dr made aware per PCN order obtained OK to continue to use ML
--- NOTE | 2025-03-11 20:45 | PTCARENOTE ---
Blood product transfusion complete, pt tolerated well, VSS, resting comfortably call swift within reach. See TAR for details.
--- NOTE | 2025-03-11 20:45 | PTCARENOTE ---
Received pt at shift change, PRBC actively infusing. Received a call from VAT RN shortly after report stating pt with an occlusive thrombus in the LUE, the same extremity as her midline access. D/w covering JESENIA, okay to complete blood transfusion
through midline, order obtained for okay to use LUE midline for medications and lab draws.
[2025-03-12] VITALS (7 sets, daily range): BP systolic 114–142; BP diastolic 60–77; PULSE 107; O2SAT 98
--- NOTE | 2025-03-12 00:37 | W.PN.UPDATE ---
Update Note
Progress Note Update
ACUTE OCCLUSIVE THROMBOSIS of the LEFT CEPHALIC VEIN in the LEFT FOREARM noted on US of L arm due to swelling. Midline catheter above site of thrombosis and will not be removed. Lovenox 60 mg q12 H. Hx of factor 5 liden with hx of DVT/PE.
[2025-03-12] MEDS: TYLENOL 1000 MG PO ×2 (00:51→17:01)
--- NOTE | 2025-03-12 01:06 | PTCARENOTE ---
Pt DTV, without urine output since previous catheterization this afternoon. ~ 2230 Bladder scanned for 533mL, pt not agreeable to a straight cath at this time, refusing to get OOB to attempt to urinate in the bathroom, agreeable to a bed hernandez, bed
hernandez without success and no urine output.
~ 0030 pt continues without urine output, now agreeable to catheterization procedure. Straight cath performed with RN x2, 125mL dark red urine obtained on attempt #2, bladder scan still shows >600mL in the bladder but no further urine draining with
catheter in place.
D/w covering ASSOCIATE PROFESSOR OF PSYCHOLOGY, pt comfortable at this time, already ordered/received Flomax, reassess bladder scan ~ 0300.
--- NOTE | 2025-03-12 04:42 | PTCARENOTE ---
Repeat bladder scan for 835mL; pt requesting to utilize bedside commode, pt mildly incontinent upon standing and voided 175mL of abran colored urine in the bedside commode. Repeat bladder scanned post-void for 635mL. Pt refusing straight cath at
this time. Covering PHOTOGRAPH MOUNTER made aware.
[2025-03-12 05:23] LABS: Hemoglobin 9.9 g/dL (12.0-16.0); Mean Corpuscular Hgb 26.9 pg (27.0-31.0); Mean Corpuscular Volume 81.5 fL (81.0-99.0); Mean Platelet Volume 9.9 fL (7.4-10.4); Platelet Count 520 10^3/uL (130-400); Red Blood Cell Count 3.68 10^6/uL (4.20-5.40); Red Cell Dist. Width 15.9 % (11.5-14.5); White Blood Cell Count 10.8 10^3/uL (4.8-10.8)
[2025-03-12 05:52] LABS: Blood Urea Nitrogen 6 mg/dl (7-17); Calcium 7.8 mg/dl (8.4-10.2); Carbon Dioxide 26 mmol/L (22-30); Chloride 100 mmol/L (98-107); Estimated Creatinine Clearance 72 ml/min; Glucose 114 mg/dl (70-99); Potassium 3.7 mmol/L (3.5-5.1); Sodium 133 mmol/L (135-145); eGFR > 60.00
[2025-03-12] MEDS: LOVENOX 60 MG SC ×2 (09:11→19:53)
[2025-03-12] MEDS: FLOMAX 0.8 MG PO (09:11)
[2025-03-12] MEDS: PROCARDIA XL (EXTENDED RELEASE) 30 MG PO (09:11)
[2025-03-12] MEDS: TOPROL XL 25 MG PO (09:11)
--- NOTE | 2025-03-12 09:34 | W.PN.HOSP.TC ---
Today's Communication/Plan
-
see note
Assessment / Plan
Assessment / Plan
Left pelvic mass
Inra-op small bowel injury
stable postoperative situation, underwent diagnostic laparoscopy, repair of enterotomy x 4, SAHRA 03/05/25. Path report pending. NG tube removed.
Patient was on empiric IV ertapenem for concern of bacterial peritonitis, this has been discontinued
Patient has been started regular diet and has been tolerating without any problems. Patient had a bowel movement today
Acute postoperative urinary retention
likely due to multiple factors including limited mobility, pain, analgesics, constipation, etc.
Ramirez catheter has been removed at this point
Patient have been having urinary retention overnight with holding onto anywhere between 400 to 600 mL of urine, patient able to pass minimal urine
Given Flomax 0.8 mg daily
Discussed with primary surgeon and patient, will do repeat BMP check in afternoon and if any signs of renal failure will require Ramirez catheter to be replaced. Patient prefers Ramirez or straight catheterization at home
History of multiple VTE/factor V Leiden
Left superficial vein thrombosis -cephalic vein
Full dose Lovenox resumed 03/08. Can change to Eliquis prior to discharge.
Most recent events were noted on CT chest dated February 19, 2025. Findings of multiple filling defects within the right lower lobe segmental pulmonary arteries consistent with pulmonary emboli. No evidence of right heart strain.
Most recent lower extremity ultrasound was dated 02/17/2025, new nonocclusive thrombus within the right common femoral and proximal femoral veins with occlusive thrombus in the mid/distal femoral vein.
Known history of chronic left femoral vein thrombus.
Ultrasound left upper extremity showing cephalic vein thrombus. Already on treatment dose of Lovenox.
surg planning to inform primary salt refiner as well of the finding
Hyponatremia -present on admission. Improved.
Recent spontaneous right-sided hemothorax
-noted January 20, 2025. Managed with chest tube placement 01/20, removed 01/28. Fluid analysis negative for malignancy. Anticoagulation was briefly interrupted. Attempt at IVC filter by IR but unsuccessful.
Acute anemia, normocytic
- Hemoglobin drifting down again and 7.3 today, providing 1 unit of PRBC
Essential hypertension -Uncontrolled
-Patient already on Toprol-XL 25 mg daily, added Procardia 30mg/d to regimen
Hyperlipidemia -atorvastatin.
History of breast cancer (2013) -lumpectomy, radiation.
History of ovarian cancer
History of stroke -May 2024.
DNR
PT/OT -Home health recommended.
case discussed with onc seating and mobility technologist surgeon
case discussed with patient daughter at bedside
Anticipated Discharge: 24 - 48 hours
Subjective/Interval History
-
Date of Service: March 12, 2025
Patient resting comfortably in bed
Continues to have problem with urinary retention overnight
Have some palpitation with exertion, denies chest discomfort/dizziness
Objective Data
-
Labs:
Laboratory Results
03/12/25
04:39
WBC 10.8
Hgb 9.9 L D
Hct 30.0 L
Plt Count 520 H
Sodium 133 L
Potassium 3.7
Chloride 100
Carbon Dioxide 26
BUN 6 L
Creatinine 0.4 L
Glucose 114 H
Calcium 7.8 L
Vital Signs:
Vital Signs
Temp Pulse Resp BP Pulse Ox
98.1 F 104 16 142/77 96
03/12/25 07:05 03/12/25 07:05 03/12/25 07:05 03/12/25 07:05 03/12/25 07:05
I&O
03/11/25 03/12/25 03/13/25
06:59 06:59 06:59
Intake Total 2120 / 2120 970 / 970
Output Total 390 / 390 500 / 500
Balance 1730 / 1730 470 / 470
Review of Systems
-
Respiratory: Reports No Symptoms
Cardiac: Reports Palpitations (exertional)
Abdomen/GI: Reports No Symptoms
Genitourinary: Denies Dysuria or Frequency
Physical Exam
-
General: No Apparent Distress and Comfortable
HEENT: Negative Oxygen
GI: Soft, Nontender, Nondistended and Normal Bowel Sounds
Musculoskeletal: No Edema
Neuro: Awake, Alert, Oriented, No Motor Deficits and Nonfocal/Grossly Intact
Psych: Calm
--- NOTE | 2025-03-12 10:03 | W.PN.GYNONC ---
Today's Communication
-
N/A
Impression / Plan
-
Pelvic mass- Status post definitive resection, pathology so far appears to be benign in nature.
GI: Complicated by extensive involvement of small bowel and unavoidable enterotomy now status post repair.
just was advanced to regular diet
Anemia: Hgb stable at 7-8 range, received 1 u prbc, hgb 9.9
Sinus tachycardia�po long acting cb connor started, consider dc telemetry
Bladder/urinary retention: Sharp is removed needed straight cath, etiology of retention is unclear, but suspect deconditioning. I will ask urology if they can teach straight cath
GI Prophylaxis: Pantoprazole��20mg qd
H/O DVT LLE-New RLE DVT/NEW PE: started lovenox BID, new cephalic vein DVT
Pulmonary: Incentive spirometry��
History of right breast cancer, status post lumpectomy and XRT- OP Oncology follow up.��
Code Status:� DNR�
Subjective / Interval History
-
POD 8
she has tolerated transition of diet well so far, has had 2 BM over last 24 hrs
started to feel the bladder, voids for 100 cc but has significant residuals
Objective Data
-
Lab Results:
03/12/25 04:39
Physical Exam
Vital Signs / I&O
Vitals
Temp Pulse Resp BP Pulse Ox
98.1 F 104 16 142/77 96
03/12/25 07:05 03/12/25 07:05 03/12/25 07:05 03/12/25 07:05 03/12/25 07:05
I&O
03/10/25 03/11/25 03/12/25 03/13/25
06:59 06:59 06:59 06:59
Intake Total 480 / 480 2120 / 2120 970 / 970
Output Total 1350 / 1350 390 / 390 500 / 500
Balance -870 / -870 1730 / 1730 470 / 470
Physical Exam
General: No Apparent Distress
Respiratory: Clear and Non Labored Respirations
Cardiac: S1/S2 and Regular Rhythm
GI: Soft, Non Tender and Non Distended
--- NOTE | 2025-03-12 10:49 | CM ---
Cm met with patient and daughter in room. Patient may have a mathis on discharge pending urology. Patient is agreeable to [facility] for care. TONIA updated [facility] Admission RN.
PLAN: home with [facility].
--- NOTE | 2025-03-12 11:50 | W.PN.UPDATE ---
Update Note
Progress Note Update
Asked by Dr. Krause to see patient re: recurrent clots, now w/ superficial forearm clot after IV attempts.
Currently on Lovenox 1mg/kg bid. She was on Eliquis for years prior to admission, 5mg BID.
Would continue Lovenox while hospitalized, resume Eliquis 5mg bid at discharge.
Outpatient f/u with Dr. Sanders.
[2025-03-12 15:37] LABS: Blood Urea Nitrogen 8 mg/dl (7-17); Calcium 7.9 mg/dl (8.4-10.2); Carbon Dioxide 27 mmol/L (22-30); Chloride 99 mmol/L (98-107); Estimated Creatinine Clearance 72 ml/min; Glucose 118 mg/dl (70-99); Potassium 3.9 mmol/L (3.5-5.1); Sodium 133 mmol/L (135-145); eGFR > 60.00
--- NOTE | 2025-03-12 15:56 | PTCARENOTE ---
Patient voiding 50-100ml at a time. Patient was bladder scanned for 590. Physician made aware, order obtained to place mathis. Patient and daughter updated with plan of care. Patient verbalized understanding.
[2025-03-13 03:30] VITALS: BP 146/62
[2025-03-13 05:25] LABS: Mean Corp Hgb Conc. 33.3 g/dL (33.0-37.0); Mean Corpuscular Hgb 27.3 pg (27.0-31.0); Mean Platelet Volume 9.7 fL (7.4-10.4); Platelet Count 513 10^3/uL (130-400); Red Blood Cell Count 3.66 10^6/uL (4.20-5.40); Red Cell Dist. Width 15.9 % (11.5-14.5); White Blood Cell Count 9.6 10^3/uL (4.8-10.8)
[2025-03-13 05:45] LABS: Blood Urea Nitrogen 6 mg/dl (7-17); Calcium 7.8 mg/dl (8.4-10.2); Carbon Dioxide 29 mmol/L (22-30); Chloride 101 mmol/L (98-107); Estimated Creatinine Clearance 72 ml/min; Glucose 86 mg/dl (70-99); Potassium 4.1 mmol/L (3.5-5.1); Sodium 136 mmol/L (135-145); eGFR > 60.00
--- NOTE | 2025-03-13 06:35 | W.PN.GYNONC ---
Addendum entered and electronically signed by Dov Krause MD 03/13/25 16:25:
patient was seen this pm again
she looks well
i reviewed her situation with hospitalist, and colorectal surgery
she has met all milestomes for recovery
plan for dc home now
will ask case management to get home VNA and PT
restart therapeutic eiliquis 5 mg po BID
will keep on antihypertensive meds procardia and metoprolol
mathis will remain in place and will ask her to follow up with urology eventually for trial of void
follow up with me in 2 weeks
Dov Krause
Original Note:
Today's Communication
-
start discharge planning
ok to resume eliquis at time of discharge 5 mg po BID
Impression / Plan
-
Pelvic mass- Status post definitive resection, pathology so far appears to be benign in nature.
GI: Complicated by extensive involvement of small bowel and unavoidable enterotomy now status post repair.
now marcia regular diet
Anemia: Hgb stable at 7-8 range, received 1 u prbc, hgb 9.9, today is 10.
Sinus tachycardia�resolved on B connor
Bladder/urinary retention: Mathis is replaced, likely to be dealt with post op as outpatient for removal
GI Prophylaxis: Pantoprazole��20mg qd
H/O DVT LLE-New RLE DVT/NEW PE: started lovenox BID, new cephalic vein DVT
Pulmonary: Incentive spirometry��
History of right breast cancer, status post lumpectomy and XRT- OP Oncology follow up.��
Code Status:� DNR�
Subjective / Interval History
-
POD 9
she looks well
mathis was replaced
marcia diet ok
Objective Data
-
Lab Results:
03/13/25 04:38
03/13/25 04:38
Physical Exam
Vital Signs / I&O
Vitals
Temp Pulse Resp BP Pulse Ox
97.7 F 98 18 146/62 98
03/13/25 03:30 03/13/25 03:30 03/13/25 03:30 03/13/25 03:30 03/13/25 03:30
I&O
03/10/25 03/11/25 03/12/25 03/13/25
06:59 06:59 06:59 06:59
Intake Total 480 / 480 2120 / 2120 970 / 970 840 / 840
Output Total 1350 / 1350 390 / 390 500 / 500 1900 / 1900
Balance -870 / -870 1730 / 1730 470 / 470 -1060 / -1060
Physical Exam
General: No Apparent Distress
HEENT: Normocephalic and Moist Mucous Membranes
Respiratory: Clear and Non Labored Respirations
Cardiac: S1/S2 and Regular Rhythm
GI: Soft, Non Tender, Non Distended and Normal Bowel Sounds
[2025-03-13 07:10] VITALS: BP 138/65
[2025-03-13] MEDS: TOPROL XL 25 MG PO (08:13)
[2025-03-13] MEDS: FLOMAX 0.8 MG PO (08:13)
[2025-03-13] MEDS: LOVENOX 60 MG SC (08:13)
[2025-03-13] MEDS: PROCARDIA XL (EXTENDED RELEASE) 30 MG PO (08:13)
[2025-03-13 11:34] VITALS: BP 122/76; PULSE 111; PULSE 150; O2SAT 96
--- NOTE | 2025-03-13 13:46 | W.PN.HOSP.TC ---
Addendum entered and electronically signed by Girish Hooker MD 03/13/25 16:41:
Informed by RN that pharmacy contacted that Procardia is not covered by insurance
Procardia prescription canceled and losartan 50mg/d script sent instead
Original Note:
Today's Communication/Plan
-
discharge planning , medically appropriate
PT recommends HH
Eliquis from [facility]
f/u with urology in office for mathis managment
Assessment / Plan
Assessment / Plan
Left pelvic mass
Inra-op small bowel injury
stable postoperative situation, underwent diagnostic laparoscopy, repair of enterotomy x 4, SAHRA 03/05/25. Path report pending. NG tube removed.
Patient was on empiric IV ertapenem for concern of bacterial peritonitis, this has been discontinued
Patient has been started regular diet and has been tolerating without any problems. Patient had a bowel movement today
Acute postoperative urinary retention
likely due to multiple factors including limited mobility, pain, analgesics, constipation, etc.
Mathis catheter has been removed at this point
Patient continued to have urinary retention and required Mathis catheter to be replaced
Patient will need to follow-up with urology in the office
History of multiple VTE/factor V Leiden
Left superficial vein thrombosis -cephalic vein
Full dose Lovenox resumed 03/08. Can change to Eliquis prior to discharge.
Most recent events were noted on CT chest dated February 19, 2025. Findings of multiple filling defects within the right lower lobe segmental pulmonary arteries consistent with pulmonary emboli. No evidence of right heart strain.
Most recent lower extremity ultrasound was dated 02/17/2025, new nonocclusive thrombus within the right common femoral and proximal femoral veins with occlusive thrombus in the mid/distal femoral vein.
Known history of chronic left femoral vein thrombus.
Ultrasound left upper extremity showing cephalic vein thrombus. Already on treatment dose of Lovenox.
Starting patient on Eliquis 5 mg twice daily from [facility]
Hyponatremia -present on admission. Improved.
Recent spontaneous right-sided hemothorax
-noted January 20, 2025. Managed with chest tube placement 01/20, removed 01/28. Fluid analysis negative for malignancy. Anticoagulation was briefly interrupted. Attempt at IVC filter by IR but unsuccessful.
Acute anemia, normocytic
- Hemoglobin drifting down again and 7.3 today, providing 1 unit of PRBC
Essential hypertension -Uncontrolled
- Increase dose of Toprol-XL 25 mg to twice daily
-Continue Procardia 30 mg/d
Hyperlipidemia -atorvastatin.
History of breast cancer (2013) -lumpectomy, radiation.
History of ovarian cancer
History of stroke -May 2024.
DNR
PT/OT -Home health recommended.
Anticipated Discharge: Within 24 hours
Subjective/Interval History
-
Date of Service: March 13, 2025
Having some abdominal discomfort
No nausea or vomiting
Remains to have exertional tachycardia, no chest pain/shortness of breath
Objective Data
-
Labs:
Laboratory Results
03/13/25
04:38
WBC 9.6
Hgb 10.0 L
Hct 30.0 L
Plt Count 513 H
Sodium 136
Potassium 4.1
Chloride 101
Carbon Dioxide 29
BUN 6 L
Creatinine 0.4 L
Glucose 86
Calcium 7.8 L
Vital Signs:
Vital Signs
Temp Pulse Resp BP Pulse Ox
98.5 F 110 20 138/65 96
03/13/25 07:10 03/13/25 08:13 03/13/25 07:10 03/13/25 08:13 03/13/25 08:59
I&O
03/12/25 03/13/25 03/14/25
06:59 06:59 06:59
Intake Total 970 / 970 840 / 840
Output Total 500 / 500 1900 / 190
Balance 470 / 470 -1060 / -1060
Review of Systems
-
Respiratory: Reports No Symptoms
Cardiac: Denies Chest Pain, Diaphoresis or Palpitations
Abdomen/GI: Reports No Symptoms
Physical Exam
-
General: No Apparent Distress and Comfortable
HEENT: Negative Oxygen
GI: Soft, Nontender and Nondistended
Musculoskeletal: No Edema
Neuro: Awake, Alert, Oriented, No Motor Deficits and Nonfocal/Grossly Intact
Psych: Calm
--- NOTE | 2025-03-13 14:59 | CM ---
Patient is medically ready for discharge to home. CM updated [facility].
PLAN: Home with [facility].
[2025-03-13 15:20] VITALS: BP 162/74
[2025-03-13 16:11] VITALS: BP 128/60
== END 2025-03-13 17:33 | disposition home health service (06) | DRG 742 ==
LOC: 2 SOUTH 12:20
PROVIDERS: Hospitalist; Surgery; ADMITTING PHYSICIAN Obstetrics & Gynecology Gynecologic Oncology; OTHER PHYSICIAN Internal Medicine; OTHER PHYSICIAN Urology
PROC: 0DNW4ZZ Release Peritoneum, Percutaneous Endoscopic Approach (ICD-10-PCS; 2025-03-05)
PROC: 0DQ84ZZ Repair Small Intestine, Percutaneous Endoscopic Approach (ICD-10-PCS; 2025-03-05)
PROC: 0UT24ZZ Resection of Bilateral Ovaries, Percutaneous Endoscopic Approach (ICD-10-PCS; 2025-03-05)
PROC: 0DNU4ZZ Release Omentum, Percutaneous Endoscopic Approach (ICD-10-PCS; 2025-03-05)
PROC: 0UT94ZZ Resection of Uterus, Percutaneous Endoscopic Approach (ICD-10-PCS; 2025-03-05)
PROC: 8E0W4CZ Robotic Assisted Procedure of Trunk Region, Percutaneous Endoscopic Approach (ICD-10-PCS; 2025-03-05)
PROC: 0UT74ZZ Resection of Bilateral Fallopian Tubes, Percutaneous Endoscopic Approach (ICD-10-PCS; 2025-03-05)
PROC: 0DBU4ZZ Excision of Omentum, Percutaneous Endoscopic Approach (ICD-10-PCS; 2025-03-05)
DX: N83.292 Other ovarian cyst, left side (principal); I26.99 Other pulmonary embolism without acute cor pulmonale; I82.220 Acute embolism and thrombosis of inferior vena cava; C56.9 Malignant neoplasm of unspecified ovary; E87.1 Hypo-osmolality and hyponatremia; K91.89 Other postprocedural complications and disorders of digestive system; K56.7 Ileus, unspecified; I82.612 Acute embolism and thrombosis of superficial veins of left upper extremity; I82.401 Acute embolism and thrombosis of unspecified deep veins of right lower extremity; R19.00 Intra-abdominal and pelvic swelling, mass and lump, unspecified site; Z66 Do not resuscitate; I10 Essential (primary) hypertension; E78.5 Hyperlipidemia, unspecified; E83.51 Hypocalcemia; E87.6 Hypokalemia; K66.0 Peritoneal adhesions (postprocedural) (postinfection); N73.6 Female pelvic peritoneal adhesions (postinfective); N83.9 Noninflammatory disorder of ovary, fallopian tube and broad ligament, unspecified; Z80.0 Family history of malignant neoplasm of digestive organs; Z85.3 Personal history of malignant neoplasm of breast; Z85.43 Personal history of malignant neoplasm of ovary
CPT/HCPCS: 88305; 88307; 88332; 71045; 74018; 80048; 80053; 83735; 85014; 85018; 85025; 85027; 86850; 86900; 86901; 86920; 88331; 88341; 88342; 93971; 97116; 97162; 97167; 97530; 97535; J1335; P9016

== ENCOUNTER → 2025-04-25 12:16 | Outpatient (REF) | payer MEDICARE, OTHER, SELFPAY ==
[2025-04-25 12:54] LABS: % Basophils 0.7 % (0-2); % Eosinophils 5.6 % (0-6); % Immature Granulocytes 0.2 % (0-0.5); % Lymphocytes 37.5 % (20.5-51.1); % Monocytes 13.2 % (1.7-9.3); % Neutrophils 42.8 % (42.2-75.2); Absolute Eosinophils 0.3 10^3/uL (0-0.7); Absolute Lymphocytes 1.7 10^3/uL (1.2-3.4); Absolute Monocytes 0.6 10^3/uL (0.1-0.6); Hematocrit 39.3 % (37.0-47.0); Hemoglobin 12.4 g/dL (12.0-16.0); Mean Corp Hgb Conc. 31.6 g/dL (33.0-37.0); Mean Corpuscular Hgb 26.4 pg (27.0-31.0); Mean Corpuscular Volume 83.8 fL (81.0-99.0); Mean Platelet Volume 10.2 fL (7.4-10.4); Nucleated Red Blood Cells % 0 %; Platelet Count 338 10^3/uL (130-400); Red Blood Cell Count 4.69 10^6/uL (4.20-5.40); Red Cell Dist. Width 16.3 % (11.5-14.5); White Blood Cell Count 4.6 10^3/uL (4.8-10.8)
[2025-04-25 13:26] LABS: ALT (SGPT) 15 U/L (0-35); AST (SGOT) 27 U/L (14-36); Alkaline Phosphatase 82 U/L (38-126); Blood Urea Nitrogen 13 mg/dl (7-17); Calcium 9.9 mg/dl (8.4-10.2); Carbon Dioxide 26 mmol/L (22-30); Chloride 106 mmol/L (98-107); Glucose 107 mg/dl (70-99); Potassium 4.7 mmol/L (3.5-5.1); Sodium 136 mmol/L (135-145); Total Bilirubin 0.7 mg/dl (0.2-1.3); Total Protein 6.9 g/dl (6.3-8.2); eGFR > 60.00
== END ==
LOC: REG 12:16
PROVIDERS: ATTENDING PHYSICIAN Internal Medicine
DX: D64.9 Anemia, unspecified (principal); E78.5 Hyperlipidemia, unspecified
CPT/HCPCS: 36415; 80053; 85025